=== PATIENT | female | born 1975 | race Caucasian/White ===

== ENCOUNTER → 2017-11-09 | Outpatient (CLI) | payer OTHER ==
[2017-11-09 13:05] LABS: BLOOD UREA NITROGEN 14 mg/dl (7-18); CALCIUM 8.8 mg/dl (8.5-10.1); CARBON DIOXIDE 26 mmol/L (21-32); CREATININE 0.89 mg/dl (0.60-1.20); GLUCOSE 101 mg/dl (70-99); SODIUM 139 mmol/L (136-145)
[2017-11-09 13:16] LABS: CHOLESTEROL 198 mg/dl (0-200); LDL CHOLESTEROL CALCULATED 140 mg/dl
== END | disposition home or self-care (01) ==
LOC: C.LABPVFM 09:22
PROVIDERS: ATTEND Nurse Practitioner Family
DX: F41.9 Anxiety disorder, unspecified (principal); I10 Essential (primary) hypertension

== ENCOUNTER → 2017-11-18 | Outpatient (CLI) | payer OTHER ==
--- NOTE | 2017-11-18 15:57 | DIAGNOSTIC IMAGING REPORT ---
ULTRASOUND ABDOMINAL WALL CLINICAL HISTORY: Abdominal wall bulge. FINDINGS: Real-time, grayscale, and color flow sonography of the abdominal wall is performed. There is diastases of the rectus abdominis musculature with approximately 7.5 cm separation on stress. There is associated protuberance of abdominal contents. A heterogeneous vascular mass lesion is identified in the right adnexa. This measures approximately 13 x 10 x 13 cm. IMPRESSION: 1. There is diastases of the rectus abdominis musculature with bulging/protuberance of abdominal contents with stress. 2. A 13 cm adnexal mass is incidentally noted, possibly related to the ovary. Neoplasm is the diagnosis of exclusion. Follow-up with a contrast-enhanced CT of the abdomen and pelvis is recommended for further assessment. Electronically signed by: Elder Lizarraga M.D. 11/18/2017 3:56 PM Dictated Date/Time: 11/18/2017 3:53 PM
== END | disposition home or self-care (01) ==
LOC: C.ULTR 15:25
PROVIDERS: ATTEND Nurse Practitioner Family
DX: R19.00 Intra-abdominal and pelvic swelling, mass and lump, unspecified site (principal)

== ENCOUNTER → 2017-11-24 | Outpatient (CLI) | payer OTHER ==
[~2017-11-24] MED LIST: OPTIRAY 320 IV PRN
--- NOTE | 2017-11-24 17:11 | DIAGNOSTIC IMAGING REPORT ---
CT OF THE ABDOMEN AND PELVIS WITH CONTRAST CLINICAL HISTORY: Adnexal mass. COMPARISON STUDY: Abdominal ultrasound November 18, 2017. TECHNIQUE: Following IV administration of 94 mL of Optiray-320, axial images of the abdomen and pelvis were obtained from the lung bases to the proximal femurs. Images were reviewed in the axial, sagittal, and coronal planes. IV contrast was administered without complication. A dose lowering technique was utilized adhering to the principles of ALARA. Oral contrast was administered. CT DOSE: 382.07 mGy.cm FINDINGS: Visualized portions of the lower lungs demonstrate multiple small noncalcified pulmonary nodules, the largest of which is a 5 mm left lower lobe nodule shown image 7 of 421. There is fatty infiltration of the liver. No hepatic lesions are present. The spleen, adrenal glands and pancreas are normal. Several bilateral renal calculi are noted, including a 7 mm right renal calculus. There is mild right collecting system dilatation. There are no ureteral calculi. The caliber of the right ureter is normal. There is no evidence for a bowel obstruction. The caliber and wall thickness of small and large bowel are normal. The appendix is normal. There is no ascites. No peritoneal implants are noted. There is a large heterogeneous enhancing right adnexal mass that measures 14.6 x 13.8 x 10.8 cm. This lesion contains several punctate calcifications. This corresponds to the lesion shown on prior ultrasound. The right ovary is visualized. This lesion is adjacent to or arising from the right ovary. The left ovary is unremarkable. There is no fat plane between this lesion and the uterus although this lesion displaces right arises from the uterus. There are no suspicious osseous lesions. No pneumatosis, free air or portal venous gas is present. IMPRESSION: 1. 14.6 x 13.8 x 10.8 cm heterogeneous enhancing right adnexal mass. Right ovary visualized with no fat plane between the adnexal mass and the right ovary. A right ovarian neoplasm is the diagnosis of exclusion and gynecologic consultation is recommended as the findings are suggestive of malignancy. A pedunculated fibroid/leiomyosarcoma could appear similar although is considered much less likely. 2. Multiple small pulmonary nodules within visualized portions of the lower lungs which are nonspecific but worrisome for metastatic disease. A follow-up chest CT is recommended. 3. Mild right collecting system dilatation of uncertain etiology. This may be related to mass effect upon the right ureter however the caliber of the right ureter is normal. 4. Bilateral nephrolithiasis. No ureteral calculi. 5. Fatty liver. Electronically signed by: Junior Grider M.D. 11/24/2017 5:10 PM Dictated Date/Time: 11/24/2017 4:46 PM
== END | disposition home or self-care (01) ==
LOC: C.CTS 15:43
PROVIDERS: ATTEND Nurse Practitioner Family
DX: N94.9 Unspecified condition associated with female genital organs and menstrual cycle (principal); R19.09 Other intra-abdominal and pelvic swelling, mass and lump; R91.8 Other nonspecific abnormal finding of lung field; N20.0 Calculus of kidney; K76.0 Fatty (change of) liver, not elsewhere classified

== ENCOUNTER → 2017-12-03 | Outpatient (CLI) | payer OTHER ==
--- NOTE | 2017-12-03 09:23 | DIAGNOSTIC IMAGING REPORT ---
CHEST 2 VIEWS ROUTINE HISTORY: Preop. COMPARISON: None. FINDINGS: The lungs are clear. Cardiac silhouette is normal in size. No pleural effusions. No pneumothorax. IMPRESSION: No acute process. Electronically signed by: Juan Hammer M.D. 12/03/2017 9:22 AM Dictated Date/Time: 12/03/2017 9:21 AM
[2017-12-03 09:35] LABS: HEMATOCRIT 42.9 % (37-47); HEMOGLOBIN 14.5 g/dL (12.0-16.0); MEAN CELL VOLUME 93.1 fL (80-100); MEAN CORPUSCULAR HEMOGLOBIN 31.5 pg (25-34); MEAN CORPUSCULAR HGB CONC 33.8 g/dl (32-36); MEAN PLATELET VOLUME 10.2 fL (7.4-10.4); PLATELET COUNT 276 K/uL (130-400); RED CELL DISTRIBUTION WIDTH CV 12.8 % (11.5-14.5); RED CELL DISTRIBUTION WIDTH SD 43.4 fL (36.4-46.3)
[2017-12-03 09:58] LABS: ALBUMIN 3.7 gm/dl (3.4-5.0); ALT/SGPT 83 U/L (12-78); AST/SGOT 34 U/L (15-37); BLOOD UREA NITROGEN 13 mg/dl (7-18); CALCIUM 8.9 mg/dl (8.5-10.1); CARBON DIOXIDE 27 mmol/L (21-32); CREATININE 0.88 mg/dl (0.60-1.20); GLUCOSE 97 mg/dl (70-99); POTASSIUM 4.3 mmol/L (3.5-5.1); SODIUM 139 mmol/L (136-145)
[2017-12-03 10:01] LABS: ALKALINE PHOSPHATASE 85 U/L (45-117)
== END | disposition home or self-care (01) ==
LOC: C.CPL 08:40
PROVIDERS: ATTEND Obstetrics & Gynecology Gynecologic Oncology
DX: Z01.818 Encounter for other preprocedural examination (principal); R19.00 Intra-abdominal and pelvic swelling, mass and lump, unspecified site

== ENCOUNTER → 2017-12-31 | Outpatient (CLI) | payer OTHER ==
--- NOTE | 2017-12-31 08:32 | DIAGNOSTIC IMAGING REPORT ---
CT (CHEST) THORAX WITH CT DOSE: 639.92 mGy.cm HISTORY: Mass ABD MALIGNANT NEOPLASM,LEIOMYOSARCOMA OF RETROPERI TECHNIQUE: Multiaxial CT images of the chest were performed following the intravenous administration of contrast. A dose lowering technique was utilized adhering to the principles of ALARA. COMPARISON: None. FINDINGS: Several bilateral parenchymal nodules are present. There is a 2.5 mm parenchymal nodule posterior right pulmonary apex image 60. There is a 3 mm nodule left upper lobe posteriorly transaxial image 86 a 2 mm nodule is noted image 1:15 anterior to the right major fissure. There is a 3 mm nodule medial aspect right lower lobe as well as medially anterior to the left major fissure image 134. There are several small 3 to 5 mm nodular densities involving the right as well as left lower lobe regions. There are 4 mm nodule peripheral aspect right lung image 177 the same imaging level demonstrating a 4 mm nodule medial aspect left lower lobe. Several additional basilar nodules are identified bilaterally but these do not exceed 3.5 mm. There is no significant hilar or mediastinal adenopathy. Axillary regions are unremarkable. IMPRESSION: 1. Several small 2 to 5 mm nodular densities throughout both hemithoraces. 2. Study is otherwise unremarkable. 3. No significant mediastinal or hilar adenopathy. 4. Mild fatty infiltration of liver. 5. Close monitoring is suggested to exclude the possibility of early metastatic change. The above report was generated using voice recognition software. It may contain grammatical, syntax or spelling errors. Electronically signed by: Oc Cheung M.D. 12/31/2017 8:30 AM Dictated Date/Time: 12/31/2017 8:24 AM
--- NOTE | 2017-12-31 08:35 | DIAGNOSTIC IMAGING REPORT ---
CT ABD/PELVIS IV AND ORAL CONT CLINICAL HISTORY: Retroperitoneal leiomyosarcoma. COMPARISON STUDY: 11/24/2017 TECHNIQUE: Following the IV administration of 93 mL of Optiray-320, CT scan of the abdomen and pelvis was performed from the lung bases to the proximal femurs. Images are reviewed in the axial, sagittal, and coronal planes. IV contrast was administered without complication. A dose lowering technique was utilized adhering to the principles of ALARA. CT DOSE: FINDINGS: Lower chest: There are multiple bilateral pulmonary nodules. These appear larger on the prior study indicative of progressive metastatic disease. Liver: There is hepatic steatosis. No focal hepatic masses are visualized. Gallbladder: Unremarkable. Spleen: Normal in size and attenuation. Pancreas: Unremarkable. Adrenal glands: Unremarkable. Kidneys: There is a 5 mm calculus within the right renal pelvis. There is mild fullness the right renal pelvis and there is mild proximal right ureteral thickening. No solid renal masses are visualized. Bowel: There are no transition zones indicate bowel obstruction. There is no acute diverticulitis. The appendix appears normal. There is minimal fluid surrounding the cecal tip. Peritoneum: There is trace fluid within the right paracolic gutter. There is no free intraperitoneal air. Vasculature: The abdominal aorta is normal in course and caliber. Adenopathy: There are minimally prominent inguinal lymph nodes. Pelvic sidewall lymph nodes are the upper limits of normal in size. Pelvic viscera: There is been interval resection of the large pelvic mass. There is a 4 cm pelvic fluid collection located anterior to the rectum and posterior to the bladder. This is likely postsurgical. It is not possible to determine whether this is infected. Skeletal structures: No destructive osseous lesions are seen. IMPRESSION: 1. Interval hysterectomy with resection of the large pelvic mass 2. 4 cm pelvic fluid collection, likely postsurgical. Likely diagnostic considerations include a resolving postsurgical hematoma versus a postsurgical abscess 3. Multiple bilateral pulmonary nodules which appears slightly larger than the prior study. Metastatic disease is suspected 4. Hepatic steatosis 5. 5 mm calculus within the right renal pelvis. Mild thickening of the proximal right ureter. Minimal fullness the right renal collecting system. This calculus may be intermittently obstructing. Electronically signed by: Dinesh Iyer M.D. 12/31/2017 8:34 AM Dictated Date/Time: 12/31/2017 8:23 AM
== END | disposition home or self-care (01) ==
LOC: C.CTS 07:12
PROVIDERS: ATTEND Obstetrics & Gynecology Gynecologic Oncology
DX: C76.2 Malignant neoplasm of abdomen (principal); C48.0 Malignant neoplasm of retroperitoneum; R91.8 Other nonspecific abnormal finding of lung field; K76.0 Fatty (change of) liver, not elsewhere classified; N20.0 Calculus of kidney

== ENCOUNTER → 2018-04-09 | Outpatient (CLI) | payer OTHER ==
[~2018-04-09] MED LIST changes: +LISI-729 PO; -OPTIRAY 320 IV PRN
[2018-04-09 16:14] LABS: HEMATOCRIT 42.2 % (37-47); HEMOGLOBIN 14.2 g/dL (12.0-16.0); MEAN CELL VOLUME 90.4 fL (80-100); MEAN CORPUSCULAR HEMOGLOBIN 30.4 pg (25-34); MEAN CORPUSCULAR HGB CONC 33.6 g/dl (32-36); MEAN PLATELET VOLUME 10.8 fL (7.4-10.4); PLATELET COUNT 181 K/uL (130-400); RED CELL DISTRIBUTION WIDTH CV 13.1 % (11.5-14.5); RED CELL DISTRIBUTION WIDTH SD 43.2 fL (36.4-46.3); WHITE BLOOD COUNT 14.06 K/uL (4.8-10.8)
[2018-04-09 16:38] LABS: ALBUMIN 3.7 gm/dl (3.4-5.0); ALKALINE PHOSPHATASE 123 U/L (45-117); ALT/SGPT 37 U/L (12-78); AST/SGOT 13 U/L (15-37); BASO % 0.2 %; BASO ABS # 0.03 K/uL (0-0.2); BLOOD UREA NITROGEN 18 mg/dl (7-18); CALCIUM 8.9 mg/dl (8.5-10.1); CARBON DIOXIDE 29 mmol/L (21-32); CREATININE 0.93 mg/dl (0.60-1.20); EOS % 1.1 %; EOS ABS # 0.16 K/uL (0-0.5); GLUCOSE 138 mg/dl (70-99); IG# 0.62 K/uL (0.00-0.02); LYMPH % 15.5 %; LYMPH ABS # 2.18 K/uL (1.2-3.4); MONO % 0.3 %; MONO ABS # 0.04 K/uL (0.11-0.59); NEUT % 78.5 %; NEUT ABS # 11.03 K/uL (1.4-6.5); POTASSIUM 3.7 mmol/L (3.5-5.1); SODIUM 137 mmol/L (136-145); TOTAL PROTEIN 7.7 gm/dl (6.4-8.2)
== END | disposition home or self-care (01) ==
LOC: C.LABSPEC 15:53
PROVIDERS: ATTEND Nurse Practitioner Family
DX: C48.0 Malignant neoplasm of retroperitoneum (principal)

== ENCOUNTER 2019-04-13 10:50 | Inpatient (IN) ==
[2019-04-13] MEDS ORDERED: ALBUT/IPRATROP 3MG/0.5MG NEB 3 ML VIAL INH STA (11:33)
--- NOTE | 2019-04-13 12:23 | XRay Report ---
XR chest 1V portable CLINICAL HISTORY: shortness of breath COMPARISON STUDY: 04/02/2018 FINDINGS: The cardiac and mediastinal contours remain stable. There are bilateral pleural effusions.[ There is been interval development of left lower lobe airspace opacities, pneumonia versus atelectasi s.. There is slight elevation of interstitium and mild fluid overload must be considered. There is a left-sided A-Port catheter. IMPRESSION: 1. Elevation of interstitium suggestive of mild fluid overload 2. Interval development of bilateral pleural effusions 3. Interval development of left lower lung zone airspace opacities, pneumonia versus atelectasis Electronically signed by: Dinesh Iyer M.D. 04/13/2019 12:22 PM
[2019-04-13 12:41] LABS: Basophils # (auto) 0.01 K/uL (0-0.2); Basophils % (auto) 0.2 %; Eosinophils # (auto) 0.03 K/uL (0-0.5); Eosinophils % (auto) 0.6 %; Hematocrit (blood only) 38.5 % (37-47); Hemoglobin 12.2 g/dL (12.0-16.0); Immature Granulocytes # (auto) 0.09 K/uL (0.00-0.02); Immature Granulocytes % (auto) 1.7 %; Lymphocytes # (auto) 1.22 K/uL (1.2-3.4); Lymphocytes % (auto) 22.9 %; Mean Corpuscular Hgb Conc 31.7 g/dL (32-36); Mean Corpuscular Volume 104.6 fL (80-100); Mean Platelet Volume 10.1 fL (7.4-10.4); Monocytes # (auto) 0.91 K/uL (0.11-0.59); Monocytes % (auto) 17.1 %; Neutrophils # (auto) 3.07 K/uL (1.4-6.5); Neutrophils % (auto) 57.5 %; Nucleated RBC # (auto) 0.03 K/uL (0-0); Nucleated RBC % (auto) 0.5 %; Platelet Count 187 K/uL (130-400); RDW Coefficient of Variation 20.5 % (11.5-14.5); RDW Standard Deviation 72.6 fL (36.4-46.3); Red Blood Count 3.68 M/uL (4.2-5.4); White Blood Count 5.33 K/uL (4.8-10.8)
--- NOTE | 2019-04-13 12:51 | Emergency Department Note ---
History of Present Illness General Chief complaint: Shortness of Breath/Dyspnea Stated complaint: SHORTNESS OF BREATH Time Seen by Provider: 04/13/19 12:09 History of Present Illness Maximum Pain Intensity: 8 This patient is a 44-year-old female that presents via private vehicle to the em ergency department complaining of increased dyspnea over the last 2 days. It is worse with lying flat and exertion. It is better with sitting up and rest. She denies any chest pain. No recent fever, cough or chills. The patient is currently undergoing chemotherapy for history of leiomyosarcoma. She reports having a mass in her abdomen. She reports that due to the chemotherapy, the patient has had issues with fluid retention. She is currently taking Lasix 80 mg daily. No recent changes in her dose. The patient also reports a history of pulmonary embolus approximately 2 months ago. She has been taking Xarelto since. No recent travel. Denies any leg pain. Home Medications Home Medications Medication Instructions Recorded Confirmed Type albuterol sulfate [Ventolin HFA] 0 puff INHALATION DIRECTED PRN 04/13/19 04/13/19 History furosemide 80 mg PO DAILY 04/13/19 04/13/19 History gabapentin 300 mg PO DAILY 04/13/19 04/13/19 History lisinopril 5 mg PO DAILY 04/13/19 04/13/19 History rivaroxaban [Xarelto] 20 mg PO DAILY 04/13/19 04/13/19 History Allergies Allergy/AdvReac Type Severity Reaction Status Date / Time No Known Allergies Allergy Unverified 04/13/19 12:43 Past Med/Surg History Medical History Elevated troponin (Acute) History of pulmonary embolism (Chronic) Leiomyosarcoma (Chronic) Acute CHF (congestive heart failure) (Acute) Leiomyosarcoma Social History Preferred Language: Korean Feels Safe at Home: Yes Smoking Status: Former smoker Review of Systems A total of 10 systems reviewed and were otherwise negative Physical Exam Vital Signs Vital Signs - 24 hr 04/13/19 11:01 04/13/19 12:28 04/13/19 13:00 Temperature 36.6 C Temperature Source Oral Sepsis Recent Fever Within 48 Hours No Sepsis New/Unexplained Change in Mental Status No Sepsis Action Taken by Nursing No Action Required Pulse Rate 128 H 113 H Pulse Rate [Apical] 111 H Pulse Rate from SpO2 Sensor 110 H Respiratory Rate 20 22 20 Respiratory Effort / Characteristics Non-Labored Spontaneous Blood Pressure 115/81 109/81 Blood Pressure [Left Arm] 105/84 Blood Pressure Mean 92 90 Blood Pressure Mean [Left Arm] 91 Blood Pressure Position Sitting Pulse Oximetry 97 97 94 Oxygen Delivery Method Room Air Room Air Room Air 04/13/19 15:25 04/13/19 15:50 04/13/19 16:13 Temperature Temperature Source Sepsis Recent Fever Within 48 Hours Sepsis New/Unexplained Change in Mental Status Sepsis Action Taken by Nursing Pulse Rate Pulse Rate [Apical] 111 H 116 H Pulse Rate from SpO2 Sensor Respiratory Rate 18 Respiratory Effort / Characteristics Blood Pressure Blood Pressure [Left Arm] 118/80 107/81 93/79 L Blood Pressure Mean Blood Pressure Mean [Left Arm] 92 89 83 Blood Pressure Position Pulse Oximetry 98 Oxygen Delivery Method Room Air 04/13/19 17:09 04/13/19 18:00 Temperature Temperature Source Sepsis Recent Fever Within 48 Hours Sepsis New/Unexplained Change in Mental Status Sepsis Action Taken by Nursing Pulse Rate Pulse Rate [Apical] 121 H 102 H Pulse Rate from SpO2 Sensor Respiratory Rate 18 18 Respiratory Effort / Characteristics Blood Pressure Blood Pressure [Left Arm] 90/73 L 95/68 L Blood Pressure Mean Blood Pressure Mean [Left Arm] 78 77 Blood Pressure Position Pulse Oximetry 95 95 Oxygen Delivery Method Room Air Constitutional WD/WN, vitals as above Eyes EOM intact bilaterally ENMT external ear and nose normal, oropharynx normal Neck trachea midline Respiratory Crackles noted particularly at the left base. No wheezing. Cardiovascular RRR, no murmur, no edema Gastrointestinal (Abdomen) normal bowel sounds, soft, nontender, no hepatosplenomegaly Musculoskeletal +1 pitting edema in the lower extremities bilaterally. No erythema or warmth appreciated. DP pulse +2 bilaterally. Skin no rashes, warm and dry Neurologic Alert and oriented x3. No focal motor deficits. Psychiatric Acting appropriately Course Patient was seen and examined Vital signs including blood pressure were reviewed medications list was verified with patient Labs were obtained, and a saline lock was established The patient was put on a monitor. An EKG was performed and reviewed. Imaging was performed and reviewed Upon reassessment, the patient was feeling about the same. We discussed her work-up. She voiced understanding. The patient was ordered Lasix 80 mg IV The case was discussed with my supervising physician who is in agreement with my plan I then spoke with the [facility] hospitalist group. They kindly agreed to admit the patient for further treatment. Consultations Consultation #1: Dr. Gaitan Administered Medications Ioversol (Optiray 320 125ml) 120 ml IV ONCE PRN PRN Reason: Interaction Checking Stop: 04/17/19 13:51 Last Admin: 04/13/19 13:52 Dose: 120 ml Documented by: [id number] Discontinued Medications Albuterol (Duoneb) 3 ml INH NOW STA Stop: 04/13/19 11:34 Last Admin: 04/13/19 11:57 Dose: Not Given Documented by: [id number] Furosemide (Lasix) Confirm Administered Dose 80 mg IV .STK-MED ONE Stop: 04/13/19 15:05 Last Admin: 04/13/19 15:06 Dose: 80 mg Documented by: [id number] Furosemide 80 mg/ Syringe 8 mls @ 4 mls/min IV ONE ONE Stop: 04/13/19 14:11 Last Admin: 04/13/19 15:06 Dose: Not Given Documented by: [id number] Medical Decision Making Medical Records Attestation: I reviewed the patient's medical records. Home Medications Current Medication List: was personally reviewed by me Laboratory Data Attestation: I reviewed the patient's lab results. Result diagrams: 04/13/19 12:19 04/13/19 12:19 Lab Results 04/13/19 04/13/19 04/13/19 Range/Units 12:19 12:19 12:19 WBC 5.33 (4.8-10.8) K/uL RBC 3.68 L (4.2-5.4) M/uL Hgb 12.2 (12.0-16.0) g/dL Hct 38.5 (37-47) % MCV 104.6 H (80-100) fL MCH 33.2 (25-34) pg MCHC 31.7 L (32-36) g/dL RDW Std Deviation 72.6 H (36.4-46.3) fL RDW Coeff of Jennifer 20.5 H (11.5-14.5) % Plt Count 187 (130-400) K/uL MPV 10.1 (7.4-10.4) fL Immature Gran % (Auto) 1.7 % Neut % (Auto) 57.5 % Lymph % (Auto) 22.9 % Woodward % (Auto) 17.1 % Eos % (Auto) 0.6 % Baso % (Auto) 0.2 % Immature Gran # (Auto) 0.09 H (0.00-0.02) K/uL Neut # (Auto) 3.07 (1.4-6.5) K/uL Lymph # (Auto) 1.22 (1.2-3.4) K/uL Woodward # (Auto) 0.91 H (0.11-0.59) K/uL Eos # (Auto) 0.03 (0-0.5) K/uL Baso # (Auto) 0.01 (0-0.2) K/uL Absolute Nucleated RBC 0.03 H (0-0) K/uL Nucleated RBC % (auto) 0.5 % Polychromasia 1+ Anisocytosis Present PT 11.9 (9.0-12.0) Seconds INR 1.2 H (0.9-1.1) APTT 27.4 (21.0-31.0) Seconds PTT Ratio 1.0 Sodium 141 (136-145) mmol/L Potassium 3.7 (3.5-5.1) mmol/L Chloride 107 (98-107) mmol/L Carbon Dioxide 25 (21-32) mmol/L Anion Gap 9.0 (3-11) BUN 12 (7-18) mg/dl Creatinine 0.70 (0.6-1.2) mg/dl Est Cr Clr Drug Dosing 93.8 ml/min Est GFR ( Amer) 121.3 Est GFR (Non-Af Amer) 104.6 BUN/Creatinine Ratio 16.5 (10-20) Glucose 92 (70-99) mg/dl Calcium 8.6 (8.5-10.1) mg/dl Total Bilirubin 0.5 (0.2-1) mg/dl AST 38 H (15-37) U/L ALT 39 (12-78) U/L Alkaline Phosphatase 103 (45-117) U/L Troponin I 0.381 H* (0-0.045) ng/ml Total Protein 7.1 (6.4-8.2) gm/dl Albumin 3.4 (3.4-5.0) gm/dl Globulin 3.7 (2.5-4.0) gm/dl Albumin/Globulin Ratio 0.9 (0.9-2) Imaging Data Attestation: I personally reviewed and interpreted this imaging study as follows: Radiologist's Impression: Chest x-ray IMPRESSION: 1. Elevation of interstitium suggestive of mild fluid overload 2. Interval development of bilateral pleural effusions 3. Interval development of left lower lung zone airspace opacities, pneumonia versus atelectasis Electronically signed by: Dinesh Iyer M.D. 04/13/2019 12:22 PM Dictated: 04/13/19 1220 Transcribed: 04/13/19 1220 CTA chest 1. No evidence for pulmonary emboli. 2. Congestive heart failure/pulmonary edema. 3. Interval development of bilateral pleural effusions considered large. 4. Moderate cardiomegaly with a trace amount of pericardial fluid. 5. Stable parenchymal nodularity compared to the prior study within visibility limitations ECG Data Attestation: I personally reviewed and interpreted this ECG as follows: Indication: SOB/dyspnea Rate (beats per minute): 110 Rhythm: sinus tachycardia Additional Comments: Q waves present in the septal leads. Unable to visualize old EKG. Slight ST depression noted in the lateral leads. Blood Pressure Blood Pressure Findings: Normal blood pressure MDM Narrative Differential diagnosis: CHF exacerbation, pulmonary embolus, anemia, acute myocardial infarction, cardiac arrhythmia, , pneumothorax, pneumonia, bronchitis, pericarditis, electrolyte imbalance, among others This patient is a 44-year-old female presents emergency department with shortness of breath. On exam, she had decreased breath sounds bilaterally. She was tachycardic. The patient was not hypoxic. She has a history of pulmonary embolus and leiomyosarcoma. Her work-up reveals an elevated troponin. Her EKG did not show any signs of ischemia or infarction. Chest x-ray was consistent with likely CHF. CT was performed to ensure that there were no further pulmonary emboli. This shows large pleural effusions. No emboli were noted. Given the fact that the patient is already taking 80 mg of Lasix daily, and has remained symptomatic, it was thought that hospitalist consultation was warranted. The patient is in agreement with this plan. She was treated with Lasix in the emergency department. Her vital signs remained stable. Impression & Plan Acute CHF (congestive heart failure) Discharge Plan Visit Data Chief Complaint: Shortness of Breath/Dyspnea Stated Complaint: SHORTNESS OF BREATH ED Provider: Varun Bautista ED Midlevel Provider: Mariann Brown Discharge Problem: Acute CHF (congestive heart failure) Patient Disposition: Admitted As Inpatient Condition: Fair Forms Stand Alone Forms: [facility] Prescriptions Prescriptions: No Action furosemide 80 mg tablet 80 mg PO DAILY RF: 0 gabapentin 300 mg capsule 300 mg PO DAILY RF: 0 lisinopril 5 mg tablet 5 mg PO DAILY RF: 0 albuterol sulfate [Ventolin HFA] 90 mcg/actuation HFA aerosol inhaler inhalation DIRECTED PRN (Reason: Unknown) RF: 0 Xarelto 20 mg tablet 20 mg PO DAILY RF: 0 Referrals Referrals: Ritika Ly CRNP [Primary Care Provider] -
[2019-04-13 12:53] LABS: INR 1.2 (0.9-1.1); Partial Thromboplastin Time 27.4 Seconds (21.0-31.0); Prothrombin Time 11.9 Seconds (9.0-12.0)
[2019-04-13 13:04] LABS: Anisocytosis Present; Polychromasia 1+
[2019-04-13 13:08] LABS: Albumin Level 3.4 gm/dl (3.4-5.0); BUN Creatinine Ratio 16.5 (10-20); Calcium 8.6 mg/dl (8.5-10.1); Creatinine Clr Calc Pharmacy 93.8 ml/min; Est GFR (African American) 121.3; Est GFR (Non-African American) 104.6; Potassium 3.7 mmol/L (3.5-5.1)
[2019-04-13 13:20] LABS: Albumin Globulin Ratio 0.9 (0.9-2); Bilirubin,Total 0.5 mg/dl (0.2-1); Globulin 3.7 gm/dl (2.5-4.0); Total Protein 7.1 gm/dl (6.4-8.2); Troponin I 0.381 ng/ml (0-0.045)
[2019-04-13] MEDS ORDERED: OPTIRAY 320 125ml IV PRN (13:52)
--- NOTE | 2019-04-13 14:05 | CT Scan Report ---
CT angio chest PE protocol CT DOSE: 267.63 mGy.cm HISTORY: Dyspnea SOB hx PE bumped trop TECHNIQUE: Multiaxial CT images of the chest were performed following the intravenous administration of contrast to evaluate the pulmonary arteries. Maximal intensity projection images were also obtaine d. A dose lowering technique was utilized adhering to the principles of ALARA. COMPARISON STUDY: 01/27/2019 FINDINGS: Interval development of significant bilateral pleural effusions. The heart is enlarged. Pul monary vasculature is prominent. Increased prominence of the interstitium consistent with interstitia l pulmonary edema. Parenchymal nodularity which can be compared to the prior study is stable. Central catheter remains i n superior vena cava. IMPRESSION: 1. No evidence for pulmonary emboli. 2. Congestive heart failure/pulmonary edema. 3. Interval development of bilateral pleural effusions considered large. 4. Moderate cardiomegaly with a trace amount of pericardial fluid. 5. Stable parenchymal nodularity compared to the prior study within visibility limitations The above report was generated using voice recognition software. It may contain grammatical, syntax or spelling errors. Electronically signed by: Oc Cheung M.D. 04/13/2019 2:04 PM
[2019-04-13] MEDS ORDERED: FUROSEMIDE 80 MG in SYRINGE 0 ML IV ONE (14:10)
[2019-04-13] MEDS ORDERED: FUROSEMIDE 40 MG/4 ML VIAL IV ONE (15:04)
--- NOTE | 2019-04-13 16:58 | History & Physical Report ---
Date of Service April 13, 2019 Assessment & Plan (1) Acute CHF (congestive heart failure): Possible myocardial toxicity from chemotherapeutic agents. Telemetry. IV Lasix. Monitor urine output. Repeat cardiac echo. Cardiology consultation Present on Admission?: Yes (2) Elevated troponin: Telemetry. Trend troponin levels. Cardiac echo. Cardiology consultation. Serial EKGs Present on Admission?: Yes (3) Leiomyosarcoma: Actively receiving chemotherapy at the [facility] Present on Admission?: Yes (4) History of pulmonary embolism: Continue Xarelto therapy Present on Admission?: Yes History of Present Illness Chief Complaint: Shortness of breath with exertion, orthopnea, abdominal bloating Primary Care Provider: BOYD Watkins 44-year-old female with no previous cardiac history. 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 She believes she is getting gemcitabine as 1 of her chemotherapeutic agents but is unsure of the other one. This is apparently a clinical trial. She has noticed a several days of abdominal bloating, shortness of breath, dyspnea on exertion, orthopnea. She denies chest discomfort or palpitations. She presents with signs and symptoms of congestive heart failure. She has large bilateral pleural effusions. Troponin is also elevated but no acute changes on EKG which reveals sinus tachycardia and low voltage with nonspecific ST segment changes. Troponin is 0.381. Cardiac echo done last fall reveals normal ejection fraction with mild LVH. She is being diuresed with IV Lasix. Cardiac echo will be repeated. Cardiology consultation requested. Serial troponins ordered. Oral potassium replacement to prevent hypokalemia. She is not hypoxic on room air. Creatinine 0.7. Allergies Allergy/AdvReac Type Severity Reaction Status Date / Time No Known Allergies Allergy Unverified 04/13/19 12:43 Home Medications Home Medications Medication Instructions Recorded Confirmed Type albuterol sulfate [Ventolin HFA] 0 puff INHALATION DIRECTED PRN 04/13/19 04/13/19 History furosemide 80 mg PO DAILY 04/13/19 04/13/19 History gabapentin 300 mg PO DAILY 04/13/19 04/13/19 History lisinopril 5 mg PO DAILY 04/13/19 04/13/19 History rivaroxaban [Xarelto] 20 mg PO DAILY 04/13/19 04/13/19 History Past Med/Surg History Medical History Elevated troponin (Acute) History of pulmonary embolism (Chronic) Leiomyosarcoma (Chronic) Acute CHF (congestive heart failure) (Acute) Leiomyosarcoma Social History Preferred Language: [place] Feels Safe at Home: Yes Smoking Status: Former smoker Review of Systems Review of Systems: Constitutional-no fever or chills ENT-no blurred vision, no double vision, no epistaxis, no sore throat Respiratory-no cough, no wheezing. Shortness of breath at rest and with exertion. Orthopnea Cardiac-no palpitations, no chest pain, no syncope GI-no nausea, vomiting, diarrhea, melena, hematochezia. Abdominal bloating noted -no urinary retention, no urinary incontinence, no dysuria, no hematuria Musculoskeletal-no joint pain, no muscle tenderness Skin-no bruising, no rashes, no pruritus Neuro-no isolated weakness, no paresthesia, no weakness Psych-no depression, no anxiety Physical Exam Physical Exam: General-alert and oriented x3, no fevers, no chills HEENT-head atraumatic and normocephalic, TMs intact bilaterally, pupils equal and reactive to light, extraocular muscles intact Neck-no lymphadenopathy or thyromegaly, trachea midline Chest-clear to auscultation percussion. No rales wheezing or rhonchi Cardiac-regular rate and rhythm, normal S1 and S2, no murmurs Abdomen-normal bowel sounds, nontender, no hepatosplenomegaly Extremities-no cyanosis, clubbing, or edema Neuro-cranial nerves II through XII intact, motor and sensory function within normal limits, strength symmetrical , no focal deficits Psych-normal affect, normal mood Results & Data Vital Signs (Past 12 Hours) Vital Signs Temp Pulse Pulse Resp BP BP Pulse Ox 04/13/19 16:13 93/79 L 04/13/19 15:50 116 H 107/81 04/13/19 15:25 111 H 18 118/80 98 04/13/19 13:00 113 H 20 109/81 94 04/13/19 12:28 111 H 22 105/84 97 04/13/19 11:01 36.6 C 128 H 20 115/81 97 Laboratory Results 04/13/19 12:19 04/13/19 12:19 PG Care Time/CCT Total # of Minutes Spent Total Time Spent with Patient: Total time spent is greater than 50% in coordination of care (as documented) at patient's floor/unit and/or counseling patient:
[2019-04-13] MEDS ORDERED: ACETAMINOPHEN 325 MG TAB PO PRN (19:14)
[2019-04-13] MEDS ORDERED: ONDANSETRON INJ 2 MG/ML 2 ML VIAL IV PRN (19:14)
[2019-04-13] MEDS ORDERED: ALUMINUM/MAGNESIUM SUSP 30 ML UDC PO PRN (19:14)
[2019-04-13] MEDS ORDERED: Nursing to Pharmacy Communication ONE (19:53)
[2019-04-13 20:08] LABS: T4 Free Thyroxine 1.38 ng/dl (0.8-1.6)
[2019-04-13] MEDS ORDERED: POTASSIUM CHLORIDE 20 MEQ TABCR PO SCH (21:00)
[2019-04-13] MEDS: GABAPENTIN 300 MG CAP PO SCH (21:18)
[2019-04-14] MEDS: FUROSEMIDE 80 MG in SYRINGE 0 ML IV SCH ×2 (04:25→16:56)
[2019-04-14 06:18] LABS: Basophils # (auto) 0.01 K/uL (0-0.2); Basophils % (auto) 0.2 %; Eosinophils # (auto) 0.04 K/uL (0-0.5); Eosinophils % (auto) 0.8 %; Hematocrit (blood only) 37.5 % (37-47); Hemoglobin 11.7 g/dL (12.0-16.0); Immature Granulocytes # (auto) 0.06 K/uL (0.00-0.02); Immature Granulocytes % (auto) 1.2 %; Lymphocytes # (auto) 1.62 K/uL (1.2-3.4); Lymphocytes % (auto) 32.8 %; Mean Corpuscular Hgb Conc 31.2 g/dL (32-36); Mean Platelet Volume 10.2 fL (7.4-10.4); Monocytes # (auto) 1.28 K/uL (0.11-0.59); Monocytes % (auto) 25.9 %; Neutrophils # (auto) 1.93 K/uL (1.4-6.5); Neutrophils % (auto) 39.1 %; Nucleated RBC # (auto) 0.04 K/uL (0-0); Nucleated RBC % (auto) 0.8 %; Platelet Count 207 K/uL (130-400); RDW Coefficient of Variation 20.9 % (11.5-14.5); RDW Standard Deviation 77.7 fL (36.4-46.3); Red Blood Count 3.57 M/uL (4.2-5.4); White Blood Count 4.94 K/uL (4.8-10.8)
[2019-04-14 06:56] LABS: BUN Creatinine Ratio 16.9 (10-20); Calcium 8.4 mg/dl (8.5-10.1); Creatinine Clr Calc Pharmacy 82.9 ml/min; Est GFR (African American) 106.4; Est GFR (Non-African American) 91.8; Potassium 3.5 mmol/L (3.5-5.1)
[2019-04-14 07:15] LABS: Anisocytosis Present; Macrocytosis Present
[2019-04-14] MEDS ORDERED: POTASSIUM CHLORIDE 20 MEQ TABCR PO STA (08:15)
--- NOTE | 2019-04-14 08:42 | XRay Report ---
XR chest 1V portable HISTORY: pleural effusions COMPARISON: Chest CTA 04/13/2019. FINDINGS: No pneumothorax. Small right and moderate left pleural effusions are not significantly de la torre ged. Bibasilar densities persist. The heart remains borderline enlarged. Left subclavian Port-A-Cath terminates at the SVC. Mild interstitial pulmonary edema has improved. IMPRESSION: 1. Interval improvement in the mild interstitial pulmonary edema. 2. Bilateral pleural effusions and bibasilar densities persist. Electronically signed by: Juan Hammer M.D. 04/14/2019 8:40 AM
[2019-04-14] MEDS ORDERED: GABAPENTIN 300 MG CAP PO SCH (09:00)
[2019-04-14] MEDS ORDERED: LISINOPRIL 5 MG TAB PO SCH (09:00)
--- NOTE | 2019-04-14 12:04 | Hospitalist Progress Note ---
Date of Service April 14, 2019 Assessment & Plan (1) Acute CHF (congestive heart failure): Acute systolic CHF Admitted with orthopnea, dyspnea on exertion, and lower extremity edema. Found to have bilateral large pleural effusions on chest imaging, along with elevated proBNP at 7500. Echocardiogram from 05/2018 was within normal limits. Echocardiogram now with mildly reduced EF at 45%, paradoxical septal wall motion, and small pericardial effusion Possible myocardial toxicity from chemotherapeutic agents, specifically her docetaxel Improving with diuresis-continue Lasix 80 mg IV every 12 for this evening and will hold off in the morning until after reassess her labs and volume status -Appreciate cardiology consultation-awaiting further recommendations -Strict I's and O's, daily weights (2) Pleural effusion: With large bilateral pleural effusions which are improved today with IV diuresis Discussed case with management manager who did not recommend thoracentesis as this time as she is responding to diuresis and is clinically improved -Could be malignant pleural effusion versus from CHF versus chemotherapy effect? -Continue to follow chest x-ray -Following I's and O's (3) Pericardial effusion: Small, noted on echocardiogram, no tamponade physiology, however is mildly hypotensive and tachycardic, with low voltage on ECG -Will need to be followed serially with echocardiogram -Continue diuresis Appreciate cardiology consultation (4) Leiomyosarcoma: Actively receiving chemotherapy at the [facility] with gemcitabine, docetaxel, and a trial drug called Vorinostat which is improving Diagnosed in spring 2017 with a football sized retroperitoneal mass that was surgically but incompletely resected. Had metastases to the lung and had thoracotomy with wedge biopsy proving this. Also with metastases to the left side of her abdomen. -With pleural effusions here as above likely related to CHF, however could be malignant effusion -Will reach out to her oncologist tomorrow at [facility]-Dr. Salas (5) Sinus tachycardia: As above, possibly secondary to pericardial and pleural effusions -Follow on telemetry -will likely need to add on [id number] to cardiology for management (6) History of pulmonary embolism: Found incidentally on surveillance CT scans of the chest, but she had no symptoms whatsoever approximately 12/2017 -Continue Xarelto therapy-was held initially today in case of need for thoracentesis, but was given later in the day (7) Elevated troponin: Mildly elevated and decreased after admission at 0.3/0 0.1/0.113 Likely secondary to CHF -Not likely to need ischemic evaluation (8) DVT prophylaxis: Xarelto Disposition-remain on telemetry Subjective Patient reports feeling much improved from previous. She can now lie flat without dyspnea. She is still getting tachycardic into the 120s with walking across the room, but no longer feels short of breath with exertion. She reports that the swelling in her legs is significantly down from yesterday. She reports she has been having swelling in her legs and arms approximately the last 2 to 3 months. She started on her current chemotherapy regimen in September of this year which includes gemcitabine, docetaxel, and a trial drug called vorinostat. She was due for her chemo earlier this week but it was withheld due to neutropenia. Her usual chemotherapy schedule is 2 weeks on and 2 weeks off. She was receiving IV Lasix once weekly for each of the 2 weeks that she went in for her IV chemotherapy and then was taking p.o. Lasix at home intermittently. She was feels like the IV Lasix works much better than the p.o. Lasix. She denies chest pain or pressure, denies lightheadedness. She did have mildly low blood pressures this morning but was asymptomatic with it. Denies pain except for some mild occasional left-sided abdominal pain which is where her current metastases are. She reports that her chemotherapy is helping and that her tumors have shrunk by 75%. I discussed the case with both cardiology and the management manager today. The management manager reviewed her case to see if she needed a thoracentesis and did not feel it was necessary at this time. Telemetry with normal sinus rhythm and sinus tachycardia with rates in the 100s to 130s. Review of Systems Review of Systems: All systems reviewed & are unremarkable except as noted in HPI & below Physical Exam Constitutional: WD/WN, vitals as above Eyes: PERRL, conjunctivae normal, anicteric sclerae ENMT: external ear and nose normal, oropharynx normal Neck: trachea midline, no thyromegaly Respiratory: normal respiratory effort and + dullness to percussion (From the bases to the mid lungs bilaterally); no labored breathing Auscultation: + diminished lung sounds (At the bases bilaterally); no crackles, no rhonchi and no wheezes Cardiovascular: Rate/Rhythm: regular rhythm and + tachycardic Heart Sounds: no murmur Extremities: no calf tenderness and no edema Gastrointestinal (Abdomen): normal bowel sounds, soft, nontender, no hepatosplenomegaly Musculoskeletal: Extremities: extremities normal to inspection; no cyanosis and no clubbing Skin: no rashes, warm and dry Neurologic: moves all extremities and awake; no focal motor deficits Psychiatric: A+Ox3, euthymic affect Results & Data Vital Signs (Past 12 Hours) Vital Signs Temp Pulse Resp BP BP Pulse Ox 04/14/19 10:39 37.0 C 113 H 18 105/58 L 94 04/14/19 07:06 36.5 C 115 H 15 87/72 L 91 04/14/19 03:19 36.4 C L 106 H 16 88/63 L 93 Laboratory Results 04/14/19 04/14/19 04/14/19 Range/Units 14:27 05:56 05:56 WBC (4.8-10.8) K/uL RBC (4.2-5.4) M/uL Hgb (12.0-16.0) g/dL Hct (37-47) % MCV (80-100) fL MCH (25-34) pg MCHC (32-36) g/dL RDW Std Deviation (36.4-46.3) fL RDW Coeff of Jennifer (11.5-14.5) % Plt Count (130-400) K/uL MPV (7.4-10.4) fL Immature Gran % (Auto) % Neut % (Auto) % Lymph % (Auto) % [place] % (Auto) % Eos % (Auto) % Baso % (Auto) % Immature Gran # (Auto) (0.00-0.02) K/uL Neut # (Auto) (1.4-6.5) K/uL Lymph # (Auto) (1.2-3.4) K/uL [place] # (Auto) (0.11-0.59) K/uL Eos # (Auto) (0-0.5) K/uL Baso # (Auto) (0-0.2) K/uL Absolute Nucleated RBC (0-0) K/uL Nucleated RBC % (auto) % Anisocytosis Macrocytosis Sodium 141 (136-145) mmol/L Potassium 3.5 (3.5-5.1) mmol/L Chloride 106 (98-107) mmol/L Carbon Dioxide 26 (21-32) mmol/L Anion Gap 9.0 (3-11) BUN 13 (7-18) mg/dl Creatinine 0.78 (0.6-1.2) mg/dl Est Cr Clr Drug Dosing 82.9 ml/min Est GFR ( Amer) 106.4 Est GFR (Non-Af Amer) 91.8 BUN/Creatinine Ratio 16.9 (10-20) Glucose 103 H (70-99) mg/dl Calcium 8.4 L (8.5-10.1) mg/dl Troponin I 0.069 H* 0.113 H* (0-0.045) ng/ml 04/14/19 04/13/19 Range/Units 05:56 22:05 WBC 4.94 (4.8-10.8) K/uL RBC 3.57 L (4.2-5.4) M/uL Hgb 11.7 L (12.0-16.0) g/dL Hct 37.5 (37-47) % MCV 105.0 H (80-100) fL MCH 32.8 (25-34) pg MCHC 31.2 L (32-36) g/dL RDW Std Deviation 77.7 H (36.4-46.3) fL RDW Coeff of Jennifer 20.9 H (11.5-14.5) % Plt Count 207 (130-400) K/uL MPV 10.2 (7.4-10.4) fL Immature Gran % (Auto) 1.2 % Neut % (Auto) 39.1 % Lymph % (Auto) 32.8 % [place] % (Auto) 25.9 % Eos % (Auto) 0.8 % Baso % (Auto) 0.2 % Immature Gran # (Auto) 0.06 H (0.00-0.02) K/uL Neut # (Auto) 1.93 (1.4-6.5) K/uL Lymph # (Auto) 1.62 (1.2-3.4) K/uL [place] # (Auto) 1.28 H (0.11-0.59) K/uL Eos # (Auto) 0.04 (0-0.5) K/uL Baso # (Auto) 0.01 (0-0.2) K/uL Absolute Nucleated RBC 0.04 H (0-0) K/uL Nucleated RBC % (auto) 0.8 % Anisocytosis Present Macrocytosis Present Sodium (136-145) mmol/L Potassium (3.5-5.1) mmol/L Chloride (98-107) mmol/L Carbon Dioxide (21-32) mmol/L Anion Gap (3-11) BUN (7-18) mg/dl Creatinine (0.6-1.2) mg/dl Est Cr Clr Drug Dosing ml/min Est GFR ( Amer) Est GFR (Non-Af Amer) BUN/Creatinine Ratio (10-20) Glucose (70-99) mg/dl Calcium (8.5-10.1) mg/dl Troponin I 0.168 H* (0-0.045) ng/ml Diagnostic Findings Chest x-ray image personally reviewed by me and agree with the following report: XR chest 1V portable HISTORY: pleural effusions COMPARISON: Chest CTA 04/13/2019. FINDINGS: No pneumothorax. Small right and moderate left pleural effusions are not significantly changed. Bibasilar densities persist. The heart remains borderline enlarged. Left subclavian Port-A-Cath terminates at the SVC. Mild interstitial pulmonary edema has improved. IMPRESSION: 1. Interval improvement in the mild interstitial pulmonary edema. 2. Bilateral pleural effusions and bibasilar densities persist. PG Care Time/CCT Total # of Minutes Spent Total Time Spent with Patient: Total time spent is greater than 50% in coordination of care (as documented) at patient's floor/unit and/or counseling patient:
[2019-04-14] MEDS: RIVAROXABAN 20 MG TAB PO SCH (12:49)
[2019-04-14] MEDS ORDERED: RIVAROXABAN 20 MG TAB PO STA (18:45)
[2019-04-14] MEDS: GABAPENTIN 300 MG CAP PO SCH (20:14)
[2019-04-15 05:30] LABS: Basophils # (auto) 0.01 K/uL (0-0.2); Basophils % (auto) 0.2 %; Eosinophils # (auto) 0.07 K/uL (0-0.5); Eosinophils % (auto) 1.3 %; Hematocrit (blood only) 34.9 % (37-47); Immature Granulocytes # (auto) 0.05 K/uL (0.00-0.02); Immature Granulocytes % (auto) 0.9 %; Lymphocytes # (auto) 1.55 K/uL (1.2-3.4); Lymphocytes % (auto) 29.4 %; Mean Corpuscular Hgb Conc 31.5 g/dL (32-36); Mean Corpuscular Volume 104.5 fL (80-100); Mean Platelet Volume 10.5 fL (7.4-10.4); Monocytes # (auto) 1.43 K/uL (0.11-0.59); Monocytes % (auto) 27.1 %; Neutrophils # (auto) 2.17 K/uL (1.4-6.5); Neutrophils % (auto) 41.1 %; Platelet Count 223 K/uL (130-400); RDW Coefficient of Variation 20.4 % (11.5-14.5); RDW Standard Deviation 76.7 fL (36.4-46.3); Red Blood Count 3.34 M/uL (4.2-5.4); White Blood Count 5.28 K/uL (4.8-10.8)
[2019-04-15 05:55] LABS: Anisocytosis Present; BUN Creatinine Ratio 19.8 (10-20); Calcium 8.1 mg/dl (8.5-10.1); Creatinine Clr Calc Pharmacy 87.5 ml/min; Est GFR (African American) 113.4; Est GFR (Non-African American) 97.8; Potassium 3.7 mmol/L (3.5-5.1); Tear Drop Cells 1+
[2019-04-15] MEDS: RIVAROXABAN 20 MG TAB PO SCH (08:22)
--- NOTE | 2019-04-15 10:02 | XRay Report ---
XR chest 2V routine CLINICAL HISTORY: Pleural effusion. Follow-up study. COMPARISON STUDY: 04/14/2019 FINDINGS: The cardiac and mediastinal contours remain stable. There is a left-sided A-Port catheter. There are persistent bilateral pleural effusions left greater than right. There are associated basila r airspace opacity statistically representing compressive atelectasis although an inflammatory proces s could appear similar. There is mild pulmonary vascular congestion.[ IMPRESSION: 1. Minimal residual pulmonary vascular congestion 2. Persistent bilateral pleural effusions left greater than right with associated basilar airspace op acities Electronically signed by: Dinesh Iyer M.D. 04/15/2019 10:01 AM
[2019-04-15] MEDS ORDERED: FUROSEMIDE 40 MG in SYRINGE 0 ML IV ONE (12:00)
--- NOTE | 2019-04-15 14:29 | Cardiology Consultation ---
Date of Consultation April 14, 2019 Assessment & Plan (1) Acute CHF (congestive heart failure): She presents with relatively acute congestive heart failure, is fluid overloaded and feels better with diuresis. There is no obvious cardiac cause for acute congestive heart failure, her pericardial effusion does not explain it, her left ventricular function is only slightly reduced and therefore this is most consistent with diastolic dysfunction. Agree with diuresis. (2) Pericardial effusion: She does have a small pericardial effusion, but it is not enough to cause tamponade and there is no evidence of right ventricular collapse. It may be rel ated to the pleural effusions and not a specific abnormality such as pericarditis. (3) Elevated troponin: Her troponin was elevated on admission and remains elevated but in a decreasing pattern. This is more consistent with demand ischemia than an acute ischemic event and I suspect she did not have a coronary event. I would continue to trend troponins. (4) Cardiomyopathy: Based on her echocardiogram and her presentation she does have a cardiomyopathy, I doubt it is ischemic. Her tachycardia is consistent, her low voltage which initially I thought might be due to a pericardial effusion (which she does not have a large enough 1 to cause a voltage drop) may also be due to myocardial injury on a diffuse basis. This is possibly chemotherapy related. We will need to treat her with heart failure medications if possible but her hypotension may interfere. History of Present Illness Reason for Consultation: CHF Attending Physician: Julianna Yee MD History of Present Illness This is a very pleasant 44-year-old woman who has a history of leiomyosarcoma for which she is receiving chemotherapy. She had a nearly normal echocardiogram in the fall 2017 (LVH), and now presents with symptoms of abdominal bloating, dyspnea on exertion and orthopnea as well as edema. Her electrocardiogram demonstrates low voltage and her troponin is mildly elevated. She has not been having chest discomfort. She did not notice symptoms prior to several days to perhaps a week before presentation. At the time of my evaluation she was feeling much better after initial diuresis. She had not been active so I could not assess dyspnea on exertion. She was having no chest discomfort. Allergies Allergy/AdvReac Type Severity Reaction Status Date / Time No Known Allergies Allergy Unverified 04/13/19 12:43 Home Medications Home Medications Medication Instructions Recorded Confirmed Type albuterol sulfate [Ventolin HFA] 0 puff INHALATION DIRECTED PRN 04/13/19 04/13/19 History furosemide 80 mg PO DAILY 04/13/19 04/13/19 History gabapentin 300 mg PO DAILY 04/13/19 04/13/19 History lisinopril 5 mg PO DAILY 04/13/19 04/13/19 History rivaroxaban [Xarelto] 20 mg PO DAILY 04/13/19 04/13/19 History Patient History Medical History Elevated troponin (Acute) History of pulmonary embolism (Chronic) Leiomyosarcoma (Chronic) Acute CHF (congestive heart failure) (Acute) Leiomyosarcoma Social History Preferred Language: Ukrainian Communication Ability: Effective Beliefs That Will Affect Care: None Current Living Situation: Spouse Other Information That Helps Us Care for You: No Feels Safe at Home: Yes Safety Concerns: Feels Safe At This Time Smoking Status: Former smoker Hx Alcohol Use: Yes Hx Substance Use: No Review of Systems Review of Systems: All systems reviewed & are unremarkable except as noted in HPI & below Physical Exam Physical Exam: Constitutional: Alert, cooperative and in no distress. HEENT: Unremarkable Neck: No jugular venous distention, carotid pulses are normal and equal bilaterally without bruits. Pulmonary: Crackles at bases bilaterally. Cardiac: Regular rhythm with no murmur, gallop or rub. Abdomen: Soft, nontender with normal bowel sounds. Extremities: No edema. Distal pulses intact. Neurologic: No focal findings. Gait is steady. Skin: No rash, ecchymoses or petechiae. Results & Data Vital Signs (Past 12 Hours) Vital Signs Temp Pulse Resp BP BP Pulse Ox 04/14/19 10:39 37.0 C 113 H 18 105/58 L 94 04/14/19 07:06 36.5 C 115 H 15 87/72 L 91 04/14/19 03:19 36.4 C L 106 H 16 88/63 L 93 Diagnostic Findings An electrocardiogram on arrival shows sinus tachycardia at 110 bpm, low voltage compared to prior electrocardiograms as recently as May 24, 2018. Minor nonspecific ST-T abnormalities are present. A subsequent electrocardiogram is unremarkable. Telemetry: Sinus tachycardia, no significant arrhythmia Her echocardiogram shows normal left ventricular size with some degree of left ventricular dysfunction, this appears to be global. She does have mild left ventricular hypertrophy and only a small pericardial effusion. Compared to May 2018 the left ventricular function reduction is new as is the effusion. No evidence of tamponade. PG Care Time/CCT Total # of Minutes Spent Total Time Spent with Patient: Total time spent is greater than 50% in coordination of care (as documented) at patient's floor/unit and/or counseling patient:
[2019-04-15] MEDS ORDERED: POTASSIUM CHLORIDE 20 MEQ TABCR PO STA (15:52)
--- NOTE | 2019-04-15 15:53 | Hospitalist Progress Note ---
Date of Service April 15, 2019 Assessment & Plan (1) Acute CHF (congestive heart failure): Acute systolic CHF-likely secondary to adverse effect of chemotherapy Discussed her case with cardiology and with her oncology team from [place] Admitted with orthopnea, dyspnea on exertion, and lower extremity edema. Found to have bilateral large pleural effusions on chest imaging, along with elevated proBNP at 7500. Echocardiogram from 05/2018 was within normal limits. Echocardiogram now with mildly reduced EF at 45%, left global hypokinesis, paradoxical septal wall motion, and small pericardial effusion The pericardial effusion is not showing tamponade physiology She is clinically improving with diuresis, however remains tachycardic and mildly hypotensive -Continue Lasix 40 mg IV every 12 and watch for hypotension as becomes dried out intravascularly -Appreciate cardiology consultation-plan to start low-dose [id number] will start carvedilol 3.125 mg p.o. twice daily -Strict I's and O's, daily weights, and add on fluid restriction of 1800 mL's per day -Change to low-sodium diet -Holding home lisinopril due to hypotension while trying to diuresis and not on beta-lorena (2) Pleural effusion: With large bilateral pleural effusions which are improved with IV diuresis Discussed case with marine electronics technician who did not recommend thoracentesis as this time as she is responding to diuresis and is clinically improved -Could be malignant pleural effusion versus from CHF versus chemotherapy effect? She does have pulmonary metastases, however her oncology team thinks that a malignant pleural effusion is very low likelihood given her excellent response so far to her chemotherapy -Continue to follow chest x-ray periodically -Following I's and O's, continue diuresis (3) Pericardial effusion: Small, noted on echocardiogram, no tamponade physiology, however is mildly hypotensive and tachycardic, with low voltage on ECG -Will need to be followed serially with limited echocardiogram- will discuss with cardiology on timing of this -Continue diuresis Appreciate cardiology consultation (4) Leiomyosarcoma: Actively receiving chemotherapy at the [facility] with gemcitabine, docetaxel, and a trial drug called Vorinistat (a histone deacetylase inhibitor) which is improving Diagnosed in spring 2017 with a football sized retroperitoneal mass that was surgically but incompletely resected. Had metastases to the lung and had thoracotomy with wedge biopsy proving this. Also with metastases to the left side of her abdomen. -With pleural effusions here as above likely related to CHF, however could be malignant effusion but low likelihood as above If need to contact her oncologist at [facility]-Dr. Salas-her cell phone number as [phone] -Plan to follow-up with oncology after discharge (5) Sinus tachycardia: As above, possibly secondary to pericardial and pleural effusions -Follow on telemetry -will add on beta-lorena today in the form of carvedilol 3.125 mg p.o. twice daily (6) History of pulmonary embolism: Found incidentally on surveillance CT scans of the chest, but she had no symptoms whatsoever approximately 12/2017 -Continue Xarelto therapy (7) Elevated troponin: Mildly elevated and decreased after admission at 0.3/0 0.1/0.113 Likely secondary to CHF -Not likely to need ischemic evaluation (8) DVT prophylaxis: Xarelto Disposition-remain on telemetry, continue diuresis, possibly discharged home in the next 1 to 2 days -Encouraged ambulation Subjective Feeling improved today, feels like she could try to walk a lap around the nurses station. Denies shortness of breath at rest. Denies chest pain or pressure, no headache, no abdominal pain or nausea. I discussed her case with her oncology PA from [facility] in [place]-they said that they are okay with conservative management of her pleural effusions but that if we happened to do a thoracentesis, they would appreciate getting a cytology, however they do have very low suspicion that she has malignant pleural effusions given that she has had a great response to chemotherapy so far. The patient is putting out a lot of urine, however she is also taking in a lot of fluid and reports she thought she was was to drink a lot because she is on the Lasix. Discussed placing her on a fluid restriction. I discussed the case with medical practice assistant as well. Telemetry with sinus tachycardia with rates 100s 110s. Review of Systems Review of Systems: All systems reviewed & are unremarkable except as noted in HPI & below Physical Exam Constitutional: WD/WN, vitals as above Eyes: + anicteric sclerae ENMT: external ear and nose normal, oropharynx normal Neck: trachea midline, no thyromegaly Respiratory: normal respiratory effort and + dullness to percussion (From the bases to the mid lungs bilaterally); no labored breathing Auscultation: + diminished lung sounds (At the bases bilaterally); no crackles, no rhonchi and no wheezes Cardiovascular: Rate/Rhythm: regular rhythm and + tachycardic Heart Sounds: no murmur Extremities: no calf tenderness and no edema Gastrointestinal (Abdomen): normal bowel sounds, soft, nontender, no hepatosplenomegaly Musculoskeletal: Extremities: extremities normal to inspection; no cyanosis and no clubbing Skin: no rashes, warm and dry Neurologic: moves all extremities and awake; no focal motor deficits Psychiatric: A+Ox3, euthymic affect Results & Data Vital Signs (Past 12 Hours) Vital Signs Temp Pulse Resp BP Pulse Ox 04/15/19 15:24 37.3 C 103 H 18 91/69 L 95 04/15/19 12:19 37.1 C 104 H 17 93/62 L 94 04/15/19 07:32 36.4 C L 107 H 17 115/74 93 Laboratory Results 04/15/19 04/15/19 Range/Units 05:13 05:13 WBC 5.28 (4.8-10.8) K/uL RBC 3.34 L (4.2-5.4) M/uL Hgb 11.0 L (12.0-16.0) g/dL Hct 34.9 L (37-47) % MCV 104.5 H (80-100) fL MCH 32.9 (25-34) pg MCHC 31.5 L (32-36) g/dL RDW Std Deviation 76.7 H (36.4-46.3) fL RDW Coeff of Jennifer 20.4 H (11.5-14.5) % Plt Count 223 (130-400) K/uL MPV 10.5 H (7.4-10.4) fL Immature Gran % (Auto) 0.9 % Neut % (Auto) 41.1 % Lymph % (Auto) 29.4 % [place] % (Auto) 27.1 % Eos % (Auto) 1.3 % Baso % (Auto) 0.2 % Immature Gran # (Auto) 0.05 H (0.00-0.02) K/uL Neut # (Auto) 2.17 (1.4-6.5) K/uL Lymph # (Auto) 1.55 (1.2-3.4) K/uL [place] # (Auto) 1.43 H (0.11-0.59) K/uL Eos # (Auto) 0.07 (0-0.5) K/uL Baso # (Auto) 0.01 (0-0.2) K/uL Anisocytosis Present Tear Drop Cells 1+ Sodium 138 (136-145) mmol/L Potassium 3.7 (3.5-5.1) mmol/L Chloride 104 (98-107) mmol/L Carbon Dioxide 27 (21-32) mmol/L Anion Gap 7.0 (3-11) BUN 15 (7-18) mg/dl Creatinine 0.74 (0.6-1.2) mg/dl Est Cr Clr Drug Dosing 87.5 ml/min Est GFR ( Amer) 113.4 Est GFR (Non-Af Amer) 97.8 BUN/Creatinine Ratio 19.8 (10-20) Glucose 100 H (70-99) mg/dl Calcium 8.1 L (8.5-10.1) mg/dl Diagnostic Findings Chest x-ray image personally reviewed by me and agree with the following report: XR chest 2V routine CLINICAL HISTORY: Pleural effusion. Follow-up study. COMPARISON STUDY: 04/14/2019 FINDINGS: The cardiac and mediastinal contours remain stable. There is a left- sided A-Port catheter. There are persistent bilateral pleural effusions left greater than right. There are associated basilar airspace opacity statistically representing compressive atelectasis although an inflammatory process could appear similar. There is mild pulmonary vascular congestion.[ IMPRESSION: 1. Minimal residual pulmonary vascular congestion 2. Persistent bilateral pleural effusions left greater than right with associated basilar airspace opacities PG Care Time/CCT Total # of Minutes Spent Total Time Spent with Patient: Total time spent is greater than 50% in coordination of care (as documented) at patient's floor/unit and/or counseling patient:
[2019-04-15] MEDS: FUROSEMIDE 40 MG in SYRINGE 0 ML IV SCH (21:29)
[2019-04-15] MEDS: GABAPENTIN 300 MG CAP PO SCH (21:29)
[2019-04-15] MEDS: CARVEDILOL 3.125 MG TAB PO SCH (21:55)
[2019-04-16] MEDS ORDERED: HEPARIN 100 UNIT/ML 5ML FLUSH FLUSH PRN (00:18)
[2019-04-16 05:41] LABS: Basophils # (auto) 0.01 K/uL (0-0.2); Basophils % (auto) 0.2 %; Eosinophils # (auto) 0.11 K/uL (0-0.5); Eosinophils % (auto) 1.9 %; Hematocrit (blood only) 35.9 % (37-47); Hemoglobin 11.2 g/dL (12.0-16.0); Immature Granulocytes # (auto) 0.03 K/uL (0.00-0.02); Immature Granulocytes % (auto) 0.5 %; Lymphocytes # (auto) 1.54 K/uL (1.2-3.4); Lymphocytes % (auto) 27.1 %; Mean Corpuscular Hgb Conc 31.2 g/dL (32-36); Mean Corpuscular Volume 104.7 fL (80-100); Mean Platelet Volume 10.1 fL (7.4-10.4); Monocytes # (auto) 1.43 K/uL (0.11-0.59); Monocytes % (auto) 25.2 %; Neutrophils # (auto) 2.56 K/uL (1.4-6.5); Neutrophils % (auto) 45.1 %; Platelet Count 267 K/uL (130-400); RDW Coefficient of Variation 20.1 % (11.5-14.5); RDW Standard Deviation 75.2 fL (36.4-46.3); Red Blood Count 3.43 M/uL (4.2-5.4); White Blood Count 5.68 K/uL (4.8-10.8)
[2019-04-16 06:07] LABS: Anisocytosis Present; Polychromasia 1+; Tear Drop Cells 1+
[2019-04-16 06:11] LABS: BUN Creatinine Ratio 21.2 (10-20); Calcium 8.3 mg/dl (8.5-10.1); Creatinine Clr Calc Pharmacy 80.3 ml/min; Est GFR (African American) 103.2; Potassium 3.6 mmol/L (3.5-5.1)
--- NOTE | 2019-04-16 06:59 | Cardiology Progress Note ---
Date of Service April 15, 2019 Assessment & Plan (1) Acute CHF (congestive heart failure): She presents with relatively acute congestive heart failure, was fluid overloaded and feels better with diuresis. There is no obvious cardiac cause for acute congestive heart failure, her pericardial effusion does not explain it, her left ventricular function is only slightly reduced and therefore this is most consistent with diastolic dysfunction and diastolic CHF. (2) Pericardial effusion: She does have a small pericardial effusion, but it is not enough to cause tamponade and there is no evidence of right ventricular collapse. It may be related to the pleural effusions and not a specific abnormality such as pericarditis. I will plan on repeating the echocardiogram as an outpatient in several weeks to make sure it has not enlarged, and hopefully has resolved. (3) Elevated troponin: Her troponin was elevated on admission and remained elevated but in a decreasing pattern. This is more consistent with demand ischemia than an acute ischemic event and I suspect she did not have a coronary event. I would not pursue an ischemic evaluation. (4) Cardiomyopathy: Based on her echocardiogram and her presentation she does have a cardiomyopathy, I doubt it is ischemic. Her tachycardia is consistent, her low voltage which initially I thought might be due to a pericardial effusion (which is not large enough to cause a voltage drop) may also be due to myocardial injury on a diffuse basis. This is possibly chemotherapy related. We will need to treat her with heart failure medications if possible but her hypotension may interfere. I would like to continue titrating her beta-lorena at least to get her resting heart rate below 100, this tachycardia could possibly contribute to her cardiomyopathy, but is likely a marker of a high catecholamine level. This may be difficult due to her low blood pressure and I agree with starting with a low dose and increasing it slowly. Subjective She continues to feel relatively well, she does not have any cardiovascular complaints and does not have palpitations or shortness of breath. Her edema has improved. She has been ambulatory in the room without difficulty. Physical Exam Physical Exam: Constitutional: Alert, cooperative and in no distress. Pulmonary: Clear to auscultation bilaterally. Cardiac: Regular rapid rhythm with no murmur, gallop or rub. Abdomen: Soft, nontender with normal bowel sounds. Extremities: No edema. Skin: No rash, ecchymoses or petechiae. Results & Data Vital Signs (Past 12 Hours) Vital Signs Temp Pulse Pulse Resp BP Pulse Ox 08/03/19 04:42 36.6 C 102 H 18 106/61 94 04/16/19 00:01 36.5 C 107 H 16 108/70 93 04/15/19 20:05 37.3 C 104 H 18 114/73 96 Diagnostic Findings Telemetry: Sinus tachycardia in the low 100s PG Care Time/CCT Total # of Minutes Spent Total Time Spent with Patient: Total time spent is greater than 50% in coordination of care (as documented) at patient's floor/unit and/or counseling patient:
[2019-04-16] MEDS ORDERED: POTASSIUM CHLORIDE 20 MEQ TABCR PO STA (07:31)
[2019-04-16] MEDS: FUROSEMIDE 40 MG in SYRINGE 0 ML IV SCH (07:47)
[2019-04-16] MEDS: CARVEDILOL 3.125 MG TAB PO SCH (09:19)
[2019-04-16] MEDS: RIVAROXABAN 20 MG TAB PO SCH (09:19)
--- NOTE | 2019-04-16 13:12 | Discharge Summary ---
Date of Service April 16, 2019 Admission HPI Per Admitting Provider 44-year-old female with no previous cardiac history. 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 She believes she is getting gemcitabine as 1 of her chemotherapeutic agents but is unsure of the other one. This is apparently a clinical trial. She has noticed a several days of abdominal bloating, shortness of breath, dyspnea on exertion, orthopnea. She denies chest discomfort or palpitations. She presents with signs and symptoms of congestive heart failure. She has large bilateral pleural effusions. Tropon in is also elevated but no acute changes on EKG which reveals sinus tachycardia and low voltage with nonspecific ST segment changes. Troponin is 0.381. Cardiac echo done last fall reveals normal ejection fraction with mild LVH. She is being diuresed with IV Lasix. Cardiac echo will be repeated. Cardiology consultation requested. Serial troponins ordered. Oral potassium replacement to prevent hypokalemia. She is not hypoxic on room air. Creatinine 0.7. Principal Diagnosis Acute diastolic CHF, Pleural effusions Discharge Exam Constitutional WD/WN, vitals as above Eyes PERRL, conjunctivae normal, anicteric sclerae + anicteric sclerae ENMT external ear and nose normal, oropharynx normal Neck trachea midline, no thyromegaly Respiratory normal respiratory effort; no labored breathing Auscultation: + diminished lung sounds (At the bases bilaterally, more air movement today); no crackles, no rhonchi and no wheezes Cardiovascular Rate/Rhythm: regular rhythm and + tachycardic (mild) Heart Sounds: no murmur Extremities: no calf tenderness and no edema Gastrointestinal (Abdomen) normal bowel sounds, soft, nontender, no hepatosplenomegaly Musculoskeletal Extremities: extremities normal to inspection; no cyanosis and no clubbing Skin no rashes, warm and dry Neurologic moves all extremities and awake; no focal motor deficits Psychiatric A+Ox3, euthymic affect Discharge Data Allergies Allergy/AdvReac Type Severity Reaction Status Date / Time No Known Allergies Allergy Unverified 04/13/19 12:43 Consultations 04/13/19 19:14 Consult Cardiology Routine 04/16/19 12:53 Consult [facility] banquet lead Routine Procedures Performed ECHO Ordered Studies 04/13/19 13:32 CT angio chest PE protocol Stat CXR x 2 Hospital Course (1) Acute CHF (congestive heart failure): Acute diastolic CHF-likely secondary to adverse effect of chemotherapy. Does have mildly reduced LVEF at 45-50%, but would NOT call this systolic CHF. Discussed her case with cardiology here and with her oncology team from [place] Admitted with orthopnea, dyspnea on exertion, and lower extremity edema. Found to have bilateral large pleural effusions on chest imaging, along with elevated proBNP at 7500. Echocardiogram from 05/2018 was within normal limits. Echocardiogram now with mildly reduced EF at 45-50%, left global hypokinesis, paradoxical septal wall motion, and small pericardial effusion The pericardial effusion is not showing tamponade physiology She is clinically much improved with diuresis; is ambulating the halls without dyspnea. On exam, effusions have decreased in size, no further LE edema. Not hypoxic. Less tachycardic and BPs are not as low despite adding on beta lorena, systolics remain around 100. -Advised to HOLD her home lisinopril upon discharge for now, may may restart later as an outpt with Cardiology if BPs can tolerate -Received IV Lasix and had good diuresis, lost several lbs and had net negative fluid balance -send home on lasix 40mg po bid -send out on KCl 20meq po once daily -Appreciate cardiology consultation-plan to start low-dose [id number] started Coreg but given low BPs, will switch to Toprol XL 12.5mg po QHS on dc and can titrate up as outpt -educated on daily weights, fluid restriction of 1800 mL's per day, and low- sodium diet -f/u with Cardiology as outpt and will need repeat ECHO in several weeks to reassess EF and pericardial effusion -check BMP in 3 days with results to Cardiology and PCP (2) Pleural effusion: With large bilateral pleural effusions which are improved with IV diuresis Discussed case with vp delivery who did not recommend thoracentesis as this time as she is responding to diuresis and is clinically improved -Could be malignant pleural effusion versus from CHF versus chemotherapy effect? She does have pulmonary metastases, however her oncology team thinks that a malignant pleural effusion is very low likelihood given her excellent response so far to her chemotherapy -Continue to follow chest x-ray- gave Rx for CXR in 1 week after discharge -continue diuresis as above (3) Pericardial effusion: Small, noted on echocardiogram, no tamponade physiology, however is mildly hypotensive and tachycardic, with low voltage on ECG--> but Cardiology does not think this is from the effusion -Will need to be followed with repeat echocardiogram in a few weeks as above -Continue diuresis Appreciate cardiology consultation (4) Leiomyosarcoma: Actively receiving chemotherapy at the [place] [facility] with gemcitabine, docetaxel, and a trial drug called Vorinistat (a histone deacetylase inhibitor) which is improving Diagnosed in spring 2017 with a football sized retroperitoneal mass that was surgically but incompletely resected. Had metastases to the lung and had thoracotomy with wedge biopsy proving this. Also with metastases to the left side of her abdomen. -With pleural effusions here as above likely related to CHF, however could be malignant effusion but low likelihood as above -no thoracentesis was performed as above If need to contact her oncologist at [facility]-Dr. Salas-her cell phone number as [phone] -Plan to follow-up with oncology after discharge (5) Sinus tachycardia: As above, possibly secondary to pericardial and pleural effusions, improving but persists in low 100s -added on beta-lorena (6) History of pulmonary embolism: Found incidentally on surveillance CT scans of the chest, but she had no symptoms whatsoever approximately 12/2017 -Continue Xarelto therapy indefinitely while with active malignancy (7) Elevated troponin: Mildly elevated and decreased after admission at 0.3/0 0.1/0.113 Likely secondary to CHF -does not need ischemic evaluation (8) DVT prophylaxis: Xarelto Disposition-stable for discharge to home Total Time Total Time Spent Total Time Spent (In Minutes): >30 min Total Time Includes: Examination of the Patient, Discharge Planning, Medication Reconciliation and Communication With Other Providers (Cardiology, Dr. Latif) Discharge Plan Discharge Items Patient Disposition: Home - Self-Care Reason For Visit: CHF,ELEVATED TROPONIN Discharge Diagnosis: Acute Congestive heart failure, pleural effusions Condition: Fair Discharge Goals: Diagnostic testing, Improve disease control, Learn about illness and Therapeutic intervention Activity: As commented below Lifting: Gradually increase as tolerated Bathing: No limitations Exercise/Sports: Gradually increase as tolerated Driving/Machine Use: No limitations Non-emergency contact: Primary Care Provider, [employer] and Oncologist Call non-emergency contact if: you have any medication questions, your symptoms worsen, you have a fever and your temperature is above 100.5 Follow-up/Referrals: Porfirio Ness MD [Physician] - ([facility] Nurse Navigator, should be contacting you with your hospital follow up appointment date/time with Cardiology. ) Ritika Ly CRNP [Primary Care Provider] - ([facility] Nurse Navigator, should be contacting you with your hospital follow up appointment date/time. ) Diet: Low Sodium (2gm) Fluids: 1800ml (7 cups) Other Ambulatory Orders: Basic Metabolic Panel (Routine) Timeframe: 3 Days Location: Determined by Patient Ordered By: Julianna Yee XR chest 2V (Routine) Timeframe: 1 Week Location: Determined by Patient Ordered By: Julianna Yee Addtl Provider Instructions: You were admitted with fluid around the lungs (pleural effusions) and inside the lungs (pulmonary edema) from congestive heart failure. It is likely caused by your chemotherapy. Please take lasix 40mg twice daily and follow instructions as below for CHF. You can continue your daily potassium pills as before at home. You were also started on Toprol XL 12.5mg once daily at bedtime. This will help with your congestive heart failure and slow down the rate of your heart so it can pump more effectively. Please follow up with the [employer]; this appointment will be scheduled for you. For now, please DO NOT take your lisinopril. The [employer] may restart it again in the future as this is also a good medication for your heart. If you feel faint or lightheaded, dizzy, have chest pain or worsening shortness of breath, please call the [facility] [facility]'s office. Please also follow up with your Oncologist-call their office on Thursday to schedule this. Call your Primary Care doctor if any of the following symptoms or problems start or get worse: * Shortness of breath or difficulty breathing * Wake up at night short of breath * Chest pain * Cough * Swelling of your hands, feet, or legs * More fatigued or tired with your normal activity * Palpitations - sudden fast heart beats WEIGHT * Weigh yourself every morning after using the bathroom. * Use the same scale. * Wear the same amount of clothing. * Write your weight down on a chart. * Call your Primary Care doctor if you gain more than 2-3 pounds in 1-2 days. MEDICATIONS * Use this discharge instruction sheet for medication instructions. * Take your medications at the time your doctor ordered. * Do not skip a dose of your medicines. * If you miss a dose of medicine, take it as soon as possible, but DO NOT DOUBLE A DOSE. * Read your medicine information when you get home. * Know all of the side effects of your medicine. If in doubt, ask your pharmacist * Call your Primary Care doctor's office if you have any side effects. * Be sure all of your doctors know what medicine and herbs you take (including cold, flu, and herbal medicine). Take the following with you to your follow-up doctor appointments: * Weight Chart * Medication List * List of questions Do not drink excessive alcohol, beer or wine. Prescriptions: New metoprolol succinate 25 mg Tablet Extended Release 24 Hr 12.5 mg PO HS Qty: 15 RF: 0 furosemide [Lasix] 40 mg tablet 40 mg PO BID Qty: 60 RF: 0 potassium chloride 20 mEq tablet extended release 20 meq PO DAILY Qty: 30 RF: 0 Continued gabapentin 300 mg capsule 300 mg PO DAILY RF: 0 albuterol sulfate [Ventolin HFA] 90 mcg/actuation HFA aerosol inhaler inhalation DIRECTED PRN (Reason: Unknown) RF: 0 Xarelto 20 mg tablet 20 mg PO DAILY RF: 0 Discontinued furosemide 80 mg tablet 80 mg PO DAILY RF: 0 lisinopril 5 mg tablet 5 mg PO DAILY RF: 0 Stand-Alone Forms: [facility] Discharge Orders: Discharge Order (Routine); Ordered 04/16/19 Ordered By: Julianna Yee Admission Data Admit Date/Time: 04/13/19 17:34 Attending Provider: Julianna Yee Admit Provider: Joey Gaitan Primary Care Provider: Ritika Ly Other Providers: Royer Dye ; Daniel Jama ; Hood Guerra ; Porfirio Ness ; Long Salazar Jr ; Cheo Greene ; Irais Diop ; Tiara Taylor ; Jamshid Chery ; Jamshid Milligan ; Rober Samson ; Joey Concepcion Jennifer M. ; Cesia Linda Service: Telemetry Other Pending Studies at Discharge: No
[2019-04-16] MEDS ORDERED: METOPROLOL SUCC 25MG EXT REL TAB PO SCH (21:00)
== END 2019-04-16 15:30 | disposition home or self-care (01) | DRG 292 ==
LOC: ED 10:50 → SUATTDRO 17:34 → 2E 17:34

== ENCOUNTER 2022-03-21 14:38 | Inpatient (IN) ==
[2022-03-21] MEDS ORDERED: SODIUM CHLORIDE 0.9% 1000ML 500 ML IV ONE (15:06)
--- NOTE | 2022-03-21 15:26 | Emergency Department Note ---
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 She last received chemotherapy 3 weeks ago. She is due for chemo in a few days. She had lab work drawn in preparation for the chemotherapy. Her potassium and hemoglobin were low, she was referred to the ED. The patient does have [address] She is scheduled for a second stent next week. There has been no cough or fever. No chest pain or shortness of breath. She has been drinking well. No vomiting. No difficulty with urination. The patient has received a blood transfusion in the past, last transfusion was about a year ago. REVIEW OF SYSTEMS: See HPI for pertinent positives and negatives. A total of ten systems were reviewed and were otherwise negative. PMHx/PSHx: See Below SOCIAL HISTORY: See Below. PHYSICAL EXAM: GENERAL: Patient is in no acute distress. HEENT: No acute trauma, normocephalic atraumatic, mucous membranes moist, no nasal congestion, no scleral icterus. NECK: No stridor, no adenopathy, no meningismus, trachea is midline. LUNGS: Clear to auscultation bilaterally, no wheeze, no rhonchi, breath sounds equal. HEART: 2/6 systolic murmur, regular rate and rhythm. ABDOMEN: Soft, distended and somewhat firm especially in the lower abdomen. No peritonitis. EXTREMITIES: No cyanosis or edema, full range of motion of all the joints without pain or difficulty, no signs for acute trauma. NEUROLOGIC: Oriented x 3, no acute motor or sensory deficits, no focal weakness. SKIN: No rash, no jaundice, no diaphoresis. DIFFERENTIAL DIAGNOSIS: Anemia, chemotherapy reaction, electrolyte imbalance, renal failure, dehydration, UTI, thrombocytopenia, hypokalemia, among others. EMERGENCY DEPARTMENT COURSE/PROCEDURES: ECG: Indication was hypokalemia. ECG shows a normal sinus rhythm with a rate of 86. There is no ST elevation, no PVCs. Some nonspecific ST change was seen. QTC was 519. Continuous Cardiac Monitoring: An order was placed for continuous cardiac monitoring. The monitor shows a rate of 91 with normal sinus rhythm. Critical Care Note: I have personally spent 43 minutes of critical care time in the direct management of this patient. This includes bedside care, interpretation of diagnostic studies, and testing, discussion with consultants, patient, and family members, and other required patient management activities. This 43 minutes is in excess of all separately billable procedures. MEDICAL DECISION MAKING: There is no leukocytosis. The patient is anemic with a hemoglobin of 6.7. There is a normal platelet count. INR is elevated at 1.2. Potassium was low at 2.4. Creatinine was elevated at 1.50. There were some liver enzyme elevations noted. COVID test returned negative. Chest x-ray shows some congestion to the lungs, no obvious focal infiltrate. No worrisome CHF. The patient presents with abnormal laboratory values as an outpatient. These abnormalities have been confirmed by our testing. The patient was given a 500 cc saline bolus. She was given oral and IV potassium. I did discuss a red blood cell transfusion with her, she did consent. She was ordered for 1 unit of packed red blood cells to be transfused while here in the ED. The consent for transfusion was signed. The patient has some acute kidney injury, she is a very low potassium, she is anemic. She is going to require a hospital stay to correct these abnormalities. I spoke with the patient and manager case management. The on-call hospitalist was consulted. Past Med/Surg History Medical History (Updated 03/21/22 @ 21:46 by Elder Desir MD) Acute CHF (congestive heart failure) Resolved History of pulmonary embolism Leiomyosarcoma Leiomyosarcoma Systolic CHF, chronic Surgical History History of X2 History of hysterectomy History of lung biopsy LEFT Family History Father Diabetes Hypertension Myocardial infarction Denies family history of Ovarian cancer Prostate cancer Breast cancer Colorectal cancer Social History Smoking Status: Former smoker Age Started Using Tobacco: 21; Age Quit Using Tobacco: 29; packs per day: 0.25; Years Smoked: 8; Cigarettes Per Day: 5; Number of Years Since Quit: 15; Second Hand Exposure: No; Do You Dip or Chew Tobacco: No; Tobacco Cessation Education Requested by Patient: No Hx Alcohol Use: Yes Alcohol type: wine Hx Substance Use: No Preferred Language: Ghanaian Communication Ability: Effective Surgical Scrub Tech Required: No Beliefs That Will Affect Care: None Current Living Situation: Family Other Information That Helps Us Care for You: No Feels Safe at Home: Yes Safety Concerns: Feels Safe At This Time Assistive Devices: None Allergies Allergies Allergy/AdvReac Type Severity Reaction Status Date / Time No Known Drug Allergies Allergy Unknown Verified 03/21/22 16:49 nickel AdvReac Mild REDNESS TO Verified 03/21/22 16:49 SKIN Home Meds Home Medications Medication Instructions Recorded Confirmed apixaban 5 mg tablet (Eliquis) 5 mg PO BID 03/21/22 03/21/22 empagliflozin 10 mg tablet 10 mg PO DAILY 03/21/22 03/21/22 (Jardiance) furosemide 40 mg tablet 40 mg PO DAILY 03/21/22 03/21/22 metoprolol succinate 50 mg 50 mg PO DAILY 03/21/22 03/21/22 tablet,extended release 24 hr ondansetron HCl 8 mg tablet 8 mg PO Q8 PRN 03/21/22 03/21/22 sacubitril 97 mg-valsartan 103 mg 1 tab PO BID 03/21/22 03/21/22 tablet (Entresto) spironolactone 25 mg tablet 25 mg PO DAILY 03/21/22 03/21/22 Results & Data (ED) Vital Signs Vital Signs - 24 hr 03/21/22 14:40 03/21/22 15:30 03/21/22 17:00 Temperature 36.7 C Temperature Source Temporal Artery Scan Temporal Artery Scan Pulse Rate 99 H Pulse Rate [Apical] 89 91 H Pulse Rhythm [Apical] Regular Regular Pulse Strength [Apical] Normal Normal Respiratory Rate 18 16 16 Respiratory Effort / Characteristics Non-Labored Non-Labored Non-Labored Respiratory Depth Normal Normal Normal Blood Pressure 111/67 Blood Pressure [Right Arm] 116/65 113/64 Blood Pressure Mean 81 Blood Pressure Mean [Right Arm] 82 80 Pulse Oximetry 98 99 99 Oxygen Delivery Method Room Air Room Air Room Air Sepsis Recent Fever Within 48 Hours No Sepsis New/Unexplained Change in Mental Status No Sepsis Action Taken by Nursing No Action Required Home Medications Current Medication List: was personally reviewed by me Laboratory Data Attestation: I reviewed the patient's lab results. Result diagrams: 03/21/22 15:27 03/21/22 15:27 Lab Results 03/21/22 03/21/22 03/21/22 Range/Units 15:27 15:27 15:27 WBC 9.96 (4.8-10.8) K/ul RBC 2.21 L (3.93-5.22) M/uL Hgb 6.7 L* (12.0-16.0) g/dl Hct 21.4 L (34.1-44.9) % MCV 96.8 (80.0-100.0) fL MCH 30.3 (25.0-34.0) pg MCHC 31.3 L (32.0-36.0) g/dL RDW Std Deviation 59.4 H (36.4-46.3) fL RDW Coeff of Jennifer 16.7 H (11.5-14.5) % Plt Count 371 (130-400) K/uL MPV 9.9 (9.4-12.3) fL Immature Gran % (Auto) 0.5 % Neut % (Auto) 81.5 % Lymph % (Auto) 10.9 % Rolette % (Auto) 6.5 % Eos % (Auto) 0.4 % Baso % (Auto) 0.2 % Reticulocyte % (Auto) 1.8 (0.5-2.0) % Neut # (Auto) 8.37 H (1.4-6.5) K/uL Lymph # (Auto) 1.12 L (1.2-3.4) K/uL Rolette # (Auto) 0.67 (0.24-0.82) K/uL Eos # (Auto) 0.04 (0-0.50) K/uL Baso # (Auto) 0.02 (0-0.2) K/uL Reticulocyte # 0.04 (0.02-0.10) 10^6/uL Immature Gran # (Auto) 0.05 H (0.00-0.02) K/uL PT 12.4 H (9.0-12.0) Seconds INR 1.2 H (0.9-1.1) APTT 33.0 H (21.0-31.0) Seconds PTT Ratio 1.2 Sodium (136-145) mmol/L Potassium (3.5-5.1) mmol/L Chloride (98-107) mmol/L Carbon Dioxide (21-32) mmol/L Anion Gap (3-11) BUN (6-23) mg/dl Creatinine (0.6-1.2) mg/dl Est Cr Clr Drug Dosing ml/min Est GFR ( Amer) ml/min Est GFR (Non-Af Amer) ml/min BUN/Creatinine Ratio (10-20) Glucose (70-99(Fasting)) mg/dl Calcium (8.5-10.1) mg/dl Magnesium (1.7-2.4) mg/dl Iron (35-150) mcg/dl TIBC (250-450) mcg/dl Unsaturated IBC (155-355) mcg/dl Transferrin % Sat (15-50) % Ferritin (8-388) ng/ml Total Bilirubin (0.2-1.0) mg/dl AST (13-39) U/L ALT (7-52) U/L Alkaline Phosphatase (34-104) U/L Total Protein (6.0-8.3) gm/dl Albumin (3.4-5.0) gm/dl Globulin (2.5-4.0) gm/dl Albumin/Globulin Ratio (0.9-2) Vitamin B12 (180-914) pg/ml Folate (>5.38) ng/ml Blood Type A Positive Blood Type Recheck Antibody Screen NEGATIVE Crossmatch See Detail 03/21/22 03/21/22 03/21/22 Range/Units 15:27 15:28 15:28 WBC (4.8-10.8) K/ul RBC (3.93-5.22) M/uL Hgb (12.0-16.0) g/dl Hct (34.1-44.9) % MCV (80.0-100.0) fL MCH (25.0-34.0) pg MCHC (32.0-36.0) g/dL RDW Std Deviation (36.4-46.3) fL RDW Coeff of Jennifer (11.5-14.5) % Plt Count (130-400) K/uL MPV (9.4-12.3) fL Immature Gran % (Auto) % Neut % (Auto) % Lymph % (Auto) % Rolette % (Auto) % Eos % (Auto) % Baso % (Auto) % Reticulocyte % (Auto) (0.5-2.0) % Neut # (Auto) (1.4-6.5) K/uL Lymph # (Auto) (1.2-3.4) K/uL Rolette # (Auto) (0.24-0.82) K/uL Eos # (Auto) (0-0.50) K/uL Baso # (Auto) (0-0.2) K/uL Reticulocyte # (0.02-0.10) 10^6/uL Immature Gran # (Auto) (0.00-0.02) K/uL PT (9.0-12.0) Seconds INR (0.9-1.1) APTT (21.0-31.0) Seconds PTT Ratio Sodium 140 (136-145) mmol/L Potassium 2.4 L* (3.5-5.1) mmol/L Chloride 96 L (98-107) mmol/L Carbon Dioxide 33 H (21-32) mmol/L Anion Gap 11 (3-11) BUN 22 (6-23) mg/dl Creatinine 1.50 H (0.6-1.2) mg/dl Est Cr Clr Drug Dosing 41.7 ml/min Est GFR ( Amer) 47.3 ml/min Est GFR (Non-Af Amer) 40.8 ml/min BUN/Creatinine Ratio 14.7 (10-20) Glucose 139 H (70-99(Fasting)) mg/dl Calcium 8.2 L (8.5-10.1) mg/dl Magnesium 1.9 (1.7-2.4) mg/dl Iron 22 L (35-150) mcg/dl TIBC 239 L (250-450) mcg/dl Unsaturated IBC 217 (155-355) mcg/dl Transferrin % Sat 9 L (15-50) % Ferritin 909.8 H (8-388) ng/ml Total Bilirubin 0.5 (0.2-1.0) mg/dl AST 44 H (13-39) U/L ALT 16 (7-52) U/L Alkaline Phosphatase 215 H (34-104) U/L Total Protein 6.8 (6.0-8.3) gm/dl Albumin 3.4 (3.4-5.0) gm/dl Globulin 3.4 (2.5-4.0) gm/dl Albumin/Globulin Ratio 1.0 (0.9-2) Vitamin B12 842 (180-914) pg/ml Folate 9.63 (>5.38) ng/ml Blood Type Blood Type Recheck Antibody Screen Crossmatch 03/21/22 Range/Units 16:04 WBC (4.8-10.8) K/ul RBC (3.93-5.22) M/uL Hgb (12.0-16.0) g/dl Hct (34.1-44.9) % MCV (80.0-100.0) fL MCH (25.0-34.0) pg MCHC (32.0-36.0) g/dL RDW Std Deviation (36.4-46.3) fL RDW Coeff of Jennifer (11.5-14.5) % Plt Count (130-400) K/uL MPV (9.4-12.3) fL Immature Gran % (Auto) % Neut % (Auto) % Lymph % (Auto) % Rolette % (Auto) % Eos % (Auto) % Baso % (Auto) % Reticulocyte % (Auto) (0.5-2.0) % Neut # (Auto) (1.4-6.5) K/uL Lymph # (Auto) (1.2-3.4) K/uL Rolette # (Auto) (0.24-0.82) K/uL Eos # (Auto) (0-0.50) K/uL Baso # (Auto) (0-0.2) K/uL Reticulocyte # (0.02-0.10) 10^6/uL Immature Gran # (Auto) (0.00-0.02) K/uL PT (9.0-12.0) Seconds INR (0.9-1.1) APTT (21.0-31.0) Seconds PTT Ratio Sodium (136-145) mmol/L Potassium (3.5-5.1) mmol/L Chloride (98-107) mmol/L Carbon Dioxide (21-32) mmol/L Anion Gap (3-11) BUN (6-23) mg/dl Creatinine (0.6-1.2) mg/dl Est Cr Clr Drug Dosing ml/min Est GFR ( Amer) ml/min Est GFR (Non-Af Amer) ml/min BUN/Creatinine Ratio (10-20) Glucose (70-99(Fasting)) mg/dl Calcium (8.5-10.1) mg/dl Magnesium (1.7-2.4) mg/dl Iron (35-150) mcg/dl TIBC (250-450) mcg/dl Unsaturated IBC (155-355) mcg/dl Transferrin % Sat (15-50) % Ferritin (8-388) ng/ml Total Bilirubin (0.2-1.0) mg/dl AST (13-39) U/L ALT (7-52) U/L Alkaline Phosphatase (34-104) U/L Total Protein (6.0-8.3) gm/dl Albumin (3.4-5.0) gm/dl Globulin (2.5-4.0) gm/dl Albumin/Globulin Ratio (0.9-2) Vitamin B12 (180-914) pg/ml Folate (>5.38) ng/ml Blood Type Blood Type Recheck A Positive Antibody Screen Crossmatch Administered Medications Acetaminophen (Acetaminophen 325 Mg Tab) 650 mg PO Q4H PRN PRN Reason: fever or pain Stop: 04/20/22 21:21 Last Admin: 03/21/22 21:34 Dose: 650 mg Documented by: [id number] Sacubitril/Valsartan (Valsartan/Sacubitril 103/97mg Tab) 1 tab PO BID SANDRA Stop: 04/20/22 20:59 Last Admin: 03/21/22 21:06 Dose: 1 tab Documented by: [id number] Discontinued Medications Sodium Chloride (Nss 1000ml) 500 mls @ 999 mls/hr IV .Q31M ONE Stop: 03/21/22 15:36 Last Infusion: 03/21/22 17:36 Dose: 0 mls/hr Documented by: [id number] Admin: 03/21/22 16:22 Dose: 999 mls/hr Documented by: [id number] Potassium Chloride (K Adán / Wtr) 10 meq in 100 mls @ 100 mls/hr IV ONE ONE; Protocol Stop: 03/21/22 17:17 Last Infusion: 03/21/22 17:36 Dose: 0 mls/hr Documented by: [id number] Admin: 03/21/22 16:25 Dose: 100 mls/hr Documented by: [id number] Potassium Chloride (Potassium Chloride Crtab 20 Meq Tabcr) 40 meq PO NOW STA Stop: 03/21/22 17:21 Last Admin: 03/21/22 18:59 Dose: 40 meq Documented by: [id number] Imaging Data Radiologist's Impression: Chest X-Ray 03/21/22 16:49 SINGLE VIEW CHEST CLINICAL HISTORY: Cough and dyspnea. FINDINGS: An AP, portable, upright chest radiograph is compared to chest x-ray and chest CT dated 05/15/2020. A left subclavian central venous infusion port is unchanged in position. The heart is mildly enlarged. There is pulmonary vascular congestion. There is evidence of diffuse pulmonary metastatic disease. No superimposed airspace consolidation is identified typical for. No large pleural effusion or pneumothorax is seen. The bony thorax is grossly intact. IMPRESSION: 1. Cardiomegaly with pulmonary vascular congestion. 2. There is evidence of diffuse/multifocal pulmonary metastatic disease. ACT 112: Negative or not required by law. Electronically signed by: Elder Lizarraga M.D. 03/21/2022 5:23 PM Discharge Plan Visit Data Chief Complaint: Abnormal Labs/Diagnostic Testing Stated Complaint: REF BY , ABNORMAL LABS ED Provider: Elder Desir Discharge Problem: Anemia, Hypokalemia, Leiomyosarcoma, EDDIE (acute kidney injury) Patient Disposition: Admitted As Inpatient Condition: Fair Discharge Instructions Interventions: ED Discharge Assessment Last Done: 03/21/22 19:30
[2022-03-21 15:40] LABS: Hematocrit (blood only) 21.4 % (34.1-44.9); Hemoglobin 6.7 g/dl (12.0-16.0); Mean Corpuscular Hemoglobin 30.3 pg (25.0-34.0); Mean Corpuscular Hgb Conc 31.3 g/dL (32.0-36.0); Mean Corpuscular Volume 96.8 fL (80.0-100.0); Mean Platelet Volume 9.9 fL (9.4-12.3); Platelet Count 371 K/uL (130-400); RDW Coefficient of Variation 16.7 % (11.5-14.5); RDW Standard Deviation 59.4 fL (36.4-46.3); Red Blood Count 2.21 M/uL (3.93-5.22); White Blood Count 9.96 K/ul (4.8-10.8)
[2022-03-21] MEDS ORDERED: SODIUM CHLORIDE 0.9% 250 ML IV PRN (15:41)
[2022-03-21 16:04] LABS: INR 1.2 (0.9-1.1); Partial Thromboplastin Ratio 1.2; Prothrombin Time 12.4 Seconds (9.0-12.0)
[2022-03-21 16:14] LABS: Albumin Level 3.4 gm/dl (3.4-5.0); BUN Creatinine Ratio 14.7 (10-20); Bilirubin,Total 0.5 mg/dl (0.2-1.0); Calcium 8.2 mg/dl (8.5-10.1); Creatinine Clr Calc Pharmacy 41.7 ml/min; Est GFR (African American) 47.3 ml/min; Est GFR (Non-African American) 40.8 ml/min; Globulin 3.4 gm/dl (2.5-4.0); Magnesium 1.9 mg/dl (1.7-2.4); Potassium 2.4 mmol/L (3.5-5.1); Total Protein 6.8 gm/dl (6.0-8.3)
[2022-03-21] MEDS ORDERED: POTASSIUM CHLORIDE / WTR 10 MEQ/100 ML PLCT IV ONE (16:18)
--- NOTE | 2022-03-21 16:26 | History & Physical Report ---
Date of Service March 21, 2022 Assessment & Plan (1) Anemia: Plan: - Hgb 6.7, MCV 96.8, MCHC 31.3. - Type and cross, consent for transfusion obtained. - 2 units PRBCs ordered for transfusion, 1 unit started in ED. - Check H&H after transfusion. - Iron studies to include B12 and folate, reticulocyte count, peripheral smear ordered prior to transfusion. - No obvious source of bleedingno hematuria, hematemesis, hematochezia, melena. Patient is on Eliquis indefinitely for previous PE. She recently had a CT of her abdomen and pelvis done 2 days ago in [place]. Will request imaging. (2) Hypokalemia: Plan: - 2.4. EKG ordered. - Received 10 mEq IV in ED, will also give an additional 40 mEq PO now. - Follow BMP for K repletion. (3) Cardiomyopathy: Plan: - Hold Lasix, spironolactone. Continue Entresto, Jardiance, metoprolol. (4) History of pulmonary embolism: Plan: - Several years ago, to remain on Eliquis indefinitely. - Hold Eliquis given acute anemia. (5) Leiomyosarcoma: Plan: - s/p HANH+BSO, undergoing chemotherapy. Treatment is primarily through [facility] in [place] but gets chemo q3 weeks in [place]. Plan: - Admit to PCU. - SCDs for VTE ppx. Chemoppx contraindicated. - Full Code. History of Present Illness Chief Complaint: anemia, hypokalemia on outpt labs Primary Care Provider: Nikki Hayden MD Yenny Garcia is a 47 y/o female with a past medical history of metastatic leiomyosarcoma currently undergoing chemotherapy, chemotherapy induced heart failure, and distant PE on Eliquis indefinitely who presents today for follow-up on abnormal labs. She had pre-chemo labs done today in anticipation of chemotherapy within the next few days, those labs revealed a hemoglobin of 6.9 and potassium 2.2. She has been feeling more fatigued over the last 2 weeks and generally weaker than usual, and has also had a dry cough since then with occasional phlegm production. She has baseline abdominal pain due to multiple tumors in her abdomen, it is no worse past few days. She denies fever/chills, chest pain, palpitations, shortness of breath, nausea, vomiting, diarrhea, constipation, melena, hematochezia, hematuria. In ED, she is hemodynamically stable, vital signs within normal limits. Labs here significant for hemoglobin 6.7, potassium 2.4, Cr 1.5 (baseline ~ 1 - 1.2), AST mildly elevated, as it has been in the past, alk phos at baseline. ED course: CBC and x1, KCl 10 mEq IV. Type and cross, const for transfusion acquired. Allergies Allergy/AdvReac Type Severity Reaction Status Date / Time No Known Drug Allergies Allergy Unknown Verified 03/21/22 16:49 nickel AdvReac Mild REDNESS TO Verified 03/21/22 16:49 SKIN Home Medications Medication Instructions Recorded Confirmed Type apixaban 5 mg tablet (Eliquis) 5 mg PO BID 03/21/22 03/21/22 History empagliflozin 10 mg tablet 10 mg PO DAILY 03/21/22 03/21/22 History (Jardiance) furosemide 40 mg tablet 40 mg PO DAILY 03/21/22 03/21/22 History metoprolol succinate 50 mg 50 mg PO DAILY 03/21/22 03/21/22 History tablet,extended release 24 hr ondansetron HCl 8 mg tablet 8 mg PO Q8 PRN 03/21/22 03/21/22 History sacubitril 97 mg-valsartan 103 mg 1 tab PO BID 03/21/22 03/21/22 History tablet (Entresto) spironolactone 25 mg tablet 25 mg PO DAILY 03/21/22 03/21/22 History Past Med/Surg History Medical History Acute CHF (congestive heart failure) Resolved History of pulmonary embolism Leiomyosarcoma Leiomyosarcoma Systolic CHF, chronic Surgical History History of X2 History of hysterectomy History of lung biopsy LEFT Family History Father Diabetes Hypertension Myocardial infarction Denies family history of Ovarian cancer Prostate cancer Breast cancer Colorectal cancer Social History Smoking Status: Former smoker Age Started Using Tobacco: 21; Age Quit Using Tobacco: 29; packs per day: 0.25; Years Smoked: 8; Cigarettes Per Day: 5; Number of Years Since Quit: 15; Second Hand Exposure: No; Do You Dip or Chew Tobacco: No; Tobacco Cessation Education Requested by Patient: No Hx Alcohol Use: Yes Alcohol type: wine Hx Substance Use: No Preferred Language: Colombian Communication Ability: Effective 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: No Beliefs That Will Affect Care: None Current Living Situation: Family Other Information That Helps Us Care for You: No Feels Safe at Home: Yes Safety Concerns: Feels Safe At This Time Assistive Devices: None Review of Systems Review of Systems: Constitutional: general fatigue, weakness x 2 weeks; No fever/chills, myalgias, anorexia, night sweats Eyes: No diplopia, no worsening or blurred vision ENT: normal hearing, no trouble swallowing Respiratory: dry cough with occasional sputum production x 2 weeks; no dyspnea at rest or on exertion Cardiovascular: No chest pain, tightness or palpitations Abdomen: No pain, nausea, vomiting, diarrhea or constipation : Denies dysuria, hematuria, increased urgency/frequency, urinary retention Musculoskeletal: No joint pain, calf pain, swelling Neurologic: No weakness, numbness/tingling, or balance problems Psychiatric: No anxiety or depression Skin: No rash or itch Physical Exam Physical Exam: General: awake, alert, no apparent distress Head: Normocephalic, atraumatic ENT: PERRL, EOMI, no pharyngeal exudate, mucous membranes moist Chest: Clear to auscultation, on room air, no adventitious breath sounds Cardiac: Regular rate and rhythm, no murmur, no JVD, normal peripheral pulses, good capillary refill Abdominal: NABS x 4 quadrants, soft, nontender to palpation, no rebound, guarding or tenderness Extremities: Normal inspection, no peripheral edema or erythema, calfs nontender to palpation Psych: Normal mood and affect Neuro: AAO x 3, strength intact bilaterally and rated 5/5, no motor deficits, speech is clear, no peripheral sensory deficits Skin: no rash or erythema Results & Data Results & Data ([facility]) Vital Signs (Past 12 Hours) Vital Signs Temp Pulse Pulse Resp BP BP Pulse Ox 03/21/22 15:30 89 16 116/65 99 03/21/22 14:40 36.7 C 99 H 18 111/67 98 Laboratory Results Abnormal lab results 03/21/22 03/21/22 03/21/22 Range/Units 15:27 15:27 15:27 RBC 2.21 L (3.93-5.22) M/uL Hgb 6.7 L* (12.0-16.0) g/dl Hct 21.4 L (34.1-44.9) % MCHC 31.3 L (32.0-36.0) g/dL RDW Std Deviation 59.4 H (36.4-46.3) fL RDW Coeff of Jennifer 16.7 H (11.5-14.5) % Neut # (Auto) 8.37 H (1.4-6.5) K/uL Lymph # (Auto) 1.12 L (1.2-3.4) K/uL Immature Gran # (Auto) 0.05 H (0.00-0.02) K/uL PT 12.4 H (9.0-12.0) Seconds INR 1.2 H (0.9-1.1) APTT 33.0 H (21.0-31.0) Seconds Potassium (3.5-5.1) mmol/L Chloride (98-107) mmol/L Carbon Dioxide (21-32) mmol/L Creatinine (0.6-1.2) mg/dl Glucose (70-99(Fasting)) mg/dl Calcium (8.5-10.1) mg/dl AST (13-39) U/L Alkaline Phosphatase (34-104) U/L Crossmatch See Detail 03/21/22 Range/Units 15:27 RBC (3.93-5.22) M/uL Hgb (12.0-16.0) g/dl Hct (34.1-44.9) % MCHC (32.0-36.0) g/dL RDW Std Deviation (36.4-46.3) fL RDW Coeff of Jennifer (11.5-14.5) % Neut # (Auto) (1.4-6.5) K/uL Lymph # (Auto) (1.2-3.4) K/uL Immature Gran # (Auto) (0.00-0.02) K/uL PT (9.0-12.0) Seconds INR (0.9-1.1) APTT (21.0-31.0) Seconds Potassium 2.4 L* (3.5-5.1) mmol/L Chloride 96 L (98-107) mmol/L Carbon Dioxide 33 H (21-32) mmol/L Creatinine 1.50 H (0.6-1.2) mg/dl Glucose 139 H (70-99(Fasting)) mg/dl Calcium 8.2 L (8.5-10.1) mg/dl AST 44 H (13-39) U/L Alkaline Phosphatase 215 H (34-104) U/L Crossmatch Diagnostic Findings Chest X-Ray 03/21/22 16:49 SINGLE VIEW CHEST CLINICAL HISTORY: Cough and dyspnea. FINDINGS: An AP, portable, upright chest radiograph is compared to chest x-ray and chest CT dated 05/15/2020. A left subclavian central venous infusion port is unchanged in position. The heart is mildly enlarged. There is pulmonary vascular congestion. There is evidence of diffuse pulmonary metastatic disease. No superimposed airspace consolidation is identified typical for. No large pleural effusion or pneumothorax is seen. The bony thorax is grossly intact. IMPRESSION: 1. Cardiomegaly with pulmonary vascular congestion. 2. There is evidence of diffuse/multifocal pulmonary metastatic disease. ACT 112: Negative or not required by law. Electronically signed by: Elder Lizarraga M.D. 03/21/2022 5:23 PM ECG Additional Comments: Normal sinus rhythm Prolonged QT Abnormal ECG When compared with ECG of 15-MAY-2020 09:07, Criteria for Septal infarct are no longer Present Nonspecific T wave abnormality no longer evident in Lateral leads. Code Status & VTE Plan Code Status Full Code. Supervising Physician Co-Signing Physician Notes I personally saw and examined the patient. I verified all argueta points and agree with Diana Lloyd PA-C with the following exceptions and/or additions: 47 year old with metastatic leiomyosarcomapresents with anemia and hypokalemia on outpatient labs. Increased fatigue. No melena or bright red blood in stool. No recent change to Lasix dosing. No N/V/D. O/E A&Ox3, HS, RRR, no murmurs, Chest CTAB, Mild generalized abdominal pain (she reports this is chronic with no acute change). A/P Anemia - no melena or bright red blood in stool. Maybe related to iron def. anemia with diet and poor bone marrow response due to chemotherapy although her other blood cell lines appear to be normal. Hypokalemia - replacement as above. Will check again at midnight. Suspect related to Lasix. Continue spironolactone and Entresto. No sign of heart failure on exam. PG Care Time/CCT Total # of Minutes Spent Total Time Spent with Patient: Total time spent is greater than 50% in coordination of care (as documented) at patient's floor/unit and/or counseling patient: Coding Level of Care Code 80814 Initial Inpt Care Lvl 3 Diagnoses Anemia D64.9 Hypokalemia E87.6 Cardiomyopathy I42.9 Cardiomyopathy type: unspecified History of pulmonary embolism Z86.711 Leiomyosarcoma C49.9 (1) Cardiomyopathy Cardiomyopathy type: unspecified Qualified Code(s): I42.9 - Cardiomyopathy, unspecified
[2022-03-21] MEDS ORDERED: POTASSIUM CHLORIDE CRTAB 20 MEQ TABCR PO STA (17:20)
--- NOTE | 2022-03-21 17:25 | XRay Report ---
SINGLE VIEW CHEST CLINICAL HISTORY: Cough and dyspnea. FINDINGS: An AP, portable, upright chest radiograph is compared to chest x-ray and chest CT dated 05/15. A left subclavian central venous infusion port is unchanged in position. The heart is mildly e nlarged. There is pulmonary vascular congestion. There is evidence of diffuse pulmonary metastatic di sease. No superimposed airspace consolidation is identified typical for. No large pleural effusion or pneumothorax is seen. The bony thorax is grossly intact. IMPRESSION: 1. Cardiomegaly with pulmonary vascular congestion. 2. There is evidence of diffuse/multifocal pulmonary metastatic disease. ACT 112: Negative or not required by law. Electronically signed by: Elder Lizarraga M.D. 03/21/2022 5:23 PM
[2022-03-21 17:27] LABS: Basophils # (auto) 0.02 K/uL (0-0.2); Basophils % (auto) 0.2 %; Eosinophils # (auto) 0.04 K/uL (0-0.50); Eosinophils % (auto) 0.4 %; Immature Granulocytes # (auto) 0.05 K/uL (0.00-0.02); Immature Granulocytes % (auto) 0.5 %; Lymphocytes # (auto) 1.12 K/uL (1.2-3.4); Lymphocytes % (auto) 10.9 %; Monocytes # (auto) 0.67 K/uL (0.24-0.82); Monocytes % (auto) 6.5 %; Neutrophils # (auto) 8.37 K/uL (1.4-6.5); Neutrophils % (auto) 81.5 %; Reticulocyte % 1.8 % (0.5-2.0); Reticulocytes # 0.04 10^6/uL (0.02-0.10)
[2022-03-21 18:12] LABS: Ferritin 909.8 ng/ml (8-388)
[2022-03-21 18:14] LABS: Folate (Folic Acid) 9.63 ng/ml (>5.38)
[2022-03-21] MEDS ORDERED: POLYETHYLENE (MIRALAX) 17 GM PACK PO PRN (19:47)
[2022-03-21] MEDS ORDERED: ONDANSETRON INJ 2 MG/ML 2 ML VIAL IV PRN (19:47)
[2022-03-21] MEDS: VALSARTAN/SACUBITRIL 103/97MG TAB PO SCH (21:06)
[2022-03-21] MEDS ORDERED: COUGH DROP (SUGAR FREE) LOZ 24 LOZ/1 BOX BUCCAL PRN (21:16)
[2022-03-21] MEDS: ACETAMINOPHEN 325 MG TAB PO PRN (21:34)
[2022-03-22 01:04] LABS: Hematocrit (blood only) 24.6 % (34.1-44.9); Hemoglobin 7.7 g/dl (12.0-16.0)
[2022-03-22 01:33] LABS: BUN Creatinine Ratio 16.2 (10-20); Calcium 8.1 mg/dl (8.5-10.1); Creatinine Clr Calc Pharmacy 46.4 ml/min; Est GFR (African American) 53.2 ml/min; Est GFR (Non-African American) 45.9 ml/min; Potassium 2.3 mmol/L (3.5-5.1)
--- NOTE | 2022-03-22 01:46 | Communication Note ---
Date of Service: March 22, 2022 Repeat labs at 12:24 AM reviewed. K essentially unchanged (increased from 2.2 to 2.3). H&H improved from 6.7/21.4 to 7.7/24.6. K-riders 60mEq IV ordered. Given pt presented with asymptomatic anemia, will transfuse 2nd unit of PRBC for goal Hgb > 8.
[2022-03-22] MEDS ORDERED: SODIUM CHLORIDE 0.9% 250 ML IV PRN (01:48)
[2022-03-22] MEDS: POTASSIUM CHLORIDE / WTR 10 MEQ/100 ML PLCT IV SCH ×6 (02:51→08:57)
[2022-03-22 06:21] LABS: Basophils # (auto) 0.03 K/uL (0-0.2); Basophils % (auto) 0.3 %; Eosinophils # (auto) 0.06 K/uL (0-0.50); Eosinophils % (auto) 0.7 %; Hematocrit (blood only) 27.5 % (34.1-44.9); Hemoglobin 8.7 g/dl (12.0-16.0); Immature Granulocytes # (auto) 0.04 K/uL (0.00-0.02); Immature Granulocytes % (auto) 0.4 %; Lymphocytes # (auto) 1.06 K/uL (1.2-3.4); Lymphocytes % (auto) 11.5 %; Mean Corpuscular Hgb Conc 31.6 g/dL (32.0-36.0); Mean Corpuscular Volume 94.8 fL (80.0-100.0); Mean Platelet Volume 9.9 fL (9.4-12.3); Monocytes # (auto) 0.71 K/uL (0.24-0.82); Monocytes % (auto) 7.7 %; Neutrophils # (auto) 7.29 K/uL (1.4-6.5); Neutrophils % (auto) 79.4 %; Platelet Count 347 K/uL (130-400); RDW Coefficient of Variation 16.5 % (11.5-14.5); RDW Standard Deviation 57.3 fL (36.4-46.3); White Blood Count 9.19 K/ul (4.8-10.8)
[2022-03-22 06:48] LABS: Albumin Level 3.3 gm/dl (3.4-5.0); BUN Creatinine Ratio 16.7 (10-20); Bilirubin,Total 1.1 mg/dl (0.2-1.0); Creatinine Clr Calc Pharmacy 47.8 ml/min; Est GFR (African American) 55.2 ml/min; Est GFR (Non-African American) 47.6 ml/min; Globulin 3.3 gm/dl (2.5-4.0); Magnesium 1.9 mg/dl (1.7-2.4); Potassium 2.7 mmol/L (3.5-5.1); Total Protein 6.6 gm/dl (6.0-8.3)
[2022-03-22 07:00] LABS: INR 1.1 (0.9-1.1); Prothrombin Time 11.8 Seconds (9.0-12.0)
[2022-03-22] MEDS ORDERED: POTASSIUM CHLORIDE CRTAB 20 MEQ TABCR PO STA ×2 (08:01→18:51)
[2022-03-22] MEDS ORDERED: MAGNESIUM SULFATE / D5W 1 GM/100 ML BAG IV ONE (08:06)
[2022-03-22] MEDS: ACETAMINOPHEN 325 MG TAB PO PRN ×2 (08:54→20:23)
[2022-03-22] MEDS: METOPROLOL SUCC 50MG EXT REL TAB PO SCH (08:56)
[2022-03-22] MEDS: SPIRONOLACTONE 25 MG TAB PO SCH (08:56)
[2022-03-22] MEDS: VALSARTAN/SACUBITRIL 103/97MG TAB PO SCH ×2 (09:02→20:26)
[2022-03-22] MEDS ORDERED: PANTOprazole 80 MG in DEXTROSE 5% 100 ML IV STA (10:39)
--- NOTE | 2022-03-22 12:20 | Electrocardiogram Report ---
Test Reason : Blood Pressure : / mmHG Vent. Rate : 086 BPM Atrial Rate : 086 BPM P-R Int : 146 ms QRS Dur : 106 ms QT Int : 434 ms P-R-T Axes : 042 009 039 degrees QTc Int : 519 ms Normal sinus rhythm Prolonged QT Nonspecific ST abnormality Abnormal ECG When compared with ECG of 15-MAY-2020 09:07, Nonspecific T wave abnormality no longer evident in Lateral leads Confirmed by Jovani Milligan ([id number]) on 03/22/2022 12:19:51 PM Referred By: REFERRED SELF Confirmed By:Antony Milligan
--- NOTE | 2022-03-22 13:47 | Gastrointestinal Consultation ---
Date of Consultation March 22, 2022 Assessment & Plan (1) Iron deficiency anemia: (2) Leiomyosarcoma: iron deficiency anemia causing symptomatic anemia in the setting of chemotherapy for leiomyosarcoma; suspect anemia is more related to her disease process and chemotherapy than actual gi blood loss recs: IV iron infusions now to replete iron stores trend H/H, transfuse prn supportive care diet as tolerated if hgb continues to decline may consider inpatient endoscopic workup, otherwise would defer to outpatient Thank you for allowing me to participate in the care of this patient History of Present Illness Attending Physician: Jc Husain MD History of Present Illness 47 yo female here with symptomatic anemia. 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 Found to be iron deficient on admission with hgb 6.9, received PRBC and now hgb is 8.7. Denies any significant hematochezia, hematemesis, never had issues with iron deficiency before. No prior colonoscopy. No family hx PUD or AVMs. CBC and CMP reviewed. she is significantly hypokalemic, receiving repletion. Allergies Allergy/AdvReac Type Severity Reaction Status Date / Time No Known Drug Allergies Allergy Unknown Verified 03/21/22 16:49 nickel AdvReac Mild REDNESS TO Verified 03/21/22 16:49 SKIN Home Medications Medication Instructions Recorded Confirmed Type apixaban 5 mg tablet (Eliquis) 5 mg PO BID 03/21/22 03/21/22 History empagliflozin 10 mg tablet 10 mg PO DAILY 03/21/22 03/21/22 History (Jardiance) furosemide 40 mg tablet 40 mg PO DAILY 03/21/22 03/21/22 History metoprolol succinate 50 mg 50 mg PO DAILY 03/21/22 03/21/22 History tablet,extended release 24 hr ondansetron HCl 8 mg tablet 8 mg PO Q8 PRN 03/21/22 03/21/22 History sacubitril 97 mg-valsartan 103 mg 1 tab PO BID 03/21/22 03/21/22 History tablet (Entresto) spironolactone 25 mg tablet 25 mg PO DAILY 03/21/22 03/21/22 History Patient History Medical History Acute CHF (congestive heart failure) Resolved History of pulmonary embolism Leiomyosarcoma Leiomyosarcoma Systolic CHF, chronic Surgical History History of X2 History of hysterectomy History of lung biopsy LEFT Family History Father Diabetes Hypertension Myocardial infarction Denies family history of Ovarian cancer Prostate cancer Breast cancer Colorectal cancer Social History Smoking Status: Former smoker Age Started Using Tobacco: 21; Age Quit Using Tobacco: 29; packs per day: 0.25; Years Smoked: 8; Cigarettes Per Day: 5; Number of Years Since Quit: 15; Second Hand Exposure: No; Do You Dip or Chew Tobacco: No; Tobacco Cessation Education Requested by Patient: No Hx Alcohol Use: Yes Alcohol type: wine Hx Substance Use: No Preferred Language: Mongolian Communication Ability: Effective Special Education Supervisor Required: No Beliefs That Will Affect Care: None Current Living Situation: Family Other Information That Helps Us Care for You: No Feels Safe at Home: Yes Safety Concerns: Feels Safe At This Time Assistive Devices: None Review of Systems Constitutional: no fever, no chills and no weight loss Eyes: as per Subjective / HPI Ear, Nose, Mouth, Throat: as per Subjective / HPI Respiratory: no dyspnea and no dyspnea on exertion Cardiovascular: no chest pain and no palpitations Gastrointestinal: as per Subjective / HPI Musculoskeletal: no joint pain and no swelling Integumentary: no rash and no lesions Neurologic: no numbness and no paresthesia Psychiatric: no depression and no anxiety Endocrine: no fatigue Hematologic / Lymphatic: no easy bleeding and no easy bruising Physical Exam Constitutional: WD/WN, vitals as above Eyes: EOM intact bilaterally Neck: normal visual inspection Respiratory: normal respiratory effort, lungs clear to auscultation Cardiovascular: RRR, no murmur, no edema Gastrointestinal (Abdomen): Inspection/Auscultation: abdomen normal to inspection; abdomen not distended Percussion/Palpation: abdomen soft; abdomen nontender and no hepatosplenomegaly Musculoskeletal: Extremities: no cyanosis Gait: normal gait Skin: no rashes, warm and dry Neurologic: moves all extremities Psychiatric: A+Ox3, euthymic affect Results & Data ([facility]) Vital Signs (Past 12 Hours) Vital Signs Temp Pulse Pulse Resp BP BP Pulse Ox 03/22/22 07:30 36.7 C 95 H 16 126/83 96 03/22/22 06:14 87 03/22/22 05:26 36.8 C 85 16 110/70 97 03/22/22 04:26 36.8 C 84 16 125/79 97 03/22/22 03:26 36.7 C 86 16 116/81 97 03/22/22 02:56 37.1 C 84 18 125/75 95 03/22/22 02:41 37 C 79 16 116/73 94 03/22/22 02:25 37 C 80 18 120/73 94 PG Care Time/CCT Total # of Minutes Spent Total Time Spent with Patient: Total time spent is greater than 50% in coordination of care (as documented) at patient's floor/unit and/or counseling patient: Coding Level of Care Code 49889 Inpt Consult Level 4 Diagnoses Iron deficiency anemia D50.9 Leiomyosarcoma C49.9
[2022-03-22 16:48] LABS: Hematocrit (blood only) 27.8 % (34.1-44.9); Hemoglobin 8.8 g/dl (12.0-16.0)
[2022-03-22 17:38] LABS: BUN Creatinine Ratio 15.8 (10-20); Calcium 8.2 mg/dl (8.5-10.1); Creatinine Clr Calc Pharmacy 45.4 ml/min; Est GFR (African American) 51.8 ml/min; Est GFR (Non-African American) 44.7 ml/min; Potassium 3.3 mmol/L (3.5-5.1)
[2022-03-22] MEDS: oxyCODONE HCL IR 5 MG TAB (IMMEDIATE RELEASE) PO PRN (18:30)
[2022-03-22] MEDS: BENZONATATE 100 MG CAPSULE PO PRN (19:42)
[2022-03-22] MEDS: PANTOprazole 40 MG in SYRINGE 0 ML IV SCH (20:26)
--- NOTE | 2022-03-22 22:30 | Hospitalist Progress Note ---
Date of Service March 22, 2022 Assessment & Plan (1) Anemia: Plan: - Hgb 6.7, MCV 96.8, MCHC 31.3. - Type and cross, consent for transfusion obtained. - s/p 2 units packed rbcs. Repeat Hgb 8.7. - repeat H&H this afternoon to make sure stable - given FOB +ve will consult GI, clear liquids tomorrow then NPO midnight on Thursday for possible EGD on Thursday. - repeat transferrin saturations in AM to see if she needs IV iron. (2) Hypokalemia: Plan: - 2.2 on outpatient labs (although was also 2.9 last month). Requiring significant KCl replacement. - Suspect due to Lasix use which she last took yesterday therefore expect this to significantly improve tomorrow. - K 2.7 this morning, addition KCl 40 meq PO given, repeat K 3.3 and additional KCl 40 meq given. - repeat level in AM (3) Cardiomyopathy: Plan: - Hold Lasix as no sign or symptoms of heart failure and she reports her cardiomyopathy has resvoled with discontinuation of chemo that caused it and taking Entresto. - Unclear if she still even requires Lasix chronically and likely can be safely discontinued on discharge as not needing diuretics despite blood transfusions Continue Entresto, Jardiance, metoprolol and spironolactone. (4) History of pulmonary embolism: Plan: - Several years ago, to remain on Eliquis indefinitely. - Hold Eliquis given acute anemia and FOB +ve (5) Leiomyosarcoma: Plan: - s/p HANH+BSO, undergoing chemotherapy. Treatment is primarily through [facility] in [place] but gets chemo q3 weeks in [place]. Plan: - Admit to PCU. - SCDs for VTE ppx. Chemoppx contraindicated. - Full Code. Admission and Anticipated Discharge Date Admission Date: March 21, 2022 Subjective Mildly improved fatigue with 2 units packed RBCs overnight. Ongoing chronic abdominal and back pain. No melena or bright red blood in stool. However, FOB +ve. No shortness of breath or chest pain. Review of Systems Review of Systems: All systems reviewed & are unremarkable except as noted in HPI & below Physical Exam Constitutional: WD/WN, vitals as above Eyes: + anicteric sclerae; normal pupil size Respiratory: normal respiratory effort, lungs clear to auscultation Cardiovascular: RRR, no murmur, no edema Gastrointestinal (Abdomen): Inspection/Auscultation: normal bowel sounds Percussion/Palpation: + abdomen tender (mild, diffuse) and abdomen soft; no guarding and abdomen not rigid Musculoskeletal: no cyanosis or clubbing, extremities motor strength 5/5 Skin: no rashes, warm and dry Neurologic: moves all extremities and awake; not confused Psychiatric: A+Ox3, euthymic affect Results & Data Results & Data ([facility]) Vital Signs (Past 12 Hours) Vital Signs Temp Pulse Pulse Resp BP Pulse Ox 03/22/22 20:08 38.3 C H 93 H 16 133/79 95 03/22/22 15:38 37.0 C 84 18 118/77 97 03/22/22 14:34 90 PG Care Time/CCT Total # of Minutes Spent Total Time Spent with Patient: Total time spent is greater than 50% in coordination of care (as documented) at patient's floor/unit and/or counseling patient: Coding Level of Care Code 02620 Subseq Hosp Care Lvl 3 Diagnoses Anemia D64.9 Hypokalemia E87.6 Cardiomyopathy I42.9 Cardiomyopathy type: unspecified History of pulmonary embolism Z86.711 Leiomyosarcoma C49.9 (1) Cardiomyopathy Cardiomyopathy type: unspecified Qualified Code(s): I42.9 - Cardiomyopathy, unspecified
[2022-03-23] MEDS: BENZONATATE 100 MG CAPSULE PO PRN (04:16)
[2022-03-23] MEDS: oxyCODONE HCL IR 5 MG TAB (IMMEDIATE RELEASE) PO PRN (06:24)
[2022-03-23 06:43] LABS: Basophils # (auto) 0.03 K/uL (0-0.2); Basophils % (auto) 0.4 %; Eosinophils # (auto) 0.09 K/uL (0-0.50); Eosinophils % (auto) 1.1 %; Hematocrit (blood only) 27.5 % (34.1-44.9); Hemoglobin 8.7 g/dl (12.0-16.0); Immature Granulocytes # (auto) 0.03 K/uL (0.00-0.02); Immature Granulocytes % (auto) 0.4 %; Lymphocytes # (auto) 0.75 K/uL (1.2-3.4); Lymphocytes % (auto) 9.2 %; Mean Corpuscular Hgb Conc 31.6 g/dL (32.0-36.0); Mean Corpuscular Volume 94.8 fL (80.0-100.0); Mean Platelet Volume 9.9 fL (9.4-12.3); Monocytes # (auto) 0.52 K/uL (0.24-0.82); Monocytes % (auto) 6.4 %; Neutrophils # (auto) 6.69 K/uL (1.4-6.5); Neutrophils % (auto) 82.5 %; Platelet Count 326 K/uL (130-400); RDW Standard Deviation 58.9 fL (36.4-46.3); White Blood Count 8.11 K/ul (4.8-10.8)
[2022-03-23 07:07] LABS: BUN Creatinine Ratio 17.2 (10-20); Calcium 8.4 mg/dl (8.5-10.1); Creatinine Clr Calc Pharmacy 49.7 ml/min; Est GFR (African American) 57.2 ml/min; Est GFR (Non-African American) 49.4 ml/min; Potassium 3.2 mmol/L (3.5-5.1)
[2022-03-23] MEDS: PANTOprazole 40 MG in SYRINGE 0 ML IV SCH (08:13)
[2022-03-23] MEDS: SPIRONOLACTONE 25 MG TAB PO SCH (08:13)
[2022-03-23] MEDS: VALSARTAN/SACUBITRIL 103/97MG TAB PO SCH (08:13)
[2022-03-23] MEDS: METOPROLOL SUCC 50MG EXT REL TAB PO SCH (08:13)
--- NOTE | 2022-03-23 13:42 | Discharge Summary ---
Date of Service March 23, 2022 Principal Diagnosis Hypokalemia, Anemia Discharge Exam The patient is awake, alert and oriented 3, well developed and well nourished, normocephalic and atraumatic, lying in bed and in no acute distress. HEENT--PERRL, EOMI, mucous membranes and oropharynx mildly dry Neck--supple. No JVD. No bruits. Thyroid normal, trachea midline, no adenopathy. Heart--normal S1 and S2. No murmurs, rubs or gallops. Lungs--clear bilaterally, no respiratory distress, no accessory muscle use. Abdomen--normal bowel sounds and soft. Mild epigastric and left sided abdominal pain Extremities--no cyanosis or clubbing. No edema. Dermatologic--normal skin turgor, normal color, no abnormal lymph nodes, no rash. Neurologic--cranial nerves II through XII grossly intact. Rheumatologic--normal range of motion. Psychiatric--normal affect. Discharge Data Allergies Allergy/AdvReac Type Severity Reaction Status Date / Time No Known Drug Allergies Allergy Unknown Verified 03/21/22 16:49 nickel AdvReac Mild REDNESS TO Verified 03/21/22 16:49 SKIN Consultations 03/21/22 16:21 ED Decision to Admit Stat 03/21/22 16:23 ED Decision to Admit Stat 03/22/22 10:22 Consult Gastroenterology Routine Hospital Course (1) Anemia: - Hgb 6.7, MCV 96.8, MCHC 31.3. - Type and cross, consent for transfusion obtained. - s/p 2 units packed rbcs. Repeat Hgb 8.7. - repeat H&H this afternoon to make sure stable - given FOB +ve GI consulted, but given stable Hb and no overt bleed, EGD deferred to outpatient (2) Hypokalemia: - Resolved (3) Cardiomyopathy: - Hold Lasix as no sign or symptoms of heart failure and she reports her cardiomyopathy has resvoled with discontinuation of chemo that caused it and taking Entresto. - Unclear if she still even requires Lasix chronically and likely can be safely discontinued on discharge as not needing diuretics despite blood transfusions Continue Entresto, Jardiance, metoprolol and spironolactone. (4) History of pulmonary embolism: - Several years ago, to remain on Eliquis indefinitely. - Hold Eliquis given acute anemia and FOB +ve (5) Leiomyosarcoma: - s/p HANH+BSO, undergoing chemotherapy. Treatment is primarily through [facility] in [place] but gets chemo q3 weeks in [place]. - Admit to PCU. - SCDs for VTE ppx. Chemoppx contraindicated. - Full Code. Total Time Total Time Spent Total Time Spent (In Minutes): 35 Discharge Plan Discharge Items Patient Disposition: Home - Self-Care Reason For Visit: NEW ANEMIA, HYPOKALEMIA Discharge Diagnosis: GI bleed Condition on Discharge: Fair Activity: Resume your previous activity Non-emergency contact: Primary Care Provider and Bridge Painter Call non-emergency contact if: you have any medication questions Follow-up/Referrals: Nikki Hayden MD [Primary Care Provider] - Diet: Regular Addtl Attending Provider Instructions: please make appointment to see your Bridge Painter in 1-2 weeks Pending Studies at Discharge: No Stand-Alone Forms: My redIT, Smoking Cessation Medications and DC Order Prescriptions: New pantoprazole 40 mg tablet,delayed release (DR/EC) 40 mg PO DAILY Qty: 30 RF: 0 Continued metoprolol succinate 50 mg tablet extended release 24 hr 50 mg PO DAILY RF: 0 ondansetron HCl 8 mg tablet 8 mg PO Q8 PRN (Reason: Nausea) RF: 0 Eliquis 5 mg tablet 5 mg PO BID RF: 0 Jardiance 10 mg tablet 10 mg PO DAILY RF: 0 Entresto 97-103 mg tablet 1 tab PO BID RF: 0 furosemide 40 mg tablet 40 mg PO DAILY RF: 0 spironolactone 25 mg tablet 25 mg PO DAILY RF: 0 Discharge Orders: Discharge Order (Routine); Ordered 03/23/22 Ordered By: Sandra Flood Admission Data Admit Date/Time: 03/21/22 17:17 Attending Provider: Sandra Flood Admit Provider: Jc Hsuain Primary Care Provider: Nikki Hayden Other Providers: Jc Husain ; Noe Broussard Other Interventions: Discharge Summary Assessment (RN) Last Done: 03/23/22 11:44 Coding Level of Care Code D/C DAY MANAGEMENT >30 MINS Diagnoses Anemia D64.9 Hypokalemia E87.6 Cardiomyopathy I42.9 Cardiomyopathy type: unspecified History of pulmonary embolism Z86.711 Leiomyosarcoma C49.9 Time Spent (min) 35
--- NOTE | 2022-03-26 13:28 | Coding Query ---
CODING QUERY To promote full compliance with coding requirements relating to patient care, provider participation is requested in all cases of orthodontist vice president uncertainty. Please assist us with the question(s) below: Coding Question(s): Pt with metastatic leiomyosarcoma admitted with anemia. Please document, if known or suspected, the etiology of the anemia. Thanks for your help! Petar Calero [facility] Physician's Response(s): Principal Diagnosis: "that condition established after study, to be chiefly responsible for occasioning the admission of the patient to the hospital for care." Co-Existing Principal Diagnosis: "when two or more diagnoses equally meet the criteria for principal diagnosis as determined by the circumstances of admission, diagnostic work up, and/or therapy provided, and the Alphabetic Index, Tabular List, or another coding guideline does not provide sequencing direction, any one of the diagnoses may be sequenced first." "When the physician has documented what appears to be a current diagnosis in the body of the record, but has not included the diagnosis in the final diagnostic statement, the physician should be asked whether the diagnosis should be added." (Source Coding Clinic 2 QTR90. p3-4) MARYANN
== END 2022-03-23 12:15 | disposition home or self-care (01) | DRG 812 ==
LOC: ED 14:38 → 2S 17:17 → SUATTDRO 17:17 → 2S 19:30

== ENCOUNTER 2022-06-12 14:39 | Inpatient (IN) ==
[2022-06-12 16:08] LABS: Hematocrit (blood only) 19.7 % (34.1-44.9); Hemoglobin 5.9 g/dl (12.0-16.0); Mean Corpuscular Hemoglobin 30.7 pg (25.0-34.0); Mean Corpuscular Hgb Conc 29.9 g/dL (32.0-36.0); Mean Corpuscular Volume 102.6 fL (80.0-100.0); Mean Platelet Volume 10.7 fL (9.4-12.3); Platelet Count 154 K/uL (130-400); RDW Standard Deviation 74.4 fL (36.4-46.3); Red Blood Count 1.92 M/uL (3.93-5.22); White Blood Count 7.75 K/ul (4.8-10.8)
--- NOTE | 2022-06-12 16:09 | XRay Report ---
XR chest 2V PA/lateral HISTORY: illness COMPARISON: Chest 05/07/2022. FINDINGS: No pneumothorax. The heart is normal in size. As a left subclavian Port-A-Cath which termin ates in the distal SVC. This remains unchanged. Bilateral pulmonary nodules are again noted consisten t with metastatic disease. There are trace bilateral pleural effusions. Patchy density within the bas e of the left lower lobe is noted. No evidence for pulmonary edema. IMPRESSION: 1. There is a new patchy left lower lobe airspace opacity. This could represent atelectasis or pneumo kiesha. 2. Trace bilateral pleural effusions. 3. Multifocal pulmonary metastatic disease again noted. ACT 112: Negative or not required by law. Electronically signed by: Juan Hammer M.D. 06/12/2022 4:07 PM
[2022-06-12 16:12] LABS: INR 1.2 (0.9-1.1); Partial Thromboplastin Ratio 0.8; Partial Thromboplastin Time 20.7 Seconds (21.0-31.0); Prothrombin Time 12.4 Seconds (9.0-12.0)
[2022-06-12 16:24] LABS: Albumin Globulin Ratio 0.7 (0.9-2); Albumin Level 2.5 gm/dl (3.4-5.0); BUN Creatinine Ratio 13.8 (10-20); Bilirubin,Total 0.4 mg/dl (0.2-1.0); Calcium 7.6 mg/dl (8.5-10.1); Creatinine Clr Calc Pharmacy 49.4 ml/min; Est GFR (African American) 56.2 ml/min; Est GFR (Non-African American) 48.5 ml/min; Globulin 3.7 gm/dl (2.5-4.0); Potassium 3.9 mmol/L (3.5-5.1); Total Protein 6.2 gm/dl (6.0-8.3)
[2022-06-12] MEDS ORDERED: SODIUM CHLORIDE 0.9% 250 ML IV PRN ×2 (16:24→20:06)
[2022-06-12 16:28] LABS: Anisocytosis Present; Basophils # (auto) 0.01 K/uL (0-0.2); Basophils % (auto) 0.1 %; Eosinophils # (auto) 0.05 K/uL (0-0.50); Eosinophils % (auto) 0.6 %; Immature Granulocytes # (auto) 0.03 K/uL (0.00-0.02); Immature Granulocytes % (auto) 0.4 %; Lymphocytes # (auto) 0.68 K/uL (1.2-3.4); Lymphocytes % (auto) 8.8 %; Monocytes # (auto) 0.52 K/uL (0.24-0.82); Monocytes % (auto) 6.7 %; Neutrophils # (auto) 6.46 K/uL (1.4-6.5); Neutrophils % (auto) 83.4 %; Polychromasia 1+; Tear Drop Cells 2+
--- NOTE | 2022-06-12 16:41 | Emergency Department Note ---
History of Present Illness General Chief Complaint: Abnormal Labs/Diagnostic Testing Stated Complaint: ABNORMAL LABS Time Seen by Provider: 06/12/22 16:09 History of Present Illness Provider Complaint: + abnormal lab Description of abnormal result: Low hemoglobin Context: + called for abnormal lab result Associated symptoms: no fever, no chills, no shortness of breath, no rash, no malaise, no nausea or no abdominal pain Home Medications Medication Instructions Recorded Confirmed Type empagliflozin 10 mg tablet 10 mg PO QAM 03/21/22 06/12/22 History (Jardiance) furosemide 40 mg tablet 40 mg PO QAM 03/21/22 06/12/22 History metoprolol succinate 50 mg 50 mg PO QAM 03/21/22 06/12/22 History tablet,extended release 24 hr ondansetron HCl 8 mg tablet 8 mg PO Q8 PRN Nausea 03/21/22 06/12/22 History spironolactone 25 mg tablet 25 mg PO QAM 03/21/22 06/12/22 History potassium chloride 20 mEq 20 meq PO BID 05/07/22 06/12/22 History tablet,extended release(part/cryst) magnesium 400 mg PO BID supplement 06/12/22 06/12/22 History olanzapine 2.5 mg tablet 2.5 mg PO 06/12/22 History oxycodone 20 mg tablet 20 mg PO Q4H pain 06/12/22 06/12/22 History oxycodone myristate 9 mg capsule 9 mg PO DAILY 06/12/22 06/12/22 History sprinkle extended release 12 hr(DON'T CRUSH) (Xtampza ER) prochlorperazine maleate 10 mg 10 mg PO PRN Nausea 06/12/22 History tablet Allergies Allergy/AdvReac Type Severity Reaction Status Date / Time No Known Drug Allergies Allergy Unknown Verified 05/07/22 11:03 nickel AdvReac Mild REDNESS TO Verified 05/07/22 11:03 SKIN Past Med/Surg History Medical History Acute CHF (congestive heart failure) Resolved History of pulmonary embolism Leiomyosarcoma Leiomyosarcoma Systolic CHF, chronic Surgical History History of X2 History of hysterectomy History of lung biopsy LEFT History of renal stent Family History Father Diabetes Hypertension Myocardial infarction Denies family history of Ovarian cancer Prostate cancer Breast cancer Colorectal cancer Social History Smoking Status: Never smoker Age Started Using Tobacco: 21; Age Quit Using Tobacco: 29; packs per day: 0.25; Years Smoked: 8; Cigarettes Per Day: 5; Number of Years Since Quit: 15; Second Hand Exposure: No; Hx Alcohol Use: Yes Alcohol type: wine Hx Substance Use: No Preferred Language: Hungarian Communication Ability: Effective Black Oxide Operator Required: No Beliefs That Will Affect Care: None Current Living Situation: Family Feels Safe at Home: Yes Assistive Devices: None Review of Systems A total of 10 systems reviewed and were otherwise negative Physical Exam Vital Signs: Vital Signs - 24 hr 06/12/22 14:53 06/12/22 17:24 06/12/22 16:39 Temperature 37.0 C 37.1 C Temperature Source Oral Oral Pulse Rate 121 H 110 H Pulse Rate [Left] 111 H Pulse Rhythm Regular Pulse Strength Normal Respiratory Rate 16 21 20 Respiratory Effort / Characteristics Non-Labored Sponta neous Non-Labored Respiratory Depth Normal Normal Respiratory Patter n Regular Blood Pressure 116/68 102/65 Blood Pressure [Le ft Arm] 102/65 Blood Pressure Tawanna n 84 77 Blood Pressure Tawanna n [Left Arm] 77 Blood Pressure Pos ition Sitting Sitting Pulse Oximetry 92 93 94 Oxygen Delivery Me thod Room Air Room Air Sepsis Recent Feve r Within 48 Hours No Sepsis New/Unexpla ined Change in Men maged Status No Sepsis Action Take n by Nursing No Action Required Physical Exam: Physical Exam GENERAL: She is oriented to person, place, and time. She appears well-developed and well-nourished. She does not appear distressed. HENT: Exam performed. -Head: Normocephalic and atraumatic. -Right Ear: External ear normal. No mastoid tenderness. -Left Ear: External ear normal. No mastoid tenderness. -Mouth/Throat: The oropharynx is clear and moist. No trismus in the jaw. No dental abscesses or uvula swelling. No oropharyngeal exudate or tonsillar abscesses. EYES: Conjunctivae and EOM are normal. Pupils are equal, round, and reactive to light. Right eye exhibits no discharge. Left eye exhibits no discharge. No scler al icterus. NECK: Normal range of motion. Neck supple. No JVD present. No spinous process tenderness present. No carotid bruit present. No rigidity. No tracheal deviation and normal range of motion present. No Brudzinski's sign and no Kernig's sign noted. CV: Tachycardic rate, regular rhythm, normal heart sounds and intact distal pulses. There is no peripheral edema. Palpable radial pulses bue. PULM/CHEST: Effort normal and breath sounds normal. No respiratory distress. No stridor. She has no wheezes. She has no rales. -Chest Wall: She exhibits no tenderness. ABD: The abdomen is soft. Bowel sounds are normal. She has no distension. No mass is present. There is no tenderness. There is no rebound, no guarding, no Ortiz's sign and no tenderness at McBurney's point. Rovsig negative RECTAL: Hemoccult negative. MUSC/SKEL: Normal range of motion. There is no peripheral edema, tenderness or deformity. LYMPH: No cervical adenopathy. NEURO: She is alert and oriented to person, place, and time. She has normal strength. No cranial nerve deficit or sensory deficit. Coordination and gait no rmal. GCS eye subscore is 4. GCS verbal subscore is 5. GCS motor subscore is 6. Cerebellar tests wnl. SKIN: Skin is warm and dry. She is not diaphoretic. PSYCH: She has a normal mood and affect. Behavior is normal. Judgment and thought content normal. Course Course 1609: The patient was evaluated in room B6. A complete history and physical exam was performed Cardiac monitoring: An order was placed for continuous cardiac monitoring. The monitor shows a rate of 110 with sinus rhythm EMR reviewed. Patient has a history of leiomyosarcoma. Patient was seen in the emergency department at this facility on May 07, 2022. At that time she presented for a GI bleed. Patient became hypotensive required multiple transf usions and was eventually life flighted to [place]. Discharge summary from [facility] is scanned into computer. When this is reviewed with state that the patient received multiple units of FFP as well as packed red blood cells. IR was consulted and there was no intervention per IR. The patient was taking off of Eliquis and discharged home. The patient confirms she is no longer on Eliquis and states she is no longer receiving chemotherapy as they are giving her a break before she starts a potent ial experimental drug trial. She states that her oncologist is Dr. Caitlin Ortega [phone] Patient was seen during a time of extreme volume and extreme acuity in the emergency department. Nursing triage protocols were initiated and labs were drawn by protocol in the triage area. Patient's hemoglobin is 5.9. Patient was placed in to get 2 units packed red blood cells. 1642: Spoke with Dr. Ortega [phone]. I explained to her the patient's presentation. She states that this time there is no need for transfer as patient not having any active bleeding. She does recommend obtaining a CT of the abdomen pelvis to make sure there is no bleeding into the tumors. She states if that is the case then to transfer to [facility], otherwise the patient can be admitted to this facility to be transfused and have posttransfusion hemoglobin checks. She states we can contact her on her cell phone if need be [phone]. 1742: Blood pressure stable. Blood transfusion begun in the emergency department. CT of the abdomen pelvis does show multifocal metastatic disease again. There is no intralesional hemorrhage and no active extravasation. There are multiple large masses and metastatic disease. There is also a deep vein thrombosis in the right common femoral vein. Given that there is no active hemorrhage we will follow Dr. Ortega's plan and plan on admitting the patient to the hospitalist team here. [facility] hospitalist Dr. Husain was notified of the patient. Administered Medications Discontinued Medications Ioversol (Ioversol 350 Mg 100ml Prefilled Syringe) 94 ml IV ONCE ONE Stop: 06/12/22 16:56 Last Admin: 06/12/22 16:55 Dose: 94 ml Documented By: CALVIN Medical Decision Making Laboratory Data Result diagrams: 06/12/22 15:09 06/12/22 15:09 Lab Results 06/12/22 06/12/22 06/12/22 Range/Units 15:09 15:09 15:09 WBC 7.75 (4.8-10.8) K/ul RBC 1.92 L (3.93-5.22) M/uL Hgb 5.9 L* (12.0-16.0) g/dl Hct 19.7 L* (34.1-44.9) % MCV 102.6 H (80.0-100.0) fL MCH 30.7 (25.0-34.0) pg MCHC 29.9 L (32.0-36.0) g/dL RDW Std Deviation 74.4 H (36.4-46.3) fL RDW Coeff of Jennifer 21.0 H (11.5-14.5) % Plt Count 154 (130-400) K/uL MPV 10.7 (9.4-12.3) fL Immature Gran % (Auto) 0.4 % Neut % (Auto) 83.4 % Lymph % (Auto) 8.8 % [place] % (Auto) 6.7 % Eos % (Auto) 0.6 % Baso % (Auto) 0.1 % Neut # (Auto) 6.46 (1.4-6.5) K/uL Lymph # (Auto) 0.68 L (1.2-3.4) K/uL [place] # (Auto) 0.52 (0.24-0.82) K/uL Eos # (Auto) 0.05 (0-0.50) K/uL Baso # (Auto) 0.01 (0-0.2) K/uL Immature Gran # (Auto) 0.03 H (0.00-0.02) K/uL Polychromasia 1+ Anisocytosis Present Tear Drop Cells 2+ PT 12.4 H (9.0-12.0) Seconds INR 1.2 H (0.9-1.1) APTT 20.7 L (21.0-31.0) Seconds PTT Ratio 0.8 Sodium (136-145) mmol/L Potassium (3.5-5.1) mmol/L Chloride (98-107) mmol/L Carbon Dioxide (21-32) mmol/L Anion Gap (3-11) BUN (6-23) mg/dl Creatinine (0.6-1.2) mg/dl Est Cr Clr Drug Dosing ml/min Est GFR ( Amer) ml/min Est GFR (Non-Af Amer) ml/min BUN/Creatinine Ratio (10-20) Glucose (70-99(Fasting)) mg/dl Calcium (8.5-10.1) mg/dl Total Bilirubin (0.2-1.0) mg/dl AST (13-39) U/L ALT (7-52) U/L Alkaline Phosphatase (34-104) U/L Total Protein (6.0-8.3) gm/dl Albumin (3.4-5.0) gm/dl Globulin (2.5-4.0) gm/dl Albumin/Globulin Ratio (0.9-2) SARS-CoV-2, RNA, NAAT (NEGATIVE) Blood Type A Positive Antibody Screen NEGATIVE Crossmatch See Detail 06/12/22 06/12/22 Range/Units 15:09 16:39 WBC (4.8-10.8) K/ul RBC (3.93-5.22) M/uL Hgb (12.0-16.0) g/dl Hct (34.1-44.9) % MCV (80.0-100.0) fL MCH (25.0-34.0) pg MCHC (32.0-36.0) g/dL RDW Std Deviation (36.4-46.3) fL RDW Coeff of Jennifer (11.5-14.5) % Plt Count (130-400) K/uL MPV (9.4-12.3) fL Immature Gran % (Auto) % Neut % (Auto) % Lymph % (Auto) % [place] % (Auto) % Eos % (Auto) % Baso % (Auto) % Neut # (Auto) (1.4-6.5) K/uL Lymph # (Auto) (1.2-3.4) K/uL [place] # (Auto) (0.24-0.82) K/uL Eos # (Auto) (0-0.50) K/uL Baso # (Auto) (0-0.2) K/uL Immature Gran # (Auto) (0.00-0.02) K/uL Polychromasia Anisocytosis Tear Drop Cells PT (9.0-12.0) Seconds INR (0.9-1.1) APTT (21.0-31.0) Seconds PTT Ratio Sodium 138 (136-145) mmol/L Potassium 3.9 (3.5-5.1) mmol/L Chloride 100 (98-107) mmol/L Carbon Dioxide 32 (21-32) mmol/L Anion Gap 6 (3-11) BUN 18 (6-23) mg/dl Creatinine 1.30 H (0.6-1.2) mg/dl Est Cr Clr Drug Dosing 49.4 ml/min Est GFR ( Amer) 56.2 ml/min Est GFR (Non-Af Amer) 48.5 ml/min BUN/Creatinine Ratio 13.8 (10-20) Glucose 105 H (70-99(Fasting)) mg/dl Calcium 7.6 L (8.5-10.1) mg/dl Total Bilirubin 0.4 (0.2-1.0) mg/dl AST 74 H (13-39) U/L ALT 7 (7-52) U/L Alkaline Phosphatase 108 H (34-104) U/L Total Protein 6.2 (6.0-8.3) gm/dl Albumin 2.5 L (3.4-5.0) gm/dl Globulin 3.7 (2.5-4.0) gm/dl Albumin/Globulin Ratio 0.7 L (0.9-2) SARS-CoV-2, RNA, NAAT NEGATIVE (NEGATIVE) Blood Type Antibody Screen Crossmatch Imaging Data Radiologist's Impression: Chest X-Ray 06/12/22 14:56 XR chest 2V PA/lateral HISTORY: illness COMPARISON: Chest 05/07/2022. FINDINGS: No pneumothorax. The heart is normal in size. As a left subclavian Port-A-Cath which terminates in the distal SVC. This remains unchanged. B ilateral pulmonary nodules are again noted consistent with metastatic disease. There are trace bilateral pleural effusions. Patchy density within the base of the left lower lobe is noted. No evidence for pulmonary edema. IMPRESSION: 1. There is a new patchy left lower lobe airspace opacity. This could represent atelectasis or pneumonia. 2. Trace bilateral pleural effusions. 3. Multifocal pulmonary metastatic disease again noted. ACT 112: Negative or not required by law. Electronically signed by: Juan Hammer M.D. 06/12/2022 4:07 PM Abdomen/Pelvis CT 06/12/22 16:42 CT SCAN OF THE ABDOMEN AND PELVIS WITH IV CONTRAST CLINICAL HISTORY: Leiomyosarcoma. COMPARISON STUDY: Abdominal CT dated 05/07/2022. TECHNIQUE: Following the IV administration of 94 cc of Optiray 350, CT scan of the abdomen and pelvis is performed from the lung bases to the proximal femora. Images are reviewed in the axial, sagittal, and coronal planes. IV contrast was administered without complication. A dose lowering technique was utilized adhering to the principles of ALARA. CT DOSE: 470.53 mGy.cm FINDINGS: Lung bases: The heart is normal in size and without pericardial effusion. Extensive pulmonary metastatic disease is again seen at the lung bases. Lesions measure up to 1.5 cm. This has not appreciably changed from 05/07/2022. Postsurgical change is noted at the left lung base. There are small pleural effusions with dependent atelectasis. Liver: The contrast-enhanced liver is mildly enlarged measuring 18.5 cm in length. The liver demonstrates diminished attenuation suggesting steatosis. There is no intrahepatic biliary ductal dilatation. The hepatic veins and portal veins are patent. Again seen is evidence of multifocal hepatic metastatic disease, with greater than 10 lesions identified. This appears modestly progressed as compared to 05/07/2022. The largest lesion in the right lobe on image #68 and measures up to 4 cm. Gallbladder: Unremarkable. Spleen: Normal in size and attenuation. Pancreas: Unremarkable. Adrenal glands: Unremarkable. Kidneys: There is asymmetric cortical atrophy of the right kidney as compared to the left. Bilateral ureteral stents are in place. There is moderate to severe bilateral hydronephrosis, right greater than left. There is slightly diminished enhancement of the right kidney as compared to the left. Abdominal vasculature: The abdominal aorta is normal in course and caliber. Noting mild atherosclerotic calcification. The right iliac artery is encased by a large mass lesion the pelvis but remains patent. 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 There is near-complete occlusion of the left iliac vein seen on axial image #228. Deep venous thrombosis is seen within the right common femoral vein on image #426. Bowel: The bowel loops are significantly displaced. No obstruction is seen. The large lesion in the pelvis significantly narrows the rectosigmoid. Invasion of b owel loops would be impossible to exclude. Findings in the the right lower quadrant suggests previous appendectomy. Peritoneum: A midline surgical scar is noted. No intraperitoneal free air is seen. Trace free fluid is seen in the pelvis. There is a large, heterogeneous, and centrally necrotic mass lesion filling the pelvis with significant localized mass effect. This measures approximately 22.5 x 15.5 x 18 cm in dimension and encases the right iliac vessels. There is significant mass effect on the adjacent bladder and the bowel loops. Additional large lesions are seen in the right midabdomen on image #215 measuring approximately 6 x 9.5 x 7 cm, in the left upper quadrant on image #114 measuring approximately 9.5 x 9 x 10.5 cm, and in the central abdomen on image #190 measuring approximately 9 x 10 x 11 cm. The left upper quadrant lesion causes significant mass effect on and may invade both the posterior stomach and pancreatic tail. Although several lesions are necrotic, no intralesional hemorrhage is identified. Lymphadenopathy: None. Pelvic viscera: The bladder is decompressed and contains the distal end of ureteral stents. This is not well evaluated. The uterus is surgically absent. The adnexa are not well-visualized. Skeletal structures: The skeletal structures are osteopenic. No lytic or blastic lesions are seen. Soft tissues: There is body wall edema. IMPRESSION: 1. Again seen is evidence of multifocal metastatic disease. This appear modestly progressed as compared 05/07/2022. 2. An approximately 22.5 cm mass lesion fills the pelvis and encases/displaces several structures as above, including the rectum and several bowel loops. Invasion of these structures is not excluded. 3. Additional large mass lesions are present in the mid to upper abdomen as detailed above. 4. Although many of the mesenteric lesions are centrally necrotic, no intrale sional hemorrhage is seen. No active extravasation is identified. 5. Hepatic metastatic disease has modestly progressed from previous. 6. Pulmonary metastatic disease has not appreciably changed. 7. Deep venous thrombosis is seen within the right common femoral vein. 8. There is no bowel obstruction. 9. There is moderate to severe bilateral hydronephrosis as above, right greater than left with ureteral stents in place. 10. The large pelvic mass encases the right iliac vessels. The right iliac vein is likely occluded. The left iliac vein is severely narrowed but likely remains patent. 11. Trace pleural effusions are new from previous. Body wall edema has increased. 12. Additional findings as detailed above. ACT 112: Negative or not required by law. Electronically signed by: Elder Lizarraga M.D. 06/12/2022 5:21 PM ECG Data Indication: other (anemia) Rate (beats per minute): 117 Rhythm: sinus tachycardia Findings: no ST depression, no ST elevation or no prolonged QT MDM Narrative 1609: The patient was evaluated in room B6. A complete history and physical exam was performed Cardiac monitoring: An order was placed for continuous cardiac monitoring. The monitor shows a rate of 110 with sinus rhythm EMR reviewed. Patient has a history of leiomyosarcoma. Patient was seen in the emergency department at this facility on May 07, 2022. At that time she presented for a GI bleed. Patient became hypotensive required multiple transfusions and was eventually life flighted to [place]. Discharge summary from [facility] is scanned into computer. When this is reviewed with state that the patient received multiple units of FFP as well as packed red blood cells. IR was consulted and there was no intervention per IR. The patient was taking off of Eliquis and discharged home. The patient confirms she is no longer on Eliquis and states she is no longer receiving chemotherapy as they are giving her a break before she starts a potential experimental drug trial. She states that her oncologist is Dr. Caitlin Ortega [phone] Patient was seen during a time of extreme volume and extreme acuity in the emergency department. Nursing triage protocols were initiated and labs were drawn by protocol in the triage area. Patient's hemoglobin is 5.9. Patient was placed in to get 2 units packed red blood cells. 1642: Spoke with Dr. Ortega [phone]. I explained to her the patient's presentation. She states that this time there is no need for transfer as patient not having any active bleeding. She does recommend obtaining a CT of the abdomen pelvis to make sure there is no bleeding into the tumors. She states if that is the case then to transfer to [facility], otherwise the patient can be admitted to this facility to be transfused and have posttransfusion hemoglobin checks. She states we can contact her on her cell phone if need be [phone]. 1742: Blood pressure stable. Blood transfusion begun in the emergency department. CT of the abdomen pelvis does show multifocal metastatic disease again. There is no intralesional hemorrhage and no active extravasation. There are multiple large masses and metastatic disease. There is also a deep vein thrombosis in the right common femoral vein. Given that there is no active hemorrhage we will follow Dr. Ortega's plan and plan on admitting the patient to the hospitalist team here. [facility] hospitalist Dr. Husain was notified of the patient. Impression & Plan Anemia, Leiomyosarcoma Critical Care Time Critical Care Time: Yes Total Critical Care Time: 48 I have personally spent greater than 48 minutes of critical care time in the direct management of this patient. This includes bedside care, interpretation of diagnostic studies, and testing, discussion with consultants, patient, and family members, and other required patient management activities. This 48 minutes is in excess of all separately billable procedures. Discharge Plan Visit Data Chief Complaint: Abnormal Labs/Diagnostic Testing Stated Complaint: ABNORMAL LABS ED Provider: Varun Bautista Discharge Problem: Anemia, Leiomyosarcoma Patient Disposition: Admitted As Inpatient Forms Stand Alone Forms: My [facility] Prescriptions Prescriptions: No Action metoprolol succinate 50 mg tablet extended release 24 hr 50 mg PO QAM ondansetron HCl 8 mg tablet 8 mg PO Q8 PRN (Reason: Nausea) Jardiance 10 mg tablet 10 mg PO QAM furosemide 40 mg tablet 40 mg PO QAM spironolactone 25 mg tablet 25 mg PO QAM potassium chloride 20 mEq tablet,ER particles/crystals 20 meq PO BID prochlorperazine maleate 10 mg tablet 10 mg PO PRN (Reason: Nausea) olanzapine 2.5 mg tablet 2.5 mg PO oxycodone 20 mg tablet 20 mg PO Q4H Xtampza ER 9 mg cap,sprinkl,ER12hr(DONT CRUSH) 9 mg PO DAILY magnesium 400 mg 400 mg PO BID Referrals Referrals: Nikki Hayden MD [Primary Care Provider] - : Anemia Qualifiers: Anemia type: unspecified type Qualified Code(s): D64.9 - Anemia, unspecified
[2022-06-12] MEDS ORDERED: SODIUM CHLORIDE 0.9% 1000ML 1,000 ML IV SCH (16:45)
[2022-06-12] MEDS ORDERED: IOVERSOL 350 MG 100mL Prefilled Syringe IV ONE (16:55)
--- NOTE | 2022-06-12 17:22 | CT Scan Report ---
CT SCAN OF THE ABDOMEN AND PELVIS WITH IV CONTRAST CLINICAL HISTORY: Leiomyosarcoma. COMPARISON STUDY: Abdominal CT dated 05/07/2022. TECHNIQUE: Following the IV administration of 94 cc of Optiray 350, CT scan of the abdomen and pelvi s is performed from the lung bases to the proximal femora. Images are reviewed in the axial, sagittal , and coronal planes. IV contrast was administered without complication. A dose lowering technique wa s utilized adhering to the principles of ALARA. CT DOSE: 470.53 mGy.cm FINDINGS: Lung bases: The heart is normal in size and without pericardial effusion. Extensive pulmonary metasta tic disease is again seen at the lung bases. Lesions measure up to 1.5 cm. This has not appreciably c hanged from 05/07/2022. Postsurgical change is noted at the left lung base. There are small pleural ef fusions with dependent atelectasis. Liver: The contrast-enhanced liver is mildly enlarged measuring 18.5 cm in length. The liver demonstr ates diminished attenuation suggesting steatosis. There is no intrahepatic biliary ductal dilatation. The hepatic veins and portal veins are patent. Again seen is evidence of multifocal hepatic metastat ic disease, with greater than 10 lesions identified. This appears modestly progressed as compared to 05/07/2022. The largest lesion in the right lobe on image #68 and measures up to 4 cm. Gallbladder: Unremarkable. Spleen: Normal in size and attenuation. Pancreas: Unremarkable. Adrenal glands: Unremarkable. Kidneys: There is asymmetric cortical atrophy of the right kidney as compared to the left. Bilateral ureteral stents are in place. There is moderate to severe bilateral hydronephrosis, right greater th an left. There is slightly diminished enhancement of the right kidney as compared to the left. Abdominal vasculature: The abdominal aorta is normal in course and caliber. Noting mild atherosclerot ic calcification. The right iliac artery is encased by a large mass lesion the pelvis but remains pat ent. 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 There is near-complete occlusion of the left iliac vein seen on axial image #228. Deep venous thrombosis is seen within the right common femoral v ein on image #426. Bowel: The bowel loops are significantly displaced. No obstruction is seen. The large lesion in the p arline significantly narrows the rectosigmoid. Invasion of bowel loops would be impossible to exclude. Findings in the the right lower quadrant suggests previous appendectomy. Peritoneum: A midline surgical scar is noted. No intraperitoneal free air is seen. Trace free fluid i s seen in the pelvis. There is a large, heterogeneous, and centrally necrotic mass lesion filling the pelvis with significant localized mass effect. This measures approximately 22.5 x 15.5 x 18 cm in di mension and encases the right iliac vessels. There is significant mass effect on the adjacent bladder and the bowel loops. Additional large lesions are seen in the right midabdomen on image #215 measuri ng approximately 6 x 9.5 x 7 cm, in the left upper quadrant on image #114 measuring approximately 9.5 x 9 x 10.5 cm, and in the central abdomen on image #190 measuring approximately 9 x 10 x 11 cm. The left upper quadrant lesion causes significant mass effect on and may invade both the posterior stomac h and pancreatic tail. Although several lesions are necrotic, no intralesional hemorrhage is identifi ed. Lymphadenopathy: None. Pelvic viscera: The bladder is decompressed and contains the distal end of ureteral stents. This is n ot well evaluated. The uterus is surgically absent. The adnexa are not well-visualized. Skeletal structures: The skeletal structures are osteopenic. No lytic or blastic lesions are seen. Soft tissues: There is body wall edema. IMPRESSION: 1. Again seen is evidence of multifocal metastatic disease. This appear modestly progressed as compar ed 05/07/2022. 2. An approximately 22.5 cm mass lesion fills the pelvis and encases/displaces several structures as above, including the rectum and several bowel loops. Invasion of these structures is not excluded. 3. Additional large mass lesions are present in the mid to upper abdomen as detailed above. 4. Although many of the mesenteric lesions are centrally necrotic, no intralesional hemorrhage is see n. No active extravasation is identified. 5. Hepatic metastatic disease has modestly progressed from previous. 6. Pulmonary metastatic disease has not appreciably changed. 7. Deep venous thrombosis is seen within the right common femoral vein. 8. There is no bowel obstruction. 9. There is moderate to severe bilateral hydronephrosis as above, right greater than left with ureter al stents in place. 10. The large pelvic mass encases the right iliac vessels. The right iliac vein is likely occluded. The left iliac vein is severely narrowed but likely remains patent. 11. Trace pleural effusions are new from previous. Body wall edema has increased. 12. Additional findings as detailed above. ACT 112: Negative or not required by law. Electronically signed by: Elder Liazrraga M.D. 06/12/2022 5:21 PM
--- NOTE | 2022-06-12 17:32 | History & Physical Report ---
Date of Service June 12, 2022 Assessment & Plan (1) Anemia: Plan: - Hgb has been monitored weekly following recent hospitalization for large rectal bleed. - Likely source is GI from known, advanced metastatic disease. Patient without any obvious bleeding per rectum or otherwise. Last chemo treatment 4 weeks ago. - Plan to transfuse 2-3 units overnight and recheck CBC in AM. - Patient was initially mildly tachycardic with RH 110, BP 100s/60s but not hypoxic. VS showing improvement after 1st unit of blood. - She does have chemo induced HF, need to watch for volume overload. (2) Abnormal abdominal CT scan: Plan: - Findings today do not reveal obvious source for blood loss and are largely the same from CT last month. (3) Leiomyosarcoma: Plan: - Advanced, with widely metastatic disease and large masses that invade organs and compress iliac veins; right iliac vein totally compressed, left iliac vein still patent but nearly totally occluded. Right iliac artery compressed but still patent. - Known extensive, occlusive RLE DVT. No anticoagulation due to GI bleed, not a candidate for IVC filter. - Supportive care for nausea at home: Zyprexa daily 1st line, Compro daily prn or 2nd line if still nauseous after Zyprexa. 3rd line IV Zofran for continued n/v. - Continue home oxycodone 20 mg PO q4h for mild/moderate pain. IV morphine for moderate/severe pain. (4) Cardiomyopathy: Plan: - Chemotherapy induced; appears euvolemic. - Watch volume status while blood is transfusing. - Holding Entresto and metoprolol given low BPs; can resume Lasix and spironolactone tomorrow AM. - May continue Jardiance. Plan - Admit to PCU. - No SCDs or chemoppx given known VTE. - Full Code. 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 States last night she was feeling fatigued and has continued abdominal and lower extremity pain due to edema after her last hospitalization, it has not noticed palpitations, shortness of breath, lightheadedness, dizziness, and she has not had any obvious bleeding per rectum or elsewhere. CT of her abdomen and pelvis was done today which shows progression of her metastatic disease. There is still a 22 cm mass that fills her pelvis and encases/displaces several structures including her rectum and several bowel loops, invasion of the structures is not excluded. There are additional large mass lesions in the mid to upper abdomen. Many mesenteric lesions are centrally necrotic however none are with evidence of intralesional hemorrhage. Extensive right common femoral vein DVT is still seen. There is no bowel obstruction. She does have unchanged moderate to severe bilateral hydronephrosis with ureteral stents in place. Patient was seen in our facility 1 month ago due to extensive, sudden onset rectal bleeding and was found of a hemoglobin of 5.[address] of her abdomen and pelvis that [id number] progression of her metastatic disease and invasion of her rectum and several bowel loops from her pelvic mass. Was transfused and provided IVF in order to stabilize her before being transferred to a tertiary care center ([facility]). She did receive approximately 7 units total between our facility and tertiary care center. CTA was unable to exactly pinpoint bleeding. GI, surgery, and IR consulted, but there was no need for acute intervention from their perspective at that time. Unfortunately, during her admission she was also found to have acute right leg occlusive DVT with no flow in right iliac, common femoral, greater saphenous, profunda, femoral, popliteal, and peroneal veins. She is not a candidate for an IVC filter due to vein compression from her intra-abdominal mass. She has a history of PEs, however given acute GI bleed, she will remain off Eliquis. She was stable for discharge home on 05/22 and has been feeling well since then other than chronic abdominal pain from her cancer. Upon presentation to our ED, she is tachycardic with a heart rate of 110, blood pressure 102/65, SpO2 > 92% on room air and afebrile. Labs significant for hemoglobin of 5.9, and acute drop from 1 week ago on 06/05 when hemoglobin was 7.0. PT and INR minimally elevated, no longer on anticoagulation. Calcium is low at 7.6, it is her baseline. No other electrolyte abnormalities and her renal function is at baseline. AST and alk phos mildly elevated, unchanged from previous labs. She is COVID-negative. Allergies Allergy/AdvReac Type Severity Reaction Status Date / Time No Known Drug Allergies Allergy Unknown Verified 05/07/22 11:03 nickel AdvReac Mild REDNESS TO Verified 05/07/22 11:03 SKIN Home Medications Medication Instructions Recorded Confirmed Type empagliflozin 10 mg tablet 10 mg PO QAM 03/21/22 06/12/22 History (Jardiance) furosemide 40 mg tablet 40 mg PO QAM 03/21/22 06/12/22 History metoprolol succinate 50 mg 50 mg PO QAM 03/21/22 06/12/22 History tablet,extended release 24 hr ondansetron HCl 8 mg tablet 8 mg PO Q8 PRN Nausea 03/21/22 06/12/22 History spironolactone 25 mg tablet 25 mg PO QAM 03/21/22 06/12/22 History potassium chloride 20 mEq 20 meq PO BID 05/07/22 06/12/22 History tablet,extended release(part/cryst) magnesium 400 mg PO BID supplement 06/12/22 06/12/22 History olanzapine 2.5 mg tablet 2.5 mg PO DAILY 06/12/22 06/12/22 History oxycodone 20 mg tablet 20 mg PO Q4H pain 06/12/22 06/12/22 History oxycodone myristate 9 mg capsule 9 mg PO DAILY 06/12/22 06/12/22 History sprinkle extended release 12 hr(DON'T CRUSH) (Xtampza ER) prochlorperazine maleate 10 mg 10 mg PO DAILY PRN Nausea 06/12/22 06/12/22 History tablet Past Med/Surg History Medical History Acute CHF (congestive heart failure) Resolved History of pulmonary embolism Leiomyosarcoma Leiomyosarcoma Systolic CHF, chronic Surgical History History of X2 History of hysterectomy History of lung biopsy LEFT History of renal stent Family History Father Diabetes Hypertension Myocardial infarction Denies family history of Ovarian cancer Prostate cancer Breast cancer Colorectal cancer Social History Smoking Status: Never smoker Age Started Using Tobacco: 21; Age Quit Using Tobacco: 29; packs per day: 0.25; Years Smoked: 8; Cigarettes Per Day: 5; Number of Years Since Quit: 15; Second Hand Exposure: No; Hx Alcohol Use: No Hx Substance Use: No Preferred Language: Palestinian Communication Ability: Effective Wardrobe Image Consultant Required: No Beliefs That Will Affect Care: None Current Living Situation: Spouse Feels Safe at Home: Yes Assistive Devices: None Review of Systems Review of Systems: Constitutional: fatiguse since last evening; No fever/chills, weakness, myalgias, anorexia, night sweats Eyes: No diplopia, no worsening or blurred vision ENT: normal hearing, no trouble swallowing Respiratory: No cough, sputum, dyspnea at rest or on exertion Cardiovascular: No chest pain, tightness or palpitations Abdomen: No change in chronic pain (cancer), some ongoing nausea; no vomiting, diarrhea or constipation, hematochezia or melena : Denies dysuria, hematuria, increased urgency/frequency, urinary retention Musculoskeletal: No joint pain, calf pain, swelling Neurologic: No weakness, numbness/tingling, or balance problems Psychiatric: No anxiety or depression Skin: No rash or itch Physical Exam Physical Exam: General: awake, alert, no apparent distress Head: Normocephalic, atraumatic ENT: PERRL, EOMI, no pharyngeal exudate, mucous membranes moist Chest: Clear to auscultation, on room air, no adventitious breath sounds Cardiac: Regular rate and rhythm, no murmur, no JVD, normal peripheral pulses, good capillary refill Abdominal: NABS x 4 quadrants, soft, nontender to palpation, no rebound, guarding or tenderness Extremities: Normal inspection, no peripheral edema or erythema, calfs nontender to palpation Psych: Normal mood and affect Neuro: AAO x 3, strength intact bilaterally and rated 5/5, no motor deficits, speech is clear, no peripheral sensory deficits Skin: no rash or erythema Results & Data Results & Data ([facility]) Vital Signs (Past 12 Hours) Vital Signs Temp Pulse Pulse Resp BP BP Pulse Ox 06/12/22 16:39 111 H 20 102/65 94 06/12/22 17:24 37.1 C 110 H 21 102/65 93 06/12/22 14:53 37.0 C 121 H 16 116/68 92 O2 Del Method 06/12/22 16:39 Room Air 06/12/22 17:24 06/12/22 14:53 Room Air Laboratory Results Abnormal lab results 06/12/22 06/12/22 06/12/22 Range/Units 15:09 15:09 15:09 RBC 1.92 L (3.93-5.22) M/uL Hgb 5.9 L* (12.0-16.0) g/dl Hct 19.7 L* (34.1-44.9) % MCV 102.6 H (80.0-100.0) fL MCHC 29.9 L (32.0-36.0) g/dL RDW Std Deviation 74.4 H (36.4-46.3) fL RDW Coeff of Jennifer 21.0 H (11.5-14.5) % Lymph # (Auto) 0.68 L (1.2-3.4) K/uL Immature Gran # (Auto) 0.03 H (0.00-0.02) K/uL PT 12.4 H (9.0-12.0) Seconds INR 1.2 H (0.9-1.1) APTT 20.7 L (21.0-31.0) Seconds Creatinine (0.6-1.2) mg/dl Glucose (70-99(Fasting)) mg/dl Calcium (8.5-10.1) mg/dl AST (13-39) U/L Alkaline Phosphatase (34-104) U/L Albumin (3.4-5.0) gm/dl Albumin/Globulin Ratio (0.9-2) Crossmatch See Detail 06/12/22 Range/Units 15:09 RBC (3.93-5.22) M/uL Hgb (12.0-16.0) g/dl Hct (34.1-44.9) % MCV (80.0-100.0) fL MCHC (32.0-36.0) g/dL RDW Std Deviation (36.4-46.3) fL RDW Coeff of Jennifer (11.5-14.5) % Lymph # (Auto) (1.2-3.4) K/uL Immature Gran # (Auto) (0.00-0.02) K/uL PT (9.0-12.0) Seconds INR (0.9-1.1) APTT (21.0-31.0) Seconds Creatinine 1.30 H (0.6-1.2) mg/dl Glucose 105 H (70-99(Fasting)) mg/dl Calcium 7.6 L (8.5-10.1) mg/dl AST 74 H (13-39) U/L Alkaline Phosphatase 108 H (34-104) U/L Albumin 2.5 L (3.4-5.0) gm/dl Albumin/Globulin Ratio 0.7 L (0.9-2) Crossmatch Diagnostic Findings Chest X-Ray 06/12/22 14:56 XR chest 2V PA/lateral HISTORY: illness COMPARISON: Chest 05/07/2022. FINDINGS: No pneumothorax. The heart is normal in size. As a left subclavian Port-A-Cath which terminates in the distal SVC. This remains unchanged. Bilateral pulmonary nodules are again noted consistent with metastatic disease. There are trace bilateral pleural effusions. Patchy density within the base of the left lower lobe is noted. No evidence for pulmonary edema. IMPRESSION: 1. There is a new patchy left lower lobe airspace opacity. This could represent atelectasis or pneumonia. 2. Trace bilateral pleural effusions. 3. Multifocal pulmonary metastatic disease again noted. ACT 112: Negative or not required by law. Electronically signed by: Juan Hammer M.D. 06/12/2022 4:07 PM Abdomen/Pelvis CT 06/12/22 16:42 CT SCAN OF THE ABDOMEN AND PELVIS WITH IV CONTRAST CLINICAL HISTORY: Leiomyosarcoma. COMPARISON STUDY: Abdominal CT dated 05/07/2022. TECHNIQUE: Following the IV administration of 94 cc of Optiray 350, CT scan of the abdomen and pelvis is performed from the lung bases to the proximal femora. Images are reviewed in the axial, sagittal, and coronal planes. IV contrast was administered without complication. A dose lowering technique was utilized adhering to the principles of ALARA. CT DOSE: 470.53 mGy.cm FINDINGS: Lung bases: The heart is normal in size and without pericardial effusion. Extensive pulmonary metastatic disease is again seen at the lung bases. Lesions measure up to 1.5 cm. This has not appreciably changed from 05/07/2022. Postsurgical change is noted at the left lung base. There are small pleural effusions with dependent atelectasis. Liver: The contrast-enhanced liver is mildly enlarged measuring 18.5 cm in length. The liver demonstrates diminished attenuation suggesting steatosis. There is no intrahepatic biliary ductal dilatation. The hepatic veins and portal veins are patent. Again seen is evidence of multifocal hepatic metastatic disease, with greater than 10 lesions identified. This appears modestly progressed as compared to 05/07/2022. The largest lesion in the right lobe on image #68 and measures up to 4 cm. Gallbladder: Unremarkable. Spleen: Normal in size and attenuation. Pancreas: Unremarkable. Adrenal glands: Unremarkable. Kidneys: There is asymmetric cortical atrophy of the right kidney as compared to the left. Bilateral ureteral stents are in place. There is moderate to severe bilateral hydronephrosis, right greater than left. There is slightly diminished enhancement of the right kidney as compared to the left. Abdominal vasculature: The abdominal aorta is normal in course and caliber. Noting mild atherosclerotic calcification. The right iliac artery is encased by a large mass lesion the pelvis but remains patent. 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 There is near-complete occlusion of the left iliac vein seen on axial image #228. Deep venous thrombosis is seen within the right common femoral vein on image #426. Bowel: The bowel loops are significantly displaced. No obstruction is seen. The large lesion in the pelvis significantly narrows the rectosigmoid. Invasion of bowel loops would be impossible to exclude. Findings in the the right lower quadrant suggests previous appendectomy. Peritoneum: A midline surgical scar is noted. No intraperitoneal free air is seen. Trace free fluid is seen in the pelvis. There is a large, heterogeneous, and centrally necrotic mass lesion filling the pelvis with significant localized mass effect. This measures approximately 22.5 x 15.5 x 18 cm in dimension and encases the right iliac vessels. There is significant mass effect on the adjacent bladder and the bowel loops. Additional large lesions are seen in the right midabdomen on image #215 measuring approximately 6 x 9.5 x 7 cm, in the left upper quadrant on image #114 measuring approximately 9.5 x 9 x 10.5 cm, and in the central abdomen on image #190 measuring approximately 9 x 10 x 11 cm. The left upper quadrant lesion causes significant mass effect on and may invade both the posterior stomach and pancreatic tail. Although several lesions are necrotic, no intralesional hemorrhage is identified. Lymphadenopathy: None. Pelvic viscera: The bladder is decompressed and contains the distal end of ureteral stents. This is not well evaluated. The uterus is surgically absent. The adnexa are not well-visualized. Skeletal structures: The skeletal structures are osteopenic. No lytic or blastic lesions are seen. Soft tissues: There is body wall edema. IMPRESSION: 1. Again seen is evidence of multifocal metastatic disease. This appear modestly progressed as compared 05/07/2022. 2. An approximately 22.5 cm mass lesion fills the pelvis and encases/displaces several structures as above, including the rectum and several bowel loops. Invasion of these structures is not excluded. 3. Additional large mass lesions are present in the mid to upper abdomen as detailed above. 4. Although many of the mesenteric lesions are centrally necrotic, no intralesional hemorrhage is seen. No active extravasation is identified. 5. Hepatic metastatic disease has modestly progressed from previous. 6. Pulmonary metastatic disease has not appreciably changed. 7. Deep venous thrombosis is seen within the right common femoral vein. 8. There is no bowel obstruction. 9. There is moderate to severe bilateral hydronephrosis as above, right greater than left with ureteral stents in place. 10. The large pelvic mass encases the right iliac vessels. The right iliac vein is likely occluded. The left iliac vein is severely narrowed but likely remains patent. 11. Trace pleural effusions are new from previous. Body wall edema has increased. 12. Additional findings as detailed above. ACT 112: Negative or not required by law. Electronically signed by: Elder Lizarraga M.D. 06/12/2022 5:21 PM ECG Additional Comments: Sinus tachycardia Low voltage QRS Cannot rule out Anterior infarct , age undetermined Abnormal ECG When compared with ECG of 07-MAY-2022 08:25, No significant change was found. Code Status & VTE Plan Code Status Full Code. Supervising Physician Co-Signing Physician Notes I personally saw and examined the patient. I verified all argueta points and agree with Diana Lloyd PA-C with the following exceptions and/or additions: 47 year old female admission for anemia. Known prior life threatening lower GI bleed due to metastatic leiomyosarcoma. O/E HS1+2, no murmurs, Chest CTAB, Abdo distended, chronic generalized tenderness A/P Anemia - Transfuse 2 units packed RBCs, Aim Hgb > 9. PG Care Time/CCT Total # of Minutes Spent Total Time Spent with Patient: Total time spent is greater than 50% in coordination of care (as documented) at patient's floor/unit and/or counseling patient: Coding Level of Care Code 88620 Initial Inpt Care Lvl 3 Diagnoses Anemia D64.9 Anemia type: unspecified type Abnormal abdominal CT scan R93.5 Leiomyosarcoma C49.9 Cardiomyopathy I42.9 Cardiomyopathy type: unspecified (1) Anemia Anemia type: unspecified type Qualified Code(s): D64.9 - Anemia, unspecified (2) Cardiomyopathy Cardiomyopathy type: unspecified Qualified Code(s): I42.9 - Cardiomyopathy, unspecified
[2022-06-12] MEDS ORDERED: POLYETHYLENE (MIRALAX) 17 GM PACK PO PRN (19:22)
[2022-06-12] MEDS ORDERED: ACETAMINOPHEN 325 MG TAB PO PRN (19:22)
[2022-06-12] MEDS ORDERED: PROCHLORPERAZINE MALEATE 10 MG TAB PO PRN (20:21)
[2022-06-12 20:23] LABS: Appearance Urine Turbid (Clear); Bacteria Urine Automated Negative (Negative); Bilirubin Urine Negative (Negative); Blood Urine 2+ (Negative); Color Urine Yellow; Epithelial Cell Urine Auto >30 /lpf (0-5); Glucose Urine UA 1+ (Negative); Ketones Urine Negative (Negative); Leukocyte Esterase Urine 3+ (Negative); Nitrite Urine Negative (Negative); Specific Gravity Urine 1.031 (1.000-1.030); Urobilinogen Urine Negative (Negative); WBC Urine Automated >30 /hpf (0-5)
[2022-06-12 20:25] LABS: Protein Urine 1+ (Negative)
[2022-06-12] MEDS ORDERED: MoRPHine SULFATE 4 MG/ML 1 ML CARP\\VIAL IV PRN (20:28)
[2022-06-12] MEDS ORDERED: MoRPHine SULFATE 2 MG/ML CARP IV PRN (20:28)
[2022-06-12 20:44] LABS: RBC Urine Automated 0-4 /hpf (0-4)
[2022-06-12] MEDS ORDERED: POTASSIUM CHLORIDE CRTAB 20 MEQ TABCR PO SCH (21:00)
[2022-06-12] MEDS ORDERED: VALSARTAN/SACUBITRIL 103/97MG TAB PO SCH (21:00)
[2022-06-12] MEDS: MAGNESIUM OXIDE 400 MG TAB PO SCH (21:17)
[2022-06-12] MEDS: POTASSIUM CHLORIDE 20 MEQ/15 ML UDC PO SCH (22:14)
[2022-06-12] MEDS: oxyCODONE HCL IR 5 MG TAB (IMMEDIATE RELEASE) PO PRN (23:28)
[2022-06-13] MEDS ORDERED: HEPARIN 100 UNIT/ML 5ML FLUSH FLUSH PRN (01:03)
--- NOTE | 2022-06-13 05:23 | Electrocardiogram Report ---
Test Reason : Blood Pressure : / mmHG Vent. Rate : 117 BPM Atrial Rate : 117 BPM P-R Int : 126 ms QRS Dur : 082 ms QT Int : 336 ms P-R-T Axes : 050 020 039 degrees QTc Int : 468 ms Sinus tachycardia Low voltage QRS Cannot rule out Anterior infarct , age undetermined Nonspecific T wave abnormality Abnormal ECG When compared with ECG of 07-MAY-2022 08:25, No significant change was found Confirmed by Cheo Greene ([id number]) on 06/13/2022 5:23:13 AM Referred By: Confirmed By:Cheo Greene
[2022-06-13 06:44] LABS: Hematocrit (blood only) 23.9 % (34.1-44.9); Hemoglobin 7.4 g/dl (12.0-16.0); Mean Corpuscular Volume 96.8 fL (80.0-100.0); Mean Platelet Volume 10.5 fL (9.4-12.3); Platelet Count 155 K/uL (130-400); RDW Coefficient of Variation 21.2 % (11.5-14.5); RDW Standard Deviation 69.7 fL (36.4-46.3); Red Blood Count 2.47 M/uL (3.93-5.22); White Blood Count 6.46 K/ul (4.8-10.8)
[2022-06-13 06:52] LABS: INR 1.1 (0.9-1.1); Partial Thromboplastin Time 27.8 Seconds (21.0-31.0)
[2022-06-13 07:14] LABS: Albumin Globulin Ratio 0.6 (0.9-2); Albumin Level 2.4 gm/dl (3.4-5.0); BUN Creatinine Ratio 14.3 (10-20); Bilirubin,Total 0.5 mg/dl (0.2-1.0); Calcium 7.7 mg/dl (8.5-10.1); Creatinine Clr Calc Pharmacy 53.8 ml/min; Est GFR (African American) 62.5 ml/min; Est GFR (Non-African American) 53.9 ml/min; Globulin 3.7 gm/dl (2.5-4.0); Potassium 4.2 mmol/L (3.5-5.1); Total Protein 6.1 gm/dl (6.0-8.3)
[2022-06-13 07:30] LABS: Anisocytosis Present; Basophils # (auto) 0.01 K/uL (0-0.2); Basophils % (auto) 0.2 %; Eosinophils # (auto) 0.05 K/uL (0-0.50); Eosinophils % (auto) 0.8 %; Immature Granulocytes # (auto) 0.04 K/uL (0.00-0.02); Immature Granulocytes % (auto) 0.6 %; Lymphocytes # (auto) 0.65 K/uL (1.2-3.4); Lymphocytes % (auto) 10.1 %; Monocytes # (auto) 0.46 K/uL (0.24-0.82); Monocytes % (auto) 7.1 %; Neutrophils # (auto) 5.25 K/uL (1.4-6.5); Neutrophils % (auto) 81.2 %; Polychromasia 1+; Tear Drop Cells 1+
--- NOTE | 2022-06-13 07:38 | Hospitalist Progress Note ---
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 Now being managed for acute anemia. Anemia -Hgb has been monitored weekly following recent hospitalization for large rectal bleed. -No identified source of bleeding. Likely source is GI from known, advanced metastatic disease. Patient without any obvious bleeding per rectum or otherwise. CT negative for clear source. Last chemo treatment 4 weeks ago. -Plan to transfuse 2-3 units overnight and recheck CBC in AM. -Patient was initially mildly tachycardic with RH 110, BP 100s/60s but not hypoxic. VS showing improvement after 1st unit of blood. -She does have chemo induced HF, need to watch for volume overload. -Hemoglobin7.4, up from 5.9 on admission. * Transfused third unit pRBC this morning. * AM CBC Leiomyosarcoma -Advanced, with widely metastatic disease and large masses that invade organs and compress iliac veins; right iliac vein totally compressed, left iliac vein still patent but nearly totally occluded. Right iliac artery compressed but still patent. -Known extensive, occlusive RLE DVT. No anticoagulation due to GI bleed, not a candidate for IVC filter. * Home antiemetic regimen: Zyprexa daily 1st line, Prochlorperazine 10 mg as needed second line. IV Zofran as needed third line. * Home oxycodone 20 mg PO q4h for mild/moderate pain * IV morphine for moderate/severe pain. Cardiomyopathy -Chemotherapy induced; appears euvolemic. -Watch volume status while blood is transfusing. -Holding Entresto and metoprolol given low BPs; can resume Lasix and spironolactone tomorrow AM. -May continue Jardiance. Right LE DVT -From last admission. Still visible on lower extremity Venous Doppler. -Holding off on anticoagulation at this time, given risk of bleeding. Code: Full code Dispo: PCU FEN/GI: Regular DVT Prophylaxis: None PT/OT: Consults: None Case management: (2) Leiomyosarcoma: (3) Cardiomyopathy: (4) Abnormal abdominal CT scan: Admission and Anticipated Discharge Date Admission Date: June 12, 2022 Supervising Physician Co-Signing Physician Notes I personally examined the patient and verified all argueta points of history and exam, discussed case, and agree with decision making with Dr Lawrence feeling ok. would like to follow up with [facility] but notes that as long as bleeding stable she feels OK w going home tomorrow and following up as outpt next week. interested in clinical trials. vitals noted nad heent nc at mmm breathig unlabored no accessory muscles good effort skin no rashes no pallor or icterus acute on chronic anemia - suspect multifocal slow ooze GI sites. Transfused 3 units. Hemodynamically improved. If hemoglobin stable, her plan is quite reasonable. If drops, then would transfer to [facility] directly. otherwise as above Subjective No acute events overnight. Patient is awake in bed this morning on arrival. She reports her usual abdominal pain that is now improved on her pain meds. Some nausea after breakfast for which she took Zofran. Also reports pressure in right lower extremity, without pain, unchanged from her baseline. Ambulating to and from the restroom without difficulty. She denies melena or otherwise abnormal stools. Review of Systems Review of Systems: All systems reviewed & are unremarkable except as noted in HPI & below Physical Exam Physical Exam: General: Well-appearing, alert, interactive, and in no acute distress. HEENT: Normocephalic, atraumatic. EOM intact. Good conjugate gaze. Nares patent. Moist mucosal membranes. Neck: Supple. No lymphadenopathy. Normal ROM. CV: Regular rate and rhythm. 2/6 diastolic murmur heard on auscultation. No gallops or rubs. Respiratory: Normal respiratory effort. Lungs clear to auscultation bilaterally. Faint bibasilar crackles, without rhonchi, or wheezes. Abdomen: Soft, nondistended abdomen. No bruits heard on auscultation. Mild generalized tenderness to moderate palpation without guarding or rebound. Some abdominal pitting edema. Extremities: Right leg visibly more swollen vs left. Some mild bruising at R LE at medial aspect of ankle. Bilateral 2+ pitting edema Neuro: Alert and oriented x3. Skin: Clean, dry, and intact. No rashes, bruises, or erythema. Results & Data Results & Data ([facility]) Vital Signs (Past 12 Hours) Vital Signs Temp Pulse Pulse Resp BP BP Pulse Ox 06/13/22 07:11 37.4 C 100 H 16 113/72 94 06/13/22 02:52 37 C 108 H 18 108/69 93 06/12/22 23:16 102 H 06/12/22 22:59 36.9 C 110 H 18 113/72 95 06/12/22 22:59 36.9 C 110 H 18 113/72 95 06/12/22 22:43 36.9 C 108 H 18 112/73 94 06/12/22 19:50 120 H 06/12/22 21:43 37.1 C 110 H 18 108/69 95 06/12/22 21:43 37.1 C 110 H 18 108/69 95 06/12/22 21:13 37.3 C 107 H 18 105/68 95 06/12/22 20:58 37.4 C 104 H 18 109/66 95 06/12/22 20:42 37.4 C 115 H 20 102/69 94 06/12/22 19:51 36.7 C 103 H 18 112/73 95 06/12/22 19:37 36.8 C 105 H 18 115/70 96 O2 Del Method 06/13/22 07:11 Room Air 06/13/22 02:52 Room Air 06/12/22 23:16 06/12/22 22:59 Room Air 06/12/22 22:59 06/12/22 22:43 06/12/22 19:50 06/12/22 21:43 06/12/22 21:43 06/12/22 21:13 06/12/22 20:58 06/12/22 20:42 06/12/22 19:51 06/12/22 19:37 Room Air Resident Activity Tracking Resident Involvement: Resident Care Provided Care Provided: Adult Hospital Medicine (1) Anemia Anemia type: unspecified type Qualified Code(s): D64.9 - Anemia, unspecified (2) Cardiomyopathy Cardiomyopathy type: unspecified Qualified Code(s): I42.9 - Cardiomyopathy, unspecified
[2022-06-13] MEDS: EMPAGLIFLOZIN 10 MG PO SCH (07:46)
[2022-06-13] MEDS: MAGNESIUM OXIDE 400 MG TAB PO SCH ×2 (07:47→20:49)
[2022-06-13] MEDS: POTASSIUM CHLORIDE 20 MEQ/15 ML UDC PO SCH ×2 (07:47→20:50)
[2022-06-13] MEDS: SPIRONOLACTONE 25 MG TAB PO SCH (07:48)
[2022-06-13] MEDS: FUROSEMIDE 40 MG TAB PO SCH (07:48)
[2022-06-13] MEDS: OLANZAPINE 2.5 MG TAB PO SCH (07:53)
[2022-06-13] MEDS: oxyCODONE HCL IR 5 MG TAB (IMMEDIATE RELEASE) PO PRN ×3 (08:02→20:49)
[2022-06-13] MEDS ORDERED: METOPROLOL SUCC 50MG EXT REL TAB PO SCH (09:00)
[2022-06-13] MEDS ORDERED: oxyCODONE HCL 10 MG TABCR (OxyCONTIN) PO SCH (09:00)
[2022-06-13] MEDS ORDERED: ALTEPLASE, RECOMBINANT 1 MG/ML 2ML VIAL INSTIL ONE (15:10)
[2022-06-13] MEDS: ONDANSETRON INJ 2 MG/ML 2 ML VIAL IV PRN (17:02)
--- NOTE | 2022-06-13 18:29 | Billing Data ---
Date of Service June 13, 2022 Coding Level of Care Code 18628 Subseq Hosp Care Lvl 3
[2022-06-14] MEDS: oxyCODONE HCL IR 5 MG TAB (IMMEDIATE RELEASE) PO PRN ×2 (02:55→07:57)
[2022-06-14 06:29] LABS: Basophils # (auto) 0.01 K/uL (0-0.2); Basophils % (auto) 0.1 %; Eosinophils # (auto) 0.08 K/uL (0-0.50); Eosinophils % (auto) 1.2 %; Hematocrit (blood only) 27.7 % (34.1-44.9); Hemoglobin 8.7 g/dl (12.0-16.0); Immature Granulocytes # (auto) 0.03 K/uL (0.00-0.02); Immature Granulocytes % (auto) 0.4 %; Lymphocytes # (auto) 0.77 K/uL (1.2-3.4); Lymphocytes % (auto) 11.3 %; Mean Corpuscular Hemoglobin 30.3 pg (25.0-34.0); Mean Corpuscular Hgb Conc 31.4 g/dL (32.0-36.0); Mean Corpuscular Volume 96.5 fL (80.0-100.0); Mean Platelet Volume 10.4 fL (9.4-12.3); Monocytes # (auto) 0.51 K/uL (0.24-0.82); Monocytes % (auto) 7.5 %; Neutrophils # (auto) 5.39 K/uL (1.4-6.5); Neutrophils % (auto) 79.5 %; Platelet Count 151 K/uL (130-400); RDW Coefficient of Variation 21.1 % (11.5-14.5); RDW Standard Deviation 68.6 fL (36.4-46.3); Red Blood Count 2.87 M/uL (3.93-5.22); White Blood Count 6.79 K/ul (4.8-10.8)
[2022-06-14 06:59] LABS: Anisocytosis Present; Polychromasia 1+
[2022-06-14 07:08] LABS: Albumin Globulin Ratio 0.6 (0.9-2); Albumin Level 2.4 gm/dl (3.4-5.0); BUN Creatinine Ratio 15.3 (10-20); Bilirubin,Total 0.5 mg/dl (0.2-1.0); Calcium 7.5 mg/dl (8.5-10.1); Creatinine Clr Calc Pharmacy 55.2 ml/min; Est GFR (African American) 63.2 ml/min; Est GFR (Non-African American) 54.5 ml/min; Globulin 3.7 gm/dl (2.5-4.0); Magnesium 1.8 mg/dl (1.7-2.4); Phosphorus 2.8 mg/dl (2.5-4.9); Potassium 4.3 mmol/L (3.5-5.1); Total Protein 6.1 gm/dl (6.0-8.3)
[2022-06-14] MEDS: EMPAGLIFLOZIN 10 MG PO SCH (07:44)
[2022-06-14] MEDS: POTASSIUM CHLORIDE 20 MEQ/15 ML UDC PO SCH (07:44)
[2022-06-14] MEDS: OLANZAPINE 2.5 MG TAB PO SCH (07:44)
[2022-06-14] MEDS: MAGNESIUM OXIDE 400 MG TAB PO SCH (07:44)
[2022-06-14] MEDS: SPIRONOLACTONE 25 MG TAB PO SCH (07:44)
[2022-06-14] MEDS: FUROSEMIDE 40 MG TAB PO SCH (07:44)
[2022-06-14] MEDS: ONDANSETRON INJ 2 MG/ML 2 ML VIAL IV PRN (11:53)
--- NOTE | 2022-06-14 12:46 | Discharge Summary ---
Date of Service June 14, 2022 Admission HPI Per Admitting Provider Yenny Garcia is a 47 y/o female with a PMH significant for metastatic retroperitoneal leiomyosarcoma s/p debulking surgery in 2019 and s/p radiation and multiple rounds of chemo, chemotherapy induced heart failure, previous PE and current extensive RLE DVT who presents today at referral of her PCP due to low hemoglobin on outpatient labs. States last night she was feeling fatigued and has continued abdominal and lower extremity pain due to edema after her last hospitalization, it has not noticed palpitations, shortness of breath, lightheadedness, dizziness, and she has not had any obvious bleeding per rectum or elsewhere. CT of her abdomen and pelvis was done today which shows progression of her metastatic disease. There is still a 22 cm mass that fills her pelvis and encases/displaces several structures including her rectum and several bowel loops, invasion of the structures is not excluded. There are additional large mass lesions in the mid to upper abdomen. Many mesenteric lesions are centrally necrotic however none are with evidence of intralesional hemorrhage. Extensive right common femoral vein DVT is still seen. There is no bowel obstruction. She does have unchanged moderate to severe bilateral hydronephrosis with ureteral stents in place. Patient was seen in our facility 1 month ago due to extensive, sudden onset rectal bleeding and was found of a hemoglobin of 5.[address] of her abdomen and pelvis that [id number] progression of her metastatic disease and invasion of her rectum and several bowel loops from her pelvic mass. Was transfused and provided IVF in order to stabilize her before being transferred to a tertiary care center ([facility]). She did receive approximately 7 units total between our facility and tertiary care center. CTA was unable to exactly pinpoint bleeding. GI, surgery, and IR consulted, but there was no need for acute intervention from their perspective at that time. Unfortunately, during her admission she was also found to have acute right leg occlusive DVT with no flow in right iliac, common femoral, greater saphenous, profunda, femoral, popliteal, and peroneal veins. She is not a candidate for an IVC filter due to vein compression from her intra-abdominal mass. She has a history of PEs, however given acute GI bleed, she will remain off Eliquis. She was stable for discharge home on 05/22 and has been feeling well since then other than chronic abdominal pain from her cancer. Upon presentation to our ED, she is tachycardic with a heart rate of 110, blood pressure 102/65, SpO2 > 92% on room air and afebrile. Labs significant for hemoglobin of 5.9, and acute drop from 1 week ago on 06/05 when hemoglobin was 7.0. PT and INR minimally elevated, no longer on anticoagulation. Calcium is low at 7.6, it is her baseline. No other electrolyte abnormalities and her renal function is at baseline. AST and alk phos mildly elevated, unchanged from previous labs. She is COVID-negative. Admission Exam Per Admitting Provider General: awake, alert, no apparent distress Head: Normocephalic, atraumatic ENT: PERRL, EOMI, no pharyngeal exudate, mucous membranes moist Chest: Clear to auscultation, on room air, no adventitious breath sounds Cardiac: Regular rate and rhythm, no murmur, no JVD, normal peripheral pulses, good capillary refill Abdominal: NABS x 4 quadrants, soft, nontender to palpation, no rebound, guarding or tenderness Extremities: Normal inspection, no peripheral edema or erythema, calfs nontender to palpation Psych: Normal mood and affect Neuro: AAO x 3, strength intact bilaterally and rated 5/5, no motor deficits, speech is clear, no peripheral sensory deficits Skin: no rash or erythema Principal Diagnosis Anemia Discharge Exam General: Well-appearing, alert, interactive, and in no acute distress. HEENT: Normocephalic, atraumatic. EOM intact. Good conjugate gaze. Nares patent. Moist mucosal membranes. Neck: Supple. No lymphadenopathy. Normal ROM. CV: Regular rate and rhythm. 2/6 diastolic murmur heard on auscultation.No gallops or rubs. Respiratory: Normal respiratory effort. Lungs clear to auscultation bilaterally. Faint bibasilar crackles, without rhonchi, or wheezes. Abdomen: Indurated, moderately distended abdomen. No bruits heard on auscul tation. Mild generalized tenderness to moderate palpation without guarding or rebound. Some abdominal pitting edema. Extremities: Right leg visibly more swollen vs left. Some mild bruising at R LE at medial aspect of ankle. Bilateral 2+ pitting edema Neuro: Alert and oriented x3. Skin: Clean, dry, and intact. No rashes, bruises, or erythema. 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 Now being managed for acute anemia. Anemia -Hgb has been monitored weekly following recent hospitalization for large rectal bleed. -No identified source of bleeding. Likely source is GI from known, advanced metastatic disease. Patient without any obvious bleeding per rectum or otherwise. CT negative for clear source. Last chemo treatment 4 weeks ago. -Plan to transfuse 2-3 units overnight and recheck CBC in AM. -Patient was initially mildly tachycardic with RH 110, BP 100s/60s but not hypoxic. Showed improvement after 1st unit of blood. -She does have chemo induced HF, need to watch for volume overload. -Hemoglobin7.4, up from 5.9 on admission. AM hemoglobin of 8.7. -Discharged home with order for CBC with differential x3 days. Leiomyosarcoma -Advanced, with widely metastatic disease and large masses that invade organs and compress iliac veins; right iliac vein totally compressed, left iliac vein still patent but nearly totally occluded. Right iliac artery compressed but still patent. -Known extensive, occlusive RLE DVT. No anticoagulation due to GI bleed, not a candidate for IVC filter. * Home antiemetic regimen: Zyprexa daily 1st line, Prochlorperazine 10 mg as needed second line. IV Zofran as needed third line. * Home oxycodone 20 mg PO q4h for mild/moderate pain * IV morphine for moderate/severe pain. Cardiomyopathy -Chemotherapy induced; appears euvolemic. -Watch volume status while blood is transfusing. -Holding Entresto and metoprolol given low BPs. Entresto held on discharge, given low BPs. Continued metoprolol, spironolactone. Right LE DVT -From last admission. Still visible on lower extremity Venous Doppler. -Holding off on anticoagulation at this time, given risk of bleeding. (2) Leiomyosarcoma: (3) Cardiomyopathy: (4) Abnormal abdominal CT scan: Total Time Total Time Spent Total Time Spent (In Minutes): <30 Discharge Plan Discharge Items Patient Disposition: Home - Self-Care Reason For Visit: ANEMIA Discharge Diagnosis: Anemia Activity: Per Instructions section Non-emergency contact: Primary Care Provider and Oncologist Call non-emergency contact if: your symptoms worsen, your pain is not controlled and your pain is worsening Follow-up/Referrals: Nikki Hayden MD [Primary Care Provider] - 06/27/22 11:30 am Diet: Regular Ambulatory Orders: Complete Blood Count with Diff (Timed) Timeframe: 3 Days Location: Determined by Patient Ordered By: Rose Arevalo Attending Provider Instructions: Dear Yenny, You came to the hospital at the recommendation of your primary care physician because of an acute drop in your hemoglobin, also known as anemia. Your evaluated here with lab work and imaging, and were found to have a hemoglobin level low enough to require urgent transfusion. You received 3 units of packed red blood cells and we monitored your hemoglobin to ensure that it did not continue to drop. Following the transfusion, you began to improve symptomatically. As of this morning, your hemoglobin level is also much imp roved, reflecting the transfusions you received. Therefore, we feel that you are ready to be discharged home safely. We made no changes to your medications. Continue to take your medications as previously instructed. If you have any questions or concerns regarding your medications, please reach out to your primary care physician, Dr. Hayden. In order to ensure that your hemoglobin level has truly stabilized, we are ordering a complete blood count, or CBC, which measures your hemoglobin, to be drawn in 3 days. The order paperwork will be included in your discharge documents. We strongly recommend that you get this blood work completed, as it will help ensure that you are not continuously bleeding. Once you are discharged, you should schedule an appointment with your primary care physician, Dr. Hayden, in the next 1 to 2 weeks. It is very important that you follow-up with them. You can contact her clinic by calling [phone]. You should also contact your oncologist at [facility], to let them know that you were recently in the hospital. Although you already have a scheduled appointment with them in the future, they will let you know if they want to see you sooner. After your discharge, if you have any of the following concerning or nonspecific symptoms, you should contact your PCP. * Progressively worsening fatigue, or shortness of breath with increased activity. * Worsening shortness of breath at rest. * Dizziness or lightheadedness. Loss of consciousness * Sudden left-sided chest pain that radiates to your arm, neck, jaw, shoulder, or back and worsens with activity. It has been our pleasure to take care of you here at [facility]. If you have any questions or concerns about your stay, you may contact us at [phone]. Pending Studies at Discharge: No Stand-Alone Forms: [facility], Smoking Cessation Medications and DC Order Prescriptions: Continued metoprolol succinate 50 mg tablet extended release 24 hr 50 mg PO QAM ondansetron HCl 8 mg tablet 8 mg PO Q8 PRN (Reason: Nausea) Jardiance 10 mg tablet 10 mg PO QAM furosemide 40 mg tablet 40 mg PO QAM spironolactone 25 mg tablet 25 mg PO QAM potassium chloride 20 mEq tablet,ER particles/crystals 20 meq PO BID prochlorperazine maleate 10 mg tablet 10 mg PO DAILY PRN (Reason: Nausea) olanzapine 2.5 mg tablet 2.5 mg PO DAILY oxycodone 20 mg tablet 20 mg PO Q4H Xtampza ER 9 mg cap,sprinkl,ER12hr(DONT CRUSH) 9 mg PO DAILY magnesium 400 mg 400 mg PO BID Discharge Orders: Discharge Order (Routine); Ordered 06/14/22 Ordered By: Rose Lawrence Admission Data Admit Date/Time: 06/12/22 17:46 Attending Provider: Trey Malin Admit Provider: Jc Husain Primary Care Provider: Nikki Hayden Other Providers: Jc Husain Other Interventions: Discharge Summary Assessment (RN) Last Done: 06/14/22 12:39 Supervising Physician Co-Signing Physician Notes I personally examined the patient and verified all argueta points of history and exam, discussed case, and agree with decision making with Dr Lawrence Feels good and would very much like to go home. Aware that bleeding is likely to be an ongoing issue. vitals noted nad heent nc at mmm breathig unlabored no accessory muscles good effort skin no rashes no pallor or icterus acute on chronic anemia - suspect multifocal slow ooze GI sites. Transfused 3 units. Hemodynamically improved. Hemoglobin now up to 8.7. Safe to go home per her desiresdiscussed candidly that I suspect the bleeding to be an ongoing issue, and that her next transfusion will be a when rather than and if. To that end she should have a CBC in 2 to 3 days, and then probably every 3 to 4 days at the most so as to catch her anemia before she has a crashand hopefully build to facilitate outpatient transfusions. Ongoing follow-up with [facility] she is aware that the diffusely metastatic cancer is the root cause of these problems, and therefore remedying it if possible would be the mainstay of management. At this point she still would prefer to proceed with aggressive treatment including clinical trials if she qualifies. otherwise as above Resident Activity Tracking Resident Involvement: Resident Care Provided Care Provided: Adult Hospital Medicine
--- NOTE | 2022-06-14 17:00 | Billing Data ---
Date of Service June 14, 2022 Coding Level of Care Code D/C DAY MANAGEMENT <30 MINS
== END 2022-06-14 13:18 | disposition home or self-care (01) | DRG 812 ==
LOC: ED 14:39 → SUATTDRO 17:46 → 2S 17:46
DX: Y92.009 Unspecified place in unspecified non-institutional (private) residence as the place of occurrence of the external cause; Z87.891 Personal history of nicotine dependence; Z92.3 Personal history of irradiation; T45.1X5A Adverse effect of antineoplastic and immunosuppressive drugs, initial encounter; N13.30 Unspecified hydronephrosis; C48.0 Malignant neoplasm of retroperitoneum; I50.22 Chronic systolic (congestive) heart failure; D64.89 Other specified anemias; I42.7 Cardiomyopathy due to drug and external agent; I82.411 Acute embolism and thrombosis of right femoral vein; Z86.711 Personal history of pulmonary embolism; C78.6 Secondary malignant neoplasm of retroperitoneum and peritoneum; Z83.3 Family history of diabetes mellitus

== ENCOUNTER 2022-06-25 14:56 | Inpatient (IN) ==
[2022-06-25] MEDS ORDERED: SODIUM CHLORIDE 0.9% 250 ML IV PRN (15:18)
--- NOTE | 2022-06-25 15:23 | Emergency Department Note ---
Impression & Plan Anemia, Weakness ED Provider Note NAME: KIKO IVEY AGE: 47 SEX: F : 1975 ARRIVES VIA: Walk-In INFORMANT: Patient, ED PROVIDER(S): Hood Grimes DO CHIEF COMPLAINT: Weakness HPI: The patient is a 47-year-old female who presented to the emergency department for an evaluation of generalized weakness. The patient states that she is been having generalized weakness and not feeling well. 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 Currently she is trying to develop a treatment plan with her oncologist. She had follow-up labs with her oncology group outside of the area and was found to have a very low hemoglobin. She was sent to the emergency department for further evaluation as well as possible blood transfusion. The patient denies having any black or bloody bowel moods. She has had no abdominal pain but does note significant abdominal distention. She has had no fevers. She denies having any cough. She states that she is been compliant with her outpatient medications. She states her symptoms worsen with any exertion. ROS: See above HPI for pertinent positives & negatives. A total of 10 systems reviewed and were otherwise negative. PAST MEDICAL HISTORY: See Below PAST SURGICAL HISTORY: See Below FAMILY HISTORY: See Below SOCIAL HISTORY: See Below HOME MEDICATIONS: See Below ALLERGIES: See Below VITALS: See Below PHYSICAL EXAMINATION: GENERAL: The patient is awake and alert. She is nonanxious appearing. EYES: The conjunctivae are clear. The pupils are round and reactive. EARS, NOSE, MOUTH AND THROAT: The nose is without any evidence of any deformity. NECK: The neck is nontender and supple. RESPIRATORY: Normal respiratory effort is noted there is no evidence of wheezing rhonchi or rales CARDIOVASCULAR: Tachycardic rate with regular rhythm was noted. There is no definite murmur. GASTROINTESTINAL: The abdomen was distended. There is no significant tenderness guarding or rigidity. Rectal exam revealed light brown stool which was heme- negative. MUSCULOSKELETAL/EXTREMITIES: There is no evidence of gross deformity full range of motion is noted in the hips and shoulders. SKIN: The skin is warm and dry. Pedal edema was noted bilaterally. NEUROLOGIC: Patient is awake alert and oriented x3 MEDICAL DECISION MAKING: The patient is a 47-year-old female who presented to the emergency department for an evaluation of anemia. The patient has a history of a leiomyoma in her upper abdomen. This causes her to have significant anemia but usually through GI bleeding. The patient was not found to have any signs of GI bleeding on my physical exam today. Blood transfusion was ordered. I did consent the patient for a blood transfusion. She has had multiple transfusions in the past for similar episodes. I discussed the patient's laboratory and radiographic studies with her. I also discussed this case with the on-call [facility]. They have agreed to evaluate the patient in the emergency department for further management and disposition. Triage Nursing notes reviewed. Prior medical records reviewed Vital Signs: reviewed and remarkable for tachycardia. Differential diagnosis: Infection, dehydration, metabolic abnormality, hypo/hyperglycemia, electrolyte disturbance, anemia, hypoxia, cardiac sources, intracerebral event, toxicologic, neurologic, as well as other pathologies. ER treatment provided: See below Diagnostics interpreted by me: ECG: EKG was obtained in the emergency department. My interpretation is sinus tachycardia 111 bpm. There is no ectopy. Low voltage was noted throughout. Nonspecific ST segment abnormalities as well as poor R wave progression were noted. This was compared to a tracing from June 12, 2022. No changes were noted. Cardiac Monitoring: An order was placed for continuous cardiac monitoring. The monitor shows a rate of 114 bpm with sinus tachycardia. Laboratory studies: As stated above and show below. Imaging studies: See below Consultation(s): I discussed this case with Dr. Esparza who is on-call for the [facility]ist group. ED COURSE: Procedures: none Critical Care: I have personally spent greater than 55 minutes of critical care time in the direct management of this patient. This includes bedside care, interpretation of diagnostic studies, and testing, discussion with consultants, patient, and family members, and other required patient management activities. This 55 minutes is in excess of all separately billable procedures. Past Med/Surg History Medical History (Updated 06/25/22 @ 22:18 by Hood Grimes DO) Chronic anemia H/O deep venous thrombosis extensive, RLE Hemorrhagic shock 2nd to rectal bleeding - required ICU stay [facility] 04/2022; location of bleeding never found; anticoagulation stopped at that time History of cardiomyopathy 2nd chemotherapy; prior EF <20%; now 50% (12/[address] [facility]) History of pulmonary embolism Leiomyosarcoma initial dx 2018; extensive metastatic disease Surgical History (Updated 06/25/22 @ 21:36 by Jc Bell) History of X2 History of hysterectomy HANH/BSO 11/[address] - [facility] [place] History of lung biopsy LEFT History of renal stent b/l ureteral stents Family History Father Diabetes Hypertension Myocardial infarction PAD (peripheral artery disease) Mother Cerebral aneurysm Denies family history of Ovarian cancer Prostate cancer Breast cancer Colorectal cancer Social History (Updated 06/25/22 @ 21:38 by Jc Bell) Smoking Status: Former smoker Age Started Using Tobacco: 21; Age Quit Using Tobacco: 29; packs per day: 0.25; Years Smoked: 8; Cigarettes Per Day: 5; Number of Years Since Quit: 15; Second Hand Exposure: No; Hx Alcohol Use: No Hx Substance Use: No Preferred Language: Montserratian Communication Ability: Effective 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 Beliefs That Will Affect Care: None marital status: Current Living Situation: Spouse current occupational status: previously employed current occupation: [employer] How many Children do You have: 2 Other Information That Helps Us Care for You: No Feels Safe at Home: Yes Safety Concerns: Feels Safe At This Time Assistive Devices: None Allergies Allergies Allergy/AdvReac Type Severity Reaction Status Date / Time nickel AdvReac Mild REDNESS TO Verified 06/25/22 16:46 SKIN Home Meds Home Medications Medication Instructions Recorded Confirmed empagliflozin 10 mg tablet 10 mg PO QAM 03/21/22 06/25/22 (Jardiance) furosemide 40 mg tablet 40 mg PO QAM 03/21/22 06/25/22 metoprolol succinate 50 mg 50 mg PO QAM 03/21/22 06/25/22 tablet,extended release 24 hr ondansetron HCl 8 mg tablet 8 mg PO Q8 PRN Nausea 03/21/22 06/25/22 spironolactone 25 mg tablet 25 mg PO QAM 03/21/22 06/25/22 potassium chloride 20 mEq 20 meq PO BID 05/07/22 06/25/22 tablet,extended release(part/cryst) olanzapine 2.5 mg tablet 2.5 mg PO DAILY 06/12/22 06/25/22 oxycodone 20 mg tablet 20 mg PO Q4H pain 06/12/22 06/25/22 prochlorperazine maleate 10 mg 10 mg PO DAILY PRN Nausea 06/12/22 06/25/22 tablet magnesium oxide 400 mg PO BID 06/25/22 06/25/22 morphine 60 mg tablet,extended 60 mg PO Q12H PRN Pain 06/25/22 06/25/22 release Results & Data (ED) Vital Signs Vital Signs - 24 hr 06/25/22 14:58 06/25/22 15:20 06/25/22 15:19 Temperature 36.9 C Temperature Source Temporal Artery Scan Pulse Rate 125 H Pulse Rate [Apical] 109 H Respiratory Rate 16 20 Respiratory Effort / Characteristics Non-Labored Non-Labored Spontaneous Respiratory Depth Normal Normal Respiratory Pattern Regular Blood Pressure 125/71 Blood Pressure [Right Arm] 121/84 Blood Pressure Mean 89 Blood Pressure Mean [Right Arm] 96 Blood Pressure Position [Right Arm] Sitting Pulse Oximetry 100 95 93 Oxygen Delivery Method Room Air Room Air Room Air Oxygen Flow Rate Sepsis Recent Fever Within 48 Hours No Sepsis New/Unexplained Change in Mental Status No Sepsis Action Taken by Nursing No Action Required 06/25/22 16:28 06/25/22 16:29 Temperature Temperature Source Pulse Rate Pulse Rate [Apical] Respiratory Rate Respiratory Effort / Characteristics Respiratory Depth Respiratory Pattern Blood Pressure Blood Pressure [Right Arm] Blood Pressure Mean Blood Pressure Mean [Right Arm] Blood Pressure Position [Right Arm] Pulse Oximetry 85 L 99 Oxygen Delivery Method Room Air Nasal Cannula Oxygen Flow Rate 2 Sepsis Recent Fever Within 48 Hours Sepsis New/Unexplained Change in Mental Status Sepsis Action Taken by [facility] Medications Current Medication List: was personally reviewed by me Laboratory Data Attestation: I reviewed the patient's lab results. Result diagrams: 06/26/22 05:47 06/26/22 05:47 Lab Results 06/25/22 06/25/22 06/25/22 Range/Units 15:42 15:42 15:42 WBC 10.11 (4.8-10.8) K/ul RBC 2.06 L (3.93-5.22) M/uL Hgb 6.1 L* (12.0-16.0) g/dl Hct 20.8 L* (34.1-44.9) % MCV 101.0 H (80.0-100.0) fL MCH 29.6 (25.0-34.0) pg MCHC 29.3 L (32.0-36.0) g/dL RDW Std Deviation 70.6 H (36.4-46.3) fL RDW Coeff of Jennifer 19.4 H (11.5-14.5) % Plt Count 245 (130-400) K/uL MPV 10.3 (9.4-12.3) fL Immature Gran % (Auto) 0.7 % Neut % (Auto) 84.1 % Lymph % (Auto) 7.1 % King % (Auto) 7.7 % Eos % (Auto) 0.3 % Baso % (Auto) 0.1 % Reticulocyte % (Auto) (0.5-2.0) % Neut # (Auto) 8.50 H (1.4-6.5) K/uL Lymph # (Auto) 0.72 L (1.2-3.4) K/uL King # (Auto) 0.78 (0.24-0.82) K/uL Eos # (Auto) 0.03 (0-0.50) K/uL Baso # (Auto) 0.01 (0-0.2) K/uL Reticulocyte # (0.02-0.10) 10^6/uL Immature Gran # (Auto) 0.07 H (0.00-0.02) K/uL Polychromasia 1+ Tear Drop Cells 1+ Acanthocytes (Spur) 2+ PT 11.6 (9.0-12.0) Seconds INR 1.1 (0.9-1.1) APTT 28.5 (21.0-31.0) Seconds PTT Ratio 1.0 Sodium 140 (136-145) mmol/L Potassium 4.3 (3.5-5.1) mmol/L Chloride 103 (98-107) mmol/L Carbon Dioxide 31 (21-32) mmol/L Anion Gap 6 (3-11) BUN 25 H (6-23) mg/dl Creatinine 1.45 H (0.6-1.2) mg/dl Est Cr Clr Drug Dosing 43.4 ml/min Est GFR ( Amer) 49.2 ml/min Est GFR (Non-Af Amer) 42.5 ml/min BUN/Creatinine Ratio 17.2 (10-20) Glucose 109 H (70-99(Fasting)) mg/dl Calcium 7.8 L (8.5-10.1) mg/dl Magnesium 2.1 (1.7-2.4) mg/dl Iron (35-150) mcg/dl TIBC (250-450) mcg/dl Unsaturated IBC (155-355) mcg/dl Transferrin % Sat (15-50) % Ferritin (8-388) ng/ml Total Bilirubin 0.5 (0.2-1.0) mg/dl AST 59 H (13-39) U/L ALT 8 (7-52) U/L Alkaline Phosphatase 95 (34-104) U/L Troponin I High Sens 12.4 (0-14) pg/ml Total Protein 6.2 (6.0-8.3) gm/dl Albumin 2.5 L (3.4-5.0) gm/dl Globulin 3.7 (2.5-4.0) gm/dl Albumin/Globulin Ratio 0.7 L (0.9-2) Folate (>5.38) ng/ml TSH (0.300-4.500) uIu/ml Free T4 (0.61-1.60) ng/dl SARS-CoV-2, RNA, NAAT (NEGATIVE) Blood Type Antibody Screen Crossmatch 06/25/22 06/25/22 06/25/22 Range/Units 15:42 15:42 15:42 WBC (4.8-10.8) K/ul RBC (3.93-5.22) M/uL Hgb (12.0-16.0) g/dl Hct (34.1-44.9) % MCV (80.0-100.0) fL MCH (25.0-34.0) pg MCHC (32.0-36.0) g/dL RDW Std Deviation (36.4-46.3) fL RDW Coeff of Jennifer (11.5-14.5) % Plt Count (130-400) K/uL MPV (9.4-12.3) fL Immature Gran % (Auto) % Neut % (Auto) % Lymph % (Auto) % King % (Auto) % Eos % (Auto) % Baso % (Auto) % Reticulocyte % (Auto) (0.5-2.0) % Neut # (Auto) (1.4-6.5) K/uL Lymph # (Auto) (1.2-3.4) K/uL King # (Auto) (0.24-0.82) K/uL Eos # (Auto) (0-0.50) K/uL Baso # (Auto) (0-0.2) K/uL Reticulocyte # (0.02-0.10) 10^6/uL Immature Gran # (Auto) (0.00-0.02) K/uL Polychromasia Tear Drop Cells Acanthocytes (Spur) PT (9.0-12.0) Seconds INR (0.9-1.1) APTT (21.0-31.0) Seconds PTT Ratio Sodium (136-145) mmol/L Potassium (3.5-5.1) mmol/L Chloride (98-107) mmol/L Carbon Dioxide (21-32) mmol/L Anion Gap (3-11) BUN (6-23) mg/dl Creatinine (0.6-1.2) mg/dl Est Cr Clr Drug Dosing ml/min Est GFR ( Amer) ml/min Est GFR (Non-Af Amer) ml/min BUN/Creatinine Ratio (10-20) Glucose (70-99(Fasting)) mg/dl Calcium (8.5-10.1) mg/dl Magnesium (1.7-2.4) mg/dl Iron 16 L (35-150) mcg/dl TIBC 158 L (250-450) mcg/dl Unsaturated IBC 142 L (155-355) mcg/dl Transferrin % Sat 10 L (15-50) % Ferritin 648.8 H (8-388) ng/ml Total Bilirubin (0.2-1.0) mg/dl AST (13-39) U/L ALT (7-52) U/L Alkaline Phosphatase (34-104) U/L Troponin I High Sens (0-14) pg/ml Total Protein (6.0-8.3) gm/dl Albumin (3.4-5.0) gm/dl Globulin (2.5-4.0) gm/dl Albumin/Globulin Ratio (0.9-2) Folate (>5.38) ng/ml TSH 36.011 H (0.300-4.500) uIu/ml Free T4 0.33 L (0.61-1.60) ng/dl SARS-CoV-2, RNA, NAAT NEGATIVE (NEGATIVE) Blood Type Antibody Screen Crossmatch 06/25/22 06/25/22 06/25/22 Range/Units 15:42 15:42 15:44 WBC (4.8-10.8) K/ul RBC (3.93-5.22) M/uL Hgb (12.0-16.0) g/dl Hct (34.1-44.9) % MCV (80.0-100.0) fL MCH (25.0-34.0) pg MCHC (32.0-36.0) g/dL RDW Std Deviation (36.4-46.3) fL RDW Coeff of Jennifer (11.5-14.5) % Plt Count (130-400) K/uL MPV (9.4-12.3) fL Immature Gran % (Auto) % Neut % (Auto) % Lymph % (Auto) % King % (Auto) % Eos % (Auto) % Baso % (Auto) % Reticulocyte % (Auto) 3.9 H (0.5-2.0) % Neut # (Auto) (1.4-6.5) K/uL Lymph # (Auto) (1.2-3.4) K/uL King # (Auto) (0.24-0.82) K/uL Eos # (Auto) (0-0.50) K/uL Baso # (Auto) (0-0.2) K/uL Reticulocyte # 0.08 (0.02-0.10) 10^6/uL Immature Gran # (Auto) (0.00-0.02) K/uL Polychromasia Tear Drop Cells Acanthocytes (Spur) PT (9.0-12.0) Seconds INR (0.9-1.1) APTT (21.0-31.0) Seconds PTT Ratio Sodium (136-145) mmol/L Potassium (3.5-5.1) mmol/L Chloride (98-107) mmol/L Carbon Dioxide (21-32) mmol/L Anion Gap (3-11) BUN (6-23) mg/dl Creatinine (0.6-1.2) mg/dl Est Cr Clr Drug Dosing ml/min Est GFR ( Amer) ml/min Est GFR (Non-Af Amer) ml/min BUN/Creatinine Ratio (10-20) Glucose (70-99(Fasting)) mg/dl Calcium (8.5-10.1) mg/dl Magnesium (1.7-2.4) mg/dl Iron (35-150) mcg/dl TIBC (250-450) mcg/dl Unsaturated IBC (155-355) mcg/dl Transferrin % Sat (15-50) % Ferritin (8-388) ng/ml Total Bilirubin (0.2-1.0) mg/dl AST (13-39) U/L ALT (7-52) U/L Alkaline Phosphatase (34-104) U/L Troponin I High Sens (0-14) pg/ml Total Protein (6.0-8.3) gm/dl Albumin (3.4-5.0) gm/dl Globulin (2.5-4.0) gm/dl Albumin/Globulin Ratio (0.9-2) Folate 5.40 (>5.38) ng/ml TSH (0.300-4.500) uIu/ml Free T4 (0.61-1.60) ng/dl SARS-CoV-2, RNA, NAAT (NEGATIVE) Blood Type A Positive Antibody Screen NEGATIVE Crossmatch See Detail Administered Medications Levothyroxine Sodium (Levothyroxine Sodium 50 Mcg Tablet) 50 mcg PO DAILYBB SANDRA Stop: 07/25/22 20:07 Last Admin: 06/26/22 06:47 Dose: 50 mcg Documented By: Admin: 06/25/22 23:38 Dose: 50 mcg Documented By: YURY Magnesium Oxide (Magnesium Oxide 400 Mg Tab) 400 mg PO BID SANDRA Stop: 07/25/22 20:59 Last Admin: 06/25/22 22:52 Dose: 400 mg Documented By: EEYary Morphine Sulfate (Morphine Sulfate Cr 60 Mg Tabcr) 60 mg PO BID SANDRA Stop: 07/09/22 20:59 Last Admin: 06/25/22 22:50 Dose: 60 mg Documented By: EEYary Potassium Chloride (Potassium Chloride Pwd 20 Meq Pack) 20 meq PO BID SANDRA Stop: 07/25/22 20:59 Last Admin: 06/26/22 00:30 Dose: 20 meq Documented By: EEYary Discontinued Medications Furosemide (Furosemide Inj 20 Mg/2 Ml Vial) 20 mg IV ONE ONE Stop: 06/25/22 20:09 Last Admin: 06/25/22 21:39 Dose: 20 mg Documented By: YURY Heparin Sodium (Beef Lung) (Heparin 10 Unit/Ml 5 Ml Flush) Confirm Administered Dose 5 ml FLUSH .STK-MED ONE Stop: 06/25/22 15:20 Last Admin: 06/25/22 15:52 Dose: Not Given Documented By: SABIHA Folic Acid 1 mg/ Syringe 10 mls @ 5 mls/min IV NOW STA Stop: 06/25/22 21:15 Last Admin: 06/26/22 01:54 Dose: 5 mls/min Documented By: YURY Imaging Data Radiologist's Impression: Chest X-Ray 06/25/22 15:19 XR chest 1V portable CLINICAL HISTORY: weakness TECHNIQUE: Single frontal radiograph of the chest was obtained. Comparison: Comparison is made to chest radiograph 06/12/[address] abdomen pel vis 06/12/2022 FINDINGS: Left portacatheter is seen. The cardiomediastinal silhouette is normal. Numerous nodular densities are seen within the lungs, similar to prior exam. Postsurgical changes noted in the left lower lung. No evidence of pleural effusion or pneumothorax. IMPRESSION: No acute abnormalities. Innumerable pulmonary nodules are seen similar in appearance to prior exam. ACT 112: Negative or not required by law. Electronically signed by: Jose Monterroso M.D. 06/25/2022 3:43 PM Discharge Plan Visit Data Chief Complaint: Illness Stated Complaint: HEMO LEVEL DOWN ED Provider: Hood Grimes Discharge Problem: Anemia, Weakness Patient Disposition: Admitted As Inpatient Discharge Instructions Interventions: ED Discharge Assessment Last Done: 06/25/22 19:33 : Anemia Qualifiers: Anemia type: unspecified type Qualified Code(s): D64.9 - Anemia, unspecified
--- NOTE | 2022-06-25 15:44 | XRay Report ---
XR chest 1V portable CLINICAL HISTORY: weakness TECHNIQUE: Single frontal radiograph of the chest was obtained. Comparison: Comparison is made to chest radiograph 06/12/[address] abdomen pelvis 06/12/2022 FINDINGS: Left portacatheter is seen. The cardiomediastinal silhouette is normal. Numerous nodular densities ar e seen within the lungs, similar to prior exam. Postsurgical changes noted in the left lower lung. No evidence of pleural effusion or pneumothorax. IMPRESSION: No acute abnormalities. Innumerable pulmonary nodules are seen similar in appearance to prior exam. ACT 112: Negative or not required by law. Electronically signed by: Jose Monterroso M.D. 06/25/2022 3:43 PM
[2022-06-25 16:03] LABS: Hematocrit (blood only) 20.8 % (34.1-44.9); Hemoglobin 6.1 g/dl (12.0-16.0); Mean Corpuscular Hemoglobin 29.6 pg (25.0-34.0); Mean Corpuscular Hgb Conc 29.3 g/dL (32.0-36.0); Mean Platelet Volume 10.3 fL (9.4-12.3); Platelet Count 245 K/uL (130-400); RDW Coefficient of Variation 19.4 % (11.5-14.5); RDW Standard Deviation 70.6 fL (36.4-46.3); Red Blood Count 2.06 M/uL (3.93-5.22); White Blood Count 10.11 K/ul (4.8-10.8)
[2022-06-25 16:11] LABS: INR 1.1 (0.9-1.1); Partial Thromboplastin Time 28.5 Seconds (21.0-31.0); Prothrombin Time 11.6 Seconds (9.0-12.0)
[2022-06-25 16:21] LABS: Albumin Globulin Ratio 0.7 (0.9-2); Albumin Level 2.5 gm/dl (3.4-5.0); BUN Creatinine Ratio 17.2 (10-20); Bilirubin,Total 0.5 mg/dl (0.2-1.0); Calcium 7.8 mg/dl (8.5-10.1); Creatinine Clr Calc Pharmacy 43.4 ml/min; Est GFR (African American) 49.2 ml/min; Est GFR (Non-African American) 42.5 ml/min; Globulin 3.7 gm/dl (2.5-4.0); Magnesium 2.1 mg/dl (1.7-2.4); Potassium 4.3 mmol/L (3.5-5.1); Total Protein 6.2 gm/dl (6.0-8.3)
[2022-06-25 16:25] LABS: Troponin I High Sensitivity 12.4 pg/ml (0-14)
[2022-06-25 16:27] LABS: Acanthocytes 2+; Basophils # (auto) 0.01 K/uL (0-0.2); Basophils % (auto) 0.1 %; Eosinophils # (auto) 0.03 K/uL (0-0.50); Eosinophils % (auto) 0.3 %; Immature Granulocytes # (auto) 0.07 K/uL (0.00-0.02); Immature Granulocytes % (auto) 0.7 %; Lymphocytes # (auto) 0.72 K/uL (1.2-3.4); Lymphocytes % (auto) 7.1 %; Monocytes # (auto) 0.78 K/uL (0.24-0.82); Monocytes % (auto) 7.7 %; Neutrophils % (auto) 84.1 %; Polychromasia 1+; Tear Drop Cells 1+
--- NOTE | 2022-06-25 16:33 | Electrocardiogram Report ---
Test Reason : Blood Pressure : / mmHG Vent. Rate : 111 BPM Atrial Rate : 111 BPM P-R Int : 116 ms QRS Dur : 084 ms QT Int : 354 ms P-R-T Axes : 028 009 028 degrees QTc Int : 481 ms Sinus tachycardia Low voltage QRS Borderline ECG When compared with ECG of 12-JUN-2022 15:04, No significant change was found Confirmed by Hood Guerra ([id number]) on 06/25/2022 4:33:14 PM Referred By: REFERRED SELF Confirmed By:Hood Guerra
[2022-06-25 16:40] LABS: Thyroid Stimulating Hormone 36.011 uIu/ml (0.300-4.500)
[2022-06-25 17:13] LABS: T4 Free Thyroxine 0.33 ng/dl (0.61-1.60)
[2022-06-25 17:51] LABS: Reticulocyte % 3.9 % (0.5-2.0); Reticulocytes # 0.08 10^6/uL (0.02-0.10)
--- NOTE | 2022-06-25 17:57 | Hospitalist Progress Note ---
Date of Service June 25, 2022 Results & Data Results & Data ([facility]) Vital Signs (Past 12 Hours) Vital Signs Temp Pulse Pulse Resp BP BP Pulse Ox 06/25/22 17:00 114 H 18 108/75 99 06/25/22 17:45 37.2 C 113 H 18 116/81 99 06/25/22 17:40 37.2 C 105 H 14 108/75 99 06/25/22 17:35 37.2 C 108 H 16 110/71 99 06/25/22 17:29 37.2 C 111 H 16 119/75 99 06/25/22 16:29 99 06/25/22 16:28 85 L 06/25/22 15:19 109 H 20 121/84 93 06/25/22 15:20 95 06/25/22 14:58 36.9 C 125 H 16 125/71 100 O2 Del Method O2 Flow Rate 06/25/22 17:00 Nasal Cannula 2 06/25/22 17:45 2 06/25/22 17:40 2 06/25/22 17:35 2 06/25/22 17:29 2 06/25/22 16:29 Nasal Cannula 2 06/25/22 16:28 Room Air 06/25/22 15:19 Room Air 06/25/22 15:20 Room Air 06/25/22 14:58 Room Air Laboratory Results Laboratory Results - last 24 hr 06/25/22 06/25/22 06/25/22 15:42 15:42 15:42 WBC 10.11 RBC 2.06 L Hgb 6.1 L* Hct 20.8 L* MCV 101.0 H MCH 29.6 MCHC 29.3 L RDW Std Deviation 70.6 H RDW Coeff of Jennifer 19.4 H Plt Count 245 MPV 10.3 Immature Gran % (Auto) 0.7 Neut % (Auto) 84.1 Lymph % (Auto) 7.1 Sibley % (Auto) 7.7 Eos % (Auto) 0.3 Baso % (Auto) 0.1 Reticulocyte % (Auto) Neut # (Auto) 8.50 H Lymph # (Auto) 0.72 L [place]y # (Auto) 0.78 Eos # (Auto) 0.03 Baso # (Auto) 0.01 Reticulocyte # Immature Gran # (Auto) 0.07 H Polychromasia 1+ Tear Drop Cells 1+ Acanthocytes (Spur) 2+ PT 11.6 INR 1.1 APTT 28.5 PTT Ratio 1.0 Sodium 140 Potassium 4.3 Chloride 103 Carbon Dioxide 31 Anion Gap 6 BUN 25 H Creatinine 1.45 H Est Cr Clr Drug Dosing 43.4 Est GFR ( Amer) 49.2 Est GFR (Non-Af Amer) 42.5 BUN/Creatinine Ratio 17.2 Glucose 109 H Calcium 7.8 L Magnesium 2.1 Total Bilirubin 0.5 AST 59 H ALT 8 Alkaline Phosphatase 95 Troponin I High Sens 12.4 Total Protein 6.2 Albumin 2.5 L Globulin 3.7 Albumin/Globulin Ratio 0.7 L TSH Free T4 SARS-CoV-2, RNA, NAAT Blood Type Antibody Screen Crossmatch 06/25/22 06/25/22 06/25/22 15:42 15:42 15:42 WBC RBC Hgb Hct MCV MCH MCHC RDW Std Deviation RDW Coeff of Jennifer Plt Count MPV Immature Gran % (Auto) Neut % (Auto) Lymph % (Auto) Sibley % (Auto) Eos % (Auto) Baso % (Auto) Reticulocyte % (Auto) 3.9 H Neut # (Auto) Lymph # (Auto) [place]y # (Auto) Eos # (Auto) Baso # (Auto) Reticulocyte # 0.08 Immature Gran # (Auto) Polychromasia Tear Drop Cells Acanthocytes (Spur) PT INR APTT PTT Ratio Sodium Potassium Chloride Carbon Dioxide Anion Gap BUN Creatinine Est Cr Clr Drug Dosing Est GFR ( Amer) Est GFR (Non-Af Amer) BUN/Creatinine Ratio Glucose Calcium Magnesium Total Bilirubin AST ALT Alkaline Phosphatase Troponin I High Sens Total Protein Albumin Globulin Albumin/Globulin Ratio TSH 36.011 H Free T4 0.33 L SARS-CoV-2, RNA, NAAT NEGATIVE Blood Type Antibody Screen Crossmatch 06/25/22 15:44 WBC RBC Hgb Hct MCV MCH MCHC RDW Std Deviation RDW Coeff of Jennifer Plt Count MPV Immature Gran % (Auto) Neut % (Auto) Lymph % (Auto) Sibley % (Auto) Eos % (Auto) Baso % (Auto) Reticulocyte % (Auto) Neut # (Auto) Lymph # (Auto) [place]y # (Auto) Eos # (Auto) Baso # (Auto) Reticulocyte # Immature Gran # (Auto) Polychromasia Tear Drop Cells Acanthocytes (Spur) PT INR APTT PTT Ratio Sodium Potassium Chloride Carbon Dioxide Anion Gap BUN Creatinine Est Cr Clr Drug Dosing Est GFR ( Amer) Est GFR (Non-Af Amer) BUN/Creatinine Ratio Glucose Calcium Magnesium Total Bilirubin AST ALT Alkaline Phosphatase Troponin I High Sens Total Protein Albumin Globulin Albumin/Globulin Ratio TSH Free T4 SARS-CoV-2, RNA, NAAT Blood Type A Positive Antibody Screen NEGATIVE Crossmatch See Detail PG Care Time/CCT Total # of Minutes Spent Total Time Spent with Patient: Total time spent is greater than 50% in coordination of care (as documented) at patient's floor/unit and/or counseling patient: Coding
[2022-06-25 18:58] LABS: Ferritin 648.8 ng/ml (8-388)
[2022-06-25 19:19] LABS: Appearance Urine Cloudy (Clear); Bacteria Urine Automated Negative (Negative); Bilirubin Urine Negative (Negative); Blood Urine 1+ (Negative); Cast Urine Automated 0 /lpf (0-5); Color Urine Yellow; Glucose Urine UA Negative (Negative); Ketones Urine Negative (Negative); Leukocyte Esterase Urine 3+ (Negative); Nitrite Urine Negative (Negative); Protein Urine Trace (Negative); RBC Urine Automated 0-4 /hpf (0-4); Specific Gravity Urine 1.009 (1.000-1.030); Urobilinogen Urine Negative (Negative); WBC Urine Automated >30 /hpf (0-5)
--- NOTE | 2022-06-25 19:53 | History & Physical Report ---
Date of Service June 25, 2022 Assessment & Plan (1) Symptomatic anemia: Plan: Tx 2 units PRBCs. Hb this am was 6.9; tonight 6.1. Baseline hemoglobin about 8-9. Recheck CBC following PRBCs. Check fecal occult blood. Fortunately she has not seen any overt signs of GI bleeding (no melena, no BRBPR). With her severe GI bleeding in April 2022 she had overt hematochezia. Check folate level. Defer on B12 level - B12 was very normal earlier this summer. Recheck Fe studies. Decompensated hypothyroidism can cause macrocytic anemia; begin replacement. (2) Acute on chronic anemia: Plan: Acute drop - need to r/o occult GI bleeding. Chronic - likely anemia of chronic disease; r/o nutritional deficiencies. r/o hemolysis - check retic acount. T bili is normal arguing against hemolysis, however. Tx 2 units PRBCs. See #1 for additional details. (3) Hypothyroidism: Plan: TSH markedly elevated, FT4 very low - c/w primary hypothyroidism. This can contribute to macrocytic anemia. She certainly deserves replacement. Start synthroid 50mcg daily. Will need repeat TSH in 6 weeks. 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 VERY LARGE pelvic mass seen on prior imaging consistent with her physical exam findings. Is now off chemotherapy and there is discussion about entering a clinical trial in the future. (5) H/O deep venous thrombosis: Plan: KNOWN RLE DVTs - extensive. Anticoagulation stopped April 2022 when she had profound acute blood loss anemia from GI bleeding. Attempts at IVC filter placement were unsuccessful then as well. Anticoagulation NOT resumed since the summer as risks of anticoagulation felt to be > benefits. (6) History of cardiomyopathy: Plan: Chemo-induced with prior EF 20% based on records. Echo 12/2020 based on records with EF ~50%. No signs of decompensated CHF today. However, will give lasix IV in between units 1 and 2 of blood. May need additional lasix tomorrow. (7) DVT prophylaxis: Plan: chemical means contraindicated due to prior, massive GI bleed leading to shock. would not pursue SCDs given the extensive DVTs of the RLE. (8) Chronic pain syndrome: Plan: Followed by palliative care medicine at [facility]. Recently placed on extended release morphine 60mg BID for chronic abd pain from her cancer. Also is on oxycodone 20mg prn. PDMP confirms the above regimen. Start bowel regimen - miralax + senna. (9) Tachycardia: Plan: Chronic, dating back to 2019. Severe anemia, chronic PEs, pain, etc all likely contributing to this. Can't rule out pericardial effusion given her low voltage on EKG; consider echo. If one is present likely to be malignant in nature. Place on telemetry. K/Mag wnl today. History of Present Illness Chief Complaint: anemia - acute/chronic Primary Care Provider: Nikki Hayden MD 47yo female with known widely metastatic retroperitoneal leiomyosarcoma initially dx 11/2017 @ [facility] in [place], followed by Dr Caitlin Salas at [facility] [place]; h/o tumor debulking at [facility] [place] in 2018; h/o extensive RLE DVT with inability to anticoagulate due to severe GI bleeding in late April 2022 (hospitalized [facility] 05/07 to 05/22); prior h/o PE; b/l ureteral stents; and chronic anemia who presents with fatigue, mild dyspnea on exertion, and worsening anemia. Patient states that she is no longer receiving IV or PO chemotherapy for her advanced cancer. There has been discussion about her entering a clinical trial in [place]. However, she has been told that her hemoglobin needs to be at least 9 or above to enter the trial. Thus, she has been getting weekly CBC to monitor her counts. In fact she was hospitalized here about 2 weeks ago for symptomatic anemia. Today she had her usual weekly blood work and was called that her hemoglobin was <7. She was told to report to the ER at [facility]. During my admission assessment she was receiving her first unit of PRBCs. She denies any rectal bleeding, melena, excessive bruising around her abdomen or back, worsening abdominal bloating, epistaxis, or hematuria. Again her main symptoms from the anemia are fatigue & dyspnea on exertion. Finally, the patient reports she follows with palliative care at [facility] in [place]. She was recently placed on extended release morphine twice daily and this has helped her chronic abdominal pain. She denies any significant pain this evening in any location. Allergies Allergy/AdvReac Type Severity Reaction Status Date / Time nickel AdvReac Mild REDNESS TO Verified 10/12/22 16:46 SKIN Home Medications Medication Instructions Recorded Confirmed Type empagliflozin 10 mg tablet 10 mg PO QAM 03/21/22 06/25/22 History (Jardiance) furosemide 40 mg tablet 40 mg PO QAM 03/21/22 06/25/22 History metoprolol succinate 50 mg 50 mg PO QAM 03/21/22 06/25/22 History tablet,extended release 24 hr ondansetron HCl 8 mg tablet 8 mg PO Q8 PRN Nausea 03/21/22 06/25/22 History spironolactone 25 mg tablet 25 mg PO QAM 03/21/22 06/25/22 History potassium chloride 20 mEq 20 meq PO BID 05/07/22 06/25/22 History tablet,extended release(part/cryst) olanzapine 2.5 mg tablet 2.5 mg PO DAILY 06/12/22 06/25/22 History oxycodone 20 mg tablet 20 mg PO Q4H pain 06/12/22 06/25/22 History prochlorperazine maleate 10 mg 10 mg PO DAILY PRN Nausea 06/12/22 06/25/22 History tablet magnesium oxide 400 mg PO BID 06/25/22 06/25/22 History morphine 60 mg tablet,extended 60 mg PO Q12H PRN Pain 06/25/22 06/25/22 History release Past Med/Surg History Medical History (Updated 06/25/22 @ 22:00 by Jc Bell) Chronic anemia H/O deep venous thrombosis extensive, RLE Hemorrhagic shock 2nd to rectal bleeding - required ICU stay [facility] 04/2022; location of bleeding never found; anticoagulation stopped at that time History of cardiomyopathy 2nd chemotherapy; prior EF <20%; now 50% (12/2020 @ [facility]) History of pulmonary embolism Leiomyosarcoma initial dx 2017; extensive metastatic disease Surgical History (Updated 06/25/22 @ 21:36 by Jc Bell) History of X2 History of hysterectomy HANH/BSO 11/2017 - [facility] [place] History of lung biopsy LEFT History of renal stent b/l ureteral stents Family History Father Diabetes Hypertension Myocardial infarction PAD (peripheral artery disease) Mother Cerebral aneurysm Denies family history of Ovarian cancer Prostate cancer Breast cancer Colorectal cancer Social History (Updated 06/25/22 @ 21:38 by Jc Bell) Smoking Status: Former smoker Age Started Using Tobacco: 21; Age Quit Using Tobacco: 29; packs per day: 0.25; Years Smoked: 8; Cigarettes Per Day: 5; Number of Years Since Quit: 15; Second Hand Exposure: No; Hx Alcohol Use: No Hx Substance Use: No Preferred Language: Kazakh Communication Ability: Effective 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 Beliefs That Will Affect Care: None marital status: Current Living Situation: Spouse current occupational status: previously employed current occupation: [employer] How many Children do You have: 2 Feels Safe at Home: Yes Assistive Devices: None Review of Systems Review of Systems: gen - no fevers, no chills, appetite fair; +fatigue eyes - no visual changes HENT - no runny nose, sore throat or congestion; no dysphagia CV - no chest pain pulm - mild dyspnea on exertion; no cough GI - abdominal bloating and pain; no vomiting; no nausea; no diarrhea; no laith anthony; no BRBPR - no urinary issues or dysuria musculo - no back pain neuro - no headache endo - no diabetes skin - no rash psych - denies depression Physical Exam Physical Exam: gen - comfortable appearing, NAD, pleasant eyes - PERRL HENT - MMM, no lesions, no thrush neck - no JVD; no thyroid nodules lymph - multiple cervical lymph nodes b/l heart - tachy, s1 s2, 1/6 FIDELINA LSB lungs - mild rales R base, CTA b/l otherwise abd - SEVERE distension/firm to palpation (extensive mass over entire abdomen and extending to b/l flanks), nontender, BS+ musculo - flank mass present L>R; right leg is 2-3x's larger than left leg due to known extensive DVTs skin - pallor; no rash chest - port L upper chest clean extremities - edema present b/l, RLE>LLE; pulses 2+ b/l psych - a/o x 3 Results & Data Results & Data ([facility]) Vital Signs (Past 12 Hours) Vital Signs Temp Pulse Pulse Resp BP BP Pulse Ox 06/25/22 19:30 36.9 C 102 H 20 124/21 L 99 06/25/22 18:44 97 06/25/22 18:30 37 C 104 H 18 101/63 99 06/25/22 18:00 37.1 C 114 H 20 111/74 98 06/25/22 17:00 114 H 18 108/75 99 06/25/22 17:45 37.2 C 113 H 18 116/81 99 06/25/22 17:40 37.2 C 105 H 14 108/75 99 06/25/22 17:35 37.2 C 108 H 16 110/71 99 06/25/22 17:29 37.2 C 111 H 16 119/75 99 06/25/22 16:29 99 06/25/22 16:28 85 L 06/25/22 15:19 109 H 20 121/84 93 06/25/22 15:20 95 06/25/22 14:58 36.9 C 125 H 16 125/71 100 O2 Del Method O2 Flow Rate 06/25/22 19:30 2 06/25/22 18:44 Room Air 06/25/22 18:30 0 06/25/22 18:00 2 06/25/22 17:00 Nasal Cannula 2 06/25/22 17:45 2 06/25/22 17:40 2 06/25/22 17:35 2 06/25/22 17:29 2 06/25/22 16:29 Nasal Cannula 2 06/25/22 16:28 Room Air 06/25/22 15:19 Room Air 06/25/22 15:20 Room Air 06/25/22 14:58 Room Air Laboratory Results Laboratory Results - last 24 hr 06/25/22 06/25/22 06/25/22 15:42 15:42 15:42 WBC 10.11 RBC 2.06 L Hgb 6.1 L* Hct 20.8 L* MCV 101.0 H MCH 29.6 MCHC 29.3 L RDW Std Deviation 70.6 H RDW Coeff of Jennifer 19.4 H Plt Count 245 MPV 10.3 Immature Gran % (Auto) 0.7 Neut % (Auto) 84.1 Lymph % (Auto) 7.1 [place] % (Auto) 7.7 Eos % (Auto) 0.3 Baso % (Auto) 0.1 Reticulocyte % (Auto) Neut # (Auto) 8.50 H Lymph # (Auto) 0.72 L [place] # (Auto) 0.78 Eos # (Auto) 0.03 Baso # (Auto) 0.01 Reticulocyte # Immature Gran # (Auto) 0.07 H Polychromasia 1+ Tear Drop Cells 1+ Acanthocytes (Spur) 2+ PT 11.6 INR 1.1 APTT 28.5 PTT Ratio 1.0 Sodium 140 Potassium 4.3 Chloride 103 Carbon Dioxide 31 Anion Gap 6 BUN 25 H Creatinine 1.45 H Est Cr Clr Drug Dosing 43.4 Est GFR ( Amer) 49.2 Est GFR (Non-Af Amer) 42.5 BUN/Creatinine Ratio 17.2 Glucose 109 H Calcium 7.8 L Magnesium 2.1 Iron TIBC Unsaturated IBC Transferrin % Sat Ferritin Total Bilirubin 0.5 AST 59 H ALT 8 Alkaline Phosphatase 95 Troponin I High Sens 12.4 Total Protein 6.2 Albumin 2.5 L Globulin 3.7 Albumin/Globulin Ratio 0.7 L Folate TSH Free T4 Urine Color Urine Appearance Urine pH Ur Specific [place] Urine Protein Urine Glucose (UA) Urine Ketones Urine Blood Urine Nitrite Urine Bilirubin Urine Urobilinogen Ur Leukocyte Esterase Urine WBC (Auto) Urine RBC (Auto) U Hyaline Cast (Auto) U Epithel Cells (Auto) Urine Bacteria (Auto) Urine Yeast SARS-CoV-2, RNA, NAAT Blood Type Antibody Screen Crossmatch 06/25/22 06/25/22 06/25/22 15:42 15:42 15:42 WBC RBC Hgb Hct MCV MCH MCHC RDW Std Deviation RDW Coeff of Jennifer Plt Count MPV Immature Gran % (Auto) Neut % (Auto) Lymph % (Auto) [place] % (Auto) Eos % (Auto) Baso % (Auto) Reticulocyte % (Auto) Neut # (Auto) Lymph # (Auto) [place] # (Auto) Eos # (Auto) Baso # (Auto) Reticulocyte # Immature Gran # (Auto) Polychromasia Tear Drop Cells Acanthocytes (Spur) PT INR APTT PTT Ratio Sodium Potassium Chloride Carbon Dioxide Anion Gap BUN Creatinine Est Cr Clr Drug Dosing Est GFR ( Amer) Est GFR (Non-Af Amer) BUN/Creatinine Ratio Glucose Calcium Magnesium Iron 16 L TIBC 158 L Unsaturated IBC 142 L Transferrin % Sat 10 L Ferritin 648.8 H Total Bilirubin AST ALT Alkaline Phosphatase Troponin I High Sens Total Protein Albumin Globulin Albumin/Globulin Ratio Folate TSH 36.011 H Free T4 0.33 L Urine Color Urine Appearance Urine pH Ur Specific [place] Urine Protein Urine Glucose (UA) Urine Ketones Urine Blood Urine Nitrite Urine Bilirubin Urine Urobilinogen Ur Leukocyte Esterase Urine WBC (Auto) Urine RBC (Auto) U Hyaline Cast (Auto) U Epithel Cells (Auto) Urine Bacteria (Auto) Urine Yeast SARS-CoV-2, RNA, NAAT NEGATIVE Blood Type Antibody Screen Crossmatch 06/25/22 06/25/22 06/25/22 15:42 15:42 15:44 WBC RBC Hgb Hct MCV MCH MCHC RDW Std Deviation RDW Coeff of Jennifer Plt Count MPV Immature Gran % (Auto) Neut % (Auto) Lymph % (Auto) [place] % (Auto) Eos % (Auto) Baso % (Auto) Reticulocyte % (Auto) 3.9 H Neut # (Auto) Lymph # (Auto) [place] # (Auto) Eos # (Auto) Baso # (Auto) Reticulocyte # 0.08 Immature Gran # (Auto) Polychromasia Tear Drop Cells Acanthocytes (Spur) PT INR APTT PTT Ratio Sodium Potassium Chloride Carbon Dioxide Anion Gap BUN Creatinine Est Cr Clr Drug Dosing Est GFR ( Amer) Est GFR (Non-Af Amer) BUN/Creatinine Ratio Glucose Calcium Magnesium Iron TIBC Unsaturated IBC Transferrin % Sat Ferritin Total Bilirubin AST ALT Alkaline Phosphatase Troponin I High Sens Total Protein Albumin Globulin Albumin/Globulin Ratio Folate 5.40 TSH Free T4 Urine Color Urine Appearance Urine pH Ur Specific [place] Urine Protein Urine Glucose (UA) Urine Ketones Urine Blood Urine Nitrite Urine Bilirubin Urine Urobilinogen Ur Leukocyte Esterase Urine WBC (Auto) Urine RBC (Auto) U Hyaline Cast (Auto) U Epithel Cells (Auto) Urine Bacteria (Auto) Urine Yeast SARS-CoV-2, RNA, NAAT Blood Type A Positive Antibody Screen NEGATIVE Crossmatch See Detail 06/25/22 18:53 WBC RBC Hgb Hct MCV MCH MCHC RDW Std Deviation RDW Coeff of Jennifer Plt Count MPV Immature Gran % (Auto) Neut % (Auto) Lymph % (Auto) [place] % (Auto) Eos % (Auto) Baso % (Auto) Reticulocyte % (Auto) Neut # (Auto) Lymph # (Auto) [place] # (Auto) Eos # (Auto) Baso # (Auto) Reticulocyte # Immature Gran # (Auto) Polychromasia Tear Drop Cells Acanthocytes (Spur) PT INR APTT PTT Ratio Sodium Potassium Chloride Carbon Dioxide Anion Gap BUN Creatinine Est Cr Clr Drug Dosing Est GFR ( Amer) Est GFR (Non-Af Amer) BUN/Creatinine Ratio Glucose Calcium Magnesium Iron TIBC Unsaturated IBC Transferrin % Sat Ferritin Total Bilirubin AST ALT Alkaline Phosphatase Troponin I High Sens Total Protein Albumin Globulin Albumin/Globulin Ratio Folate TSH Free T4 Urine Color Yellow Urine Appearance Cloudy A Urine pH 7.0 Ur Specific [place] 1.009 Urine Protein Trace H Urine Glucose (UA) Negative Urine Ketones Negative Urine Blood 1+ H Urine Nitrite Negative Urine Bilirubin Negative Urine Urobilinogen Negative Ur Leukocyte Esterase 3+ H Urine WBC (Auto) >30 H Urine RBC (Auto) 0-4 U Hyaline Cast (Auto) 0 U Epithel Cells (Auto) 10-20 H Urine Bacteria (Auto) Negative Urine Yeast Not Reportable SARS-CoV-2, RNA, NAAT Blood Type Antibody Screen Crossmatch Diagnostic Findings Chest X-Ray 06/25/22 15:19 XR chest 1V portable CLINICAL HISTORY: weakness TECHNIQUE: Single frontal radiograph of the chest was obtained. Comparison: Comparison is made to chest radiograph 06/12/[address] abdomen pelvis 06/12/2022 FINDINGS: Left portacatheter is seen. The cardiomediastinal silhouette is normal. Numerous nodular densities are seen within the lungs, similar to prior exam. Postsurgical changes noted in the left lower lung. No evidence of pleural effusion or pneumothorax. IMPRESSION: No acute abnormalities. Innumerable pulmonary nodules are seen similar in ap pearance to prior exam. ACT 112: Negative or not required by law. Electronically signed by: Jose Monterroso M.D. 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
[2022-06-25] MEDS ORDERED: ONDANSETRON INJ 2 MG/ML 2 ML VIAL IV PRN (20:08)
[2022-06-25] MEDS ORDERED: oxyCODONE HCL IR 5 MG TAB (IMMEDIATE RELEASE) PO SCH (20:08)
[2022-06-25] MEDS ORDERED: FUROSEMIDE INJ 20 MG/2 ML VIAL IV ONE (20:08)
[2022-06-25] MEDS ORDERED: POTASSIUM CHLORIDE CRTAB 20 MEQ TABCR PO SCH (21:00)
[2022-06-25] MEDS ORDERED: FOLIC ACID 1 MG in SYRINGE 9.8 ML IV STA (21:14)
[2022-06-25] MEDS: MoRPHine SULFATE CR 60 MG TABCR PO SCH (22:50)
[2022-06-25] MEDS: MAGNESIUM OXIDE 400 MG TAB PO SCH (22:52)
[2022-06-25] MEDS ORDERED: oxyCODONE HCL IR 5 MG TAB (IMMEDIATE RELEASE) PO PRN (23:38)
[2022-06-25] MEDS: LEVOTHYROXINE SODIUM 50 MCG TABLET PO SCH (23:38)
[2022-06-26] MEDS ORDERED: HEPARIN 100 UNIT/ML 5ML FLUSH FLUSH PRN (00:05)
[2022-06-26] MEDS: POTASSIUM CHLORIDE PWD 20 MEQ PACK PO SCH ×2 (00:30→11:09)
[2022-06-26 06:10] LABS: Hematocrit (blood only) 25.9 % (34.1-44.9); Hemoglobin 8.1 g/dl (12.0-16.0); Mean Corpuscular Hemoglobin 29.6 pg (25.0-34.0); Mean Corpuscular Hgb Conc 31.3 g/dL (32.0-36.0); Mean Corpuscular Volume 94.5 fL (80.0-100.0); Mean Platelet Volume 9.8 fL (9.4-12.3); Platelet Count 241 K/uL (130-400); RDW Standard Deviation 68.8 fL (36.4-46.3); Red Blood Count 2.74 M/uL (3.93-5.22); White Blood Count 9.14 K/ul (4.8-10.8)
[2022-06-26 06:24] LABS: BUN Creatinine Ratio 19.6 (10-20); Calcium 7.9 mg/dl (8.5-10.1); Creatinine Clr Calc Pharmacy 44.1 ml/min; Est GFR (African American) 50.1 ml/min; Est GFR (Non-African American) 43.2 ml/min; Potassium 4.4 mmol/L (3.5-5.1)
[2022-06-26] MEDS: LEVOTHYROXINE SODIUM 50 MCG TABLET PO SCH (06:47)
[2022-06-26] MEDS ORDERED: IRON SUCROSE 300 MG in SODIUM CHLORIDE 0.9% 250 ML IV SCH (08:00)
[2022-06-26] MEDS ORDERED: OLANZAPINE 2.5 MG TAB PO SCH (09:00)
[2022-06-26] MEDS ORDERED: FUROSEMIDE 40 MG TAB PO SCH (09:00)
[2022-06-26] MEDS ORDERED: METOPROLOL SUCC 50MG EXT REL TAB PO SCH (09:00)
[2022-06-26] MEDS ORDERED: SPIRONOLACTONE 25 MG TAB PO SCH (09:00)
[2022-06-26] MEDS ORDERED: FOLIC ACID 1 MG in SYRINGE 9.8 ML IV SCH (09:00)
[2022-06-26] MEDS ORDERED: POLYETHYLENE (MIRALAX) 17 GM PACK PO SCH (09:00)
[2022-06-26] MEDS ORDERED: SENNA 8.6 MG TAB PO SCH (09:00)
[2022-06-26] MEDS: MAGNESIUM OXIDE 400 MG TAB PO SCH (11:08)
[2022-06-26] MEDS: MoRPHine SULFATE CR 60 MG TABCR PO SCH (11:13)
[2022-06-26 12:25] LABS: Hematocrit (blood only) 25.7 % (34.1-44.9)
--- NOTE | 2022-06-26 17:16 | Discharge Summary ---
Date of Service date of admission - June 25, 2022 date of discharge - June 26, 2022 Admission HPI Per Admitting Provider 47yo female with known widely metastatic retroperitoneal leiomyosarcoma initially dx 11/2017 @ [facility] in [place], followed by Dr Caitlin Salas at [facility]; h/o tumor debulking at [facility] in 2019; h/o extensive RLE DVT with inability to anticoagulate due to severe GI bleeding in late April 2022 (hospitalized [facility] 05/07 to 05/22); prior h/o PE; b/l ureteral stents; and chronic anemia who presents with fatigue, mild dyspnea on exertion, and worsening anemia. Patient states that she is no longer receiving IV or PO chemotherapy for her advanced cancer. There has been discussion about her entering a clinical trial in [place]. However, she has been told that her hemoglobin needs to be at least 9 or above to enter the trial. Thus, she has been getting weekly CBC to monitor her counts. In fact she was hospitalized here about 2 weeks ago for symptomatic anemia. Today she had her usual weekly blood work and was called that her hemoglobin was <7. She was told to report to the ER at [facility]. During my admission assessment she was receiving her first unit of PRBCs. She denies any rectal bleeding, melena, excessive bruising around her abdomen or back, worsening abdominal bloating, epistaxis, or hematuria. Again her main symptoms from the anemia are fatigue & dyspnea on exertion. Finally, the patient reports she follows with palliative care at [facility] in [place]. She was recently placed on extended release morphine twice daily and this has helped her chronic abdominal pain. She denies any significant pain this evening in any location. Principal Diagnosis 1. symptomatic anemia 2. folate deficiency 3. stage 4 leiomyosarcoma 4. hypothyroidism Discharge Exam gen - comfortable appearing, NAD, pleasant HENT - MMM, no lesions, no thrush neck - no JVD heart - tachy, s1 s2, 1/6 FIDELINA LSB lungs - mild rales R base, CTA b/l otherwise abd - SEVERE distension/firm to palpation (extensive mass over entire abdomen and extending to b/l flanks), nontender, BS+ musculo - flank mass present L>R; right leg is 2-3x's larger than left leg due to known extensive DVTs extremities - edema present b/l, RLE>LLE; pulses 2+ b/l Discharge Data Allergies Allergy/AdvReac Type Severity Reaction Status Date / Time nickel AdvReac Mild REDNESS TO Verified 07/02/22 13:18 SKIN Procedures Performed 2-step ambulatory oxygen test - no need for home O2 2 units PRBCs IV venofer x 1 infusion Ordered Studies Echocardiogram - * EF 50-55% * grade 2 diastolic dysfunction * no pericardial effusion Hospital Course (1) Symptomatic anemia: Hemoglobin on AM of admission was 6.9 (checked as outpatient) falling to 6.1 by time of ER arrival. Baseline hemoglobin is about 8-9. She received 2 units of PRBCs without incident. Discharge hemoglobin was 8. Fortunately she has not seen any overt signs of GI bleeding (no melena, no BRBPR). With her severe GI bleeding in April 2022 she had overt hematochezia. Folate level was borderline low and thus folic acid 1mg daily x 30 days advised. Defer on B12 level - B12 was very normal earlier this summer. Transferrin saturation was only 10% and thus 1 single dose of IV venofer was given while here. Decompensated hypothyroidism can also cause macrocytic anemia; begin replacement with synthroid. She has scheduled blood work as an outpatient within a few short days of discharge to ensure stability. This is a standing order from her oncologist in [place]. (2) Acute on chronic anemia: Acute drop - no over GI bleeding was seen. Chronic - likely anemia of chronic disease along with nutritional deficiencies; even decompensated hypothyroidism can contribute. No signs of hemolysis. Tx 2 units PRBCs while here. See #1 for additional details. (3) Hypothyroidism: TSH markedly elevated, FT4 very low - c/w primary hypothyroidism. This can contribute to macrocytic anemia. She certainly deserves replacement. Started synthroid 50mcg daily. Will need repeat TSH in 6 weeks. (4) Metastatic leiomyosarcoma to intra-abdominal site: stage 4 leiomyosarcoma with innumerable mets to the lungs, liver, etc. VERY LARGE pelvic mass seen on prior imaging consistent with her physical exam findings. Is now off chemotherapy and there is discussion about entering a clinical trial in the future. (5) H/O deep venous thrombosis: KNOWN RLE DVTs - extensive. Anticoagulation stopped April 2022 when she had profound acute blood loss anemia from GI bleeding. Attempts at IVC filter placement were unsuccessful then as well. Anticoagulation NOT resumed since the summer as risks of anticoagulation felt to be > benefits. (6) History of cardiomyopathy: Chemo-induced with prior EF 20% based on records. Echo 12/2020 based on records with EF ~50%. No signs of decompensated CHF during this stay. Repeat echo here showed EF 50-55%. (7) Chronic pain syndrome: Followed by palliative care medicine at [facility]. Recently placed on extended release morphine 60mg BID for chronic abd pain from her cancer. Also is on oxycodone 20mg prn. PDMP confirms the above regimen. Started bowel regimen - miralax + senna. (8) Tachycardia: Chronic, dating back to 2019. Severe anemia, chronic PEs, pain, etc all likely contributing to this. No evidence of cardiomyopathy or pericardial effusion causing sinus tachycardia. K/Mag wnl on day of discharge. (9) Iron deficiency: as above (10) Folate deficiency: as above Total Time Total Time Spent Total Time Spent (In Minutes): 35 Discharge Plan Discharge Items Patient Disposition: Home - Self-Care Reason For Visit: Worsening anemia Discharge Diagnosis: 1. acute on chronic anemia - 2 units of blood given, 1 iron infusion given 2. folate deficiency 3. iron deficiency 4. hypothyroidism Discharge hemoglobin level = 8 Activity: Resume your previous activity Activity Comment: as tolerated Non-emergency contact: Primary Care Provider and Oncologist Call non-emergency contact if: you have any medication questions, your symptoms worsen and you have a fever Follow-up/Referrals: Nikki Hayden MD [Primary Care Provider] - 07/02/22 1:00 pm (GRAY5-7 days JULY 02 @ 1PM) Caitlin Salas MD [Outside Practitioners] - (please follow-up with Dr Salas as scheduled ) Diet: Regular Addtl Attending Provider Instructions: Mrs Garcia, You were hospitalized for acute on chronic anemia. Your hemoglobin was about 6 at time of arrival. You received 2 units of blood. We checked your iron levels and folate level. Your iron levels suggest an element of iron deficiency. You did receive 1 iron infusion on day of discharge. Your folate level was borderline low as well. Low iron and low folate can cause anemia. Your discharge hemoglobin was 8. Finally, we found that you have hypothyroidism (see handout). This is when your thyroid gland is UNDERactive - it is not producing enough thyroid hormone. Underactive thyroid can lead to anemia, fatigue, constipation, mental fogginess, and a host of other symptoms. We have started you on synthroid (levothyroxine) 50mcg once daily. You will need your thyroid level (TSH level) rechecked in about 6 weeks[address] Please speak to Dr Hayden about receiving additional IV iron infusions in the future. Finally, we performed a walking oxygen test and this showed that you do not need oxygen for your home. Follow-up - see separate section Return to [facility] if - * you have fevers over 100 degrees * you have severe dizziness, lightheadedness, or feel like you could pass out * you see bright red blood in your stool * you see tarry, dark or black stool * you have worsening abdominal pains * any other concerns It was our pleasure to care for you! Dr Bell Pending Studies at Discharge: No Stand-Alone Forms: My [facility], Smoking Cessation Medications and DC Order Prescriptions: New levothyroxine [Synthroid] 50 mcg Tablet 50 mcg PO DAILYBB Qty: 30 5RF pantoprazole [Protonix] 40 mg tablet,delayed release (DR/EC) 40 mg PO QAM Qty: 30 11RF Continued metoprolol succinate 50 mg tablet extended release 24 hr 50 mg PO QAM ondansetron HCl 8 mg tablet 8 mg PO Q8 PRN (Reason: Nausea) Jardiance 10 mg tablet 10 mg PO QAM furosemide 40 mg tablet 40 mg PO QAM spironolactone 25 mg tablet 25 mg PO QAM magnesium oxide 400 mg magnesium Tablet 400 mg PO BID potassium chloride 20 mEq tablet,ER particles/crystals 20 meq PO BID Rx Instructions: please give liquid prochlorperazine maleate 10 mg tablet 10 mg PO DAILY PRN (Reason: Nausea) oxycodone 20 mg tablet 20 mg PO Q4H MDD 120 MG/24 HOURS PRN (Reason: Pain) Changed morphine 60 mg tablet extended release 60 mg PO Q12H MDD 120 MG/24 HOURS Qty: 1 0RF No Action ferrous sulfate 325 mg (65 mg iron) tablet 325 mg PO BID Qty: 60 4RF folic acid 1 mg tablet 1,000 mcg PO QAM cyanocobalamin (vitamin B-12) 1,000 mcg capsule 1,000 mcg PO DAILY Qty: 30 0RF Discharge Orders: Discharge Order (Routine); Ordered 06/26/22 Ordered By: Jc Hutton/Other Patient Handouts: ED Anemia, Iron-Deficiency (Adult), ED Hypothyroidism Admission Data Admit Date/Time: 06/25/22 16:59 Attending Provider: Jc Bell Admit Provider: Jc Bell Primary Care Provider: Nikki Hayden Other Providers: Jc Bell Other Interventions: Discharge Summary Assessment (RN) Last Done: 06/26/22 18:33 Coding Level of Care Code D/C DAY MANAGEMENT >30 MINS Diagnoses Symptomatic anemia D64.9 Acute on chronic anemia D64.9 Hypothyroidism E03.9 Metastatic leiomyosarcoma to intra-abdominal site C79.89 H/O deep venous thrombosis Z86.718 History of cardiomyopathy Z86.79 Chronic pain syndrome G89.4 Tachycardia R00.0 Iron deficiency E61.1 Folate deficiency E53.8
--- NOTE | 2022-06-26 18:34 | XCELERA ---
[id number]
== END 2022-06-26 19:32 | disposition home or self-care (01) | DRG 644 ==
LOC: ED 14:56 → 4W 19:33

== ENCOUNTER 2022-07-02 15:32 | Inpatient (IN) ==
--- NOTE | 2022-07-02 15:43 | ED Triage Note ---
Date of Service July 02, 2022 History of Present Illness This patient was briefly evaluated while in triage. An abbreviated physical exam was performed. This patient is a 47-year-old Female that presents to the ED today for evaluation of low hemoglobin. She notes recent labs that were abnormal. She notes pain between abdomen and ankles. Pain is 8/10. HGB today was 7.1. Physical Exam GENERAL: 47 year old female. In no acute distress. SKIN: No lesions or rashes. HEART: Regular rate and rhythm. LUNGS: Clear to auscultation. ABDOMEN: Bowel sounds normoactive. No guarding or rigidity. NEURO: Alert and oriented. No deficits. MUSCULOSKELETAL: No deformities to inspection of the extremities. PSYCH: Patient is pleasant and answers all questions appropriately. Initial orders for labs and / or imaging were placed and patient was placed in the waiting area until a bed is available. Please see further documentation for the full ED course.
[2022-07-02 17:23] LABS: INR 1.1 (0.9-1.1); Partial Thromboplastin Time 27.1 Seconds (21.0-31.0); Prothrombin Time 11.4 Seconds (9.0-12.0)
[2022-07-02 17:31] LABS: Albumin Globulin Ratio 0.8 (0.9-2); Albumin Level 2.7 gm/dl (3.4-5.0); BUN Creatinine Ratio 19.4 (10-20); Bilirubin,Total 0.5 mg/dl (0.2-1.0); Calcium 7.8 mg/dl (8.5-10.1); Creatinine Clr Calc Pharmacy 43.4 ml/min; Est GFR (African American) 49.6 ml/min; Est GFR (Non-African American) 42.8 ml/min; Globulin 3.6 gm/dl (2.5-4.0); Potassium 4.3 mmol/L (3.5-5.1); Total Protein 6.3 gm/dl (6.0-8.3)
[2022-07-02 17:33] LABS: Hematocrit (blood only) 22.1 % (34.1-44.9); Hemoglobin 6.8 g/dl (12.0-16.0); Mean Corpuscular Hemoglobin 30.4 pg (25.0-34.0); Mean Corpuscular Hgb Conc 30.8 g/dL (32.0-36.0); Mean Corpuscular Volume 98.7 fL (80.0-100.0); Mean Platelet Volume 10.2 fL (9.4-12.3); Platelet Count 256 K/uL (130-400); RDW Coefficient of Variation 19.2 % (11.5-14.5); RDW Standard Deviation 67.4 fL (36.4-46.3); Red Blood Count 2.24 M/uL (3.93-5.22); White Blood Count 10.42 K/ul (4.8-10.8)
[2022-07-02 17:35] LABS: Troponin I High Sensitivity 8.6 pg/ml (0-14)
[2022-07-02 17:38] LABS: Basophils # (auto) 0.04 K/uL (0-0.2); Basophils % (auto) 0.4 %; Eosinophils # (auto) 0.03 K/uL (0-0.50); Eosinophils % (auto) 0.3 %; Immature Granulocytes # (auto) 0.05 K/uL (0.00-0.02); Immature Granulocytes % (auto) 0.5 %; Lymphocytes # (auto) 0.51 K/uL (1.2-3.4); Lymphocytes % (auto) 4.9 %; Monocytes # (auto) 0.58 K/uL (0.24-0.82); Monocytes % (auto) 5.6 %; Neutrophils # (auto) 9.21 K/uL (1.4-6.5); Neutrophils % (auto) 88.3 %; Polychromasia 1+; Tear Drop Cells 1+
[2022-07-02] MEDS ORDERED: SODIUM CHLORIDE 0.9% 250 ML IV PRN (17:58)
--- NOTE | 2022-07-02 18:01 | Emergency Department Note ---
Impression & Plan Anemia, Leiomyosarcoma ED Provider Note NAME: KIKO IVEY AGE: 47 SEX: F : 1975 ARRIVES VIA: Walk-In INFORMANT: Patient, ED PROVIDER(S): Hood Grimes DO CHIEF COMPLAINT: Weakness HPI: The patient is a 47-year-old female who has a history of metastatic leiomyosarcoma which is metastatic intra-abdominal. She has a history of chronic anemia. She started having weakness but she states she does not feel as bad as she has in the past. She had outpatient laboratory studies done by her primary oncology group. She was sent to the emergency department for further evaluation because of weakness and anemia. The patient denies having any black or bloody bowels. She denies having any fevers. She is had no recent trauma. Patient denies having any lower extremity swelling greater than usual. ROS: See above HPI for pertinent positives & negatives. A total of 10 systems reviewed and were otherwise negative. PAST MEDICAL HISTORY: See Below PAST SURGICAL HISTORY: See Below FAMILY HISTORY: See Below SOCIAL HISTORY: See Below HOME MEDICATIONS: See Below ALLERGIES: See Below VITALS: See Below PHYSICAL EXAMINATION: GENERAL: Patient is awake alert in no acute distress patient is resting c omfortably and showing no signs of anxiety EYES: The conjunctivae are clear. The pupils are round and reactive. EARS, NOSE, MOUTH AND THROAT: The nose is without any evidence of any deformity. NECK: The neck is nontender and supple. RESPIRATORY: Normal respiratory effort is noted there is no evidence of wheezing rhonchi or rales CARDIOVASCULAR: Regular rate and rhythm noted there no murmurs rubs or gallops normal S1 normal S2. GASTROINTESTINAL: The abdomen was distended. There is no specific tenderness guarding or rigidity. MUSCULOSKELETAL/EXTREMITIES: There is no evidence of gross deformity full range of motion is noted in the hips and shoulders. SKIN: The skin is warm and dry. Pedal edema was noted bilaterally. Venous stasis changes were appreciated. NEUROLOGIC: Patient is awake alert and oriented x3. MEDICAL DECISION MAKING: Patient is a 47-year-old female who presented to the emergency department for an evaluation of anemia. The patient's been having some weakness but she has been feeling well comparatively speaking to her previous episodes of anemia. She did have some outpatient laboratory studies which revealed signs of anemia. The patient has had similar episodes in the past. Blood transfusion was ordered by myself. I did consent the patient for blood. I discussed her condition with the on-call [facility] hospitalist. They have agreed to evaluate the patient in the emergency department for further management and disposition. The patient was also treated with pain medication given her underlying cancer history. Triage Nursing notes reviewed. Prior medical records reviewed Vital Signs: reviewed and remarkable for no significant abnormalities Differential diagnosis: Infection, dehydration, metabolic abnormality, hypo/hyperglycemia, electrolyte disturbance, anemia, hypoxia, cardiac sources, intracerebral event, toxicologic, neurologic, as well as other pathologies. ER treatment provided: See below Diagnostics interpreted by me: ECG: EKG was obtained in the emergency department. My interpretation is normal sinus rhythm at 93 bpm. There is no ectopy. There is no acute ST segment abnormalities noted. This was compared to a tracing from June 25, 2022. No changes were noted. Cardiac Monitoring: An order was placed for continuous cardiac monitoring. The monitor shows a rate of 98 bpm with sinus rhythm. Laboratory studies: As stated above and show below. Imaging studies: See below Consultation(s): I discussed this case with Dr. Husain [facility] COURSE: Procedures: none Critical Care: I have personally spent greater than 35 minutes of critical care time in the direct management of this patient. This includes bedside care, interpretation of diagnostic studies, and testing, discussion with consultants, patient, and family members, and other required patient management activities. This 35 minutes is in excess of all separately billable procedures. Past Med/Surg History Medical History Chronic anemia H/O deep venous thrombosis extensive, RLE Hemorrhagic shock 2nd to rectal bleeding - required ICU stay [facility] 04/2022; location of bleeding never found; anticoagulation stopped at that time History of cardiomyopathy 2nd chemotherapy; prior EF <20%; now 50% (12/2020 @ [facility]) History of pulmonary embolism Leiomyosarcoma initial dx 2017; extensive metastatic disease Surgical History History of X2 History of hysterectomy HANH/BSO 11/2017 - [facility] [place] History of lung biopsy LEFT History of renal stent b/l ureteral stents Family History Father Diabetes Hypertension Myocardial infarction PAD (peripheral artery disease) Mother Cerebral aneurysm Denies family history of Ovarian cancer Prostate cancer Breast cancer Colorectal cancer Social History Smoking Status: Never smoker Age Started Using Tobacco: 21; Age Quit Using Tobacco: 29; packs per day: 0.25; Years Smoked: 8; Cigarettes Per Day: 5; Number of Years Since Quit: 15; Second Hand Exposure: No; Hx Alcohol Use: No Hx Substance Use: No Preferred Language: Romansh Communication Ability: Effective Rail Equipment Operator Required: No Beliefs That Will Affect Care: None marital status: Current Living Situation: Spouse current occupational status: previously employed current occupation: [employer] How many Children do You have: 2 Other Information That Helps Us Care for You: No Feels Safe at Home: Yes Safety Concerns: Feels Safe At This Time Assistive Devices: None Allergies Allergies Allergy/AdvReac Type Severity Reaction Status Date / Time nickel AdvReac Mild REDNESS TO Verified 07/02/22 13:18 SKIN Home Meds Home Medications Medication Instructions Recorded Confirmed empagliflozin 10 mg tablet 10 mg PO QAM 03/21/22 07/02/22 (Jardiance) furosemide 40 mg tablet 40 mg PO QAM 03/21/22 07/02/22 metoprolol succinate 50 mg 50 mg PO QAM 03/21/22 07/02/22 tablet,extended release 24 hr ondansetron HCl 8 mg tablet 8 mg PO Q8 PRN Nausea 03/21/22 07/02/22 spironolactone 25 mg tablet 25 mg PO QAM 03/21/22 07/02/22 potassium chloride 20 mEq 20 meq PO BID 05/07/22 07/02/22 tablet,extended release(part/cryst) oxycodone 20 mg tablet 20 mg PO Q4H PRN Pain 06/12/22 07/02/22 prochlorperazine maleate 10 mg 10 mg PO DAILY PRN Nausea 06/12/22 07/02/22 tablet magnesium oxide 400 mg PO BID 06/25/22 07/02/22 folic acid 1 mg tablet 1,000 mcg PO QAM 07/02/22 07/02/22 Previous Rx's Medication Instructions Recorded levothyroxine 50 mcg tablet 50 mcg PO DAILYBB #30 tabs 06/26/22 (Synthroid) morphine 60 mg tablet,extended 60 mg PO Q12H #1 tab 06/26/22 release pantoprazole 40 mg tablet,delayed 40 mg PO QAM #30 tabs 06/26/22 release (Protonix) ferrous sulfate 325 mg (65 mg 325 mg PO BID #60 tabs 07/02/22 iron) tablet Results & Data (ED) Vital Signs Vital Signs - 24 hr 07/02/22 15:41 Temperature 36.7 C Temperature Source Temporal Artery Scan Pulse Rate 100 H Respiratory Rate 18 Blood Pressure 108/71 Blood Pressure Mean 83 Pulse Oximetry 100 Oxygen Delivery Method Room Air Sepsis Recent Fever Within 48 Hours No Sepsis New/Unexplained Change in Mental Status No Sepsis Action Taken by Nursing No Action Required Home Medications Current Medication List: was personally reviewed by me Laboratory Data Attestation: I reviewed the patient's lab results. Result diagrams: 07/03/22 05:56 07/03/22 05:56 Lab Results 07/02/22 07/02/22 07/02/22 Range/Units 16:50 16:50 16:50 WBC 10.42 (4.8-10.8) K/ul RBC 2.24 L (3.93-5.22) M/uL Hgb 6.8 L* (12.0-16.0) g/dl Hct 22.1 L (34.1-44.9) % MCV 98.7 (80.0-100.0) fL MCH 30.4 (25.0-34.0) pg MCHC 30.8 L (32.0-36.0) g/dL RDW Std Deviation 67.4 H (36.4-46.3) fL RDW Coeff of Jennifer 19.2 H (11.5-14.5) % Plt Count 256 (130-400) K/uL MPV 10.2 (9.4-12.3) fL Immature Gran % (Auto) 0.5 % Neut % (Auto) 88.3 % Lymph % (Auto) 4.9 % Barron % (Auto) 5.6 % Eos % (Auto) 0.3 % Baso % (Auto) 0.4 % Neut # (Auto) 9.21 H (1.4-6.5) K/uL Lymph # (Auto) 0.51 L (1.2-3.4) K/uL Barron # (Auto) 0.58 (0.24-0.82) K/uL Eos # (Auto) 0.03 (0-0.50) K/uL Baso # (Auto) 0.04 (0-0.2) K/uL Immature Gran # (Auto) 0.05 H (0.00-0.02) K/uL Polychromasia 1+ Tear Drop Cells 1+ PT 11.4 (9.0-12.0) Seconds INR 1.1 (0.9-1.1) APTT 27.1 (21.0-31.0) Seconds PTT Ratio 1.0 Sodium (136-145) mmol/L Potassium (3.5-5.1) mmol/L Chloride (98-107) mmol/L Carbon Dioxide (21-32) mmol/L Anion Gap (3-11) BUN (6-23) mg/dl Creatinine (0.6-1.2) mg/dl Est Cr Clr Drug Dosing ml/min Est GFR ( Amer) ml/min Est GFR (Non-Af Amer) ml/min BUN/Creatinine Ratio (10-20) Glucose (70-99(Fasting)) mg/dl Calcium (8.5-10.1) mg/dl Total Bilirubin (0.2-1.0) mg/dl AST (13-39) U/L ALT (7-52) U/L Alkaline Phosphatase (34-104) U/L Troponin I High Sens (0-14) pg/ml Total Protein (6.0-8.3) gm/dl Albumin (3.4-5.0) gm/dl Globulin (2.5-4.0) gm/dl Albumin/Globulin Ratio (0.9-2) Blood Type A Positive Antibody Screen NEGATIVE Crossmatch See Detail 07/02/22 Range/Units 16:50 WBC (4.8-10.8) K/ul RBC (3.93-5.22) M/uL Hgb (12.0-16.0) g/dl Hct (34.1-44.9) % MCV (80.0-100.0) fL MCH (25.0-34.0) pg MCHC (32.0-36.0) g/dL RDW Std Deviation (36.4-46.3) fL RDW Coeff of Jennifer (11.5-14.5) % Plt Count (130-400) K/uL MPV (9.4-12.3) fL Immature Gran % (Auto) % Neut % (Auto) % Lymph % (Auto) % Barron % (Auto) % Eos % (Auto) % Baso % (Auto) % Neut # (Auto) (1.4-6.5) K/uL Lymph # (Auto) (1.2-3.4) K/uL Barron # (Auto) (0.24-0.82) K/uL Eos # (Auto) (0-0.50) K/uL Baso # (Auto) (0-0.2) K/uL Immature Gran # (Auto) (0.00-0.02) K/uL Polychromasia Tear Drop Cells PT (9.0-12.0) Seconds INR (0.9-1.1) APTT (21.0-31.0) Seconds PTT Ratio Sodium 135 L (136-145) mmol/L Potassium 4.3 (3.5-5.1) mmol/L Chloride 99 (98-107) mmol/L Carbon Dioxide 30 (21-32) mmol/L Anion Gap 6 (3-11) BUN 28 H (6-23) mg/dl Creatinine 1.44 H (0.6-1.2) mg/dl Est Cr Clr Drug Dosing 43.4 ml/min Est GFR ( Amer) 49.6 ml/min Est GFR (Non-Af Amer) 42.8 ml/min BUN/Creatinine Ratio 19.4 (10-20) Glucose 107 H (70-99(Fasting)) mg/dl Calcium 7.8 L (8.5-10.1) mg/dl Total Bilirubin 0.5 (0.2-1.0) mg/dl AST 64 H (13-39) U/L ALT 8 (7-52) U/L Alkaline Phosphatase 92 (34-104) U/L Troponin I High Sens 8.6 (0-14) pg/ml Total Protein 6.3 (6.0-8.3) gm/dl Albumin 2.7 L (3.4-5.0) gm/dl Globulin 3.6 (2.5-4.0) gm/dl Albumin/Globulin Ratio 0.8 L (0.9-2) Blood Type Antibody Screen Crossmatch Administered Medications Levothyroxine Sodium (Levothyroxine Sodium 50 Mcg Tablet) 50 mcg PO DAILYBB SANDRA Stop: 08/02/22 06:29 Last Admin: 07/03/22 05:06 Dose: 50 mcg Documented By: LATANYA Morphine Sulfate (Morphine Sulfate Cr 60 Mg Tabcr) 60 mg PO BID SANDRA Stop: 07/16/22 22:44 Last Admin: 07/02/22 23:49 Dose: 60 mg Documented By: LATANYA Oxycodone HCl (Oxycodone Hcl Ir 5 Mg Tab (Immediate Release)) 20 mg PO Q4H PRN PRN Reason: Pain Stop: 07/16/22 22:30 Last Admin: 07/03/22 05:06 Dose: 20 mg Documented By: LATANYA Discontinued Medications Hydromorphone HCl (Hydromorphone Inj 1 Mg/Ml Syringe) 1 mg IV Q30M PRN PRN Reason: Pain Stop: 07/16/22 18:17 Last Admin: 07/02/22 18:32 Dose: 1 mg Documented By: MAHNAZ Ondansetron HCl (Ondansetron Inj 2 Mg/Ml 2 Ml Vial) 4 mg IV NOW STA Stop: 07/02/22 18:19 Last Admin: 07/02/22 18:32 Dose: 4 mg Documented By: MAHNAZ Discharge Plan Visit Data Chief Complaint: Abnormal Labs/Diagnostic Testing Stated Complaint: BLOOD WORK DONE ED Provider: Hood Grimes Discharge Problem: Anemia, Leiomyosarcoma Patient Disposition: Admitted As Inpatient Discharge Instructions Interventions: ED Discharge Assessment Last Done: 07/02/22 22:17 : Anemia Qualifiers: Anemia type: unspecified type Qualified Code(s): D64.9 - Anemia, unspecified
[2022-07-02] MEDS ORDERED: ONDANSETRON INJ 2 MG/ML 2 ML VIAL IV STA (18:18)
[2022-07-02] MEDS ORDERED: HYDROmorphone INJ 1 MG/ML SYRINGE IV PRN (18:18)
--- NOTE | 2022-07-02 18:20 | History & Physical Report ---
Date of Service July 02, 2022 Assessment & Plan (1) Iron deficiency anemia: Plan: Symptomatic acute on chronic anemia. Suspected from GI bleed given recent hematochezia and suspected invasion of her tumor into bowel. Transfuse Hgb < 9 given transfusion dependancy. 2 units packed RBCs ordered from ER. Will repeat Hgb following this. Will consult hematology who can hopefully co-ordinate local care here and perhaps avoid repeated readmissions for blood transfusions. Continue pantoprazole 40mg PO daily (2) Hypertension: Plan: Continue her usual home medications with furosemide 40mg PO daily and metoprolol succinate 50mg PO daily (3) Leiomyosarcoma: Plan: Noted widely metastatic cancer Continue her usual pain regimen with morphine 60mg PO BID and oxycodone 20mg PO q4h PRN (4) Hypothyroidism: Plan: TSH 36, free T4 0.33 [06/25/22] Continue newly started levothyroxine 50mcg PO daily (5) H/O deep venous thrombosis: Plan: Known DVT however Eliquis would be likely to kill her faster than no treatment Failed IVC placement Plan VTE Prophylaxis - contraindicated due to blood transfusion dependant anemia and life threatening hematochezia Diet - regular Disposition - admit to PCU Admission and Anticipated Discharge Date Admission Date: July 02, 2022 History of Present Illness Chief Complaint: Symptomatic anemia Primary Care Provider: Nikki Hayden MD Yenny Garcia is a 47 year old female with widely metastatic retroperitoneal leiomyosarcoma who presents to the ER due to low hemoglobin on her routine ou tpatient labs. She has a significant history of life threatening hematochezia in April 2022 requiring massive blood transfusion protocol and life flight to [place]. She was on Eliquis at that time for DVT which has been discontinued indefinitely despite large DVT and inability to place IVC. She has had routine lab work since that time with recurrent iron deficiency anemia requiring multiple blood transfusions. 3 units were given during her May admission and 2 units given during her more recent June admission. She reports feeling fatigued and some shortness of breath on exertion similar to her last admission. No chest pain. Abdominal pain at baseline and no worse than usual. No melena, bright red blood in stool, hematemesis, hematuria noticed by patient. Patient states that she is no longer receiving IV or PO chemotherapy for her advanced cancer. There has been discussion about her entering a clinical trial in [place]. However, she has been told that her hemoglobin ne eds to be at least 9 or above to enter the trial. She is having weekly checks of her hemoglobin and today outpatient check hemoglobin was 7.1 therefore she was sent to the ER for blood transfusions. In the ER hemoglobin 6.8. Patient consented for blood and 2 units packed red blood cells ordered. She was referred to medicine for admission and ongoing management. Allergies Allergy/AdvReac Type Severity Reaction Status Date / Time nickel AdvReac Mild REDNESS TO Verified 07/02/22 13:18 SKIN Home Medications Medication Instructions Recorded Confirmed Type empagliflozin 10 mg tablet 10 mg PO QAM 03/21/22 07/02/22 History (Jardiance) furosemide 40 mg tablet 40 mg PO QAM 03/21/22 07/02/22 History metoprolol succinate 50 mg 50 mg PO QAM 03/21/22 07/02/22 History tablet,extended release 24 hr ondansetron HCl 8 mg tablet 8 mg PO Q8 PRN Nausea 03/21/22 07/02/22 History spironolactone 25 mg tablet 25 mg PO QAM 03/21/22 07/02/22 History potassium chloride 20 mEq 20 meq PO BID 05/07/22 07/02/22 History tablet,extended release(part/cryst) oxycodone 20 mg tablet 20 mg PO Q4H PRN Pain 06/12/22 07/02/22 History prochlorperazine maleate 10 mg 10 mg PO DAILY PRN Nausea 06/12/22 07/02/22 History tablet magnesium oxide 400 mg PO BID 06/25/22 07/02/22 History levothyroxine 50 mcg tablet 50 mcg PO DAILYBB #30 tabs 06/26/22 07/02/22 Rx (Synthroid) morphine 60 mg tablet,extended 60 mg PO Q12H #1 tab 06/26/22 07/02/22 Rx release pantoprazole 40 mg tablet,delayed 40 mg PO QAM #30 tabs 06/26/22 07/02/22 Rx release (Protonix) ferrous sulfate 325 mg (65 mg 325 mg PO BID #60 tabs 07/02/22 07/02/22 Rx iron) tablet folic acid 1 mg tablet 1,000 mcg PO QAM 07/02/22 07/02/22 History Past Med/Surg History Medical History Chronic anemia H/O deep venous thrombosis extensive, RLE Hemorrhagic shock 2nd to rectal bleeding - required ICU stay [facility] 04/2022; location of bleeding never found; anticoagulation stopped at that time History of cardiomyopathy 2nd chemotherapy; prior EF <20%; now 50% (12/[address] [facility]) History of pulmonary embolism Leiomyosarcoma initial dx 2018; extensive metastatic disease Surgical History History of X2 History of hysterectomy HANH/BSO 11/2017 - [facility] [place] History of lung biopsy LEFT History of renal stent b/l ureteral stents Family History Father Diabetes Hypertension Myocardial infarction PAD (peripheral artery disease) Mother Cerebral aneurysm Denies family history of Ovarian cancer Prostate cancer Breast cancer Colorectal cancer Social History Smoking Status: Never smoker Age Started Using Tobacco: 21; Age Quit Using Tobacco: 29; packs per day: 0.25; Years Smoked: 8; Cigarettes Per Day: 5; Number of Years Since Quit: 15; Second Hand Exposure: No; Hx Alcohol Use: No Hx Substance Use: No Preferred Language: Kuwaiti Communication Ability: Effective Preschool Education Director Required: No Beliefs That Will Affect Care: None marital status: Current Living Situation: Spouse current occupational status: previously employed current occupation: [employer] How many Children do You have: 2 Other Information That Helps Us Care for You: No Feels Safe at Home: Yes Safety Concerns: Feels Safe At This Time Assistive Devices: None Review of Systems Review of Systems: All systems reviewed & are unremarkable except as noted in HPI & below Physical Exam Constitutional: WD/WN, vitals as above Eyes: + anicteric sclerae; normal pupil size ENMT: external ear and nose normal, oropharynx normal Respiratory: normal respiratory effort, lungs clear to auscultation Cardiovascular: Rate/Rhythm: regular rate and regular rhythm Heart Sounds: + murmur (Systolic) Extremities: normal capillary refill, + calf tenderness (b/l) and + pedal edema (2+ pitting and tight to b/l LE to abdomen) Gastrointestinal (Abdomen): Inspection/Auscultation: + abdomen distended and normal bowel sounds; + abdomen abnormal to inspection Percussion/Palpation: + abdomen tender (generalized, no worse than baseline); no guarding, abdomen not rigid and + abdomen not soft (firm) Skin: no rashes, warm and dry Neurologic: moves all extremities and awake; not confused Psychiatric: A+Ox3, euthymic affect Results & Data Results & Data ([facility]) Vital Signs (Past 12 Hours) Vital Signs Temp Pulse Resp BP Pulse Ox O2 Del Method 07/02/22 15:41 36.7 C 100 H 18 108/71 100 Room Air Laboratory Results Abnormal lab results 07/02/22 07/02/22 07/02/22 Range/Units 16:50 16:50 16:50 RBC 2.24 L (3.93-5.22) M/uL Hgb 6.8 L* (12.0-16.0) g/dl Hct 22.1 L (34.1-44.9) % MCHC 30.8 L (32.0-36.0) g/dL RDW Std Deviation 67.4 H (36.4-46.3) fL RDW Coeff of Jennifer 19.2 H (11.5-14.5) % Neut # (Auto) 9.21 H (1.4-6.5) K/uL Lymph # (Auto) 0.51 L (1.2-3.4) K/uL Immature Gran # (Auto) 0.05 H (0.00-0.02) K/uL Sodium 135 L (136-145) mmol/L BUN 28 H (6-23) mg/dl Creatinine 1.44 H (0.6-1.2) mg/dl Glucose 107 H (70-99(Fasting)) mg/dl Calcium 7.8 L (8.5-10.1) mg/dl AST 64 H (13-39) U/L Albumin 2.7 L (3.4-5.0) gm/dl Albumin/Globulin Ratio 0.8 L (0.9-2) Crossmatch See Detail Medications Administered ER Medications Given: Dilaudid 1mg IV Ondansetron 4mg IV ECG Indication: SOB/dyspnea Rate (beats per minute): 93 Rhythm: normal sinus Findings: + other (QTc 499 ms); no acute ischemic change Comparison ECG Date: from (June 25, 2022) Change: no significant change Code Status & VTE Plan Code Status Full as discussed with the patient - this is consistent with her prior wishes VTE Prophylaxis Plan VTE Prophylaxis will be ordered: No PG Care Time/CCT Total # of Minutes Spent Total Time Spent with Patient: Total time spent is greater than 50% in coordination of care (as documented) at patient's floor/unit and/or counseling patient: Coding Level of Care Code 11757 Initial Inpt Care Lvl 2 Diagnoses Iron deficiency anemia D50.9 Hypertension I10 Leiomyosarcoma C49.9 Hypothyroidism E03.9 H/O deep venous thrombosis Z86.718
[2022-07-02] MEDS ORDERED: ACETAMINOPHEN 325 MG TAB PO PRN (22:31)
[2022-07-02] MEDS ORDERED: oxyCODONE HCL IR 5 MG TAB (IMMEDIATE RELEASE) PO PRN (22:31)
[2022-07-02] MEDS ORDERED: PROCHLORPERAZINE MALEATE 10 MG TAB PO PRN (22:31)
[2022-07-02] MEDS ORDERED: POTASSIUM CHLORIDE CRTAB 20 MEQ TABCR PO SCH (22:45)
[2022-07-02] MEDS ORDERED: ONDANSETRON 4 MG OD TAB PO PRN (22:45)
[2022-07-02] MEDS: MoRPHine SULFATE CR 60 MG TABCR PO SCH (23:49)
[2022-07-03] MEDS ORDERED: LEVOTHYROXINE SODIUM 50 MCG TABLET PO SCH (06:30)
[2022-07-03 07:21] LABS: Hematocrit (blood only) 28.3 % (34.1-44.9); Hemoglobin 9.1 g/dl (12.0-16.0); Mean Corpuscular Hemoglobin 30.2 pg (25.0-34.0); Mean Corpuscular Hgb Conc 32.2 g/dL (32.0-36.0); Mean Platelet Volume 10.4 fL (9.4-12.3); Platelet Count 255 K/uL (130-400); RDW Coefficient of Variation 19.8 % (11.5-14.5); RDW Standard Deviation 65.1 fL (36.4-46.3); Red Blood Count 3.01 M/uL (3.93-5.22); White Blood Count 9.48 K/ul (4.8-10.8)
[2022-07-03] MEDS ORDERED: IRON SUCROSE 400 MG in SODIUM CHLORIDE 0.9% 250 ML IV ONE (07:53)
[2022-07-03 07:56] LABS: BUN Creatinine Ratio 19.3 (10-20); Calcium 7.8 mg/dl (8.5-10.1); Creatinine Clr Calc Pharmacy 44.1 ml/min; Est GFR (African American) 51.4 ml/min; Est GFR (Non-African American) 44.3 ml/min
--- NOTE | 2022-07-03 08:24 | Oncology Consultation ---
Date of Consultation July 03, 2022 History of Present Illness Attending Physician: Joey Gaitan MD Allergies Allergy/AdvReac Type Severity Reaction Status Date / Time nickel AdvReac Mild REDNESS TO Verified 07/02/22 13:18 SKIN Home Medications Medication Instructions Recorded Confirmed Type empagliflozin 10 mg tablet 10 mg PO QAM 03/21/22 07/02/22 History (Jardiance) furosemide 40 mg tablet 40 mg PO QAM 03/21/22 07/02/22 History metoprolol succinate 50 mg 50 mg PO QAM 03/21/22 07/02/22 History tablet,extended release 24 hr ondansetron HCl 8 mg tablet 8 mg PO Q8 PRN Nausea 03/21/22 07/02/22 History spironolactone 25 mg tablet 25 mg PO QAM 03/21/22 07/02/22 History potassium chloride 20 mEq 20 meq PO BID 05/07/22 07/02/22 History tablet,extended release(part/cryst) oxycodone 20 mg tablet 20 mg PO Q4H PRN Pain 06/12/22 07/02/22 History prochlorperazine maleate 10 mg 10 mg PO DAILY PRN Nausea 06/12/22 07/02/22 History tablet magnesium oxide 400 mg PO BID 06/25/22 07/02/22 History levothyroxine 50 mcg tablet 50 mcg PO DAILYBB #30 tabs 06/26/22 07/02/22 Rx (Synthroid) morphine 60 mg tablet,extended 60 mg PO Q12H #1 tab 06/26/22 07/02/22 Rx release pantoprazole 40 mg tablet,delayed 40 mg PO QAM #30 tabs 06/26/22 07/02/22 Rx release (Protonix) ferrous sulfate 325 mg (65 mg 325 mg PO BID #60 tabs 07/02/22 07/02/22 Rx iron) tablet folic acid 1 mg tablet 1,000 mcg PO QAM 07/02/22 07/02/22 History Patient History Medical History Chronic anemia H/O deep venous thrombosis extensive, RLE Hemorrhagic shock 2nd to rectal bleeding - required ICU stay [facility] 04/2022; location of bleeding never found; anticoagulation stopped at that time History of cardiomyopathy 2nd chemotherapy; prior EF <20%; now 50% (12/2020 @ [facility]) History of pulmonary embolism Leiomyosarcoma initial dx 2018; extensive metastatic disease Surgical History History of X2 History of hysterectomy HANH/BSO 11/2017 - [facility] [place] History of lung biopsy LEFT History of renal stent b/l ureteral stents Family History Father Diabetes Hypertension Myocardial infarction PAD (peripheral artery disease) Mother Cerebral aneurysm Denies family history of Ovarian cancer Prostate cancer Breast cancer Colorectal cancer Social History Smoking Status: Never smoker Age Started Using Tobacco: 21; Age Quit Using Tobacco: 29; packs per day: 0.25; Years Smoked: 8; Cigarettes Per Day: 5; Number of Years Since Quit: 15; Second Hand Exposure: No; Hx Alcohol Use: No Hx Substance Use: No Preferred Language: Tristanian Communication Ability: Effective Epic Ambulatory Analyst Required: No Beliefs That Will Affect Care: None marital status: Current Living Situation: Spouse current occupational status: previously employed 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) Vital Signs (Past 12 Hours) Vital Signs Temp Pulse Pulse Pulse Resp BP BP 07/03/22 06:58 37.0 C 94 H 18 109/72 07/03/22 02:53 37.4 C 95 H 18 100/65 07/02/22 23:53 37.0 C 98 H 19 105/69 07/02/22 23:23 37.1 C 99 H 18 118/71 07/02/22 23:08 36.8 C 99 H 18 101/84 07/02/22 23:07 36.8 C 100 H 18 101/84 07/03/22 00:43 37.1 C 91 H 19 103/65 07/02/22 22:49 36.7 C 102 H 19 102/89 07/02/22 22:38 07/02/22 22:38 37.4 C 102 H 20 111/70 07/02/22 22:17 07/02/22 21:45 37.5 C 98 H 18 105/63 07/02/22 21:15 36.6 C 96 H 18 107/66 07/02/22 20:45 36.6 C 96 H 14 107/66 07/02/22 20:45 37.2 C 96 H 16 103/64 07/02/22 20:45 37.3 C 99 H 18 103/71 Pulse Ox O2 Del Method 07/03/22 06:58 96 Room Air 07/03/22 02:53 95 Room Air 07/02/22 23:53 97 07/02/22 23:23 96 07/02/22 23:08 99 07/02/22 23:07 99 07/03/22 00:43 97 07/02/22 22:49 99 07/02/22 22:38 Room Air 07/02/22 22:38 96 Room Air 07/02/22 22:17 Room Air 07/02/22 21:45 96 07/02/22 21:15 96 07/02/22 20:45 96 07/02/22 20:45 96 07/02/22 20:45 97
[2022-07-03] MEDS ORDERED: EMPAGLIFLOZIN 10 MG TAB PO SCH (09:00)
[2022-07-03] MEDS ORDERED: FERROUS SULFATE 325 MG TAB PO SCH (09:00)
[2022-07-03] MEDS ORDERED: METOPROLOL SUCC 50MG EXT REL TAB PO SCH (09:00)
[2022-07-03] MEDS ORDERED: FUROSEMIDE 40 MG TAB PO SCH (09:00)
[2022-07-03] MEDS ORDERED: FOLIC ACID 1 MG TAB PO SCH (09:00)
[2022-07-03] MEDS ORDERED: SPIRONOLACTONE 25 MG TAB PO SCH (09:00)
[2022-07-03] MEDS ORDERED: MAGNESIUM OXIDE 400 MG TAB PO SCH (09:00)
[2022-07-03] MEDS ORDERED: PANTOprazole 40 MG TAB PO SCH (09:00)
[2022-07-03] MEDS ORDERED: POTASSIUM CHLORIDE 20 MEQ/15 ML UDC PO SCH (09:00)
[2022-07-03] MEDS: MoRPHine SULFATE CR 60 MG TABCR PO SCH (09:07)
--- NOTE | 2022-07-03 09:27 | Electrocardiogram Report ---
Test Reason : Blood Pressure : / mmHG Vent. Rate : 093 BPM Atrial Rate : 093 BPM P-R Int : 116 ms QRS Dur : 090 ms QT Int : 402 ms P-R-T Axes : 045 007 028 degrees QTc Int : 499 ms Normal sinus rhythm Prolonged QT Abnormal ECG When compared with ECG of 25-JUN-2022 15:49, No significant change was found Confirmed by Daniel Jama ([id number]) on 07/03/2022 9:27:37 AM Referred By: REFERRED SELF Confirmed By:Daniel Jama
[2022-07-03] MEDS ORDERED: CYANOCOBALAMIN 1000 MCG/ML VIAL IM SCH (10:45)
--- NOTE | 2022-07-03 13:10 | Discharge Summary ---
Date of Service July 03, 2022 Admission HPI Per Admitting Provider Yenny Garcia is a 47 year old female with widely metastatic retroperitoneal leiomyosarcoma who presents to the ER due to low hemoglobin on her routine outpatient labs. She has a significant history of life threatening hematochezia in April 2022 requiring massive blood transfusion protocol and life flight to [place]. She was on Eliquis at that time for DVT which has been discontinued indefinitely despite large DVT and inability to place IVC. She has had routine lab work since that time with recurrent iron deficiency anemia requiring multiple blood transfusions. 3 units were given during her May admission and 2 units given during her more recent June admission. She reports feeling fatigued and some shortness of breath on exertion similar to her last admission. No chest pain. Abdominal pain at baseline and no worse than usual. No melena, bright red blood in stool, hematemesis, hematuria noticed by patient. Patient states that she is no longer receiving IV or PO chemotherapy for her advanced cancer. There has been discussion about her entering a clinical trial in [place]. However, she has been told that her hemoglobin needs to be at least 9 or above to enter the trial. She is having weekly checks of her hemoglobin and today outpatient check hemoglobin was 7.1 therefore she was sent to the ER for blood transfusions. In the ER hemoglobin 6.8. Patient consented for blood and 2 units packed red blood cells ordered. She was referred to medicine for admission and ongoing management. Principal Diagnosis Acute on chronic iron deficiency anemia, vitamin B12 deficiency Discharge Exam General-alert and oriented x3, no fevers, no chills HEENT-head atraumatic and normocephalic, pupils equal and reactive to light, extraocular muscles intact Neck-no lymphadenopathy or thyromegaly, trachea midline Chest-clear to auscultation percussion. No rales wheezing or rhonchi Cardiac-regular rate and rhythm, normal S1 and S2, no murmurs Abdomen-normal bowel sounds, nontender, no hepatosplenomegaly Extremities-no cyanosis, clubbing, or edema Neuro-cranial nerves II through XII intact, motor and sensory function within normal limits, strength symmetrical , no focal deficits Psych-normal affect, normal mood Discharge Data Allergies Allergy/AdvReac Type Severity Reaction Status Date / Time nickel AdvReac Mild REDNESS TO Verified 07/02/22 13:18 SKIN Consultations 07/02/22 18:12 ED Decision to Admit Stat Hospital Course (1) Iron deficiency anemia: She received 2 units of packed red blood cells and hemoglobin is now 9.1. She is also receiving parenteral iron replacement. She should have periodic CBC and arrangements for outpatient transfusion as necessary (2) Hypertension: Controlled with her usual home medications with furosemide 40mg PO daily and metoprolol succinate 50mg PO daily (3) Leiomyosarcoma: Noted widely metastatic cancer Continue her usual pain regimen with morphine 60mg PO BID and oxycodone 20mg PO q4h PRN (4) Hypothyroidism: TSH 36, free T4 0.33 [06/25/22] Continue newly started levothyroxine 50mcg PO daily (5) H/O deep venous thrombosis: Known DVT however she is not a candidate for systemic anticoagulation therapy . Failed IVC placement (6) Vitamin B 12 deficiency: Vitamin B12 replacement therapy Plan VTE Prophylaxis - contraindicated due to blood transfusion dependant anemia and life threatening hematochezia Diet - regular Disposition -discharge to home today, July 03. Total Time Total Time Spent Total Time Spent (In Minutes): 35 minutes Discharge Plan Discharge Items Patient Disposition: Home - Self-Care Reason For Visit: SYMPTOMATIC Discharge Diagnosis: Acute on chronic iron deficiency anemia which is symptomatic, vitamin B-12 deficiency Activity: Resume your previous activity Non-emergency contact: Primary Care Provider Call non-emergency contact if: you have any medication questions Follow-up/Referrals: Nikki Hayden MD [Primary Care Provider] - 07/10/22 11:30 am (f/u appointment with Dr. Hayden) Diet: Regular Addtl Attending Provider Instructions: Periodic blood counts should be ordered by your primary care provider and outpatient transfusions arranged as necessary. Vitamin B12 deficiency has been diagnosed and you should be taking a vitamin B12 supplement daily Pending Studies at Discharge: No Stand-Alone Forms: My [employer], Smoking Cessation Medications and DC Order Prescriptions: New cyanocobalamin (vitamin B-12) 1,000 mcg capsule 1,000 mcg PO DAILY Qty: 30 0RF Continued ferrous sulfate 325 mg (65 mg iron) tablet 325 mg PO BID Qty: 60 4RF metoprolol succinate 50 mg tablet extended release 24 hr 50 mg PO QAM ondansetron HCl 8 mg tablet 8 mg PO Q8 PRN (Reason: Nausea) Jardiance 10 mg tablet 10 mg PO QAM furosemide 40 mg tablet 40 mg PO QAM spironolactone 25 mg tablet 25 mg PO QAM magnesium oxide 400 mg magnesium Tablet 400 mg PO BID levothyroxine [Synthroid] 50 mcg Tablet 50 mcg PO DAILYBB Qty: 30 5RF pantoprazole [Protonix] 40 mg tablet,delayed release (DR/EC) 40 mg PO QAM Qty: 30 11RF morphine 60 mg tablet extended release 60 mg PO Q12H MDD 120 MG/24 HOURS Qty: 1 0RF potassium chloride 20 mEq tablet,ER particles/crystals 20 meq PO BID Rx Instructions: please give liquid prochlorperazine maleate 10 mg tablet 10 mg PO DAILY PRN (Reason: Nausea) oxycodone 20 mg tablet 20 mg PO Q4H MDD 120 MG/24 HOURS PRN (Reason: Pain) folic acid 1 mg tablet 1,000 mcg PO QAM Discharge Orders: Discharge Order (Routine); Ordered 07/03/22 Ordered By: Joey Gaitan Admission Data Admit Date/Time: 07/02/22 18:13 Attending Provider: Joey Gaitan Admit Provider: Jc Husain Primary Care Provider: Nikki Hayden Other Providers: Jc Husain Coding Level of Care Code D/C DAY MANAGEMENT >30 MINS Diagnoses Iron deficiency anemia D50.9 Hypertension I10 Leiomyosarcoma C49.9 Hypothyroidism E03.9 H/O deep venous thrombosis Z86.718 Vitamin B 12 deficiency E53.8
== END 2022-07-03 14:44 | disposition home or self-care (01) | DRG 812 ==
LOC: ED 15:32 → 4W 18:13 → SUATTDRO 18:13 → 4W 22:17

== ENCOUNTER 2022-07-16 14:10 | Inpatient (IN) ==
[2022-07-16] MEDS ORDERED: SODIUM CHLORIDE 0.9% 250 ML IV PRN (14:57)
--- NOTE | 2022-07-16 15:30 | Emergency Department Note ---
Impression & Plan Anemia, Leiomyosarcoma ED Provider Note NAME: KIKO IVEY AGE: 47 SEX: F : 1975 ARRIVES VIA: Walk-In INFORMANT: Patient, ED PROVIDER(S): Aj Maravilla MD Chief Complaint: Outpatient referral, low hemoglobin HPI: Patient presents to the emergency department today due to concern for anemia. The patient does have a known history of leiomyosarcoma and was told that her blood work showed that her hemoglobin was low. The patient has had prior issues with leiomyosarcoma but after there was an issue with it bleeding as well as intestinal problems the patient has had no obvious cause for the patient's bleeding. Patient does not currently take any blood thinning medications. Patient denies any dark tarry stools or bright red blood per rectum. The patient states that any symptoms she has are chronic and unchanged. The patient does not complain of any change in shortness of breath or abdominal discomfort. The patient does have a known abdominal mass. Patient does follow with local physician for PCP and follows with oncology locally when she is admitted but also at [facility]. She denies any feelings of weakness fatigue or dizziness. ROS: See HPI for pertinent positives and negatives. A total of 10 systems were reviewed and otherwise negative. Past medical history: See below Surgical history: See below Social history: See below Physical Exam: GENERAL: NAD, wearing a mask, non-toxic. EYE EXAM: Normal conjunctiva. PERRL, no anisocoria and EOM's grossly intact w/o pain. NECK: Supple, no nuchal rigidity, no adenopathy, non-tender. No signs of meningismus. FROM of the neck with good chin to chest and neck extension. No stridor. LUNGS: Clear to auscultation. Normal chest wall mechanics. HEART: NSRTachycardic and rate, no MRG. ABDOMEN: Abdomen soft, abdominal fullness noted but without peritonitis. BACK: No CVA TTP. SKIN: No rashes and no bruising. UPPER EXTREMITIES: Upper extremities are grossly normal. LOWER EXTREMITIES: Grossly normal, no edema. NEURO EXAM: A&O x3, cranial nerves II-XII grossly intact, normal speech, moves all 4 extremities. Differential diagnoses: Infection, dehydration, metabolic abnormality, hypo/hyperglycemia, electrolyte disturbance, anemia, hypoxia, cardiac sources, intracerebral event, toxicologic, neurologic, as well as other pathologies. Course: Patient was seen and evaluated the bedside. Full history physical exam was performed. Imaging Studies: See Below Cardiac monitoring: An order was placed for continuous cardiac monitoring. The monitor shows a rate of 102 with tachycardic and regular rhythm. MDM: I did review the patient's blood work from prior to arrival which showed that the patient did have anemia noted with a hemoglobin of 6.1 and a normal white count. The patient's platelet counts was normal. The patient had normal kidney function. COVID swab was obtained. This was negative. Patient did present due to concern for anemia. The patient was consented and ordered blood products. I did speak with the on-call hospitalist Dr. Husain and the patient was admitted to the medicine service. Critical Care: I have personally spent 75 minutes of critical care time in direct management of this patient. This includes bedside care, interpretation of diagnostic studies, and testing, discussion with consultants, patient, and family members, and other require inpatient management activities. This 75 minutes is in excess of all separately billable procedures. Past Med/Surg History Medical History Chronic anemia H/O deep venous thrombosis extensive, RLE Hemorrhagic shock 2nd to rectal bleeding - required ICU stay [facility] 04/2022; location of bleeding never found; anticoagulation stopped at that time History of cardiomyopathy 2nd chemotherapy; prior EF <20%; now 50% (12/2020 @ [facility]) History of pulmonary embolism Hypertension Hypothyroidism Iron deficiency anemia Leiomyosarcoma initial dx 2018; extensive metastatic disease Leiomyosarcoma Surgical History History of X2 History of hysterectomy HANH/BSO 11/2017 - [facility] [place] History of lung biopsy LEFT History of renal stent b/l ureteral stents Family History Father Diabetes Hypertension Myocardial infarction PAD (peripheral artery disease) Mother Cerebral aneurysm Denies family history of Ovarian cancer Prostate cancer Breast cancer Colorectal cancer Social History Smoking Status: Former smoker Age Started Using Tobacco: 21; Age Quit Using Tobacco: 29; packs per day: 0.25; Cigarettes Per Day: 5; Second Hand Exposure: No; Hx Alcohol Use: No Hx Substance Use: No Preferred Language: Pashto Communication Ability: Effective Airways Operations Specialist Required: No Beliefs That Will Affect Care: None marital status: Current Living Situation: Spouse current occupational status: previously employed current occupation: [employer] business How many Children do You have: 2 Feels Safe at Home: Yes Assistive Devices: None Allergies Allergies Allergy/AdvReac Type Severity Reaction Status Date / Time nickel AdvReac Mild REDNESS TO Verified 07/16/22 16:00 SKIN Home Meds Home Medications Medication Instructions Recorded Confirmed empagliflozin 10 mg tablet 10 mg PO QAM 03/21/22 07/16/22 (Jardiance) furosemide 40 mg tablet 40 mg PO QAM 03/21/22 07/16/22 metoprolol succinate 50 mg 50 mg PO QAM 03/21/22 07/16/22 tablet,extended release 24 hr ondansetron HCl 8 mg tablet 8 mg PO Q8 PRN Nausea 03/21/22 07/16/22 spironolactone 25 mg tablet 25 mg PO QAM 03/21/22 07/16/22 potassium chloride 20 mEq 20 meq PO BID 05/07/22 07/16/22 tablet,extended release(part/cryst) oxycodone 20 mg tablet 20 mg PO Q4H PRN Pain 06/12/22 07/16/22 prochlorperazine maleate 10 mg 10 mg PO DAILY PRN Nausea 06/12/22 07/16/22 tablet magnesium oxide 400 mg PO BID 06/25/22 07/16/22 folic acid 1 mg tablet 1 mg PO QAM 07/02/22 07/16/22 Previous Rx's Medication Instructions Recorded levothyroxine 50 mcg tablet 50 mcg PO DAILYBB #30 tabs 06/26/22 (Synthroid) morphine 60 mg tablet,extended 60 mg PO Q12H #1 tab 06/26/22 release pantoprazole 40 mg tablet,delayed 40 mg PO QAM #30 tabs 06/26/22 release (Protonix) ferrous sulfate 325 mg (65 mg 325 mg PO BID #60 tabs 07/02/22 iron) tablet cyanocobalamin (vitamin B-12) 1,000 mcg PO DAILY #30 caps 07/03/22 1,000 mcg capsule Results & Data (ED) Vital Signs Vital Signs - 24 hr 07/16/22 14:27 Temperature 36.4 C L Temperature Source Temporal Artery Scan Pulse Rate 100 H Respiratory Rate 18 Respiratory Effort / Characteristics Non-Labored Respiratory Depth Normal Respiratory Pattern Regular Blood Pressure 114/72 Blood Pressure Mean 86 Blood Pressure Position Sitting Pulse Oximetry 98 Oxygen Delivery Method Room Air Sepsis Recent Fever Within 48 Hours No Sepsis New/Unexplained Change in Mental Status No Sepsis Action Taken by Nursing No Action Required Home Medications Current Medication List: was personally reviewed by me Laboratory Data Attestation: I reviewed the patient's lab results. Result diagrams: 07/18/22 06:18 07/17/22 05:38 Lab Results 07/16/22 07/16/22 Range/Units 15:13 15:19 SARS-CoV-2, RNA, NAAT NEGATIVE (NEGATIVE) Blood Type A Positive Antibody Screen NEGATIVE Crossmatch See Detail Administered Medications Discontinued Medications Cyanocobalamin (Cyanocobalamin (B-12) 500 Mcg Tablet) 1,000 mcg PO DAILY SANDRA Stop: 08/16/22 08:59 Last Admin: 07/18/22 09:17 Dose: 1,000 mcg Documented By: Admin: 07/17/22 08:19 Dose: 1,000 mcg Documented By: CORBIN Ferrous Sulfate (Ferrous Sulfate 325 Mg Tab) 325 mg PO BID SANDRA Stop: 08/15/22 21:29 Last Admin: 07/18/22 09:16 Dose: 325 mg Documented By: Admin: 07/17/22 21:24 Dose: 325 mg Documented By: Admin: 07/17/22 08:19 Dose: 325 mg Documented By: Admin: 07/16/22 21:43 Dose: 325 mg Documented By: NESSA Folic Acid (Folic Acid 1 Mg Tab) 1 mg PO QAM SANDRA Stop: 08/16/22 08:59 Last Admin: 07/18/22 09:16 Dose: 1 mg Documented By: Admin: 07/17/22 08:19 Dose: 1 mg Documented By: CORBIN Furosemide (Furosemide 40 Mg Tab) 40 mg PO QAM SANDRA Stop: 08/16/22 08:59 Last Admin: 07/18/22 09:16 Dose: 40 mg Documented By: Admin: 07/17/22 08:19 Dose: 40 mg Documented By: CORBIN Levothyroxine Sodium (Levothyroxine Sodium 50 Mcg Tablet) 50 mcg PO DAILYBB SANDRA Stop: 08/16/22 06:29 Last Admin: 07/18/22 05:29 Dose: 50 mcg Documented By: Admin: 07/17/22 06:19 Dose: 50 mcg Documented By: NESSA Magnesium Oxide (Magnesium Oxide 400 Mg Tab) 400 mg PO BID SANDRA Stop: 08/15/22 21:29 Last Admin: 07/18/22 09:17 Dose: 400 mg Documented By: Admin: 07/17/22 21:24 Dose: 400 mg Documented By: Admin: 07/17/22 08:19 Dose: 400 mg Documented By: Admin: 07/16/22 21:43 Dose: 400 mg Documented By: NESSA Metoprolol Succinate (Metoprolol Succ 50mg Ext Rel Tab) 50 mg PO QAM SANDRA Stop: 08/16/22 08:59 Last Admin: 07/18/22 09:17 Dose: 50 mg Documented By: Admin: 07/17/22 08:19 Dose: 50 mg Documented By: CORBIN Miscellaneous (Order Awaiting Action) 1 each N/A QS [facility] Stop: 08/16/22 00:00 Last Admin: 07/18/22 11:44 Dose: Not Given Documented By: Admin: 07/17/22 22:39 Dose: Not Given Documented By: Admin: 07/17/22 12:07 Dose: Not Given Documented By: Admin: 07/17/22 07:23 Dose: Not Given Documented By: Admin: 07/17/22 00:06 Dose: Not Given Documented By: NESSA Morphine Sulfate (Morphine Sulfate Cr 60 Mg Tabcr) 60 mg PO Q12 [facility] Stop: 07/30/22 21:29 Last Admin: 07/18/22 09:19 Dose: 60 mg Documented By: Admin: 07/17/22 21:24 Dose: 60 mg Documented By: Admin: 07/17/22 08:19 Dose: 60 mg Documented By: Admin: 07/16/22 21:42 Dose: 60 mg Documented By: NESSA Ondansetron HCl (Ondansetron 8mg Od Tab) 8 mg PO Q8 PRN PRN Reason: Nausea Stop: 08/15/22 21:13 Last Admin: 07/18/22 07:52 Dose: 8 mg Documented By: Admin: 07/17/22 22:38 Dose: 8 mg Documented By: ESTEPHANIA Oxycodone HCl (Oxycodone Hcl Ir 5 Mg Tab (Immediate Release)) 20 mg PO Q4H PRN PRN Reason: Pain Stop: 07/30/22 20:46 Last Admin: 07/18/22 02:07 Dose: 20 mg Documented By: Admin: 07/17/22 06:21 Dose: 20 mg Documented By: Admin: 07/17/22 02:25 Dose: 20 mg Documented By: NESSA Pantoprazole Sodium (Pantoprazole 40 Mg Tab) 40 mg PO QAM SANDRA Stop: 08/16/22 08:59 Last Admin: 07/18/22 09:16 Dose: 40 mg Documented By: Admin: 07/17/22 08:19 Dose: 40 mg Documented By: CORBIN Potassium Chloride (Potassium Chloride Crtab 20 Meq Tabcr) 20 meq PO BID SANDRA Stop: 08/15/22 21:29 Last Admin: 07/16/22 21:49 Dose: Not Given Documented By: NESSA Potassium Chloride (Potassium Chloride Pwd 20 Meq Pack) 20 meq PO BID SANDRA Stop: 08/15/22 21:59 Last Admin: 07/18/22 09:17 Dose: 20 meq Documented By: Admin: 07/17/22 21:24 Dose: 20 meq Documented By: Admin: 07/17/22 08:19 Dose: 20 meq Documented By: Admin: 07/16/22 22:07 Dose: 20 meq Documented By: NESSA Spironolactone (Spironolactone 25 Mg Tab) 25 mg PO QAM [facility] Stop: 08/16/22 08:59 Last Admin: 07/18/22 09:16 Dose: 25 mg Documented By: Admin: 07/17/22 08:19 Dose: 25 mg Documented By: CORBIN Discharge Plan Visit Data Chief Complaint: Illness Stated Complaint: HEMOGLOBIN IS DOWN TO 6.1 ED Provider: Aj Maravilla Discharge Problem: Anemia, Leiomyosarcoma Patient Disposition: Admitted As Inpatient Discharge Instructions Interventions: ED Discharge Assessment Last Done: 07/16/22 19:55
--- NOTE | 2022-07-16 19:21 | History & Physical Report ---
Date of Service July 16, 2022 Assessment & Plan (1) Acute on chronic anemia: Plan: Symptomatic acute on chronic anemia. Suspected from GI bleed given recent hematochezia and suspected invasion of her tumor into bowel. Transfuse Hgb < 9 given transfusion dependancy. 2 units packed RBCs ordered from ER. Will repeat Hgb following this. Will consult nurse navigator who can hopefully co-ordinate local care here and perhaps avoid repeated readmissions for blood transfusions. Continue pantoprazole 40mg PO daily (2) Hypertension: Plan: Continue metoprolol succinate 50 mg p.o. every morning and furosemide 40 mg p.o. 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 Continue on vitamin B-12 IM injections. Plan VTE prophylaxis - SCDs contraindicated, anticoagulation contraindicated Diet - regular Disposition- admit to PCU Code - full History of Present Illness Chief Complaint: Fatigue, anemia. Primary Care Provider: Nikki Hayden MD Yenny Garcia is a 47 year old female with widely metastatic retroperitoneal leiomyosarcoma who presents to the ER due to low hemoglobin on her routine outpatient labs. She has a significant history of life threatening hematochezia in April 2022 requiring massive blood transfusion protocol and life flight to [place]. She was on Eliquis at that time for DVT which has been discontinued indefinitely despite large DVT and inability to place IVC. She has had routine lab work since that time with recurrent iron deficiency anemia requiring multiple blood transfusions. 3 units were given during her May admission, 2 units given early June and another 2 units in mid June. She reports feeling fatigued and some shortness of breath on exertion similar to her last admission. No chest pain. Abdominal pain at baseline and no worse than usual. No melena, bright red blood in stool, hematemesis, hematuria noticed by patient. Hemoglobin 6.1. In the ER hemoglobin 6.1. Patient consented for blood and 2 units packed red blood cells ordered. She was referred to medicine for admission and ongoing management. Allergies Allergy/AdvReac Type Severity Reaction Status Date / Time nickel AdvReac Mild REDNESS TO Verified 07/16/22 16:00 SKIN Home Medications Medication Instructions Recorded Confirmed Type empagliflozin 10 mg tablet 10 mg PO QAM 03/21/22 07/16/22 History (Jardiance) furosemide 40 mg tablet 40 mg PO QAM 03/21/22 07/16/22 History metoprolol succinate 50 mg 50 mg PO QAM 03/21/22 07/16/22 History tablet,extended release 24 hr ondansetron HCl 8 mg tablet 8 mg PO Q8 PRN Nausea 03/21/22 07/16/22 History spironolactone 25 mg tablet 25 mg PO QAM 03/21/22 07/16/22 History potassium chloride 20 mEq 20 meq PO BID 05/07/22 07/16/22 History tablet,extended release(part/cryst) oxycodone 20 mg tablet 20 mg PO Q4H PRN Pain 06/12/22 07/16/22 History prochlorperazine maleate 10 mg 10 mg PO DAILY PRN Nausea 06/12/22 07/16/22 Histo ry tablet magnesium oxide 400 mg PO BID 06/25/22 07/16/22 History levothyroxine 50 mcg tablet 50 mcg PO DAILYBB #30 tabs 06/26/22 07/16/22 Rx (Synthroid) morphine 60 mg tablet,extended 60 mg PO Q12H #1 tab 06/26/22 07/16/22 Rx release pantoprazole 40 mg tablet,delayed 40 mg PO QAM #30 tabs 06/26/22 07/16/22 Rx release (Protonix) ferrous sulfate 325 mg (65 mg 325 mg PO BID #60 tabs 07/02/22 07/16/22 Rx iron) tablet folic acid 1 mg tablet 1 mg PO QAM 07/02/22 07/16/22 History cyanocobalamin (vitamin B-12) 1,000 mcg PO DAILY #30 caps 07/03/22 07/16/22 Rx 1,000 mcg capsule Past Med/Surg History Medical History (Updated 07/16/22 @ 19:16 by Jc Husain MD) Chronic anemia H/O deep venous thrombosis extensive, RLE Hemorrhagic shock 2nd to rectal bleeding - required ICU stay [facility] [place] 04/2022; location of bleeding never found; anticoagulation stopped at that time History of cardiomyopathy 2nd chemotherapy; prior EF <20%; now 50% (12/2020 @ [facility]) History of pulmonary embolism Hypertension Hypothyroidism Iron deficiency anemia Leiomyosarcoma initial dx 2018; extensive metastatic disease Leiomyosarcoma Surgical History History of X2 History of hysterectomy HANH/BSO 11/2017 - [facility] [place] History of lung biopsy LEFT History of renal stent b/l ureteral stents Family History Father Diabetes Hypertension Myocardial infarction PAD (peripheral artery disease) Mother Cerebral aneurysm Denies family history of Ovarian cancer Prostate cancer Breast cancer Colorectal cancer Social History Smoking Status: Former smoker Age Started Using Tobacco: 21; Age Quit Using Tobacco: 29; packs per day: 0.25; Years Smoked: 8; Cigarettes Per Day: 5; Number of Years Since Quit: 15; Second Hand Exposure: No; Do You Dip or Chew Tobacco: No; Tobacco Cessation Education Requested by Patient: No Hx Alcohol Use: No Hx Substance Use: No Preferred Language: Lithuanian Communication Ability: Effective Twister In Required: No Beliefs That Will Affect Care: None marital status: Current Living Situation: Spouse current occupational status: previously employed 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 How many Children do You have: 2 Other Information That Helps Us Care for You: No Feels Safe at Home: Yes Safety Concerns: Feels Safe At This Time Assistive Devices: None Review of Systems Review of Systems: All systems reviewed & are unremarkable except as noted in HPI & below Physical Exam Constitutional: WD/WN, vitals as above ENMT: external ear and nose normal, oropharynx normal Neck: trachea midline, no thyromegaly Respiratory: normal respiratory effort, lungs clear to auscultation Cardiovascular: RRR, no murmur, no edema Gastrointestinal (Abdomen): Inspection/Auscultation: + abdomen distended Percussion/Palpation: + abdomen tender (Generalized) and abdomen soft Skin: no rashes, warm and dry Neurologic: moves all extremities and awake; not confused Psychiatric: A+Ox3, euthymic affect Results & Data Results & Data ([facility]) Vital Signs (Past 12 Hours) Vital Signs Temp Pulse Pulse Resp BP BP Pulse Ox 07/16/22 18:47 37.2 C 98 H 17 103/70 97 07/16/22 17:47 37.2 C 93 H 17 100/63 97 07/16/22 17:17 37.3 C 93 H 18 107/66 97 07/16/22 17:02 37.3 C 98 H 17 101/60 98 07/16/22 16:35 37.2 C 95 H 16 102/61 98 07/16/22 15:39 99 H 18 101/62 97 07/16/22 14:27 36.4 C L 100 H 18 114/72 98 O2 Del Method 07/16/22 18:47 07/16/22 17:47 07/16/22 17:17 07/16/22 17:02 07/16/22 16:35 07/16/22 15:39 Room Air 07/16/22 14:27 Room Air Laboratory Results Abnormal lab results 07/16/22 Range/Units 15:19 Crossmatch See Detail Diagnostic Findings XR chest 1V portable CLINICAL HISTORY: weakness TECHNIQUE: Single frontal radiograph of the chest was obtained. Comparison: Comparison is made to chest radiograph 06/12/[address] abdomen pelvis 06/12/2022 FINDINGS: Left portacatheter is seen. The cardiomediastinal silhouette is normal. Numerous nodular densities are seen within the lungs, similar to prior exam. Postsurgical changes noted in the left lower lung. No evidence of pleural effusion or pneumothorax. IMPRESSION: No acute abnormalities. Innumerable pulmonary nodules are seen similar in appearance to prior exam. 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
[2022-07-16] MEDS ORDERED: PROCHLORPERAZINE MALEATE 10 MG TAB PO PRN (20:47)
[2022-07-16] MEDS ORDERED: POTASSIUM CHLORIDE CRTAB 20 MEQ TABCR PO SCH (21:30)
[2022-07-16] MEDS: MoRPHine SULFATE CR 60 MG TABCR PO SCH (21:42)
[2022-07-16] MEDS: MAGNESIUM OXIDE 400 MG TAB PO SCH (21:43)
[2022-07-16] MEDS: FERROUS SULFATE 325 MG TAB PO SCH (21:43)
[2022-07-16] MEDS: POTASSIUM CHLORIDE PWD 20 MEQ PACK PO SCH (22:07)
[2022-07-17] MEDS: oxyCODONE HCL IR 5 MG TAB (IMMEDIATE RELEASE) PO PRN ×2 (02:25→06:21)
[2022-07-17 06:17] LABS: Calcium 7.9 mg/dl (8.5-10.1); Est GFR (African American) 61.3 ml/min; Est GFR (Non-African American) 52.9 ml/min; Potassium 4.2 mmol/L (3.5-5.1)
[2022-07-17] MEDS: LEVOTHYROXINE SODIUM 50 MCG TABLET PO SCH (06:19)
[2022-07-17 06:26] LABS: Hematocrit (blood only) 22.9 % (34.1-44.9); Hemoglobin 7.2 g/dl (12.0-16.0); Mean Corpuscular Hemoglobin 30.1 pg (25.0-34.0); Mean Corpuscular Hgb Conc 31.4 g/dL (32.0-36.0); Mean Corpuscular Volume 95.8 fL (80.0-100.0); Platelet Count 179 K/uL (130-400); Red Blood Count 2.39 M/uL (3.93-5.22); White Blood Count 7.36 K/ul (4.8-10.8)
[2022-07-17 06:41] LABS: Anisocytosis Present; Basophils # (auto) 0.02 K/uL (0-0.2); Basophils % (auto) 0.3 %; Eosinophils # (auto) 0.06 K/uL (0-0.50); Eosinophils % (auto) 0.8 %; Immature Granulocytes # (auto) 0.04 K/uL (0.00-0.02); Immature Granulocytes % (auto) 0.5 %; Lymphocytes # (auto) 0.63 K/uL (1.2-3.4); Lymphocytes % (auto) 8.6 %; Monocytes # (auto) 0.51 K/uL (0.24-0.82); Monocytes % (auto) 6.9 %; Neutrophils % (auto) 82.9 %
[2022-07-17] MEDS: FOLIC ACID 1 MG TAB PO SCH (08:19)
[2022-07-17] MEDS: CYANOCOBALAMIN (B-12) 500 MCG TABLET PO SCH (08:19)
[2022-07-17] MEDS: MAGNESIUM OXIDE 400 MG TAB PO SCH ×2 (08:19→21:24)
[2022-07-17] MEDS: MoRPHine SULFATE CR 60 MG TABCR PO SCH ×2 (08:19→21:24)
[2022-07-17] MEDS: FERROUS SULFATE 325 MG TAB PO SCH ×2 (08:19→21:24)
[2022-07-17] MEDS: METOPROLOL SUCC 50MG EXT REL TAB PO SCH (08:19)
[2022-07-17] MEDS: PANTOprazole 40 MG TAB PO SCH (08:19)
[2022-07-17] MEDS: POTASSIUM CHLORIDE PWD 20 MEQ PACK PO SCH ×2 (08:19→21:24)
[2022-07-17] MEDS: FUROSEMIDE 40 MG TAB PO SCH (08:19)
[2022-07-17] MEDS: SPIRONOLACTONE 25 MG TAB PO SCH (08:19)
[2022-07-17] MEDS ORDERED: SODIUM CHLORIDE 0.9% 250 ML IV PRN (10:37)
--- NOTE | 2022-07-17 12:40 | Hospitalist Progress Note ---
Date of Service July 17, 2022 Assessment & Plan (1) Acute on chronic anemia: Plan: Symptomatic acute on chronic anemia. could be from her leimyosarcoma She denied any blood in stool Hb 7.2 post 2 unitis of blood, will transfuse 1 more unit Patient says she is willing to participate in a clinical trial, but thety will accept her only if her Hb is 9 and above Will consult nurse navigator who can hopefully co-ordinate local care here and perhaps avoid repeated readmissions for blood transfusions. Continue pantoprazole 40mg PO daily (2) Hypertension: Plan: Continue metoprolol succinate 50 mg p.o. every morning and furosemide 40 mg p.o. 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 Continue on vitamin B-12 IM injections. Plan VTE prophylaxis - SCDs contraindicated, anticoagulation contraindicated Diet - regular Disposition- admit to PCU Code - full Admission and Anticipated Discharge Date Admission Date: hopefully d/c in the next 24 hrs July 16, 2022 Subjective patient seen and examined, feels better after transfusion Review of Systems Review of Systems: All systems reviewed are negative, apart from the ones contained in the history. Physical Exam Physical Exam: The patient is awake, alert and oriented 3, well developed and well nourished, normocephalic and atraumatic, lying in bed and in no acute distress. HEENT--PERRL, EOMI, mucous membranes and oropharynx mildly dry Neck--supple. No JVD. No bruits. Thyroid normal, trachea midline, no adenopathy. Heart--normal S1 and S2. No murmurs, rubs or gallops. Lungs--clear bilaterally, no respiratory distress, no accessory muscle use. Abdomen--distended Extremities--no cyanosis or clubbing. No edema. Dermatologic--normal skin turgor, normal color, no abnormal lymph nodes, no rash. Neurologic--cranial nerves II through XII grossly intact. Rheumatologic--normal range of motion. Psychiatric--normal affect. Results & Data Results & Data ([facility]) Vital Signs (Past 12 Hours) Vital Signs Temp Pulse Pulse Resp BP BP BP 07/17/22 12:02 99.3 F 98 H 109/75 07/17/22 10:36 07/17/22 10:29 99.1 F 98 H 18 108/72 07/17/22 07:40 99.7 F H 106 H 18 106/70 07/17/22 02:28 98.2 F 97 H 18 103/62 Pulse Ox O2 Del Method 07/17/22 12:02 96 07/17/22 10:36 Room Air 07/17/22 10:29 96 Room Air 07/17/22 07:40 97 Room Air 07/17/22 02:28 96 Room Air PG Care Time/CCT Total # of Minutes Spent Total Time Spent with Patient: Total time spent is greater than 50% in coordination of care (as documented) at patient's floor/unit and/or counseling patient: Coding Level of Care Code 70539 Subseq Hosp Care Lvl 2 Diagnoses Acute on chronic anemia D64.9 Hypertension I10 History of pulmonary embolism Z86.711 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
[2022-07-17] MEDS: ONDANSETRON 8MG OD TAB PO PRN (22:38)
[2022-07-18] MEDS: oxyCODONE HCL IR 5 MG TAB (IMMEDIATE RELEASE) PO PRN (02:07)
[2022-07-18] MEDS: LEVOTHYROXINE SODIUM 50 MCG TABLET PO SCH (05:29)
[2022-07-18 07:20] LABS: Hematocrit (blood only) 29.2 % (34.1-44.9); Mean Corpuscular Hemoglobin 29.5 pg (25.0-34.0); Mean Corpuscular Hgb Conc 30.8 g/dL (32.0-36.0); Mean Corpuscular Volume 95.7 fL (80.0-100.0); Platelet Count 186 K/uL (130-400); RDW Coefficient of Variation 19.7 % (11.5-14.5); Red Blood Count 3.05 M/uL (3.93-5.22); White Blood Count 8.22 K/ul (4.8-10.8)
[2022-07-18] MEDS: ONDANSETRON 8MG OD TAB PO PRN (07:52)
[2022-07-18] MEDS: FERROUS SULFATE 325 MG TAB PO SCH (09:16)
[2022-07-18] MEDS: PANTOprazole 40 MG TAB PO SCH (09:16)
[2022-07-18] MEDS: SPIRONOLACTONE 25 MG TAB PO SCH (09:16)
[2022-07-18] MEDS: FUROSEMIDE 40 MG TAB PO SCH (09:16)
[2022-07-18] MEDS: FOLIC ACID 1 MG TAB PO SCH (09:16)
[2022-07-18] MEDS: POTASSIUM CHLORIDE PWD 20 MEQ PACK PO SCH (09:17)
[2022-07-18] MEDS: METOPROLOL SUCC 50MG EXT REL TAB PO SCH (09:17)
[2022-07-18] MEDS: CYANOCOBALAMIN (B-12) 500 MCG TABLET PO SCH (09:17)
[2022-07-18] MEDS: MAGNESIUM OXIDE 400 MG TAB PO SCH (09:17)
[2022-07-18] MEDS: MoRPHine SULFATE CR 60 MG TABCR PO SCH (09:19)
--- NOTE | 2022-07-18 10:52 | Discharge Summary ---
Date of Service July 18, 2022 Admission HPI Per Admitting Provider Yenny Garcia is a 47 year old female with widely metastatic retroperitoneal leiomyosarcoma who presents to the ER due to low hemoglobin on her routine outpatient labs. She has a significant history of life threatening hematochezia in April 2022 requiring massive blood transfusion protocol and life flight to [facility]. She was on Eliquis at that time for DVT which has been discontinued indefinitely despite large DVT and inability to place IVC. She has had routine lab work since that time with recurrent iron deficiency anemia requiring multiple blood transfusions. 3 units were given during her May admission, 2 units given early June and another 2 units in mid June. She reports feeling fatigued and some shortness of breath on exertion similar to her last admission. No chest pain. Abdominal pain at baseline and no worse than usual. No melena, bright red blood in stool, hematemesis, hematuria noticed by patient. Hemoglobin 6.1. In the ER hemoglobin 6.1. Patient consented for blood and 2 units packed red blood cells ordered. She was referred to medicine for admission and ongoing management. Principal Diagnosis blood loss anemia Discharge Exam The patient is awake, alert and oriented 3, well developed and well nourished, normocephalic and atraumatic, lying in bed and in no acute distress. HEENT--PERRL, EOMI, mucous membranes and oropharynx mildly dry Neck--supple. No JVD. No bruits. Thyroid normal, trachea midline, no adenopathy. Heart--normal S1 and S2. No murmurs, rubs or gallops. Lungs--clear bilaterally, no respiratory distress, no accessory muscle use. Abdomen--distended Extremities--no cyanosis or clubbing. No edema. Dermatologic--normal skin turgor, normal color, no abnormal lymph nodes, no rash. Neurologic--cranial nerves II through XII grossly intact. Rheumatologic--normal range of motion. Psychiatric--normal affect. Discharge Data Allergies Allergy/AdvReac Type Severity Reaction Status Date / Time nickel AdvReac Mild REDNESS TO Verified 07/16/22 16:00 SKIN Consultations 07/16/22 15:29 ED Decision to Admit Stat Hospital Course (1) Acute on chronic anemia: Symptomatic acute on chronic anemia. could be from her leimyosarcoma She denied any blood in stool Hb 9 post 3 units of blood in total Patient says she is willing to participate in a clinical trial, but thety will accept her only if her Hb is 9 and above Will consult nurse navigator who can hopefully co-ordinate local care here and perhaps avoid repeated readmissions for blood transfusions. Continue pantoprazole 40mg PO daily (2) Hypertension: Continue metoprolol succinate 50 mg p.o. every morning and furosemide 40 mg p.o. every morning (3) History of pulmonary embolism: Known DVT however Eliquis would be likely to kill her faster than no treatment Failed IVC placement (4) Metastatic leiomyosarcoma to intra-abdominal site: Noted widely metastatic cancer Continue her usual pain regimen with morphine 60mg PO BID and oxycodone 20mg PO q4h PRN Patient says she is willing to participate in a clinical trial, but they will accept her only if her Hb is 9 and above (5) Hypothyroidism: TSH 36, free T4 0.33 [06/25/22] Continue newly started levothyroxine 50mcg PO daily (6) Vitamin B 12 deficiency: B12 levels 169 pg/mL in July 11. Continue on vitamin B-12 IM injections. Plan d/c home Total Time Total Time Spent Total Time Spent (In Minutes): 35 Discharge Plan Discharge Items Patient Disposition: Home - Self-Care Reason For Visit: ACUTE BLOOD LOSS ANEMIA Discharge Diagnosis: blood loss anemia Activity: Resume your previous activity Non-emergency contact: Primary Care Provider and Oncologist Call non-emergency contact if: you have any medication questions Follow-up/Referrals: Alda Cervantes CRNP [Nurse Practitioner] - 07/22/22 10:30 am Diet: Regular Addtl Attending Provider Instructions: please make appointment to follow up with your Oncologist Pending Studies at Discharge: No Stand-Alone Forms: My [employer], Smoking Cessation Medications and DC Order Prescriptions: Continued ferrous sulfate 325 mg (65 mg iron) tablet 325 mg PO BID Qty: 60 4RF Rx Instructions: PER PT "ONLY TAKING ONCE A DAY". metoprolol succinate 50 mg tablet extended release 24 hr 50 mg PO QAM ondansetron HCl 8 mg tablet 8 mg PO Q8 PRN (Reason: Nausea) Jardiance 10 mg tablet 10 mg PO QAM furosemide 40 mg tablet 40 mg PO QAM spironolactone 25 mg tablet 25 mg PO QAM magnesium oxide 400 mg magnesium Tablet 400 mg PO BID levothyroxine [Synthroid] 50 mcg Tablet 50 mcg PO DAILYBB Qty: 30 5RF pantoprazole [Protonix] 40 mg tablet,delayed release (DR/EC) 40 mg PO QAM Qty: 30 11RF morphine 60 mg tablet extended release 60 mg PO Q12H MDD 120 MG/24 HOURS Qty: 1 0RF potassium chloride 20 mEq tablet,ER particles/crystals 20 meq PO BID Rx Instructions: please give liquid prochlorperazine maleate 10 mg tablet 10 mg PO DAILY PRN (Reason: Nausea) oxycodone 20 mg tablet 20 mg PO Q4H MDD 120 MG/24 HOURS PRN (Reason: Pain) folic acid 1 mg tablet 1 mg PO QAM cyanocobalamin (vitamin B-12) 1,000 mcg capsule 1,000 mcg PO DAILY Qty: 30 0RF Discharge Orders: Discharge Order (Routine); Ordered 07/18/22 Ordered By: Sandra Flood Admission Data Admit Date/Time: 07/16/22 19:08 Attending Provider: Sandra Flood Admit Provider: Jc Husain Primary Care Provider: Nikki Hayden Other Providers: Jc Husain Other Interventions: Discharge Summary Assessment (RN) Last Done: 07/18/22 10:24 Coding Level of Care Code D/C DAY MANAGEMENT >30 MINS Diagnoses Acute on chronic anemia D64.9 Hypertension I10 History of pulmonary embolism Z86.711 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
== END 2022-07-18 11:45 | disposition home or self-care (01) | DRG 844 ==
LOC: ED 14:10 → 2E 19:08 → SUATTDRO 19:08 → 2E 19:55

== ENCOUNTER 2022-09-09 09:04 | Inpatient (IN) ==
--- NOTE | 2022-09-09 09:48 | XRay Report ---
XR chest 2V PA/lateral CLINICAL HISTORY: Shortness of breath. Leiomyosarcoma. COMPARISON STUDY: Chest radiograph July 24, 2022. Chest CT May 15, 2020. FINDINGS: Left subclavian artery fusiform remains in place. Small bilateral pleural effusions have de veloped since prior exam. Cardiomediastinal silhouette is stable. Innumerable pulmonary metastases ar e again noted. 1.4 cm left upper lobe lesion has mild increased in size. There is pulmonary vascular congestion. IMPRESSION: 1. Pulmonary vascular congestion with small bilateral pleural effusions. 2. Redemonstration of pulmonary metastases. ACT 112: Negative or not required by law. Electronically signed by: Junior Grider M.D. 09/09/2022 9:47 AM
[2022-09-09 10:19] LABS: Basophils # (auto) 0.03 K/uL (0-0.2); Basophils % (auto) 0.3 %; Eosinophils # (auto) 0.03 K/uL (0-0.50); Eosinophils % (auto) 0.3 %; Hematocrit (blood only) 26.1 % (34.1-44.9); Hemoglobin 7.6 g/dl (12.0-16.0); Immature Granulocytes # (auto) 0.04 K/uL (0.00-0.02); Immature Granulocytes % (auto) 0.4 %; Lymphocytes # (auto) 0.59 K/uL (1.2-3.4); Mean Corpuscular Hemoglobin 29.9 pg (25.0-34.0); Mean Corpuscular Hgb Conc 29.1 g/dL (32.0-36.0); Mean Corpuscular Volume 102.8 fL (80.0-100.0); Mean Platelet Volume 10.1 fL (9.4-12.3); Monocytes # (auto) 0.46 K/uL (0.24-0.82); Monocytes % (auto) 4.7 %; Neutrophils # (auto) 8.65 K/uL (1.4-6.5); Neutrophils % (auto) 88.3 %; Platelet Count 105 K/uL (130-400); RDW Coefficient of Variation 17.9 % (11.5-14.5); RDW Standard Deviation 67.7 fL (36.4-46.3); Red Blood Count 2.54 M/uL (3.93-5.22)
[2022-09-09 10:32] LABS: INR 1.2 (0.9-1.1); Partial Thromboplastin Ratio 1.3; Partial Thromboplastin Time 36.9 Seconds (21.0-31.0); Prothrombin Time 12.4 Seconds (9.0-12.0)
[2022-09-09 10:40] LABS: Anisocytosis Present; Polychromasia 1+; Tear Drop Cells 1+; Toxic Vacuolation 1+
[2022-09-09 10:44] LABS: Troponin I High Sensitivity 5.3 pg/ml (0-14)
[2022-09-09 10:59] LABS: Alanine Aminotransferase 8 U/L (7-52); Albumin Globulin Ratio 0.7 (0.9-2); Albumin Level 2.2 gm/dl (3.4-5.0); Alkaline Phosphatase 214 U/L (34-104); Anion Gap 5 (3-11); Aspartate Aminotransferase 75 U/L (13-39); BUN Creatinine Ratio 21.3 (10-20); Bilirubin,Total 0.4 mg/dl (0.2-1.0); Blood Urea Nitrogen 32 mg/dl (6-23); Calcium 7.5 mg/dl (8.5-10.1); Carbon Dioxide 30 mmol/L (21-32); Chloride 105 mmol/L (98-107); Est GFR (African American) 47.3 ml/min; Est GFR (Non-African American) 40.8 ml/min; Globulin 3.3 gm/dl (2.5-4.0); Glucose 104 mg/dl (70-99(Fasting)); Magnesium 1.8 mg/dl (1.7-2.4); Potassium 3.8 mmol/L (3.5-5.1); Sodium 140 mmol/L (136-145); Total Protein 5.5 gm/dl (6.0-8.3)
[2022-09-09] MEDS ORDERED: SODIUM CHLORIDE 0.9% 250 ML IV PRN ×2 (13:16→20:32)
[2022-09-09] MEDS ORDERED: FUROSEMIDE 40 MG/4 ML VIAL IV ONE (13:16)
[2022-09-09] MEDS ORDERED: HYDROmorphone INJ 1 MG/ML SYRINGE IV STA (13:16)
--- NOTE | 2022-09-09 13:32 | Emergency Department Note ---
Impression & Plan Fluid overload, Anemia, Total body pain, Cancer related pain ED Provider Note Name: KIKO IVEY Age: 47 Sex: F Arrives Via: Walk-In Informant: Patient ED Provider: Arian Evans MD Chief Complaint: Weakness Impression: As per impressions above Medical Decision Making: Pleasant 47-year-old female with a history of leiomyosarcoma who is off chemotherapy/radiation due to persistent issues with anemia. Patient with worsening fluid overload and anemic issues the last 2 weeks. She is unable to even ambulate without severe shortness of breath. On examination she is significantly fluid overloaded with pitting edema all the way up to her lower chest from her feet. Chest x-ray has bilateral effusions as well as congestive failure. She was given 40 mg IV Lasix on initial evaluation understanding that her blood pressure is a bit on the low side. She was also given some IV Dilaudid for pain control as she is very uncomfortable. Her hemoglobin is 7.5 and given her significant weakness I think transfusion is indicated. A 1 unit PRBC was ordered. Given the severity of her fluid overload I do feel that hospitalization is indicated at this point. Patient was seen in the ER during a time of severe voiding issues in the ER and that she was initially evaluated in the clinical pathways waiting room before being brought back to room B2. Patient was very understanding of all of this. Prior Medical Record and Triage/Nursing Notes reviewed by Me Additional history obtained from chart Differentials:Infection, dehydration, metabolic abnormality, hypo/hyperglycemia, electrolyte disturbance, anemia, hypoxia, cardiac sources, intracerebral event, toxicologic, neurologic, as well as other pathologies. Vital Signs: reviewed and remarkable for no significant abnormalities Interventions: lasix 40mg iv, 1 Unit PRBC, 1 mg IV Dilaudid Labs:Reviewed and remarkable for anemia Imaging:Congestive heart failure with bilateral pleural effusion on chest x-ray as per my interpretation. Consults:Dr Meredith HUSTON Hospitalist Service Plan: Disposition:Hospitalization. Condition: Fair History of Present Illness:47-year-old female arrives for evaluation of shortness of breath. Patient with known leiomyosarcoma and progressively wo rsening anemia requiring recurrent blood transfusions. She arrives for evaluation of worsening shortness of breath over the last 2 weeks though significantly worse last few days. She notes she is unable to catch her breath. She notes swelling of her arms, legs, back, abdomen and developing into her chest. She feels like she cannot take a deep breath. That exertion makes her severely short of breath. Any laying flat makes her short of breath. Only sitting up and resting makes her feel better. No new medications. She takes a daily Lasix. No she is also somewhat thirsty on top of this. Denies any falls, trauma, injury. She has no chest pain, fevers, chills, nausea, vomiting, urinary/bowel symptoms, rashes or other concerning signs or symptoms. She denies any recent bleeding or bruising. She has a history of GI bleed but states that no black or bloody stools recently. No blood thinner use. Last transfusion was about 2 weeks ago. Last hospitalization was 2 months ago. Blanka ent states she has never had swelling to this degree previously. She is following with [facility] and trying to get into a clinical trial but notes that her hemoglobin has not stayed above 9 which is required for the trial. She has not had any recent chemotherapy or radiation. ROS: See above HPI for pertinent positives & negatives. A total of 10 systems reviewed and were otherwise negative. Past Medical History:See Below Past Surgical History:See Below Family History:See Below Social History:See Below Home Medications:See Below Allergies:Nickel Vitals:Blood Pressure: 97/62, Pulse 89, RR 20, T 37C, O2 98% on RA Physical Exam: GENERAL: Patient is unwell appearing and in mild distress. EYES: No scleral icterus, unremarkable pupils. ENT: Mucous membranes moist, no nasal congestion. NECK: No masses appreciated, nomeningismus, trachea is midline. RESPIRATORY: Dyspneic and mildly tachypneic with diffuse coarse lung sounds CARDIOVASCULAR: Regular rate and rhythm.No murmurs, rubs, gallops appreciated. GASTROINTESTINAL: Abdomen soft, non-tender, no peritonitis.Bowel sounds positive.No masses appreciated. Edema of abdomen all the way up to lower chest. BACK: No midline tenderness, no CVA tenderness. Pitting edema of the back EXTREMITIES: Normal motion all extremities, no cyanosis. Significant edema arms and legs 4+ pitting. NEUROLOGIC: Alert and oriented, no acute motor or sensory deficits, no focal weakness, cranial nerves grossly intact. SKIN: No rash, no jaundice, no diaphoresis. PSYCH: Appropriate GCS: 15 ED Course: Times/Reassessments: Patient's pain much improved with IV pain medications. Her blood pressure stays stable with IV Lasix. Critical Care: I have personally spent 35 minutes of critical care time in the direct management of this patient. Acute anemia with fluid overload requiring transfusion. This was a life/limb threatening event. This 35 minutes is in excess of all separately billable procedures. Arian Evans MD Past Med/Surg History Medical History Chronic anemia H/O deep venous thrombosis extensive, RLE Hemorrhagic shock 2nd to rectal bleeding - required ICU stay [facility] 04/2022; location of bleeding never found; anticoagulation stopped at that time History of cardiomyopathy 2nd chemotherapy; prior EF <20%; now 50% (12/2020 @ [facility]) History of pulmonary embolism Hypertension Hypothyroidism Iron deficiency anemia Leiomyosarcoma initial dx 2017; extensive metastatic disease Leiomyosarcoma Surgical History History of X2 History of hysterectomy HANH/BSO 11/2017 - [facility] [place] History of lung biopsy LEFT History of renal stent b/l ureteral stents Family History Father Diabetes Hypertension Myocardial infarction PAD (peripheral artery disease) Mother Cerebral aneurysm Denies family history of Ovarian cancer Prostate cancer Breast cancer Colorectal cancer Social History Smoking Status: Former smoker Age Started Using Tobacco: 21; Age Quit Using Tobacco: 29; packs per day: 0.25; Cigarettes Per Day: 5; Second Hand Exposure: No; Hx Alcohol Use: No Hx Substance Use: No Preferred Language: Filipino Communication Ability: Effective Loader Technician Required: No Beliefs That Will Affect Care: None marital status: Current Living Situation: Spouse current occupational status: previously employed 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 How many Children do You have: 2 Feels Safe at Home: Yes Assistive Devices: None Allergies Allergies Allergy/AdvReac Type Severity Reaction Status Date / Time nickel AdvReac Mild REDNESS TO Verified 08/20/22 11:34 SKIN Home Meds Home Medications Medication Instructions Recorded Confirmed empagliflozin 10 mg tablet 10 mg PO QAM 03/21/22 08/20/22 (Jardiance) furosemide 40 mg tablet 40 mg PO QAM 03/21/22 08/20/22 metoprolol succinate 50 mg 50 mg PO QAM 03/21/22 08/20/22 tablet,extended release 24 hr ondansetron HCl 8 mg tablet 8 mg PO Q8 PRN Nausea 03/21/22 08/20/22 spironolactone 25 mg tablet 25 mg PO QAM 03/21/22 08/20/22 potassium chloride 20 mEq 20 meq PO BID 05/07/22 08/20/22 tablet,extended release(part/cryst) oxycodone 20 mg tablet 20 mg PO Q4H PRN Pain 06/12/22 08/20/22 prochlorperazine maleate 10 mg 10 mg PO DAILY PRN Nausea 06/12/22 08/20/22 tablet magnesium oxide 400 mg PO BID 06/25/22 08/20/22 folic acid 1 mg tablet 1 mg PO QAM 07/02/22 08/20/22 Previous Rx's Medication Instructions Recorded levothyroxine 50 mcg tablet 50 mcg PO DAILYBB #30 tabs 06/26/22 (Synthroid) morphine 60 mg tablet,extended 60 mg PO Q12H #1 tab 06/26/22 release pantoprazole 40 mg tablet,delayed 40 mg PO QAM #30 tabs 06/26/22 release (Protonix) ferrous sulfate 325 mg (65 mg 325 mg PO BID #60 tabs 07/02/22 iron) tablet cyanocobalamin (vitamin B-12) 1,000 mcg PO DAILY #30 caps 07/03/22 1,000 mcg capsule Results & Data (ED) Vital Signs Vital Signs - 24 hr 09/09/22 09:15 09/09/22 13:40 09/09/22 13:41 Temperature 37 C Temperature Source Temporal Artery Scan Pulse Rate 89 85 Pulse Rate from SpO2 Sensor Respiratory Rate 20 18 Respiratory Effort / Characteristics Non-Labored Spontaneous Respiratory Depth Normal Respiratory Pattern Regular Blood Pressure 97/62 L 100/65 Blood Pressure Mean 73 76 Pulse Oximetry 98 96 Oxygen Delivery Method Room Air Sepsis Recent Fever Within 48 Hours No Sepsis New/Unexplained Change in Mental Status No Sepsis Action Taken by Nursing No Action Required 09/09/22 13:41 Temperature Temperature Source Pulse Rate 89 Pulse Rate from SpO2 Sensor 90 Respiratory Rate Respiratory Effort / Characteristics Respiratory Depth Respiratory Pattern Blood Pressure Blood Pressure Mean Pulse Oximetry 97 Oxygen Delivery Method Sepsis Recent Fever Within 48 Hours Sepsis New/Unexplained Change in Mental Status Sepsis Action Taken by Nursing Laboratory Data Result diagrams: 09/09/22 10:13 09/09/22 10:13 Lab Results 09/09/22 09/09/22 09/09/22 Range/Units 10:13 10:13 10:13 WBC 9.80 (4.8-10.8) K/ul RBC 2.54 L (3.93-5.22) M/uL Hgb 7.6 L (12.0-16.0) g/dl Hct 26.1 L (34.1-44.9) % MCV 102.8 H (80.0-100.0) fL MCH 29.9 (25.0-34.0) pg MCHC 29.1 L (32.0-36.0) g/dL RDW Std Deviation 67.7 H (36.4-46.3) fL RDW Coeff of Jennifer 17.9 H (11.5-14.5) % Plt Count 105 L (130-400) K/uL MPV 10.1 (9.4-12.3) fL Immature Gran % (Auto) 0.4 % Neut % (Auto) 88.3 % Lymph % (Auto) 6.0 % [place] % (Auto) 4.7 % Eos % (Auto) 0.3 % Baso % (Auto) 0.3 % Neut # (Auto) 8.65 H (1.4-6.5) K/uL Lymph # (Auto) 0.59 L (1.2-3.4) K/uL [place] # (Auto) 0.46 (0.24-0.82) K/uL Eos # (Auto) 0.03 (0-0.50) K/uL Baso # (Auto) 0.03 (0-0.2) K/uL Immature Gran # (Auto) 0.04 H (0.00-0.02) K/uL Toxic Vacuolation 1+ Polychromasia 1+ Anisocytosis Present Tear Drop Cells 1+ PT 12.4 H (9.0-12.0) Seconds INR 1.2 H (0.9-1.1) APTT 36.9 H (21.0-31.0) Seconds PTT Ratio 1.3 Sodium 140 (136-145) mmol/L Potassium 3.8 (3.5-5.1) mmol/L Chloride 105 (98-107) mmol/L Carbon Dioxide 30 (21-32) mmol/L Anion Gap 5 (3-11) BUN 32 H (6-23) mg/dl Creatinine 1.50 H (0.6-1.2) mg/dl Est Cr Clr Drug Dosing Not Reportable Est GFR ( Amer) 47.3 ml/min Est GFR (Non-Af Amer) 40.8 ml/min BUN/Creatinine Ratio 21.3 H (10-20) Glucose 104 H (70-99(Fasting)) mg/dl Calcium 7.5 L (8.5-10.1) mg/dl Phosphorus (2.5-4.9) mg/dl Magnesium 1.8 (1.7-2.4) mg/dl Total Bilirubin 0.4 (0.2-1.0) mg/dl AST 75 H (13-39) U/L ALT 8 (7-52) U/L Alkaline Phosphatase 214 H (34-104) U/L Troponin I High Sens 5.3 (0-14) pg/ml Total Protein 5.5 L (6.0-8.3) gm/dl Albumin 2.2 L (3.4-5.0) gm/dl Globulin 3.3 (2.5-4.0) gm/dl Albumin/Globulin Ratio 0.7 L (0.9-2) SARS-CoV-2, RNA, NAAT (NEGATIVE) Crossmatch 09/09/22 09/09/22 09/09/22 Range/Units 10:13 13:39 14:02 WBC (4.8-10.8) K/ul RBC (3.93-5.22) M/uL Hgb (12.0-16.0) g/dl Hct (34.1-44.9) % MCV (80.0-100.0) fL MCH (25.0-34.0) pg MCHC (32.0-36.0) g/dL RDW Std Deviation (36.4-46.3) fL RDW Coeff of Jennifer (11.5-14.5) % Plt Count (130-400) K/uL MPV (9.4-12.3) fL Immature Gran % (Auto) % Neut % (Auto) % Lymph % (Auto) % [place] % (Auto) % Eos % (Auto) % Baso % (Auto) % Neut # (Auto) (1.4-6.5) K/uL Lymph # (Auto) (1.2-3.4) K/uL [place] # (Auto) (0.24-0.82) K/uL Eos # (Auto) (0-0.50) K/uL Baso # (Auto) (0-0.2) K/uL Immature Gran # (Auto) (0.00-0.02) K/uL Toxic Vacuolation Polychromasia Anisocytosis Tear Drop Cells PT (9.0-12.0) Seconds INR (0.9-1.1) APTT (21.0-31.0) Seconds PTT Ratio Sodium (136-145) mmol/L Potassium (3.5-5.1) mmol/L Chloride (98-107) mmol/L Carbon Dioxide (21-32) mmol/L Anion Gap (3-11) BUN (6-23) mg/dl Creatinine (0.6-1.2) mg/dl Est Cr Clr Drug Dosing Est GFR ( Amer) ml/min Est GFR (Non-Af Amer) ml/min BUN/Creatinine Ratio (10-20) Glucose (70-99(Fasting)) mg/dl Calcium (8.5-10.1) mg/dl Phosphorus 3.0 (2.5-4.9) mg/dl Magnesium (1.7-2.4) mg/dl Total Bilirubin (0.2-1.0) mg/dl AST (13-39) U/L ALT (7-52) U/L Alkaline Phosphatase (34-104) U/L Troponin I High Sens (0-14) pg/ml Total Protein (6.0-8.3) gm/dl Albumin (3.4-5.0) gm/dl Globulin (2.5-4.0) gm/dl Albumin/Globulin Ratio (0.9-2) SARS-CoV-2, RNA, NAAT NEGATIVE (NEGATIVE) Crossmatch See Detail Administered Medications Discontinued Medications Furosemide (Furosemide 40 Mg/4 Ml Vial) 40 mg IV ONE ONE Stop: 09/09/22 13:17 Last Admin: 09/09/22 13:41 Dose: 40 mg Documented By: HS Hydromorphone HCl (Hydromorphone Inj 1 Mg/Ml Syringe) 1 mg IV NOW STA Stop: 09/09/22 13:17 Last Admin: 09/09/22 13:41 Dose: 1 mg Documented By: HS Imaging Data Radiologist's Impression: Chest X-Ray 09/09/22 09:17 XR chest 2V PA/lateral CLINICAL HISTORY: Shortness of breath. Leiomyosarcoma. COMPARISON STUDY: Chest radiograph July 24, 2022. Chest CT May 15, 2020. FINDINGS: Left subclavian artery fusiform remains in place. Small bilateral pleural effusions have developed since prior exam. Cardiomediastinal silhouette is stable. Innumerable pulmonary metastases are again noted. 1.4 cm left upper lobe lesion has mild increased in size. There is pulmonary vascular congestion. IMPRESSION: 1. Pulmonary vascular congestion with small bilateral pleural effusions. 2. Redemonstration of pulmonary metastases. ACT 112: Negative or not required by law. Electronically signed by: Junior Grider M.D. 09/09/2022 9:47 AM Discharge Plan Visit Data Chief Complaint: Shortness of Breath/Dyspnea Stated Complaint: SOB, FATIGUE ED Provider: Arian Evans Discharge Problem: Fluid overload, Anemia, Total body pain, Cancer related pain Forms Stand Alone Forms: My [facility]im[facility] Prescriptions Prescriptions: No Action ferrous sulfate 325 mg (65 mg iron) tablet 325 mg PO BID Qty: 60 4RF Rx Instructions: PER PT "ONLY TAKING ONCE A DAY". metoprolol succinate 50 mg tablet extended release 24 hr 50 mg PO QAM ondansetron HCl 8 mg tablet 8 mg PO Q8 PRN (Reason: Nausea) Jardiance 10 mg tablet 10 mg PO QAM furosemide 40 mg tablet 40 mg PO QAM spironolactone 25 mg tablet 25 mg PO QAM magnesium oxide 400 mg magnesium Tablet 400 mg PO BID levothyroxine [Synthroid] 50 mcg Tablet 50 mcg PO DAILYBB Qty: 30 5RF pantoprazole [Protonix] 40 mg tablet,delayed release (DR/EC) 40 mg PO QAM Qty: 30 11RF morphine 60 mg tablet extended release 60 mg PO Q12H MDD 120 MG/24 HOURS Qty: 1 0RF potassium chloride 20 mEq tablet,ER particles/crystals 20 meq PO BID Rx Instructions: please give liquid prochlorperazine maleate 10 mg tablet 10 mg PO DAILY PRN (Reason: Nausea) oxycodone 20 mg tablet 20 mg PO Q4H MDD 120 MG/24 HOURS PRN (Reason: Pain) folic acid 1 mg tablet 1 mg PO QAM cyanocobalamin (vitamin B-12) 1,000 mcg capsule 1,000 mcg PO DAILY Qty: 30 0RF Referrals Referrals: Nikki Hayden MD [Primary Care Provider] - : Fluid overload Qualifiers: Hypervolemia type: other Qualified Code(s): E87.79 - Other fluid overload Anemia Qualifiers: Anemia type: other cause Other causes of anemia: other cause, not classified Qualified Code(s): D64.89 - Other specified anemias
--- NOTE | 2022-09-09 14:44 | History & Physical Report ---
Date of Service September 09, 2022 Assessment & Plan (1) Anemia: Plan: -Admit to the PCU -The patient is currently afebrile, hemodynamically stable, and stable on RA -Patient with known metastatic Leiomyosarcoma not currently receiving chemotherapy or radiation due to severe anemia, patient has required multiple transfusions in the past -Will receive 1 unit PRBC's for symptomatic anemia ordered by the ED, already was given 40 mg IV lasix -Will monitor her volume and respiratory status closely after the transfusion for volume overload, likely will require further IV diuresis -No signs of active bleeding at this time, will monitor AM CBC -Continue to monitor on tele and pulse oximetry (2) Leiomyosarcoma: Plan: -Patient with known metastatic disease, concern she could have mets pushing on major blood vessels causing her anasarca -After discussions the patient chose to obtain CT's of the chest/abdomen/pelvis with IV contrast for further evaluation -Will follow-up with results (3) Fluid overload: Plan: -At this time this likely multifactorial including hypoalbuminemia, anasarca from her known cancer, possible mass effect, and hx of heart failure -Patient had a recent TTE in june of this year, will hold off on repeat for now -FU with CT results, may need a paracentesis for likely significant ascites on exam -S/P 40 mg IV lasix in the ED, will hold off on additional for now until we see how her kidney respond to the IV contrast -Monitor daily weights and intake/output (4) Hypertension: Plan: -Hemodynamically stable but currently with low-normal BP at 100/65 -Will continue metoprolol and spironolactone for now but will need to monitor hemodynamics closely moving forward (5) Hypothyroidism: Plan: -Continue levothyroxine (6) History of cardiomyopathy: Plan: -Had a TTE in june of this year, will hold off on repeat for now -Continue spironolactone and likely will continue IV lasix while admitted (7) Hx of deep venous thrombosis: Plan: -Patient was previously diagnosed with lare right LE DVT's when she was transf erred to [place] with her large GI bleed -Was not a candidate for IVC filter due to being too high risk. Can't be on anticoagulation with her anemia and recent history of life-threatening bleeding -RLE with erythema and tenderness on exam, will obtain BL LE venous Doppler for further assessment -Patient knows she is very high risk for acute decompensation if she still has large DVT's at this time Plan The patient was discussed with Dr. Harper at the time of the admission History of Present Illness Chief Complaint: SOB Primary Care Provider: Nikki Hayden MD Yenny Garcia is a 47 year old female with widely metastatic retroperitoneal leiomyosarcoma (Follows with [facility] Oncology) who presents to the ER due to low hemoglobin on her routine outpatient labs. She has a significant history of life threatening hematochezia in April 2022 requiring massive blood transfusion protocol and life flight to [place]. She was on Eliquis at that time for DVT which has been discontinued indefinitely despite large DVT and inability to place IVC, HFpEF (LVEF of 50-55%, mild left atrial dilation, mild mitral regurgitation as of 06/26/22),hypothyroidism, HTN, and B12 deficiency who presented to the [facility] ED on 09/09/22 with complaints of significant edema and SOB. Per chart review, the patient has required frequent ED visits and hospital admissions over the past year from severe anemia due to chemotherapy treatment. She is currently not receiving chemo or radiation at this time due to her anemia and weakness. In the ED today the patient was found to be afebrile, hemodynamically stable, and stable on RA. Labs were remarkable for a Hgb of 7.6, stable WBC at 9.8, platelets of 105, absolute neutrophil count of 8.65, INR of 1.2, cr of 1.5 (baseline appears to be between 1.4-1.5), corrected calcium of 8.9 otherwise stable electrolytes, AST of 75, alk phos of 214, and covid negative. Chest xray today was read as "1. Pulmonary vascular congestion with small bilateral pleural effusions. 2. Redemonstration of pulmonary metastases.". Due to the patient being severely symptomatic we were asked to admit the patient. Prio to admission the patient was consented for blood, 1 unit PRBCs was ordered bu the ED. She was also given 40 mg IV lasix and 1 mg IV Dilaudid. At the time of the exam the patient was sitting comfortably in bed in no acute distress. She states that she has been gaining significant weight from her swelling and has been much more SOB lying flat and with exertion. She denies recent fevers, chills, chest pain, cough. She has noted some nausea but no recent vomiting, she does note significant swelling in her abdomen. She denies recent dysuria, hematuria, rectal bleeding, and trauma. I explained to her that we are concerned she may have metastases pushing on major blood vessels that could be contributing to her swelling. I explained that she is currently at her baseline renal function and ideally we would get CT's of the chest/abdomen/pelvis with IV contrast in order to further evaluate he condition. I explained that the CT contrast can be associated with renal failure, we also discussed the importance of figuring out the exact cause of her swelling. She ac knowledged the risks and benefits of obtaining the CT's with contrast and chose to obtain them with contrast. I spoke with her regarding her current condition, continued clinical decline, and plans/goals for the future. She explained that she is to have another tele visit with her Oncologist in [place] in the near future to discuss the potential of starting a clinical trial. Unfortunately she has not been a candidate due to her anemia and Hgb less than 9.0. At this time the patient wants to wait to discuss possible palliative care/hospice until she has that meeting with her Oncologist. I confirmed with her that she is very high risk for acute decompensation due to her previous DVT's and inability to have an IVC filter placed. She expressed understanding that she could have a PE which co uld lead to is severe enough. We discussed code status, at this time she wishes to be a Full Code. Her would make decisions for her if she could not make them herself. Please refer to Dr. Harper's attestation for any changes to the treatment plan Allergies Allergy/AdvReac Type Severity Reaction Status Date / Time nickel AdvReac Mild REDNESS TO Verified 08/20/22 11:34 SKIN Home Medications Medication Instructions Recorded Confirmed Type empagliflozin 10 mg tablet 10 mg PO QAM 03/21/22 09/09/22 History (Jardiance) furosemide 40 mg tablet 40 mg PO QAM 03/21/22 09/09/22 History metoprolol succinate 50 mg 50 mg PO QAM 03/21/22 09/09/22 History tablet,extended release 24 hr ondansetron HCl 8 mg tablet 8 mg PO Q8 PRN Nausea 03/21/22 09/09/22 History spironolactone 25 mg tablet 25 mg PO QAM 03/21/22 09/09/22 History potassium chloride 20 mEq 20 meq PO BID 05/07/22 09/09/22 History tablet,extended release(part/cryst) oxycodone 20 mg tablet 20 mg PO Q4H PRN Pain 06/12/22 09/09/22 History prochlorperazine maleate 10 mg 10 mg PO DAILY PRN Nausea 06/12/22 09/09/22 History tablet magnesium oxide 400 mg PO BID 06/25/22 09/09/22 History levothyroxine 50 mcg tablet 50 mcg PO DAILYBB #30 tabs 06/26/22 09/09/22 Rx (Synthroid) morphine 60 mg tablet,extended 60 mg PO Q12H #1 tab 06/26/22 09/09/22 Rx release pantoprazole 40 mg tablet,delayed 40 mg PO QAM #30 tabs 06/26/22 09/09/22 Rx release (Protonix) ferrous sulfate 325 mg (65 mg 325 mg PO BID #60 tabs 07/02/22 09/09/22 Rx iron) tablet folic acid 1 mg tablet 1 mg PO QAM 07/02/22 09/09/22 History cyanocobalamin (vitamin B-12) 1,000 mcg PO DAILY #30 caps 07/03/22 09/09/22 Rx 1,000 mcg capsule Past Med/Surg History Medical History Chronic anemia H/O deep venous thrombosis extensive, RLE Hemorrhagic shock 2nd to rectal bleeding - required ICU stay [facility] 04/2022; location of bleeding never found; anticoagulation stopped at that time History of cardiomyopathy 2nd chemotherapy; prior EF <20%; now 50% (12/2020 @ [facility]) History of pulmonary embolism Hypertension Hypothyroidism Iron deficiency anemia Leiomyosarcoma initial dx 2017; extensive metastatic disease Leiomyosarcoma Surgical History History of X2 History of hysterectomy HANH/BSO 11/2017 - [facility] [place] History of lung biopsy LEFT History of renal stent b/l ureteral stents Family History Father Diabetes Hypertension Myocardial infarction PAD (peripheral artery disease) Mother Cerebral aneurysm Denies family history of Ovarian cancer Prostate cancer Breast cancer Colorectal cancer Social History Smoking Status: Former smoker Age Started Using Tobacco: 21; Age Quit Using Tobacco: 29; packs per day: 0.25; Cigarettes Per Day: 5; Second Hand Exposure: No; Hx Alcohol Use: No Hx Substance Use: No Preferred Language: Maltese Communication Ability: Effective Project Scientist Required: No Beliefs That Will Affect Care: None marital status: Current Living Situation: Spouse current occupational status: previously employed current occupation: [employer]. How many Children do You have: 2 Feels Safe at Home: Yes Assistive Devices: None Review of Systems Review of Systems: Denies current fever, chills, headache, changes in vision, hearing, taste, and smell, chest pain, abdominal pain, vomiting, diarrhea, hematemesis, melena, dysuria, hematuria, and recent falls. All systems have been reviewed and are otherwise negative. Physical Exam Physical Exam: Physical Exam: General: In no acute distress, stated age, chachetic, chronically ill- appearing HEENT: Normocephalic, atraumatic, no scleral icterus, pupils around round, symmetrical, and reactive to light, moist mucus membranes, trachea midline, no thyromegaly Chest/Pulm: Patient with mediport located in the left upper chest is without signs of infection, No respiratory distress, symmetrical chest expansion, decreased breath sounds in the BL lower lung pimentel, expiratory wheezing noted in all other lung pimentel. Cardiac: RRR, systolic murmur noted Abdomen: Significant ascites without bruising, hypoactive bowel sounds, firm, non-tender to palpation throughout Musculoskeletal: Symmetrical and without signs of acute trauma, upper and lower extremities with full ROM, no atrophy, spasticity, or flaccidity Extremities: Radial, dorsalis pedis, and posterior tibial pulses are intact and symmetrical, +3 pitting edema noted in the BL LE's, RLE with significant erythema compared to the left, she was previously diagnosed with DVT's in the RLE Skin: Warm, dry, no rashes , lesions, or scars noted Neuro: Alert and oriented to person, place, month, year, and president, no fo [place] defects, CN II-XII tested and intact, finger to nose test negative, no tremors noted Psych: No acute distress, calm and cooperative during the exam Results & Data Results & Data ([facility]) Vital Signs (Past 12 Hours) Vital Signs Temp Pulse Resp BP Pulse Ox O2 Del Method 09/09/22 13:41 89 97 09/09/22 13:41 18 100/65 96 09/09/22 13:40 85 09/09/22 09:15 37 C 89 20 97/62 L 98 Room Air Laboratory Results Abnormal lab results 09/09/22 09/09/22 09/09/22 Range/Units 10:13 10:13 10:13 RBC 2.54 L (3.93-5.22) M/uL Hgb 7.6 L (12.0-16.0) g/dl Hct 26.1 L (34.1-44.9) % MCV 102.8 H (80.0-100.0) fL MCHC 29.1 L (32.0-36.0) g/dL RDW Std Deviation 67.7 H (36.4-46.3) fL RDW Coeff of Jennifer 17.9 H (11.5-14.5) % Plt Count 105 L (130-400) K/uL Neut # (Auto) 8.65 H (1.4-6.5) K/uL Lymph # (Auto) 0.59 L (1.2-3.4) K/uL Immature Gran # (Auto) 0.04 H (0.00-0.02) K/uL PT 12.4 H (9.0-12.0) Seconds INR 1.2 H (0.9-1.1) APTT 36.9 H (21.0-31.0) Seconds BUN 32 H (6-23) mg/dl Creatinine 1.50 H (0.6-1.2) mg/dl BUN/Creatinine Ratio 21.3 H (10-20) Glucose 104 H (70-99(Fasting)) mg/dl Calcium 7.5 L (8.5-10.1) mg/dl AST 75 H (13-39) U/L Alkaline Phosphatase 214 H (34-104) U/L Total Protein 5.5 L (6.0-8.3) gm/dl Albumin 2.2 L (3.4-5.0) gm/dl Albumin/Globulin Ratio 0.7 L (0.9-2) Crossmatch 09/09/22 Range/Units 14:02 RBC (3.93-5.22) M/uL Hgb (12.0-16.0) g/dl Hct (34.1-44.9) % MCV (80.0-100.0) fL MCHC (32.0-36.0) g/dL RDW Std Deviation (36.4-46.3) fL RDW Coeff of Jennifer (11.5-14.5) % Plt Count (130-400) K/uL Neut # (Auto) (1.4-6.5) K/uL Lymph # (Auto) (1.2-3.4) K/uL Immature Gran # (Auto) (0.00-0.02) K/uL PT (9.0-12.0) Seconds INR (0.9-1.1) APTT (21.0-31.0) Seconds BUN (6-23) mg/dl Creatinine (0.6-1.2) mg/dl BUN/Creatinine Ratio (10-20) Glucose (70-99(Fasting)) mg/dl Calcium (8.5-10.1) mg/dl AST (13-39) U/L Alkaline Phosphatase (34-104) U/L Total Protein (6.0-8.3) gm/dl Albumin (3.4-5.0) gm/dl Albumin/Globulin Ratio (0.9-2) Crossmatch See Detail Diagnostic Findings Chest X-Ray 09/09/22 09:17 XR chest 2V PA/lateral CLINICAL HISTORY: Shortness of breath. Leiomyosarcoma. COMPARISON STUDY: Chest radiograph July 24, 2022. Chest CT May 15, 2020. FINDINGS: Left subclavian artery fusiform remains in place. Small bilateral pleural effusions have developed since prior exam. Cardiomediastinal silhouette is stable. Innumerable pulmonary metastases are again noted. 1.4 cm left upper lobe lesion has mild increased in size. There is pulmonary vascular congestion. IMPRESSION: 1. Pulmonary vascular congestion with small bilateral pleural effusions. 2. Redemonstration of pulmonary metastases. ACT 112: Negative or not required by law. Electronically signed by: Junior Grider M.D. 09/09/2022 9:47 AM ECG Additional Comments: Normal sinus rhythm Low voltage QRS Cannot rule out Anterior infarct , age undetermined Abnormal ECG When compared with ECG of 02-JUL-2022 16:45, Minimal criteria for Anterior infarct are now Present Nonspecific T wave abnormality now evident in Lateral leads QT has shortened Supervising Physician Co-Signing Physician Notes Patient seen and examined, chart reviewed, case discussed with Ten Metz PA-C and I agree with the assessment and plan as above except as otherwise noted Labs and images reviewed Patient presents with worsening shortness of breath for several weeks and acutely worsened the last 2 to 3 days. Breathing is progressed to where she cannot get a deep breath, and persistently short of breath. Worsened with exertion, no chest pain. Is worsened with laying flat/has orthopnea. Chest pressure/chest pain. History of GI bleed limiting blood thinners, was diagnosed with DVT, had been on DVT but had severe GI bleeding and requiring massive transfusion in the past and failed IVC placement.Per pt increased fluid, swelling, weight gain, swelling in legs/abd in last few weeks and much worse last few days. Swelling and pitting of the skin has spread up to her chest and even her sternum, belly is fairly tight and pits easily to the touch. Has had thorocentesis, no hx of paracentesis. At bedside she has diffuse anasarca, subcu edema with distended abdomen, which is nontender. Heart rate is regular. Blood pressure is borderline normallow on assessment. Mediport left upper chest.She was seen in [facility] for IVC placement, at that time was recommended to to proceed and was recommended to NOT place an IVC filter and NOT be placed on anticoagulation. [facility] records requested for review. Hgb is persistently <9 despite multiple transfusions. Pt deferred palliative discussions, wishes to be full code at this time. Acute on chronic anemia: Persistent, patient with decreased oncotic pressure and chronic anemia with symptomatic fatigue. Transfusion pending from ER, agree with Lasix to lower risk of overload. Follow carefully given history of CHF. Anasarca: History of CHF with EF 50-55%,? Impact of bulky tumor/compression. CT of the abdomen is pending. Continue diuresis as noted. Continue spironolactone. Leiomyosarcoma: Patient with history of revision and widely metastatic progressive leiomyosarcoma. Was hoping to into a clinical trial but has not qualified for this due to persistent anemia less than 9. Overall poor prognosis, patient is aware of this but does not wish to consider any palliative discussions and goals are to get well enough to be included in the trial. Patient has not had abdominal paracentesis before, has required thoracentesis. CT pending as noted. Agree with management of chronic issues as above PG Care Time/CCT Total # of Minutes Spent Total Time Spent with Patient: Total time spent is greater than 50% in coordination of care (as documented) at patient's floor/unit and/or counseling patient: Coding [place] [address] Initial Inpt Care Lvl 3 Patient Type Established Medical Decision Making High Complexity Diagnoses Anemia D64.9 Anemia type: unspecified type Leiomyosarcoma C49.9 Fluid overload E87.79 Hypervolemia type: other Hypertension I10 Hypothyroidism E03.9 History of cardiomyopathy Z86.79 Hx of deep venous thrombosis Z86.718 (1) Anemia Anemia type: unspecified type Qualified Code(s): D64.9 - Anemia, unspecified (2) Fluid overload Hypervolemia type: other Qualified Code(s): E87.79 - Other fluid overload
[2022-09-09] MEDS ORDERED: HYDROmorphone INJ 1 MG/ML SYRINGE IV PRN (14:56)
[2022-09-09] MEDS ORDERED: OPTIRAY 320 500ml IV ONE (16:38)
[2022-09-09] MEDS ORDERED: oxyCODONE HCL IR 5 MG TAB (IMMEDIATE RELEASE) PO PRN (17:09)
--- NOTE | 2022-09-09 17:10 | Electrocardiogram Report ---
Test Reason : Blood Pressure : / mmHG Vent. Rate : 088 BPM Atrial Rate : 088 BPM P-R Int : 124 ms QRS Dur : 090 ms QT Int : 372 ms P-R-T Axes : 047 000 012 degrees QTc Int : 450 ms Normal sinus rhythm Low voltage QRS Cannot rule out Anterior infarct , age undetermined Abnormal ECG When compared with ECG of 02-JUL-2022 16:45, Minimal criteria for Anterior infarct are now Present Nonspecific T wave abnormality now evident in Lateral leads QT has shortened Confirmed by Jovani Milligan ([id number]) on 09/09/2022 5:09:58 PM Referred By: Confirmed By:Antony Milligan
--- NOTE | 2022-09-09 17:19 | CT Scan Report ---
CT ANGIOGRAM OF THE CHEST, ABDOMEN, AND PELVIS CLINICAL HISTORY: Leiomyosarcoma. COMPARISON STUDY: Chest CT dated 05/15/2020. Abdominal CT dated 06/12/2022. TECHNIQUE: Following the IV administration of 115 cc of Optiray 320, CT angiogram of the chest, abdom en, and pelvis was performed from the thoracic inlet to the proximal femora. Images are reviewed in t he axial, sagittal, and coronal planes. 3-D MIPS images are created and assessed. IV contrast was adm inistered without complication. A dose lowering technique was utilized adhering to the principles of ALARA. CT DOSE: 570.04 mGy.cm FINDINGS: CHEST: Thyroid: Imaged portions of the thyroid gland are normal in size and attenuation. Thoracic aorta: The thoracic aorta is normal in course and caliber. The aortic arch demonstrates bovi ne variant anatomy. No aneurysm or dissection is seen. The arch vessels are widely patent. Pulmonary vasculature: The pulmonary trunk is normal in caliber. There are no filling defects identif ied in the main, lobar, or segmental pulmonary vessels to indicate pulmonary embolus. Heart: A left subclavian central venous infusion port is in place. The heart is normal in size and wi thout pericardial effusion. Lungs and pleural spaces: There are small to moderate pleural effusions with dependent atelectasis. P ostoperative change is seen at the left lung base. There is evidence of extensive/diffuse multifocal pulmonary metastatic disease. This has progressed as compared to 05/15/2020 examination. Lower lobe les ions have progressed as compared to the 06/12/[address] A account executive sales representative lesion in the right middle lobe on image #151 measures 2.1 cm (measured 1.5 cm on 06/12/2022). A left apical lesion on pearl ge #65 measures 1.5 cm. Mediastinum: There is no mediastinal lymphadenopathy. Jazzy: Clear. Axillae: There is no axillary lymphadenopathy. Bony thorax: No destructive bony lesions are identified. Soft tissues: There is body wall edema. ABDOMEN AND PELVIS: Liver: The contrast-enhanced liver is enlarged, measuring 22 cm in length. The liver demonstrates dim inished attenuation suggesting steatosis. There is no intrahepatic biliary ductal dilatation. The elda n portal veins appear patent. Again seen is evidence of multifocal hepatic metastatic disease, with g reater than 10 lesions identified. This has significantly progressed in both size and number of lesio ns as compared to 06/12/2022. The largest lesion in the right lobe on image #78 and measures up to 7 c m (previously measured 4 cm) Gallbladder: Unremarkable. Spleen: Normal in size and attenuation noting heterogeneous arterial phase enhancement. Pancreas: Grossly unremarkable and distorted by numerous mass lesions. Adrenal glands: Unremarkable. Kidneys: There is asymmetric cortical atrophy of the right kidney as compared to the left. Bilateral ureteral stents are in place. There is moderate to severe right and mild left hydronephrosis. There is slightly diminished enhancement of the right kidney as compared to the left. Abdominal aorta and iliac arteries: The abdominal aorta is normal in course and caliber. No dissectio n is seen. There is moderate atherosclerotic plaque noted in the iliac arteries. The common iliac art eries and external iliac arteries are widely patent bilaterally, as are the bilateral common femoral and proximal superficial femoral arteries. The left internal iliac artery is widely patent. The right internal iliac artery is occluded. The iliac veins cannot be evaluated due to arterial phase of enha ncement. Major branches of the abdominal aorta: The celiac trunk, superior mesenteric, and inferior mesenteric arteries are widely patent. An accessory left hepatic artery arises from the left gastric artery. Si ngle bilateral renal arteries are widely patent. Bowel: The bowel loops are significantly displaced. No obstruction is seen. A large lesion in the pel vis significantly narrows the rectosigmoid. Invasion of bowel loops would be impossible to exclude. F indings in the the right lower quadrant suggests previous appendectomy. Peritoneum: A midline surgical scar is noted. No intraperitoneal free air is seen. There is a small v olume of abdominopelvic ascites. There is a large, heterogeneous, and centrally necrotic mass lesion filling the pelvis with significant localized mass effect. This measures approximately 22 x 14 x 17.5 cm in dimension and encases the right iliac vessels as well as both ureters. There is significant ma ss effect on the adjacent bladder and the bowel loops. Additional large abdominal lesions of increase d in size from previous. A lesion in the right midabdomen on image #248 measures approximately 10.7 x 6.5 cm (previously measured 9.5 x 7 cm), in the left upper quadrant on image #150 measuring approxim ately 14 x 12 cm (previously measuring 10.5 x 9 cm), and in the central abdomen on image #227 measuri ng approximately 14 x 12 cm (previously measuring approximately 11 x 10 cm). The left upper quadrant lesion causes significant mass effect on the posterior stomach and pancreatic tail. The majority lesi ons show heterogeneous enhancement and necrosis. Hypervascular foci seen within the largest necrotic lesion in the pelvis on images #292, #324, #358, and #389 indeterminant. Tiny foci of active extravas ation are not excluded. Lymphadenopathy: None. Pelvic viscera: The bladder is decompressed and contains the distal end of ureteral stents. This is n ot well evaluated. The uterus is surgically absent. The adnexa are not well-visualized. Skeletal structures: The skeletal structures are osteopenic. No lytic or blastic lesions are seen. Soft tissues: There is anasarca of the body wall. IMPRESSION: 1. Unremarkable CT angiogram of the thoracic aorta. 2. There is no evidence of pulmonary embolus in the main, lobar, or segmental pulmonary arteries. 3. Again seen is evidence of multifocal metastatic disease. This has progressed as compared to 022. 4. Small to moderate pleural effusions, a small volume of abdominopelvic ascites, and anasarca indica te fluid overload. 5. An approximately 22 cm necrotic mass lesion fills the pelvis and encases/displaces several structu res as above, including the rectum and several bowel loops. Invasion of these structures is not exclu ded. Tiny foci of active extravasation within this lesion are not excluded. 6. Additional large mass lesions within the abdomen and pelvis have increased in size from previous. 7. Hepatomegaly with progressive hepatic metastatic disease. 8. Unremarkable CT angiogram of the abdominal aorta and its major branches. 9. Occluded right internal iliac artery. 10. The iliac arteries are otherwise patent bilaterally. 11. There is no bowel obstruction. 12. There is moderate to severe right and mild left hydronephrosis with ureteral stents in place. 13. Additional findings as detailed above. ACT 112: Negative or not required by law. Electronically signed by: Elder Lizarraga M.D. 09/09/2022 5:17 PM
[2022-09-09] MEDS ORDERED: FOLIC ACID 1 MG TAB PO STA (17:23)
[2022-09-09] MEDS ORDERED: CYANOCOBALAMIN (B-12) 500 MCG TABLET PO STA (17:25)
--- NOTE | 2022-09-09 18:48 | Ultrasound Report ---
US venous doppler LE BI CLINICAL HISTORY: Hx of DVT's, off anticoagulation, leg swelling TECHNIQUE: Bilateral lower extremity real-time compression venous ultrasound with Color Doppler imagi ng. Utilizing real-time ultrasonic imaging multiple real time high-resolution ultrasonic images with compression and noncompression maneuvers of the deep venous system in addition to color doppler imagi ng were performed from the common femoral vein through the proximal calf veins. COMPARISON: Comparison is made to bilateral lower extremity venous Doppler ultrasound 11/22/2018 FINDINGS/IMPRESSION: There is a chronic appearing nonocclusive thrombus in the right common femoral vein, popliteal vein, and great saphenous vein. The left great saphenous vein is equivocal and may be noncompressible due t o extensive edema. A small amount of linear chronic thrombus is suggested. ACT 112: Negative or not required by law. Electronically signed by: Jose Monterroso M.D. 09/09/2022 6:47 PM
[2022-09-09] MEDS: MoRPHine SULFATE CR 15 MG TABCR PO SCH (21:31)
[2022-09-09] MEDS: MAGNESIUM OXIDE 400 MG TAB PO SCH (21:32)
[2022-09-09] MEDS: POTASSIUM CHLORIDE CRTAB 20 MEQ TABCR PO SCH (21:32)
[2022-09-10] MEDS ORDERED: POTASSIUM CHLORIDE CRTAB 20 MEQ TABCR PO STA (00:02)
[2022-09-10] MEDS ORDERED: FUROSEMIDE 40 MG/4 ML VIAL IV ONE (00:02)
[2022-09-10] MEDS ORDERED: POTASSIUM CHLORIDE 20 MEQ/15 ML UDC PO STA (00:31)
[2022-09-10] MEDS: HYDROmorphone INJ 1 MG/ML SYRINGE IV PRN ×3 (02:53→19:36)
[2022-09-10] MEDS ORDERED: LEVOTHYROXINE SODIUM 50 MCG TABLET PO SCH (06:30)
--- NOTE | 2022-09-10 07:50 | Oncology Consultation ---
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 Salas of sarcoma oncology. Patient has been off treatment for more than 3 months due to anemia which has limited her participation in clinical trial at [facility]. She presented with worsening anasarca, shortness of breath and fatigue. Imaging studies continue to show significant progression in disease. She also has chronic lower extremity DVT for which she cannot receive anticoagulation due to history of massive bleeding in the past. Her anasarca is most likely due to hypoalbuminemia from liver metastasis/malnutrition as well as likely lymphatic obstruction from large abdominal masses. Unfortunately based on disease burden, current performance status and lack of treatment options her prognosis appears very poor. I explained to patient that I would recommend she consider evaluation by palliative care to discuss symptom management as well as overall goals of care and consideration of supportive care/hospice. She stated that she understands that her prognosis is overall poor but would like some time to think about whether she would want palliative care involved in her care at this time. In the meantime, would recommend rechecking anemia labs including iron studies to rule out elemental causes of anemia. Thank you for this consult. Oncology will see patient as needed during h ospitalization. Please feel free to call if you have any further questions History of Present Illness Attending Physician: Kenia Franco MD History of Present Illness 47-year-old female with metastatic retroperitoneal leiomyosarcoma initially diagnosed in November, after she underwent exploratory laparotomy with HANH/BSO and resection of retroperitoneal mass on 12/10/2017 with pathology revealing high-grade leiomyosarcoma. Shortly after this, she was found to have lung lesions which were biopsied in February, which confirmed metastatic disease. She was subsequently started on treatment with doxorubicin/olaratumab locally at [facility] under the care of Dr. Cloud. After 2 cycles of treatment, showed noted to have disease progression for which she was evaluated by Dr. Caitlin Salas of sarcoma oncology at [facility] after which patient was placed on cl inical trial. She has since been followed by Dr. Salas. She also has a history of extensive RLE DVT with inability to anticoagulate due to severe GI bleeding in late April 2022 (hospitalized [facility] 05/07 to 05/22/2022); prior h/o PE; b/l ureteral stents; and chronic anemia She indicates that she has been off treatment for more than 3 months as the only clinical trial she is currently eligible for requires hemoglobin to be maintained above 9. She presented to the ER [facility] Yesterday with complaints of generalized weakness, anasarca, abdominal distention and shortness of breath . Hemoglobin on admission was noted to be 7.5 for which she was transfused with [address] abdomen and pelvis revealed progression of multifocal metastatic disease with approximately 22 cm necrotic mass lesion filling the pelvis and encasing/displacing several structures including rectum and several bowel loops, additional large mass lesions within the abdomen and pelvis, hepatomegaly with progressive hepatic metastatic disease, occluded right internal iliac artery, small to moderate pleural effusions with small volume of abdominal pelvic ascites. Lower extremity ultrasound revealed chronic appearing nonocclusive thrombus in the right common femoral vein, popliteal vein and great saphenous vein Allergies Allergy/AdvReac Type Severity Reaction Status Date / Time nickel AdvReac Mild REDNESS TO Verified 08/20/22 11:34 SKIN Home Medications Medication Instructions Recorded Confirmed Type empagliflozin 10 mg tablet 10 mg PO QAM 03/21/22 09/09/22 History (Jardiance) furosemide 40 mg tablet 40 mg PO QAM 03/21/22 09/09/22 History metoprolol succinate 50 mg 50 mg PO QAM 03/21/22 09/09/22 History tablet,extended release 24 hr ondansetron HCl 8 mg tablet 8 mg PO Q8 PRN Nausea 03/21/22 09/09/22 History spironolactone 25 mg tablet 25 mg PO QAM 03/21/22 09/09/22 History potassium chloride 20 mEq 20 meq PO BID 05/07/22 09/09/22 History tablet,extended release(part/cryst) oxycodone 20 mg tablet 20 mg PO Q4H PRN Pain 06/12/22 09/09/22 History prochlorperazine maleate 10 mg 10 mg PO DAILY PRN Nausea 06/12/22 09/09/22 History tablet magnesium oxide 400 mg PO BID 06/25/22 09/09/22 History levothyroxine 50 mcg tablet 50 mcg PO DAILYBB #30 tabs 06/26/22 09/09/22 Rx (Synthroid) morphine 60 mg tablet,extended 60 mg PO Q12H #1 tab 06/26/22 09/09/22 Rx release pantoprazole 40 mg tablet,delayed 40 mg PO QAM #30 tabs 06/26/22 09/09/22 Rx release (Protonix) ferrous sulfate 325 mg (65 mg 325 mg PO BID #60 tabs 07/02/22 09/09/22 Rx iron) tablet folic acid 1 mg tablet 1 mg PO QAM 07/02/22 09/09/22 History cyanocobalamin (vitamin B-12) 1,000 mcg PO DAILY #30 caps 07/03/22 09/09/22 Rx 1,000 mcg capsule Patient History Medical History Chronic anemia H/O deep venous thrombosis extensive, RLE Hemorrhagic shock 2nd to rectal bleeding - required ICU stay [facility] 04/2022; location of bleeding never found; anticoagulation stopped at that time History of cardiomyopathy 2nd chemotherapy; prior EF <20%; now 50% (12/2020 @ [facility]) History of pulmonary embolism Hypertension Hypothyroidism Iron deficiency anemia Leiomyosarcoma initial dx 2017; extensive metastatic disease Leiomyosarcoma Surgical History History of X2 History of hysterectomy HANH/BSO 11/2017 - [facility] [place] History of lung biopsy LEFT History of renal stent b/l ureteral stents Family History Father Diabetes Hypertension Myocardial infarction PAD (peripheral artery disease) Mother Cerebral aneurysm Denies family history of Ovarian cancer Prostate cancer Breast cancer Colorectal cancer Social History Smoking Status: Former smoker Age Started Using Tobacco: 21; Age Quit Using Tobacco: 29; packs per day: 0.25; Cigarettes Per Day: 5; Second Hand Exposure: No; Do You Dip or Chew Tobacco: No; Tobacco Cessation Education Requested by Patient: No Hx Alcohol Use: No Hx Substance Use: Yes Last Used Substance: Days (ago) Substance Use Type O ther:: pt has a medical THC care for pain Preferred Language: Hong Konger Communication Ability: Effective Customer Support Representative Required: No Beliefs That Will Affect Care: None marital status: Current Living Situation: Spouse current occupational status: previously employed current occupation: [employer] How many Children do You have: 2 Other Information That Helps Us Care for You: No Feels Safe at Home: Yes Safety Concerns: Feels Safe At This Time Assistive Devices: None Review of Systems Review of Systems: All systems reviewed & are unremarkable except as noted in HPI & below Physical Exam Physical Exam: Chronically ill looking lady in no obvious distress Constitutional: + edematous ENMT: external ear and nose normal, oropharynx normal Respiratory: normal respiratory effort, lungs clear to auscultation Cardiovascular: RRR, no murmur, no edema Gastrointestinal (Abdomen): Very distended abdomen. Unable to appreciate hepatosplenomegaly due to abdominal distention Musculoskeletal: Bilateral upper and lower extremity swelling. Upper extremity swelling worse on the right Results & Data ([facility]) Vital Signs (Past 12 Hours) Vital Signs Temp Pulse Pulse Resp BP BP Pulse Ox 09/10/22 07:32 99 H 09/10/22 03:47 37.1 C 99 H 18 98/62 L 93 09/09/22 20:00 09/10/22 00:00 91 H 09/09/22 19:50 90 09/10/22 00:21 36.9 C 96 H 18 104/66 93 09/09/22 23:38 37.0 C 106 H 18 111/72 95 09/09/22 22:38 37 C 94 H 18 92/59 L 95 09/09/22 21:38 36.8 C 95 H 18 94/62 L 96 09/09/22 21:08 36.5 C 96 H 18 95/64 L 98 09/09/22 20:15 37.2 C 91 H 16 94/63 L 100 09/09/22 20:53 36.4 C L 92 H 18 99/68 L 98 09/09/22 20:36 36.5 C 89 18 104/69 100 O2 Del Method 09/10/22 07:32 09/10/22 03:47 Room Air 09/09/22 20:00 Room Air 09/10/22 00:00 09/09/22 19:50 09/10/22 00:21 09/09/22 23:38 09/09/22 22:38 09/09/22 21:38 09/09/22 21:08 09/09/22 20:15 Room Air 09/09/22 20:53 09/09/22 20:36 Diagnostic Findings As noted in HPI (1) Anemia Anemia type: other cause Other causes of anemia: other cause, not classified Qualified Code(s): D64.89 - Other specified anemias
[2022-09-10 08:16] LABS: Hematocrit (blood only) 27.6 % (34.1-44.9); Hemoglobin 8.5 g/dl (12.0-16.0); Mean Corpuscular Hemoglobin 30.5 pg (25.0-34.0); Mean Corpuscular Hgb Conc 30.8 g/dL (32.0-36.0); Mean Corpuscular Volume 98.9 fL (80.0-100.0); Mean Platelet Volume 10.3 fL (9.4-12.3); Platelet Count 103 K/uL (130-400); RDW Coefficient of Variation 18.8 % (11.5-14.5); RDW Standard Deviation 67.7 fL (36.4-46.3); Red Blood Count 2.79 M/uL (3.93-5.22); White Blood Count 8.89 K/ul (4.8-10.8)
[2022-09-10 08:25] LABS: INR 1.3 (0.9-1.1); Prothrombin Time 13.3 Seconds (9.0-12.0)
--- NOTE | 2022-09-10 08:29 | Hospitalist Progress Note ---
Date of Service September 10, 2022 Assessment & Plan (1) Anemia: Plan: Presented with worsening shortness of breath and whole body edema/anasarca Patient with known metastatic Leiomyosarcoma not currently receiving chemotherapy or radiation due to severe anemia, patient has required multiple transfusions in the past and reported getting labs done on Thursday outpatient and arrangement for PRBC transfusions for Wednesdays but that her symptoms progressed prompting coming to ER rather than wait for outpatient transfusion Hgb 7.6 on admit Has been given 40mg IV lasix x 2, s/p 1u PRBC w/ hgb 8.5 on repeat Given 20mg IV this morning for her usual 20mg PO home dose, continues on spironolactone Discussed with heme/onc and would NOT given further transfusion at this time Imaging with worsening tumors to pelvis, likely compressing on vasculature causing worsening body edema. CTA Chest/A/P : NO PE, does note multifocal metastatic disease. This has progressed as compared to 06/12/2022., small-moderate pleural effusions, small volume of abdominopelvic ascites, anasarca indicate fluid overload. An approximately 22 cm necrotic mass lesion fills the pelvis and encases/displaces several structures as above, including the rectum and several bowel loops. Invasion of these structures is not excluded. Tiny foci of active extravasation within this lesion are not excluded. Additional large mass lesions within the abdomen and pelvis have increased in size from previous. Hepatomegaly with progressive hepatic metastatic disease. Occluded right internal iliac artery. There is moderate to severe right and mild left hydronephrosis with ureteral stents in place. Venous Doppler LE : There is a chronic appearing nonocclusive thrombus in the right common femoral vein, popliteal vein, and great saphenous vein. The left great saphenous vein is equivocal and may be noncompressible due to extensive edema. A small amount of linear chronic thrombus is suggested. Heme/onc consulted -- no further transfusion. Has reached out to primary oncologist, Dr Salas has strongly encouraged palliaitve/hospice given unlikely to be candidate for trial outpatient as she was hoping if she got her Hgb >9 Also, TSH checked during inpatient admit in June w/ continued anemia -- ELEVATED >30 and started on Synthroid. Repeat added to AM labs given no repeat -- 14.845 --> will increase Synthroid to 75mcg daily -- new rx at d/c 96% on RA, reports feeling better. Still w/ SOB w/ ambulation. Consider 2step prior to dc Also will await to hear back from heme/onc, hopefully patient will be agreeable, but has young children at home. May be very difficult. (2) Leiomyosarcoma: Plan: s/p tumor debulking with Dr Lou in 2019 and multiple rounds of chemo (w/ Dr Salas and Dr Mckeon), most recently on Trabectedin. Had been hospitalized for hypotension/hgb5 c/w hypovolemic shock. Was given Kcentra/2u PRBC, rebled and another 2u PRBC and TXA and 2u FFP. Then tx to [facility] for further management, given 3 more units and cryo. Eliquis discontinued, not candidate for IVF filter given unable to place due to vein compression likely related to intra-abdominal mass Patient with known metastatic disease, concern she could have mets pushing on major blood vessels causing her anasarca -- likely based on imaging/enlarged tumor to pelvis Oncology on consult as above ?palliate consultation if patient becomes agreeable. She may want to hear back from her primary provider, who Dr Benitez contacted today. Will await response to see if even candidate for trial or if push for palliative is more reasonable (3) Fluid overload: Plan: Multifactorial including hypoalbuminemia, anasarca from her known cancer, poss ible mass effect, and hx of heart failure Recent PIEDAD w/ normal LV systolic function, does have murmur on exam, but doubt benefit for repeat given just done in June, EF 50-55%, no wma Discussed possible paracentesis w/ heme/onc, minimal ascites on exam would doubt much help. Could consider thoracensis if developed worsening respiratory symptoms Given 40mg IV lasix x 2 on admit, additional 20mg IV this morning and will resume usual diuretic regimen for tomrorow (4) Hypertension: Plan: Stable BP 110/72 Continues metoprolol, spironolactone Given dose IV lasix for this morning as above, Lasix PO to resume in AM No lightheadedness/dizziness reported (5) Hypothyroidism: Plan: Continue levothyroxine 50mcg daily Of note, TSH was 36 in June, placed on synthroid 50mcg daily -- she reports has been taking this correctly, never had any repeat TFT. Added to AM labs --> TSH 14.8, ?reactive from Ca. Ft4 wnl at 0.64, however LOW normal Discussed w/ heme/onc and given has been on this >6 weeks, will increase for AM (6) History of cardiomyopathy: Plan: Had a TTE in june of this year, will hold off on repeat for now -Continue spironolactone Lasix IV on admit x 2, additional 20mg IV x 1 this morning with plans to resume PO tomorrow (7) Hx of deep venous thrombosis: Plan: -Patient was previously diagnosed with lare right LE DVT's when she was transferred to [place] with her large GI bleed -Was not a candidate for IVC filter due to being too high risk. Can't be on anticoagulation with her anemia and recent history of life-threatening bleeding -RLE with erythema and tenderness on exam, will obtain BL LE venous Doppler for further assessment -- chronic appearing LE edema likely compression from pelvic tumors as above -Patient knows she is very high risk for acute decompensation if she still has large DVT's at this time Checking US UE for prognostic data/UE edema, would be unable to be placed on anticoagulation Plan continued inpatient stay Admission and Anticipated Discharge Date Admission Date: September 09, 2022 Supervising Physician Co-Signing Physician Notes I did not personally examine or interview the patient. I did review LISETTE Hernandez's assessment and plan and agree with the following exceptions: none. Patient to meet with palliative care 09/11/22 Hunter luz this morning, has not yet been seen by heme/onc discussed hgb to 8.5 today, she has been attempting to keep closer to 9 to be considered for clinical trial w/ oncology in follow up w/ teleheatlh, date unknown. Has not had chemo in several months had been getting labs every Thursday, and coordination for blood transfusions on Wednesdays but felt too poorly and required to come to hospital for transfusion. denies any active bleeding did have increased LE edema, has significant abdominal distention. Has not moved her bowels in about 3-4 days, typically every other day and had senna increased. Tightness to abdomen but no specific pain, no fever/warmth. Never had paracentesis but states she has had thoracentesis in the past. Discussed small additional dose IV lasix for today/monitoring repeat labs. Consideration for para but would need to convene w/ heme/onc, given increased risk for infection if none presently. Of note, her TSH was elevated to 30s most recent admission and placed on Synthroid, which she does endorse taking in the morning on an empty stomach, but states she has not had any repeat levels checked for these/adjustments. Given reports fatigue/constipation/dry hair/etc, she may need further adjustment. She has been on daily PO B12 supplementation as well, no IM replacement. Also on PO iron supplementation. Will repeat TSH/B12 levels, adjustment/IM replacement inpatient if needed. Review of Systems Review of Systems: All systems reviewed & are unremarkable except as noted in HPI & below Physical Exam Physical Exam: General: chronically ill appearing female sitting up in bed, cachectic, appears older than stated age, NAD HEENT: head normocephalic, atraumatic, mmm, trachea midline Chest: mediport L chest, no signs of infection Resp: diminished in the bases, end expiratory wheezing, no crackles, on room air CV: regular rate, rhythm, +systolic murmur, ?S3, 1+ pitting edema b/l LE, RLE >LLE, calf nontender GI: +distension, +hypoactive BS, firm, not overly tender to palpation but reporting feeling tight, no bruising : no arriaga MSK/Neuro: moves all extremities, no focal deficit/slurred speech Psych: AOx3, pleasant and cooperative Results & Data Results & Data ([facility]) Vital Signs (Past 12 Hours) Vital Signs Temp Pulse Pulse Resp BP BP Pulse Ox 09/10/22 08:11 100 H 20 99/65 L 96 09/10/22 07:32 99 H 09/10/22 03:47 37.1 C 99 H 18 98/62 L 93 09/10/22 00:00 91 H 09/10/22 00:21 36.9 C 96 H 18 104/66 93 09/09/22 23:38 37.0 C 106 H 18 111/72 95 09/09/22 22:38 37 C 94 H 18 92/59 L 95 09/09/22 21:38 36.8 C 95 H 18 94/62 L 96 09/09/22 21:08 36.5 C 96 H 18 95/64 L 98 09/09/22 20:53 36.4 C L 92 H 18 99/68 L 98 09/09/22 20:36 36.5 C 89 18 104/69 100 O2 Del Method 09/10/22 08:11 Room Air 09/10/22 07:32 09/10/22 03:47 Room Air 09/10/22 00:00 09/10/22 00:21 09/09/22 23:38 09/09/22 22:38 09/09/22 21:38 09/09/22 21:08 09/09/22 20:53 09/09/22 20:36 Laboratory Results 09/10/22 09/10/22 09/10/22 Range/Units 08:00 08:00 08:00 WBC 8.89 (4.8-10.8) K/ul RBC 2.79 L (3.93-5.22) M/uL Hgb 8.5 L (12.0-16.0) g/dl Hct 27.6 L (34.1-44.9) % MCV 98.9 (80.0-100.0) fL MCH 30.5 (25.0-34.0) pg MCHC 30.8 L (32.0-36.0) g/dL RDW Std Deviation 67.7 H (36.4-46.3) fL RDW Coeff of Jennifer 18.8 H (11.5-14.5) % Plt Count 103 L (130-400) K/uL MPV 10.3 (9.4-12.3) fL PT 13.3 H (9.0-12.0) Seconds INR 1.3 H (0.9-1.1) Sodium 140 (136-145) mmol/L Potassium 4.3 (3.5-5.1) mmol/L Chloride 105 (98-107) mmol/L Carbon Dioxide 30 (21-32) mmol/L Anion Gap 5 (3-11) BUN 31 H (6-23) mg/dl Creatinine 1.68 H (0.6-1.2) mg/dl Est Cr Clr Drug Dosing 33.9 ml/min Est GFR ( Amer) 41.2 ml/min Est GFR (Non-Af Amer) 35.6 ml/min BUN/Creatinine Ratio 18.5 (10-20) Glucose 104 H (70-99(Fasting)) mg/dl Calcium 7.3 L (8.5-10.1) mg/dl Phosphorus (2.5-4.9) mg/dl Magnesium 1.8 (1.7-2.4) mg/dl Total Bilirubin 0.7 (0.2-1.0) mg/dl AST 85 H (13-39) U/L ALT 8 (7-52) U/L Alkaline Phosphatase 232 H (34-104) U/L Total Protein 5.7 L (6.0-8.3) gm/dl Albumin 2.2 L (3.4-5.0) gm/dl Globulin 3.5 (2.5-4.0) gm/dl Albumin/Globulin Ratio 0.6 L (0.9-2) SARS-CoV-2, RNA, NAAT (NEGATIVE) Blood Type Antibody Screen Crossmatch 09/09/22 09/09/22 09/09/22 Range/Units 14:02 13:39 10:13 WBC (4.8-10.8) K/ul RBC (3.93-5.22) M/uL Hgb (12.0-16.0) g/dl Hct (34.1-44.9) % MCV (80.0-100.0) fL MCH (25.0-34.0) pg MCHC (32.0-36.0) g/dL RDW Std Deviation (36.4-46.3) fL RDW Coeff of Jennifer (11.5-14.5) % Plt Count (130-400) K/uL MPV (9.4-12.3) fL PT (9.0-12.0) Seconds INR (0.9-1.1) Sodium (136-145) mmol/L Potassium (3.5-5.1) mmol/L Chloride (98-107) mmol/L Carbon Dioxide (21-32) mmol/L Anion Gap (3-11) BUN (6-23) mg/dl Creatinine (0.6-1.2) mg/dl Est Cr Clr Drug Dosing ml/min Est GFR ( Amer) ml/min Est GFR (Non-Af Amer) ml/min BUN/Creatinine Ratio (10-20) Glucose (70-99(Fasting)) mg/dl Calcium (8.5-10.1) mg/dl Phosphorus 3.0 (2.5-4.9) mg/dl Magnesium (1.7-2.4) mg/dl Total Bilirubin (0.2-1.0) mg/dl AST (13-39) U/L ALT (7-52) U/L Alkaline Phosphatase (34-104) U/L Total Protein (6.0-8.3) gm/dl Albumin (3.4-5.0) gm/dl Globulin (2.5-4.0) gm/dl Albumin/Globulin Ratio (0.9-2) SARS-CoV-2, RNA, NAAT NEGATIVE (NEGATIVE) Blood Type A Positive Antibody Screen NEGATIVE Crossmatch See Detail Diagnostic Findings Chest X-Ray 09/09/22 09:17 XR chest 2V PA/lateral CLINICAL HISTORY: Shortness of breath. Leiomyosarcoma. COMPARISON STUDY: Chest radiograph July 24, 2022. Chest CT May 15, 2020. FINDINGS: Left subclavian artery fusiform remains in place. Small bilateral pleural effusions have developed since prior exam. Cardiomediastinal silhouette is stable. Innumerable pulmonary metastases are again noted. 1.4 cm left upper lobe lesion has mild increased in size. There is pulmonary vascular congestion. IMPRESSION: 1. Pulmonary vascular congestion with small bilateral pleural effusions. 2. Redemonstration of pulmonary metastases. ACT 112: Negative or not required by law. Electronically signed by: Junior Grider M.D. 09/09/2022 9:47 AM Abdomen/Pelvis CTA 09/09/22 15:09 CT ANGIOGRAM OF THE CHEST, ABDOMEN, AND PELVIS CLINICAL HISTORY: Leiomyosarcoma. COMPARISON STUDY: Chest CT dated 05/15/2020. Abdominal CT dated 06/12/2022. TECHNIQUE: Following the IV administration of 115 cc of Optiray 320, CT angiogram of the chest, abdomen, and pelvis was performed from the thoracic inlet to the proximal femora. Images are reviewed in the axial, sagittal, and coronal planes. 3-D MIPS images are created and assessed. IV contrast was administered without complication. A dose lowering technique was utilized adhering to the principles of ALARA. CT DOSE: 570.04 mGy.cm FINDINGS: CHEST: Thyroid: Imaged portions of the thyroid gland are normal in size and attenuation. Thoracic aorta: The thoracic aorta is normal in course and caliber. The aortic arch demonstrates bovine variant anatomy. No aneurysm or dissection is seen. The arch vessels are widely patent. Pulmonary vasculature: The pulmonary trunk is normal in caliber. There are no filling defects identified in the main, lobar, or segmental pulmonary vessels to indicate pulmonary embolus. Heart: A left subclavian central venous infusion port is in place. The heart is normal in size and without pericardial effusion. Lungs and pleural spaces: There are small to moderate pleural effusions with dependent atelectasis. Postoperative change is seen at the left lung base. There is evidence of extensive/diffuse multifocal pulmonary metastatic disease. This has progressed as compared to 05/15/2020 examination. Lower lobe lesions have progressed as compared to the 06/12/[address] A junior sales representative lesion in the right middle lobe on image #151 measures 2.1 cm (measured 1.5 cm on 06/12/2022). A left apical lesion on image #65 measures 1.5 cm. Mediastinum: There is no mediastinal lymphadenopathy. Jazzy: Clear. Axillae: There is no axillary lymphadenopathy. Bony thorax: No destructive bony lesions are identified. Soft tissues: There is body wall edema. ABDOMEN AND PELVIS: Liver: The contrast-enhanced liver is enlarged, measuring 22 cm in length. The liver demonstrates diminished attenuation suggesting steatosis. There is no intrahepatic biliary ductal dilatation. The main portal veins appear patent. Again seen is evidence of multifocal hepatic metastatic disease, with greater than 10 lesions identified. This has significantly progressed in both size and number of lesions as compared to 06/12/2022. The largest lesion in the right lobe on image #78 and measures up to 7 cm (previously measured 4 cm) Gallbladder: Unremarkable. Spleen: Normal in size and attenuation noting heterogeneous arterial phase enhancement. Pancreas: Grossly unremarkable and distorted by numerous mass lesions. Adrenal glands: Unremarkable. Kidneys: There is asymmetric cortical atrophy of the right kidney as compared to the left. Bilateral ureteral stents are in place. There is moderate to severe right and mild left hydronephrosis. There is slightly diminished enhancement of the right kidney as compared to the left. Abdominal aorta and iliac arteries: The abdominal aorta is normal in course and caliber. No dissection is seen. There is moderate atherosclerotic plaque noted in the iliac arteries. The common iliac arteries and external iliac arteries are widely patent bilaterally, as are the bilateral common femoral and proximal superficial femoral arteries. The left internal iliac artery is widely patent. The right internal iliac artery is occluded. The iliac veins cannot be evaluated due to arterial phase of enhancement. Major branches of the abdominal aorta: The celiac trunk, superior mesenteric, and inferior mesenteric arteries are widely patent. An accessory left hepatic artery arises from the left gastric artery. Single bilateral renal arteries are widely patent. Bowel: The bowel loops are significantly displaced. No obstruction is seen. A large lesion in the pelvis significantly narrows the rectosigmoid. Invasion of bowel loops would be impossible to exclude. Findings in the the right lower quadrant suggests previous appendectomy. Peritoneum: A midline surgical scar is noted. No intraperitoneal free air is seen. There is a small volume of abdominopelvic ascites. There is a large, heterogeneous, and centrally necrotic mass lesion filling the pelvis with significant localized mass effect. This measures approximately 22 x 14 x 17.5 cm in dimension and encases the right iliac vessels as well as both ureters. There is significant mass effect on the adjacent bladder and the bowel loops. Additional large abdominal lesions of increased in size from previous. A lesion in the right midabdomen on image #248 measures approximately 10.7 x 6.5 cm (previously measured 9.5 x 7 cm), in the left upper quadrant on image #150 measuring approximately 14 x 12 cm (previously measuring 10.5 x 9 cm), and in the central abdomen on image #227 measuring approximately 14 x 12 cm (previously measuring approximately 11 x 10 cm). The left upper quadrant lesion causes significant mass effect on the posterior stomach and pancreatic tail. The majority lesions show heterogeneous enhancement and necrosis. Hypervascular foci seen within the largest necrotic lesion in the pelvis on images #292, #324, #358, and #389 indeterminant. Tiny foci of active extravasation are not excluded. Lymphadenopathy: None. Pelvic viscera: The bladder is decompressed and contains the distal end of ureteral stents. This is not well evaluated. The uterus is surgically absent. The adnexa are not well-visualized. Skeletal structures: The skeletal structures are osteopenic. No lytic or blastic lesions are seen. Soft tissues: There is anasarca of the body wall. IMPRESSION: 1. Unremarkable CT angiogram of the thoracic aorta. 2. There is no evidence of pulmonary embolus in the main, lobar, or segmental pulmonary arteries. 3. Again seen is evidence of multifocal metastatic disease. This has progressed as compared to 06/12/2022. 4. Small to moderate pleural effusions, a small volume of abdominopelvic ascites, and anasarca indicate fluid overload. 5. An approximately 22 cm necrotic mass lesion fills the pelvis and encases/ displaces several structures as above, including the rectum and several bowel loops. Invasion of these structures is not excluded. Tiny foci of active extravasation within this lesion are not excluded. 6. Additional large mass lesions within the abdomen and pelvis have increased in size from previous. 7. Hepatomegaly with progressive hepatic metastatic disease. 8. Unremarkable CT angiogram of the abdominal aorta and its major branches. 9. Occluded right internal iliac artery. 10. The iliac arteries are otherwise patent bilaterally. 11. There is no bowel obstruction. 12. There is moderate to severe right and mild left hydronephrosis with ureteral stents in place. 13. Additional findings as detailed above. ACT 112: Negative or not required by law. Electronically signed by: Elder Lizarraga M.D. 09/09/2022 5:17 PM Chest CTA 09/09/22 15:09 CT ANGIOGRAM OF THE CHEST, ABDOMEN, AND PELVIS CLINICAL HISTORY: Leiomyosarcoma. COMPARISON STUDY: Chest CT dated 05/15/2020. Abdominal CT dated 06/12/2022. TECHNIQUE: Following the IV administration of 115 cc of Optiray 320, CT angiogram of the chest, abdomen, and pelvis was performed from the thoracic inlet to the proximal femora. Images are reviewed in the axial, sagittal, and coronal planes. 3-D MIPS images are created and assessed. IV contrast was administered without complication. A dose lowering technique was utilized adhering to the principles of ALARA. CT DOSE: 570.04 mGy.cm FINDINGS: CHEST: Thyroid: Imaged portions of the thyroid gland are normal in size and a ttenuation. Thoracic aorta: The thoracic aorta is normal in course and caliber. The aortic arch demonstrates bovine variant anatomy. No aneurysm or dissection is seen. The arch vessels are widely patent. Pulmonary vasculature: The pulmonary trunk is normal in caliber. There are no filling defects identified in the main, lobar, or segmental pulmonary vessels to indicate pulmonary embolus. Heart: A left subclavian central venous infusion port is in place. The heart is normal in size and without pericardial effusion. Lungs and pleural spaces: There are small to moderate pleural effusions with dependent atelectasis. Postoperative change is seen at the left lung base. There is evidence of extensive/diffuse multifocal pulmonary metastatic disease. This has progressed as compared to 05/15/2020 examination. Lower lobe lesions have progressed as compared to the 06/12/[address] A junior sales representative lesion in the right middle lobe on image #151 measures 2.1 cm (measured 1.5 cm on 2021). A left apical lesion on image #65 measures 1.5 cm. Mediastinum: There is no mediastinal lymphadenopathy. Jazzy: Clear. Axillae: There is no axillary lymphadenopathy. Bony thorax: No destructive bony lesions are identified. Soft tissues: There is body wall edema. ABDOMEN AND PELVIS: Liver: The contrast-enhanced liver is enlarged, measuring 22 cm in length. The liver demonstrates diminished attenuation suggesting steatosis. There is no intrahepatic biliary ductal dilatation. The main portal veins appear patent. Again seen is evidence of multifocal hepatic metastatic disease, with greater than 10 lesions identified. This has significantly progressed in both size and number of lesions as compared to 06/12/2022. The largest lesion in the right lobe on image #78 and measures up to 7 cm (previously measured 4 cm) Gallbladder: Unremarkable. Spleen: Normal in size and attenuation noting heterogeneous arterial phase enhancement. Pancreas: Grossly unremarkable and distorted by numerous mass lesions. Adrenal glands: Unremarkable. Kidneys: There is asymmetric cortical atrophy of the right kidney as compared to the left. Bilateral ureteral stents are in place. There is moderate to severe right and mild left hydronephrosis. There is slightly diminished enhancement of the right kidney as compared to the left. Abdominal aorta and iliac arteries: The abdominal aorta is normal in course and caliber. No dissection is seen. There is moderate atherosclerotic plaque noted in the iliac arteries. The common iliac arteries and external iliac arteries are widely patent bilaterally, as are the bilateral common femoral and proximal superficial femoral arteries. The left internal iliac artery is widely patent. The right internal iliac artery is occluded. The iliac veins cannot be evaluated due to arterial phase of enhancement. Major branches of the abdominal aorta: The celiac trunk, superior mesenteric, and inferior mesenteric arteries are widely patent. An accessory left hepatic artery arises from the left gastric artery. Single bilateral renal arteries are widely patent. Bowel: The bowel loops are significantly displaced. No obstruction is seen. A large lesion in the pelvis significantly narrows the rectosigmoid. Invasion of bowel loops would be impossible to exclude. Findings in the the right lower quadrant suggests previous appendectomy. Peritoneum: A midline surgical scar is noted. No intraperitoneal free air is seen. There is a small volume of abdominopelvic ascites. There is a large, heterogeneous, and centrally necrotic mass lesion filling the pelvis with significant localized mass effect. This measures approximately 22 x 14 x 17.5 cm in dimension and encases the right iliac vessels as well as both ureters. There is significant mass effect on the adjacent bladder and the bowel loops. Additional large abdominal lesions of increased in size from previous. A lesion in the right midabdomen on image #248 measures approximately 10.7 x 6.5 cm (previously measured 9.5 x 7 cm), in the left upper quadrant on image #150 measuring approximately 14 x 12 cm (previously measuring 10.5 x 9 cm), and in the central abdomen on image #227 measuring approximately 14 x 12 cm (previously measuring approximately 11 x 10 cm). The left upper quadrant lesion causes significant mass effect on the posterior stomach and pancreatic tail. The majority lesions show heterogeneous enhancement and necrosis. Hypervascular foci seen within the largest necrotic lesion in the pelvis on images #292, #324, #358, and #389 indeterminant. Tiny foci of active extravasation are not excluded. Lymphadenopathy: None. Pelvic viscera: The bladder is decompressed and contains the distal end of ureteral stents. This is not well evaluated. The uterus is surgically absent. The adnexa are not well-visualized. Skeletal structures: The skeletal structures are osteopenic. No lytic or blastic lesions are seen. Soft tissues: There is anasarca of the body wall. IMPRESSION: 1. Unremarkable CT angiogram of the thoracic aorta. 2. There is no evidence of pulmonary embolus in the main, lobar, or segmental pulmonary arteries. 3. Again seen is evidence of multifocal metastatic disease. This has progressed as compared to 06/12/2022. 4. Small to moderate pleural effusions, a small volume of abdominopelvic ascites, and anasarca indicate fluid overload. 5. An approximately 22 cm necrotic mass lesion fills the pelvis and encases/displaces several structures as above, including the rectum and several bowel loops. Invasion of these structures is not excluded. Tiny foci of active extravasation within this lesion are not excluded. 6. Additional large mass lesions within the abdomen and pelvis have increased in size from previous. 7. Hepatomegaly with progressive hepatic metastatic disease. 8. Unremarkable CT angiogram of the abdominal aorta and its major branches. 9. Occluded right internal iliac artery. 10. The iliac arteries are otherwise patent bilaterally. 11. There is no bowel obstruction. 12. There is moderate to severe right and mild left hydronephrosis with ureteral stents in place. 13. Additional findings as detailed above. ACT 112: Negative or not required by law. Electronically signed by: Elder Lizarraga M.D. 09/09/2022 5:17 PM Venous Doppler Study 09/09/22 15:14 US venous doppler LE BI CLINICAL HISTORY: Hx of DVT's, off anticoagulation, leg swelling TECHNIQUE: Bilateral lower extremity real-time compression venous ultrasound with Color Doppler imaging. Utilizing real-time ultrasonic imaging multiple real time high-resolution ultrasonic images with compression and noncompression maneuvers of the deep venous system in addition to color doppler imaging were performed from the common femoral vein through the proximal calf veins. COMPARISON: Comparison is made to bilateral lower extremity venous Doppler ultrasound 11/22/2018 FINDINGS/IMPRESSION: There is a chronic appearing nonocclusive thrombus in the right common femoral vein, popliteal vein, and great saphenous vein. The left great saphenous vein is equivocal and may be noncompressible due to extensive edema. A small amount of linear chronic thrombus is suggested. ACT 112: Negative or not required by law. Electronically signed by: Jose Monterroso M.D. 09/09/2022 6:47 PM PG Care Time/CCT Total # of Minutes Spent Total Time Spent with Patient: Total time spent is greater than 50% in coordination of care (as documented) at patient's floor/unit and/or counseling patient: Coding Level of Care Code 35270 Subseq Hosp Care Lvl 3 Diagnoses Anemia D64.9 Anemia type: unspecified type Leiomyosarcoma C49.9 Fluid overload E87.79 Hypervolemia type: other Hypertension I10 Hypothyroidism E03.9 History of cardiomyopathy Z86.79 Hx of deep venous thrombosis Z86.718 (1) Anemia Anemia type: unspecified type Qualified Code(s): D64.9 - Anemia, unspecified (2) Fluid overload Hypervolemia type: other Qualified Code(s): E87.79 - Other fluid overload
[2022-09-10 08:56] LABS: Est GFR (African American) 41.2 ml/min; Est GFR (Non-African American) 35.6 ml/min; Potassium 4.3 mmol/L (3.5-5.1)
[2022-09-10 08:57] LABS: Albumin Globulin Ratio 0.6 (0.9-2); Albumin Level 2.2 gm/dl (3.4-5.0); BUN Creatinine Ratio 18.5 (10-20); Bilirubin,Total 0.7 mg/dl (0.2-1.0); Calcium 7.3 mg/dl (8.5-10.1); Creatinine Clr Calc Pharmacy 33.9 ml/min; Globulin 3.5 gm/dl (2.5-4.0); Magnesium 1.8 mg/dl (1.7-2.4); Total Protein 5.7 gm/dl (6.0-8.3)
[2022-09-10] MEDS: METOPROLOL SUCC 50MG EXT REL TAB PO SCH (09:12)
[2022-09-10] MEDS: MoRPHine SULFATE CR 15 MG TABCR PO SCH ×2 (09:12→20:57)
[2022-09-10] MEDS: CYANOCOBALAMIN (B-12) 500 MCG TABLET PO SCH (09:12)
[2022-09-10] MEDS: PANTOprazole 40 MG TAB PO SCH (09:13)
[2022-09-10] MEDS: SPIRONOLACTONE 25 MG TAB PO SCH (09:13)
[2022-09-10] MEDS: FERROUS SULFATE 325 MG TAB PO SCH ×2 (09:13→17:47)
[2022-09-10] MEDS: FOLIC ACID 1 MG TAB PO SCH (09:13)
[2022-09-10] MEDS: MAGNESIUM OXIDE 400 MG TAB PO SCH ×2 (09:13→20:58)
[2022-09-10] MEDS: POTASSIUM CHLORIDE CRTAB 20 MEQ TABCR PO SCH (09:29)
[2022-09-10] MEDS: POTASSIUM CHLORIDE 20 MEQ/15 ML UDC PO SCH ×2 (09:56→20:58)
[2022-09-10] MEDS ORDERED: FUROSEMIDE INJ 20 MG/2 ML VIAL IV ONE (11:02)
[2022-09-10 11:48] LABS: Thyroid Stimulating Hormone 14.845 uIu/ml (0.300-4.500)
[2022-09-10 12:20] LABS: T4 Free Thyroxine 0.64 ng/dl (0.61-1.60)
[2022-09-10] MEDS: DOCUSATE SODIUM/SENNA 50/8.6MG TAB PO SCH (12:32)
[2022-09-10] MEDS: DOCUSATE SODIUM 100 MG CAP PO SCH (20:58)
[2022-09-10] MEDS ORDERED: ONDANSETRON INJ 2 MG/ML 2 ML VIAL IV STA (21:06)
--- NOTE | 2022-09-10 22:55 | Palliative Care Consultation ---
Date of Consultation September 10, 2022 Assessment & Plan (1) Palliative care encounter: For Oncology Patients: Patient's Palliative Prognostic Score (PaP) Score = 9 points/30-day survival probability 30-70% Patient's Palliative Prognostic Index (PPI) Score = 4.5 points/If the PPI is greater than 6.0, survival is less than three weeks (Sensitivity - 80%; Specificity - 85%). Reviewed prognosis with oncology who shared that with continued transfusion support pt may have an anticipated survival of 3-4 mos, though without transfusions this would likely be within 30 days for mortality. (2) Cancer related pain: Yenny and I discussed her current regimen of MS Contin 60mg q12h + Oxy IR 20mg 3-4 doses/day without optimal relief In a relatively recent conversation with pain mgt at [facility] she had been offered option to increase MS Contin to q8h but notes she held off because it continues to create a signifcant ftigue and foggy feeling which render her sleeping for long periods of time and thus unable to interact with her children. She notes this is a top priority for her. 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 In the interim will need EKG to assess QTc (which needs to be below 450ms for terminal worker methadone therapy to commence.) (3) Advanced care planning/counseling discussion: ACP 45min: long discussion with pt and re disease progression, cancer pain, declining PS and no further treatment options. Yenny shares her communication style for crisis is Avoidant. She does not like to think about or make decisions about upsetting topics or issues. She has thought about her mortality more often paddy with implications of disease progression and no more treatment options but admits it gets too upsetting and so she just "shelves it for later." We reviewed that all chronic/progressive disease has a declining trajectory over time where facets of patient self-identity and independence are lost. Every acute event leads to a further decline, resulting- many times, in a new baseline. Advised that the greatest priority is to determine what matters most to pt, then family and to develop a plan of care that is aligned with those priorities. we spoke about code status. She tells me she would want to do what she could do to have more time with her kids. I spoke with her and about CPR survival data and how it is only about 10% of patients who have [id number] sudden cardiac arrest survive to hospital discharge, with many survivors having neurologic impairment. This rate is even lower among patients with serious coexisting conditions, ie chance of survival to hospital discharge for in- hospital CPR in older people is low to moderate (15%) and decreases with age, comorbidities, performance status and frailty: for pts > 70 yo, more than half of the patients who initially survived resuscitation in the hospital before hospital discharge. The pooled survival to discharge after in-hospital CPR was 18% for patients between 70 and 79 years old, 15% for patients between 80 and 89 years old and 11% for patients of 90 years and older. (Greg GRAFFY, Danyel LJ, Toma F, et al. Trends in short- and long-term survival among xoz-jk-flucuava cardiac arrest patients alive at hospital arrival. Circulation 2014;130:1883- 1890. AND Michael C, Chiqui T, Amanuel R, et al. Performance of clinical risk scores to predict mortality and neurological outcome in cardiac arrest patients. Resuscitation 2019;136:21-29.) We spoke about POLST forms and other AD options to document her wishes. As far as code status and CPR, I asked her to reflect on answering this question for me tomorrow: where do you see yourself at the end of your life? I explained that I was asking the questions this way because how she answers it is what will help shape the decision about wanting cpr or not. She and her were appreciative of the dialogue; Yenny stated it was helpful,topics were discussed in a fairly non intrusive manner for her. 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 I spoke with them about Legacy planning. I urged her to contact her oncology team at [facility] cancer to be connected to their Child Life program who can offer more support and resources for her children. I also spoke with her about starting some legacy projects now, while she is well enough to do them, so that her children will have these after she dies. I recommended the Compendium Life Notes: A Letter-Writing Kit Written by You for Your Child, which is available thru [employer]; this is a kit that comes with themed notes, with a theme of connecting with your child on How To Live A Good Life with reflection on topics that include family, friendship, falling in love, etc., come with a keepsake box and would allow her a way to pass down memories and meaning to her children. I also provided some additional reading resources for her 11 and 14 yr old as follows: Talking About : A Dialogue Between Parent and Child, by Tor Rubio and Kit by Nila Chavez (pre- teen/tweens) Echo's Sister by Juan Pablo Kingsley (pre- teen/tweens) Feeling Better: CBT Workbook for Teens: Essential Skills and Activities to Help You Manage Moods, Boost Self-Esteem, and Conquer Anxiety Workbook Edition by PhD Diann Espinoza Be the Boss of Your Stress by Chinmay Paez & Debra Rodriguez Cancer in Our Family: Helping Children [place] with a Parent's Illness by Shanti Yeager PhD RN & Angelica Mcallister CAREER COACH CLINICAL SAFETY MANAGER. TS 45min (4) Leiomyosarcoma: Plan * Progressive met leiomyosarcoma, steadily progression, pt is transfusion dependent * Very severe cancer pain, using 240 OMEs per day without significant meaningful relief. I have moved her to a Dilaudid SURGICAL PRODUCT SALES CONSULTANT to try and improve pain mgt. * Very broad advance illness planing discussion was initiated today. pt and encouraged to explore thoughts and concerns about code status/CPR. Pt is clear that if she is dying or does not have a lot of time, she would like to be home with her family, not in the hospital. I advised her this would be in alignment with a plan of care focusing on symptom mgt, QOL and hospice support at home, which she needs more time to process. * Legacy planning stated, extensive psychosocial support and logotherapy provided. * We discussed potential use of THC in her cancer pain and sx mgt, her prior experience was a inhalation and a tincture which did not help much but she would like to try something more like an edible. She knows there are several choices for Med marijuana dispensaries in the area - I encouraged her and to call them to determine which one offers what she would like to try. * I will continue to follow her through this admission. * I have updated the primary team. María Scott DNP Clinical Director, Palliative Medicine History of Present Illness Reason for Consultation: " On 09/10/22 @ 17:15 Jenise Hernandez Wrote To María Scott goals of care" Attending Physician: Kenia Franco MD History of Present Illness Yenny is a 47-year-old female with metastatic leiomyosarcoma for which she has received multiple lines of treatment at [facility] under the care of Dr. Salas of sarcoma oncology. She came to ED with c/o worsening anasarca, shortness of breath and fatigue. Diagnostic workup confirms significant progression in disease. Dr Benitez's notes from today reviewed: pt has been unable to have more chemo for approx 3 mos due to anemia. This has limited her eligibility for participation in clinical trials at [facility]. Additionally, she struggles with complications from chronic lower extremity DVT because she is unable to take anticoagulation d/t hx massive bleeding. Dr. Benitez noted that Yenny's anasarca is most likely due to hypoalbuminemia from liver metastasis/malnutrition as well as likely lymphatic obstruction from large abdominal masses. Furthermore, due to so much disease burden, steadily worsening PS and the absence of meaningful treatment options, the overall prognosis is very poor: "I explained to patient that I would recommend she consider evaluation by palliative care to discuss symptom management as well as overall goals of care and consideration of supportive care/hospice. She stated that she understands that her prognosis is overall poor but would like some time to think about whether she would want palliative care involved in her care at this time." Case also discussed with primary team/Mary Hernandez PA-C. Bigg has several young children and while she is struggling to come to accept her prognosis, she has also been overwhelmed with her anticipatory grief and there is a need to initiate some legacy planning work for this pt. Yenny is seen bedside with her present. They report significant, unrelieved cancer related pain, abdomen to pelvis with radiation to BLE. She has been taking MS Contin 60mg q12h and Oxy IR 20mg 4h prn averaging 3-4 doses daily; both meds work only for a few hours, 3 at most. they make her very tired and feeling foggy/cannot think clearly. she sleeps a lot as a result and feels this is why she misses out on time with her children ages 11 and 14yo. Yenny tells me she has been updated about her disease progression, noting it has been over 3 mos since she has been able to even have chemo bc of her cell counts. her shares she was on treatment for some time, it seemed to be helping "but then it wasn't and she was getting worse, tumor grew and then it caused her to have bleeding into her colon and she need emergency radiation." They both acknowledge they have not had a deeper discussion about what everything means at this junction and the decisions they know are needed to be made. They have excellent family, friends and community support. 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 Allergies Allergy/AdvReac Type Severity Reaction Status Date / Time nickel AdvReac Mild REDNESS TO Verified 08/20/22 11:34 SKIN Home Medications Medication Instructions Recorded Confirmed Type empagliflozin 10 mg tablet 10 mg PO QAM 03/21/22 09/09/22 History (Jardiance) furosemide 40 mg tablet 40 mg PO QAM 03/21/22 09/09/22 History metoprolol succinate 50 mg 50 mg PO QAM 03/21/22 09/09/22 History tablet,extended release 24 hr ondansetron HCl 8 mg tablet 8 mg PO Q8 PRN Nausea 03/21/22 09/09/22 History spironolactone 25 mg tablet 25 mg PO QAM 03/21/22 09/09/22 History potassium chloride 20 mEq 20 meq PO BID 05/07/22 09/09/22 History tablet,extended release(part/cryst) oxycodone 20 mg tablet 20 mg PO Q4H PRN Pain 06/12/22 09/09/22 History prochlorperazine maleate 10 mg 10 mg PO DAILY PRN Nausea 06/12/22 09/09/22 History tablet magnesium oxide 400 mg PO BID 06/25/22 09/09/22 History levothyroxine 50 mcg tablet 50 mcg PO DAILYBB #30 tabs 06/26/22 09/09/22 Rx (Synthroid) morphine 60 mg tablet,extended 60 mg PO Q12H #1 tab 06/26/22 09/09/22 Rx release pantoprazole 40 mg tablet,delayed 40 mg PO QAM #30 tabs 06/26/22 09/09/22 Rx release (Protonix) ferrous sulfate 325 mg (65 mg 325 mg PO BID #60 tabs 07/02/22 09/09/22 Rx iron) tablet folic acid 1 mg tablet 1 mg PO QAM 07/02/22 09/09/22 History cyanocobalamin (vitamin B-12) 1,000 mcg PO DAILY #30 caps 07/03/22 09/09/22 Rx 1,000 mcg capsule Patient History Medical History (Updated 09/11/22 @ 11:30 by María Scott DNP) Advanced care planning/counseling discussion Cancer related pain Chronic anemia H/O deep venous thrombosis extensive, RLE Hemorrhagic shock 2nd to rectal bleeding - required ICU stay [facility] 04/2022; location of bleeding never found; anticoagulation stopped at that time History of cardiomyopathy 2nd chemotherapy; prior EF <20%; now 50% (12/2020 @ [facility]) History of pulmonary embolism Hypertension Hypothyroidism Iron deficiency anemia Leiomyosarcoma initial dx 2017; extensive metastatic disease Leiomyosarcoma Palliative care encounter Surgical History History of X2 History of hysterectomy HANH/BSO 11/2017 - [facility] [place] History of lung biopsy LEFT History of renal stent b/l ureteral stents Family History Father Diabetes Hypertension Myocardial infarction PAD (peripheral artery disease) Mother Cerebral aneurysm Denies family history of Ovarian cancer Prostate cancer Breast cancer Colorectal cancer Social History Smoking Status: Former smoker Age Started Using Tobacco: 21; Age Quit Using Tobacco: 29; packs per day: 0.25; Cigarettes Per Day: 5; Second Hand Exposure: No; Do You Dip or Chew Tobacco: No; Tobacco Cessation Education Requested by Patient: No Hx Alcohol Use: No Hx Substance Use: Yes Last Used Substance: Days (ago) Substance Use Type Other:: pt has a medical THC care for pain Preferred Language: Estonian Communication Ability: Effective Billing Services Manager Required: No Beliefs That Will Affect Care: None marital status: Current Living Situation: Spouse current occupational status: previously employed current occupation: [employer] How many Children do You have: 2 Other Information That Helps Us Care for You: No Feels Safe at Home: Yes Safety Concerns: Feels Safe At This Time Assistive Devices: None Review of Systems Review of Systems: All systems reviewed & are unremarkable except as noted in Subjective Physical Exam Physical Exam: Signif distress and pain with grimacing noted. distended firm abdomen, +peripheral edema +2 BUE and +1-2 BLE. Generalized weakness and cachexia noted. Mood tearful and subdued. Results & Data ([facility]) Vital Signs (Past 12 Hours) Vital Signs Temp Pulse Resp BP Pulse Ox O2 Del Method 09/10/22 20:00 Room Air 09/10/22 19:00 37.3 C 96 H 18 106/70 95 Room Air 09/10/22 15:47 36.9 C 89 20 99/63 L 94 Room Air 09/10/22 11:48 37 C 83 18 110/72 96 Room Air Laboratory Results reviewed Diagnostic Findings reviewed PG Care Time/CCT Total # of Minutes Spent Total Time Spent: 96 Total Time Spent with Patient: Total time spent is greater than 50% in coordination of care (as documented) at patient's floor/unit and/or counseling patient: I spent 96 minutes overall addressing this case: 15 in medical data review/discussion with referring provider(s) and/or preparation for the visit: chart review, discussions with primary team and oncology 30 in direct interaction with the patient and at pt beds latha 35 Advance Care Planning/Goals of Care discussions as detailed above in note (must be >16min) 8 in subsequent review and synthesis of assessment and plan 5 in communicating with other providers regarding the patient's case: primary team, nursing Prolonged Care Time Prolonged Care Time: Yes Advanced Care Planning 42672 Advanced Care Planning Additional 30 [place] [address] Inpt Consult Level 5 Patient Type New History Comprehensive Exam Expanded Problem Focused Medical Decision Making High Complexity Diagnoses Palliative care encounter Z51.5 Cancer related pain G89.3 Advanced care planning/counseling discussion Z71.89 Leiomyosarcoma C49.9 Additional Codes Prolonged Care Time - Prolonged Care Time: Yes ([id number]) Advanced Care Planning - 18319 Advanced Care Planning Additional 30 Min: 17964 Advanced Care Planning Additional 30 Min ([id number])
[2022-09-11] MEDS: LEVOTHYROXINE SODIUM 75 MCG TABLET PO SCH (05:47)
[2022-09-11 06:36] LABS: INR 1.2 (0.9-1.1)
[2022-09-11 06:38] LABS: Hematocrit (blood only) 25.8 % (34.1-44.9); Hemoglobin 7.9 g/dl (12.0-16.0); Mean Corpuscular Hemoglobin 30.6 pg (25.0-34.0); Mean Corpuscular Hgb Conc 30.6 g/dL (32.0-36.0); RDW Coefficient of Variation 18.3 % (11.5-14.5); RDW Standard Deviation 66.4 fL (36.4-46.3); Red Blood Count 2.58 M/uL (3.93-5.22); White Blood Count 11.59 K/ul (4.8-10.8)
[2022-09-11 06:46] LABS: Mean Platelet Volume 10.5 fL (9.4-12.3); Platelet Count 96 K/uL (130-400); Platelet Estimate Decreased (Normal)
[2022-09-11 06:56] LABS: Albumin Globulin Ratio 0.7 (0.9-2); Albumin Level 2.2 gm/dl (3.4-5.0); BUN Creatinine Ratio 18.5 (10-20); Bilirubin,Total 0.6 mg/dl (0.2-1.0); Calcium 7.4 mg/dl (8.5-10.1); Creatinine Clr Calc Pharmacy 30.9 ml/min; Est GFR (African American) 36.9 ml/min; Est GFR (Non-African American) 31.9 ml/min; Globulin 3.2 gm/dl (2.5-4.0); Magnesium 1.9 mg/dl (1.7-2.4); Potassium 4.4 mmol/L (3.5-5.1); Total Protein 5.4 gm/dl (6.0-8.3)
[2022-09-11 07:05] LABS: Ferritin 1215.2 ng/ml (8-388)
--- NOTE | 2022-09-11 07:55 | Hospitalist Progress Note ---
Date of Service September 11, 2022 Assessment & Plan (1) Anemia: Plan: Presented with worsening shortness of breath and whole body edema/anasarca Patient with known metastatic Leiomyosarcoma not currently receiving chemotherapy or radiation due to severe anemia, patient has required multiple transfusions in the past and reported getting labs done on Thursday outpatient and arrangement for PRBC transfusions for Wednesdays but that her symptoms progressed prompting coming to ER rather than wait for outpatient transfusion Imaging with worsening tumors to pelvis, likely compressing on vasculature causing worsening body edema. CTA Chest/A/P : * NO PE, does note multifocal metastatic disease. This has progressed as compared to 06/12/2022., small-moderate pleural effusions, small volume of abdominopelvic ascites, anasarca indicate fluid overload. An approximately 22 cm necrotic mass lesion fills the pelvis and encases/displaces several structures as above, including the rectum and several bowel loops. Invasion of these structures is not excluded. Tiny foci of active extravasation within this lesion are not excluded. Additional large mass lesions within the abdomen and pelvis have increased in size from previous. Hepatomegaly with progressive hepatic metastatic disease. Occluded right internal iliac artery. There is moderate to severe right and mild left hydronephrosis with ureteral stents in place. Venous Doppler LE : * There is a chronic appearing nonocclusive thrombus in the right common femoral vein, popliteal vein, and great saphenous vein. The left great saphenous vein is equivocal and may be noncompressible due to extensive edema. A small amount of linear chronic thrombus is suggested. Hgb 7.6 on admit and was given lasix 40mg IV x 2 --> hgb 8.5, additional 20mg IV AM 09/10 Hgb 7.9 on am labs -- sob, discussed w/ oncology, ok for additional 1u PRBC, IV lasix for 09/11 94% on RA, still SOB w/ ambulation Consider 2step prior to dc Hypothyroidism likely contributing to anemia as well, however multiple reasons as above TSH checked during inpatient admit in June w/ continued anemia which was ELEVATED to 30 -Repeat TSH ELEVATED to 14.845 as no recheck outpatient --> increased Synthroid to 75mcg daily Heme/onc consulted -- ferritin elevated, no Venofer, OK for another u PRBC as above. -- likely unable to offer any more chemo through her primary given ongoing anemia (likely from her malignancy) Palliative consulted for goals of care see their note, appreciate assistance. Patient had her pain regimen increased outpatient for her OxyContin, reported controlled for most part however appeared slightly uncomfortable [employer] Contin 60mg q12h + Oxy IR 20mg 3-4 doses/day without optimal relief ---> Placed on Dilaudid KNOTTER HAND, adjusting for cross tolerance, starting 0.3mg per hour with 0.2mg Q10min for breakthrough and hoping to be able to transition to methadone in next 24-48 hours Also will await to hear back from heme/onc, hopefully patient will be agreeable, but has young children at home. May be very difficult. (2) Leiomyosarcoma: Plan: s/p tumor debulking with Dr Lou in 2019 and multiple rounds of chemo (w/ Dr Salas and Dr Mckeon), most recently on Trabectedin. Had been hospitalized for hypotension/hgb5 c/w hypovolemic shock. Was given Kcentra/2u PRBC, rebled and another 2u PRBC and TXA and 2u FFP. Then tx to [facility] for further management, given 3 more units and cryo. Eliquis discontinued, not candidate for IVF filter given unable to place due to vein compression likely related to intra-abdominal mass Patient with known metastatic disease, concern she could have mets pushing on major blood vessels causing her anasarca -- likely based on imaging/enlarged tumor to pelvis Oncology on consult as above Palliative consulted as above for goals of care -- pain management as outlined above with Dilaudid KNOTTER HAND (3) Fluid overload: Plan: Multifactorial including hypoalbuminemia, anasarca from her known cancer, possible mass effect, and hx of heart failure Recent PIEDAD w/ normal LV systolic function, does have murmur on exam, but doubt benefit for repeat given just done in June, EF 50-55%, no wma Discussed possible paracentesis w/ heme/onc, minimal ascites on exam would doubt much help. Could consider thoracensis if developed worsening respiratory symptoms Given 40mg IV lasix x 2 on admit, additional 20mg IV 09/10 --> lasix 40mg IV this morning with 1u PRBC, hold PO lasix (4) Hypertension: Plan: Borderline 98s/60s, no lightheaded/dizziness, has been ambulating to bathroom 1u PRBC w/ lasix as above Continues on spironolactone, metoprolol Hold PO lasix for now (5) Hypothyroidism: Plan: Continue levothyroxine 50mcg daily Of note, TSH was 36 in June, placed on Synthroid 50mcg daily -- she reports has been taking this correctly, never had any repeat TFT outpatient Repeat TSH still elevated at 14.8, borderline T4 --> increased Synthroid to 75mcg daily -- continue at d/c (6) History of cardiomyopathy: Plan: Had a TTE in june of this year, will hold off on repeat for now -Continue spironolactone Lasix IV on admit x 2, additional 20mg IV x 1 this morning with plans to resume PO tomorrow (7) Hx of deep venous thrombosis: Plan: Patient was previously diagnosed with lare right LE DVT's when she was transferred to [place] with her large GI bleed US LE Doppler w/ chronic DVT --> LE edema likely compression from pelvic tumors as above Checking US UE for prognostic data/UE edema, 1. No DVT within the right or left lower extremity. 2. Nonocclusive thrombus within the right internal jugular vein which may be chronic Not able to be on anticoagulation, or have IVC filter placed due to location/too high risk and recent lift-threatening bleeding High risk as she is aware, CT chest on admit w/o PE Plan continued inpatient stay Dilaudid KNOTTER HAND for pain control -- palliative to assist in titration/transition to methadone for better control at discharge Admission and Anticipated Discharge Date Admission Date: September 09, 2022 Supervising Physician Co-Signing Physician Notes I did not personally interview or examine this patient. I did review LISETTE Hernandez's assessment and plan, and I agree with the following exceptions: none Subjective Patient evaluated this morning, at bedside. Fatigued/shortness of breath, not worse than yesterday. Did discuss additional unit of PRBC given symptoms, will order additional dose of Lasix. LE edema improved but discussed likely will stay about this size. Pain controlled, passing some gas. Discussed increasing her Senokot. Discussed planning/palliative consultation -- children aged 11 and 14 at home. They do not have living will or advanced directive. Also discussed pain control/etc and in these circumstances sometimes better to get them involved sooner while cognitively with it/able to make decisions. She is agreeable for consultation at this time. Review of Systems Review of Systems: All systems reviewed & are unremarkable except as noted in HPI & below Physical Exam Physical Exam: General: chronically ill appearing female sitting up in bed, appears older than stated age, NAD, at bedside HEENT: head normocephalic, atraumatic, mmm, trachea midline Chest: mediport L chest, no signs of infection Resp: diminished in the bases, end expiratory wheezing, faint crackles, on room air 94% CV: regular rate, rhythm, +systolic murmur, ?S3, 1+ pitting edema b/l LE, RLE > LLE, calf nontender GI: +distension, + BS, firm, not overly tender to palpation but reporting feeling tight, no bruising : no arriaga MSK/Neuro: moves all extremities, no focal deficit/slurred speech Psych: AOx3, pleasant and cooperative Results & Data Results & Data ([facility]) Vital Signs (Past 12 Hours) Vital Signs Temp Pulse Pulse Resp BP Pulse Ox O2 Del Method 09/11/22 04:00 37.2 C 93 H 18 97/60 L 93 Room Air 09/11/22 00:00 109 H 09/10/22 23:00 37.3 C 97 H 18 93/61 L 94 Room Air 09/10/22 20:00 Room Air Laboratory Results 09/11/22 09/11/22 09/11/22 Range/Units 05:40 05:40 05:40 WBC 11.59 H (4.8-10.8) K/ul RBC 2.58 L (3.93-5.22) M/uL Hgb 7.9 L (12.0-16.0) g/dl Hct 25.8 L (34.1-44.9) % MCV 100.0 (80.0-100.0) fL MCH 30.6 (25.0-34.0) pg MCHC 30.6 L (32.0-36.0) g/dL RDW Std Deviation 66.4 H (36.4-46.3) fL RDW Coeff of Jennifer 18.3 H (11.5-14.5) % Plt Count 96 L (130-400) K/uL MPV 10.5 (9.4-12.3) fL Platelet Estimate Decreased L (Normal) PT 13.0 H (9.0-12.0) Seconds INR 1.2 H (0.9-1.1) Sodium 139 (136-145) mmol/L Potassium 4.4 (3.5-5.1) mmol/L Chloride 104 (98-107) mmol/L Carbon Dioxide 30 (21-32) mmol/L Anion Gap 5 (3-11) BUN 34 H (6-23) mg/dl Creatinine 1.84 H (0.6-1.2) mg/dl Est Cr Clr Drug Dosing 30.9 ml/min Est GFR ( Amer) 36.9 ml/min Est GFR (Non-Af Amer) 31.9 ml/min BUN/Creatinine Ratio 18.5 (10-20) Glucose 96 (70-99(Fasting)) mg/dl Calcium 7.4 L (8.5-10.1) mg/dl Magnesium 1.9 (1.7-2.4) mg/dl Iron 17 L (35-150) mcg/dl TIBC 117 L (250-450) mcg/dl Unsaturated IBC 100 L (155-355) mcg/dl Transferrin % Sat 15 (15-50) % Ferritin 1215.2 H (8-388) ng/ml Total Bilirubin 0.6 (0.2-1.0) mg/dl AST 88 H (13-39) U/L ALT 8 (7-52) U/L Alkaline Phosphatase 237 H (34-104) U/L Total Protein 5.4 L (6.0-8.3) gm/dl Albumin 2.2 L (3.4-5.0) gm/dl Globulin 3.2 (2.5-4.0) gm/dl Albumin/Globulin Ratio 0.7 L (0.9-2) Vitamin B12 (180-914) pg/ml Folate (>5.38) ng/ml TSH (0.300-4.500) uIu/ml Free T4 (0.61-1.60) ng/dl 09/10/22 09/10/22 09/10/22 Range/Units 11:49 08:00 08:00 WBC (4.8-10.8) K/ul RBC (3.93-5.22) M/uL Hgb (12.0-16.0) g/dl Hct (34.1-44.9) % MCV (80.0-100.0) fL MCH (25.0-34.0) pg MCHC (32.0-36.0) g/dL RDW Std Deviation (36.4-46.3) fL RDW Coeff of Jennifer (11.5-14.5) % Plt Count (130-400) K/uL MPV (9.4-12.3) fL Platelet Estimate (Normal) PT (9.0-12.0) Seconds INR (0.9-1.1) Sodium 140 (136-145) mmol/L Potassium 4.3 (3.5-5.1) mmol/L Chloride 105 (98-107) mmol/L Carbon Dioxide 30 (21-32) mmol/L Anion Gap 5 (3-11) BUN 31 H (6-23) mg/dl Creatinine 1.68 H (0.6-1.2) mg/dl Est Cr Clr Drug Dosing 33.9 ml/min Est GFR ( Amer) 41.2 ml/min Est GFR (Non-Af Amer) 35.6 ml/min BUN/Creatinine Ratio 18.5 (10-20) Glucose 104 H (70-99(Fasting)) mg/dl Calcium 7.3 L (8.5-10.1) mg/dl Magnesium 1.8 (1.7-2.4) mg/dl Iron (35-150) mcg/dl TIBC (250-450) mcg/dl Unsaturated IBC (155-355) mcg/dl Transferrin % Sat (15-50) % Ferritin (8-388) ng/ml Total Bilirubin 0.7 (0.2-1.0) mg/dl AST 85 H (13-39) U/L ALT 8 (7-52) U/L Alkaline Phosphatase 232 H (34-104) U/L Total Protein 5.7 L (6.0-8.3) gm/dl Albumin 2.2 L (3.4-5.0) gm/dl Globulin 3.5 (2.5-4.0) gm/dl Albumin/Globulin Ratio 0.6 L (0.9-2) Vitamin B12 1099 H (180-914) pg/ml Folate 14.79 (>5.38) ng/ml TSH 14.845 H (0.300-4.500) uIu/ml Free T4 0.64 (0.61-1.60) ng/dl 09/10/22 09/10/22 Range/Units 08:00 08:00 WBC 8.89 (4.8-10.8) K/ul RBC 2.79 L (3.93-5.22) M/uL Hgb 8.5 L (12.0-16.0) g/dl Hct 27.6 L (34.1-44.9) % MCV 98.9 (80.0-100.0) fL MCH 30.5 (25.0-34.0) pg MCHC 30.8 L (32.0-36.0) g/dL RDW Std Deviation 67.7 H (36.4-46.3) fL RDW Coeff of Jennifer 18.8 H (11.5-14.5) % Plt Count 103 L (130-400) K/uL MPV 10.3 (9.4-12.3) fL Platelet Estimate (Normal) PT 13.3 H (9.0-12.0) Seconds INR 1.3 H (0.9-1.1) Sodium (136-145) mmol/L Potassium (3.5-5.1) mmol/L Chloride (98-107) mmol/L Carbon Dioxide (21-32) mmol/L Anion Gap (3-11) BUN (6-23) mg/dl Creatinine (0.6-1.2) mg/dl Est Cr Clr Drug Dosing ml/min Est GFR ( Amer) ml/min Est GFR (Non-Af Amer) ml/min BUN/Creatinine Ratio (10-20) Glucose (70-99(Fasting)) mg/dl Calcium (8.5-10.1) mg/dl Magnesium (1.7-2.4) mg/dl Iron (35-150) mcg/dl TIBC (250-450) mcg/dl Unsaturated IBC (155-355) mcg/dl Transferrin % Sat (15-50) % Ferritin (8-388) ng/ml Total Bilirubin (0.2-1.0) mg/dl AST (13-39) U/L ALT (7-52) U/L Alkaline Phosphatase (34-104) U/L Total Protein (6.0-8.3) gm/dl Albumin (3.4-5.0) gm/dl Globulin (2.5-4.0) gm/dl Albumin/Globulin Ratio (0.9-2) Vitamin B12 (180-914) pg/ml Folate (>5.38) ng/ml TSH (0.300-4.500) uIu/ml Free T4 (0.61-1.60) ng/dl Diagnostic Findings Venous Doppler Study 09/11/22 00:00 BILATERAL UPPER EXTREMITY VENOUS DOPPLER HISTORY: Arm swelling. r/o DVT COMPARISON STUDY: None. FINDINGS: There is normal compressibility, flow, and augmentation within the bilateral subclavian, axillary, brachial, ulnar, radial, and cephalic veins. The left internal jugular vein is patent. There is partial nonocclusive thrombus within the right internal jugular vein. This may be chronic. IMPRESSION: 1. No DVT within the right or left lower extremity. 2. Nonocclusive thrombus within the right internal jugular vein which may be chronic. ACT 112: Negative or not required by law. Electronically signed by: Juan Hammer M.D. 09/11/2022 10:53 AM PG Care Time/CCT Total # of Minutes Spent Total Time Spent with Patient: Total time spent is greater than 50% in coordination of care (as documented) at patient's floor/unit and/or counseling patient: Coding Level of Care Code 40682 Subseq Hosp Care Lvl 3 Diagnoses Anemia D64.9 Anemia type: unspecified type Leiomyosarcoma C49.9 Fluid overload E87.79 Hypervolemia type: other Hypertension I10 Hypothyroidism E03.9 History of cardiomyopathy Z86.79 Hx of deep venous thrombosis Z86.718 (1) Anemia Anemia type: unspecified type Qualified Code(s): D64.9 - Anemia, unspecified (2) Fluid overload Hypervolemia type: other Qualified Code(s): E87.79 - Other fluid overload
[2022-09-11] MEDS ORDERED: SODIUM CHLORIDE 0.9% 250 ML IV PRN (08:45)
[2022-09-11] MEDS ORDERED: FUROSEMIDE 40 MG/4 ML VIAL IV ONE ×2 (08:45→13:30)
[2022-09-11] MEDS ORDERED: FUROSEMIDE 20 MG TAB PO SCH (09:00)
[2022-09-11] MEDS: PROCHLORPERAZINE 10 MG in SYRINGE 8 ML IV PRN (09:35)
[2022-09-11] MEDS: SPIRONOLACTONE 25 MG TAB PO SCH (09:36)
[2022-09-11] MEDS: FOLIC ACID 1 MG TAB PO SCH (09:36)
[2022-09-11] MEDS: DOCUSATE SODIUM/SENNA 50/8.6MG TAB PO SCH (09:36)
[2022-09-11] MEDS: PANTOprazole 40 MG TAB PO SCH (09:37)
[2022-09-11] MEDS: DOCUSATE SODIUM 100 MG CAP PO SCH ×2 (09:37→20:59)
[2022-09-11] MEDS: POTASSIUM CHLORIDE 20 MEQ/15 ML UDC PO SCH ×2 (09:37→20:59)
[2022-09-11] MEDS: METOPROLOL SUCC 50MG EXT REL TAB PO SCH (09:38)
[2022-09-11] MEDS: CYANOCOBALAMIN (B-12) 500 MCG TABLET PO SCH (09:38)
[2022-09-11] MEDS: MoRPHine SULFATE CR 15 MG TABCR PO SCH (09:42)
--- NOTE | 2022-09-11 10:55 | Ultrasound Report ---
BILATERAL UPPER EXTREMITY VENOUS DOPPLER HISTORY: Arm swelling. r/o DVT COMPARISON STUDY: None. FINDINGS: There is normal compressibility, flow, and augmentation within the bilateral subclavian, ax illary, brachial, ulnar, radial, and cephalic veins. The left internal jugular vein is patent. There is partial nonocclusive thrombus within the right internal jugular vein. This may be chronic. IMPRESSION: 1. No DVT within the right or left lower extremity. 2. Nonocclusive thrombus within the right internal jugular vein which may be chronic. ACT 112: Negative or not required by law. Electronically signed by: Juan Hammer M.D. 09/11/2022 10:53 AM
[2022-09-11] MEDS ORDERED: NALOXONE HCL 0.4 MG/1 ML VIAL/CARP IV PRN (12:42)
[2022-09-11] MEDS: MAGNESIUM OXIDE 400 MG TAB PO SCH ×2 (12:49→20:59)
[2022-09-11] MEDS: SODIUM CHLORIDE 0.9% 1000ML 1,000 ML IV SCH (15:44)
[2022-09-11] MEDS: HYDROmorphone PCA 30 MG/30 ML IV PRN ×2 (17:55→19:05)
[2022-09-12] MEDS ORDERED: ACETAMINOPHEN 325 MG TAB ONE (02:47)
[2022-09-12] MEDS: LEVOTHYROXINE SODIUM 75 MCG TABLET PO SCH (05:42)
[2022-09-12 06:13] LABS: Hematocrit (blood only) 27.9 % (34.1-44.9); Hemoglobin 8.6 g/dl (12.0-16.0); Mean Corpuscular Hemoglobin 30.1 pg (25.0-34.0); Mean Corpuscular Hgb Conc 30.8 g/dL (32.0-36.0); Mean Corpuscular Volume 97.6 fL (80.0-100.0); Mean Platelet Volume 10.7 fL (9.4-12.3); Platelet Count 85 K/uL (130-400); RDW Coefficient of Variation 18.6 % (11.5-14.5); RDW Standard Deviation 65.4 fL (36.4-46.3); Red Blood Count 2.86 M/uL (3.93-5.22); White Blood Count 15.61 K/ul (4.8-10.8)
[2022-09-12 06:34] LABS: INR 1.3 (0.9-1.1); Prothrombin Time 13.4 Seconds (9.0-12.0)
[2022-09-12 06:49] LABS: Albumin Globulin Ratio 0.7 (0.9-2); Albumin Level 2.2 gm/dl (3.4-5.0); BUN Creatinine Ratio 20.9 (10-20); Bilirubin,Total 1.1 mg/dl (0.2-1.0); Calcium 7.2 mg/dl (8.5-10.1); Creatinine Clr Calc Pharmacy 35.9 ml/min; Est GFR (African American) 38.7 ml/min; Est GFR (Non-African American) 33.4 ml/min; Globulin 3.2 gm/dl (2.5-4.0); Magnesium 1.7 mg/dl (1.7-2.4); Potassium 4.3 mmol/L (3.5-5.1); Total Protein 5.4 gm/dl (6.0-8.3)
[2022-09-12] MEDS: HYDROmorphone INJ 1 MG/ML SYRINGE IV PRN (07:16)
--- NOTE | 2022-09-12 08:55 | Hospitalist Progress Note ---
Date of Service September 12, 2022 Assessment & Plan (1) Anemia: Plan: Presented with worsening shortness of breath and whole body edema/anasarca Patient with known metastatic Leiomyosarcoma not currently receiving chemotherapy or radiation due to severe anemia, patient has required multiple transfusions in the past and reported getting labs done on Thursday outpatient and arrangement for PRBC transfusions for Wednesdays but that her symptoms progressed prompting coming to ER rather than wait for outpatient transfusion Imaging with worsening tumors to pelvis, likely compressing on vasculature causing worsening body edema. CTA Chest/A/P : * NO PE, does note multifocal metastatic disease. This has progressed as compared to 06/12/2022., small-moderate pleural effusions, small volume of abdominopelvic ascites, anasarca indicate fluid overload. An approximately 22 cm necrotic mass lesion fills the pelvis and encases/displaces several structures as above, including the rectum and several bowel loops. Invasion of these structures is not excluded. Tiny foci of active extravasation within this lesion are not excluded. Additional large mass lesions within the abdomen and pelvis have increased in size from previous. Hepatomegaly with progressive hepatic metastatic disease. Occluded right internal iliac artery. There is moderate to severe right and mild left hydronephrosis with ureteral stents in place. Venous Doppler LE : There is a chronic appearing nonocclusive thrombus in the right common femoral vein, popliteal vein, and great saphenous vein. The left great saphenous vein is equivocal and may be noncompressible due to extensive edema. A small amount of linear chronic thrombus is suggested. Upper Ext Doppler:1. No DVT within the right or left lower extremity. 2. Nonocclusive thrombus within the right internal jugular vein which may be chronic. Heme/onc -- no further chemo to be offered Palliative consulted -- pain control as below. Made DNR/DNI. Needs to have POLST filled out but can be done closer to d/c Hgb stable after 2u PRBC and 3 doses of IV lasix at 8.6. Monitor for need for further transfusions Did have fever overnight-- temps last evening 38.5-38.9, Tylenol added prn (had been afebrile on admit) Given combination w/ WBC elevated to 15.6k, concerns for infection (also ?TLS given tumor burden -- checked uric acid - elevated to 10, dis cussed w/ hematology and placed on allopurinol 300mg daily given not getting any more treatment) Procal 8.26 -- blood cultures added and monitor UA ?infection -- monitor CXR with progressive mixed interstitial and alveolar opacities suggestive of pulmonary edema. Multifocal pneumonia could appear similarly. Given increased crackles on exam/fever/WBC, decision to place on Zosyn/Doxy for coverage of pneumonia given recent inpatient stay, can descalate as able. Sputum cx if able to obtain. KUB w/o obstruction (has moved bowels per patient) (2) Cancer related pain: Plan: Palliative consulted for goals of care/pain control see their note, appreciate assistance. 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 q12h + Oxy IR 20mg 3-4 doses/day without optimal relief ---> Placed on Dilaudid PRESENTATION SPECIALIST, adjusting for cross tolerance, starting 0.3mg per hour with 0.2mg Q10min for breakthrough and hoping to be able to transition to methadone in next 24-48 hours 09/12 Unsure if getting much control w/ current rate -- appears uncomfortable on exam Given 1x dose 0.5mg Dilaudid for pain control, plans to increase Dilaudid PRESENTATION SPECIALIST basal to 0.5mg and continue to monitor (3) Fever: Plan: New 38.5-38.9F last evening through this morning -- was not having fever at home ?also if possible tumor lysis, uric acid elevated -- allopurinol 300mg daily as above Also UA/KUB for infection/obstruction -monitor Biofire NEGATIVE, as checked for possible multifocal pneumonia Tylenol/pain control/supportive care Abx with Zosyn/Doxy Suspected possible pneumonia, incentive spirometer added will add nebs prn (4) Leiomyosarcoma: Plan: s/p tumor debulking with Dr Lou in 2019 and multiple rounds of chemo (w/ Dr Salas and Dr Mckeon), most recently on Trabectedin. Had been hospitalized for hypotension/hgb5 c/w hypovolemic shock. Was given Kcentra/2u PRBC, rebled and another 2u PRBC and TXA and 2u FFP. Then tx to [facility] for further management, given 3 more units and cryo. Eliquis discontinued, not candidate for IVF filter given unable to place due to vein compression likely related to intra-abdominal mass Patient with known metastatic disease, concern she could have mets pushing on major blood vessels causing her anasarca -- likely based on imaging/enlarged tumor to pelvis Oncology on consult as above Palliative consulted as above for goals of care -- pain management as outlined above with Dilaudid PRESENTATION SPECIALIST, increasing today for better control (5) Fluid overload: Plan: Multifactorial including hypoalbuminemia, anasarca from her known cancer, possible mass effect, and hx of heart failure Recent PIEDAD w/ normal LV systolic function, does have murmur on exam, but doubt benefit for repeat given just done in June, EF 50-55%, no wma Discussed possible paracentesis w/ heme/onc, minimal ascites on exam would doubt much help. Could consider thoracensis if developed worsening respiratory symptoms Given 40mg IV lasix x 2 on admit, additional 20mg IV 09/10 and 40mg IV on 09/11 with blood Holding AM lasix for now, Cr improved. Remains on spironolactone (placed AM dose on hold for tomorrow with her lasix PO) Does appear a little dehydrated on exam with dry mm, however still w/ edema, holding off further IV lasix given bump in Cr, however improved after blood (6) Hypertension: Plan: Borderline 98s/60s, no lightheaded/dizziness, has been ambulating to bathroom b Will hold further spirnolactone, lasix on hold (given IV yesterday) Monitor (7) Hypothyroidism: Plan: Continue levothyroxine 50mcg daily Of note, TSH was 36 in June, placed on Synthroid 50mcg daily -- she reports has been taking this correctly, never had any repeat TFT outpatient Repeat TSH still elevated at 14.8, borderline T4 --> increased Synthroid to 75mcg daily -- continue at d/c (8) History of cardiomyopathy: Plan: Had a TTE in june of this year, will hold off on repeat for now Spironolactone continued (hold for tomorrow), has been given multiple doses of IV lasix during inpatient stay as above (9) Hx of deep venous thrombosis: Plan: Patient was previously diagnosed with lare right LE DVT's when she was transferred to [place] with her large GI bleed US LE Doppler w/ chronic DVT --> LE edema likely compression from pelvic tumors as above Checked US UE for prognostic data/UE edema, 1. No DVT within the right or left lower extremity. 2. Nonocclusive thrombus within the right internal jugular vein which may be chronic Not able to be on anticoagulation, or have IVC filter placed due to location/too high risk and recent lift-threatening bleeding High risk as she is aware, CT chest on admit w/o PE Plan continued inpatient stay increased pain control start allopurinol start Zosyn/Doxy for possible pneumonia, nebs, incentive spirometer Monitor urine/blood cultures/any further fevers Per palliative, home w/ hospice but wanting agency who would be able to continue transfusions as needed for comfort until gets to point where no longer effective. CM to look into this as I was unaware this was possible. Would benefit from having POLST filled out closer to discharge however just making decision for DNR/DNI today and will hold off for now Admission and Anticipated Discharge Date Admission Date: September 09, 2022 Supervising Physician Co-Signing Physician Notes I did not personally interview or examine the patient. I did review LISETTE Hernandez's assessment and plan and agree with the following exceptions: Patient with uric acid > 8, she does not meet other Mehran-Lai criteria for tumor lysis syndrome at this time. Even if she did, recommend against Rasburicase use since we are not actively treating the cancer (per oncology). Subjective Eval this morning around 1045, sitting up at edge of bed, not sure if she is getting anything from the PRESENTATION SPECIALIST. She has been hitting the button but still appears uncomfortable. Does have some labored breathing. Concerns for possible tumor lysis syndrome, checking phos level but uric acid level elevated and would plan to start allopurinol. Hgb stable. She did have a temp last night. She states she felt warm. Some nausea on occasion, has had a couple small bowel movement. Checking urine/cxr/kub and blood cultures for further eval. Tylenol given this morning. at bedside. They did agree ultimate plan is at home w/ as much time w/ family as possible. Alerted palliative for need for pain control. She is tachycardic, but denies palpitations/feeling dizzy/lightheaded. Sinus tach 100-110s on monitor. She does endorse from anxiety, offered medications but she declines at present. Review of Systems Review of Systems: All systems reviewed & are unremarkable except as noted in HPI & below Physical Exam Physical Exam: General: chronically ill appearing female , appears older than stated age, sitting up at side of bed, mild-moderate distress/uncomfortable appearing HEENT: head normocephalic, atraumatic, mmm, trachea midline Chest: mediport L chest, no signs of infection Resp: diminished in the bases, bibasilar crackles, no wheezing, 97% on RA CV: regular rate, rhythm, +systolic murmur, ?S3, 1+ pitting edema b/l LE, RLE >LLE, calf nontender GI: +distension, + BS, firm, minimally tender to palpation, tight, no bruising : no arriaga MSK/Neuro: moves all extremities, no focal deficit/slurred speech Psych: AOx3, cooperative Results & Data Results & Data ([facility]) Vital Signs (Past 12 Hours) Vital Signs Temp Pulse Resp BP Pulse Ox O2 Del Method 09/12/22 06:58 37.7 C H 117 H 18 110/62 97 Room Air 09/12/22 02:33 38.9 C H 111 H 16 105/66 97 Room Air 09/11/22 22:42 38.5 C H 106 H 18 111/69 95 Room Air Laboratory Results 09/12/22 09/12/22 09/12/22 Range/Units 10:25 09:32 09:10 WBC (4.8-10.8) K/ul RBC (3.93-5.22) M/uL Hgb (12.0-16.0) g/dl Hct (34.1-44.9) % MCV (80.0-100.0) fL MCH (25.0-34.0) pg MCHC (32.0-36.0) g/dL RDW Std Deviation (36.4-46.3) fL RDW Coeff of Jennifer (11.5-14.5) % Plt Count (130-400) K/uL MPV (9.4-12.3) fL PT (9.0-12.0) Seconds INR (0.9-1.1) Sodium (136-145) mmol/L Potassium (3.5-5.1) mmol/L Chloride (98-107) mmol/L Carbon Dioxide (21-32) mmol/L Anion Gap (3-11) BUN (6-23) mg/dl Creatinine (0.6-1.2) mg/dl Est Cr Clr Drug Dosing ml/min Est GFR ( Amer) ml/min Est GFR (Non-Af Amer) ml/min BUN/Creatinine Ratio (10-20) Glucose (70-99(Fasting)) mg/dl Uric Acid (2.6-7.2) mg/dl Calcium (8.5-10.1) mg/dl Phosphorus Pending Magnesium (1.7-2.4) mg/dl Total Bilirubin (0.2-1.0) mg/dl AST (13-39) U/L ALT (7-52) U/L Alkaline Phosphatase (34-104) U/L Total Protein (6.0-8.3) gm/dl Albumin (3.4-5.0) gm/dl Globulin (2.5-4.0) gm/dl Albumin/Globulin Ratio (0.9-2) Procalcitonin (0-0.5) ng/ml Urine Color Fern Urine Appearance Turbid A (Clear) Urine pH 7.5 (4.5-7.5) Ur Specific [place] 1.023 (1.000-1.030) Urine Protein 2+ H (Negative) Urine Glucose (UA) Negative (Negative) Urine Ketones Negative (Negative) Urine Blood 3+ H (Negative) Urine Nitrite Negative (Negative) Urine Bilirubin 1+ H (Negative) Urine Urobilinogen Negative (Negative) Ur Leukocyte Esterase 3+ H (Negative) Urine WBC (Auto) Pending Urine RBC (Auto) Pending U Hyaline Cast (Auto) Pending U Epithel Cells (Auto) Pending Urine Bacteria (Auto) Pending Urine Yeast Pending Adenovirus (PCR) Not Detected (NotDetected) B. pertussis DNA (PCR) Not Detected (NotDetected) B.parapertussis DNA PCR Not Detected (NotDetected) C. pneumoniae DNA (PCR) Not Detected (NotDetected) Coronavirus OC43 (PCR) Not Detected (NotDetected) Coronavirus HKU1 (PCR) Not Detected (NotDetected) Coronavirus 229E (PCR) Not Detected (NotDetected) SARS-CoV-2 (PCR) Not Detected (NotDetected) Coronavirus NL63 (PCR) Not Detected (NotDetected) Human Metapneumovir PCR Not Detected (NotDetected) Influenza Type A (PCR) Not Detected (NotDetected) Influenza Type B (PCR) Not Detected (NotDetected) M. pneumoniae (PCR) Not Detected (NotDetected) Parainfluenza 1 (PCR) Not Detected (NotDetected) Parainfluenza 2 (PCR) Not Detected (NotDetected) Parainfluenza 3 (PCR) Not Detected (NotDetected) Parainfluenza 4 (PCR) Not Detected (NotDetected) RSV (PCR) Not Detected (NotDetected) Entero/Rhino (PCR) Not Detected (NotDetected) Blood Type Antibody Screen Crossmatch 09/12/22 09/12/22 09/12/22 Range/Units 09:10 09:10 05:24 WBC (4.8-10.8) K/ul RBC (3.93-5.22) M/uL Hgb (12.0-16.0) g/dl Hct (34.1-44.9) % MCV (80.0-100.0) fL MCH (25.0-34.0) pg MCHC (32.0-36.0) g/dL RDW Std Deviation (36.4-46.3) fL RDW Coeff of Jennifer (11.5-14.5) % Plt Count (130-400) K/uL MPV (9.4-12.3) fL PT (9.0-12.0) Seconds INR (0.9-1.1) Sodium 136 (136-145) mmol/L Potassium 4.3 (3.5-5.1) mmol/L Chloride 101 (98-107) mmol/L Carbon Dioxide 29 (21-32) mmol/L Anion Gap 6 (3-11) BUN 37 H (6-23) mg/dl Creatinine 1.77 H (0.6-1.2) mg/dl Est Cr Clr Drug Dosing 35.9 ml/min Est GFR ( Amer) 38.7 ml/min Est GFR (Non-Af Amer) 33.4 ml/min BUN/Creatinine Ratio 20.9 H (10-20) Glucose 100 H (70-99(Fasting)) mg/dl Uric Acid 10.0 H (2.6-7.2) mg/dl Calcium 7.2 L (8.5-10.1) mg/dl Phosphorus Magnesium 1.7 (1.7-2.4) mg/dl Total Bilirubin 1.1 H D (0.2-1.0) mg/dl AST 103 H (13-39) U/L ALT 9 (7-52) U/L Alkaline Phosphatase 231 H (34-104) U/L Total Protein 5.4 L (6.0-8.3) gm/dl Albumin 2.2 L (3.4-5.0) gm/dl Globulin 3.2 (2.5-4.0) gm/dl Albumin/Globulin Ratio 0.7 L (0.9-2) Procalcitonin 8.26 H (0-0.5) ng/ml Urine Color Urine Appearance (Clear) Urine pH (4.5-7.5) Ur Specific [place] (1.000-1.030) Urine Protein (Negative) Urine Glucose (UA) (Negative) Urine Ketones (Negative) Urine Blood (Negative) Urine Nitrite (Negative) Urine Bilirubin (Negative) Urine Urobilinogen (Negative) Ur Leukocyte Esterase (Negative) Urine WBC (Auto) Urine RBC (Auto) U Hyaline Cast (Auto) U Epithel Cells (Auto) Urine Bacteria (Auto) Urine Yeast Adenovirus (PCR) (NotDetected) B. pertussis DNA (PCR) (NotDetected) B.parapertussis DNA PCR (NotDetected) C. pneumoniae DNA (PCR) (NotDetected) Coronavirus OC43 (PCR) (NotDetected) Coronavirus HKU1 (PCR) (NotDetected) Coronavirus 229E (PCR) (NotDetected) SARS-CoV-2 (PCR) (NotDetected) Coronavirus NL63 (PCR) (NotDetected) Human Metapneumovir PCR (NotDetected) Influenza Type A (PCR) (NotDetected) Influenza Type B (PCR) (NotDetected) M. pneumoniae (PCR) (NotDetected) Parainfluenza 1 (PCR) (NotDetected) Parainfluenza 2 (PCR) (NotDetected) Parainfluenza 3 (PCR) (NotDetected) Parainfluenza 4 (PCR) (NotDetected) RSV (PCR) (NotDetected) Entero/Rhino (PCR) (NotDetected) Blood Type Antibody Screen Crossmatch 09/12/22 09/12/22 09/09/22 Range/Units 05:24 05:24 14:02 WBC 15.61 H (4.8-10.8) K/ul RBC 2.86 L (3.93-5.22) M/uL Hgb 8.6 L (12.0-16.0) g/dl Hct 27.9 L (34.1-44.9) % MCV 97.6 (80.0-100.0) fL MCH 30.1 (25.0-34.0) pg MCHC 30.8 L (32.0-36.0) g/dL RDW Std Deviation 65.4 H (36.4-46.3) fL RDW Coeff of Jennifer 18.6 H (11.5-14.5) % Plt Count 85 L (130-400) K/uL MPV 10.7 (9.4-12.3) fL PT 13.4 H (9.0-12.0) Seconds INR 1.3 H (0.9-1.1) Sodium (136-145) mmol/L Potassium (3.5-5.1) mmol/L Chloride (98-107) mmol/L Carbon Dioxide (21-32) mmol/L Anion Gap (3-11) BUN (6-23) mg/dl Creatinine (0.6-1.2) mg/dl Est Cr Clr Drug Dosing ml/min Est GFR ( Amer) ml/min Est GFR (Non-Af Amer) ml/min BUN/Creatinine Ratio (10-20) Glucose (70-99(Fasting)) mg/dl Uric Acid (2.6-7.2) mg/dl Calcium (8.5-10.1) mg/dl Phosphorus Magnesium (1.7-2.4) mg/dl Total Bilirubin (0.2-1.0) mg/dl AST (13-39) U/L ALT (7-52) U/L Alkaline Phosphatase (34-104) U/L Total Protein (6.0-8.3) gm/dl Albumin (3.4-5.0) gm/dl Globulin (2.5-4.0) gm/dl Albumin/Globulin Ratio (0.9-2) Procalcitonin (0-0.5) ng/ml Urine Color Urine Appearance (Clear) Urine pH (4.5-7.5) Ur Specific [place] (1.000-1.030) Urine Protein (Negative) Urine Glucose (UA) (Negative) Urine Ketones (Negative) Urine Blood (Negative) Urine Nitrite (Negative) Urine Bilirubin (Negative) Urine Urobilinogen (Negative) Ur Leukocyte Esterase (Negative) Urine WBC (Auto) Urine RBC (Auto) U Hyaline Cast (Auto) U Epithel Cells (Auto) Urine Bacteria (Auto) Urine Yeast Adenovirus (PCR) (NotDetected) B. pertussis DNA (PCR) (NotDetected) B.parapertussis DNA PCR (NotDetected) C. pneumoniae DNA (PCR) (NotDetected) Coronavirus OC43 (PCR) (NotDetected) Coronavirus HKU1 (PCR) (NotDetected) Coronavirus 229E (PCR) (NotDetected) SARS-CoV-2 (PCR) (NotDetected) Coronavirus NL63 (PCR) (NotDetected) Human Metapneumovir PCR (NotDetected) Influenza Type A (PCR) (NotDetected) Influenza Type B (PCR) (NotDetected) M. pneumoniae (PCR) (NotDetected) Parainfluenza 1 (PCR) (NotDetected) Parainfluenza 2 (PCR) (NotDetected) Parainfluenza 3 (PCR) (NotDetected) Parainfluenza 4 (PCR) (NotDetected) RSV (PCR) (NotDetected) Entero/Rhino (PCR) (NotDetected) Blood Type A Positive Antibody Screen NEGATIVE Crossmatch See Detail Diagnostic Findings Chest X-Ray 09/12/22 08:32 XR chest 1V portable HISTORY: 47 years-old Female fever acute fever COMPARISON: Chest radiograph and CTA chest study 09/09/2022 TECHNIQUE: AP view of the chest FINDINGS: Cardiac silhouette is enlarged. Left subclavian Iiduer-h-Vvpo catheter is unchanged. Layering pleural effusions. Pulmonary vascular congestion with interstitial coarsening. Innumerable pulmonary metastasis. Degenerative changes of the shoulders and spine. IMPRESSION: 1. Progressive mixed interstitial and alveolar opacities suggestive of pulmonary edema. Multifocal pneumonia could appear similarly. 2. Small pleural effusions. 3. Extensive pulmonary metastatic disease. ACT 112: Negative or not required by law. The above report was generated using voice recognition software. It may contain grammatical, syntax or spelling errors. Electronically signed by: Sreekanth Borjas M.D. 09/12/2022 10:48 AM KUB X-Ray 09/12/22 08:46 KUB CLINICAL HISTORY: Fever. Obstruction. FINDINGS: An AP, portable, supine abdominal radiograph is correlated with abdominal CT dated 09/09/2022. Bilateral ureteral stents are in place. There is no radiographic evidence of high-grade bowel obstruction. Increased soft tissue density throughout the abdomen is consistent with large mesenteric masses when correlated with the prior CT scan. Moderate fecal retention is noted throughout the colon. No evidence of intraperitoneal free air is seen on this supine image. The hepatic silhouette is enlarged. The bony structures appear intact. IMPRESSION: 1. There is no radiographic evidence of bowel obstruction. 2. Additional findings as above. Electronically signed by: Elder Lizarraga M.D. 09/12/2022 10:42 AM PG Care Time/CCT Total # of Minutes Spent Total Time Spent with Patient: Total time spent is greater than 50% in coordination of care (as documented) at patient's floor/unit and/or counseling patient: Coding Level of Care Code 56759 Subseq Hosp Care Lvl 3 Diagnoses Anemia D64.9 Anemia type: unspecified type Cancer related pain G89.3 Fever R50.9 Leiomyosarcoma C49.9 Fluid overload E87.79 Hypervolemia type: other Hypertension I10 Hypothyroidism E03.9 History of cardiomyopathy Z86.79 Hx of deep venous thrombosis Z86.718 (1) Anemia Anemia type: unspecified type Qualified Code(s): D64.9 - Anemia, unspecified (2) Fluid overload Hypervolemia type: other Qualified Code(s): E87.79 - Other fluid overload
[2022-09-12] MEDS: DOCUSATE SODIUM 100 MG CAP PO SCH ×2 (09:07→20:51)
[2022-09-12] MEDS: METOPROLOL SUCC 50MG EXT REL TAB PO SCH (09:07)
[2022-09-12] MEDS: SENNA 8.6 MG TAB PO SCH (09:07)
[2022-09-12] MEDS: SPIRONOLACTONE 25 MG TAB PO SCH (09:07)
[2022-09-12] MEDS: PANTOprazole 40 MG TAB PO SCH (09:07)
[2022-09-12] MEDS: POTASSIUM CHLORIDE 20 MEQ/15 ML UDC PO SCH (09:08)
[2022-09-12] MEDS: MAGNESIUM OXIDE 400 MG TAB PO SCH ×2 (09:08→20:51)
[2022-09-12] MEDS: FOLIC ACID 1 MG TAB PO SCH (09:08)
[2022-09-12] MEDS: CYANOCOBALAMIN (B-12) 500 MCG TABLET PO SCH (09:08)
--- NOTE | 2022-09-12 09:17 | Palliative Care Progress Note ---
Date of Service September 12, 2022 Assessment & Plan (1) Palliative care encounter: Plan: ACP/GOC/code discussion x 22 min: We reviewed the imagine shows signif disease progression with mass effect and that mass effect isthe local pressure from a tumor or bleeding on adjacent parts, and these secondary pathological effects of the pushing on or displacing surrounding tissue create worsening symptoms, further decline and weakening. We revisited her priorities and both she/ share that they had a deeper conversation about all we reviewed yesterday. She does not want CPR, she notes it will not help her at this stage and adds "she's already been thru hell and back, CPR won't make anything better." They do not want CPR. This is in alignment with code status of DNR/DNI, order written and primary team + nursing updated. Pt has the goal to eventually return home and would like hospice. She still wants to continue transfusion support which for now, i feel is helping her from a symptom perspective. I advised her of same and told her I would foresee her continuing these for now, but when she feels they aren't helping/are getting too hard to do or the medical team feels they are not helping, we will make a joint decision to stop doing the things that are not helping or adding to QOL. She and are in agreement. Hospice agency should be queried if they would be willing to accept this pt with continued transfusions, perhaps as a compassionate use exception to routine hospice care. She derives meaningful symptomatic benefit from her transfusions at this time, relief of dyspnea, improved energy/alertness and as such, these treatments improve/sustain her QOL. With them, her QOL would sharply decline and she would have unnecessary suffering. If hospice will not support transfusions, she will need to be dc home with [facility] which can be escalated to hospice when transfusions are stopped, unless there is a transitional care option through any of the local agencies. I will defer this to CM for assistance. (2) Cancer related pain: Plan: Patient is requesting some icnresed pain medication dosing, currently feeling very mild relief but not as much as she would like. Dilaudid 0.5mg IV x1 given SOFA BACK UPHOLSTERER dosing changed to: Dilaudid 0.5mg per hour continuous with 0.4mg SOFA BACK UPHOLSTERER bolus q10min as needed, order written. 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 Caitlin Salas at [facility] ([address] [place] [address],[place] [address]; office: [phone]). Pt is not a candidate for any clinical trials, recommendation is for best supportive care with transfusions, pain mgt and hospice engagement for this terminal cancer. I updated pt and at bedside. We spoke about CPR and ACP/GOC as well, as outlined above. I have modified her pain regimen She will have some additional labs to assess for possible TLS as well as Abtx for possible PNA, pt is in agreement with this plan. I am not in house through the weekend but will be available by pager and will also be back in house on Thursday09/15/22. Please page me through [facility] for any acute/urgent pain mgt or pall med needs for this pt. María Scott DNP Clinical Director, Palliative Medicine Admission and Anticipated Discharge Date Admission Date: September 09, 2022 Subjective Dilaudid prospecting observer in use Review of Systems Review of Systems: All systems reviewed & are unremarkable except as noted in Subjective Physical Exam Physical Exam: Signif distress and pain with grimacing noted, face slightly flushed; mild inc resp effort, no cough, no JVD RRR; +distended firm abdomen, +peripheral edema +2 BUE and +1-2 BLE. Generalized weakness and cachexia noted. Mood subdued. Results & Data ([facility]) Vital Signs (Past 12 Hours) Vital Signs Temp Pulse Resp BP Pulse Ox O2 Del Method 09/12/22 06:58 37.7 C H 117 H 18 110/62 97 Room Air 09/12/22 02:33 38.9 C H 111 H 16 105/66 97 Room Air 09/11/22 22:42 38.5 C H 106 H 18 111/69 95 Room Air Laboratory Results reviewed Diagnostic Findings reviewed PG Care Time/CCT Total # of Minutes Spent Total Time Spent: 60 Total Time Spent with Patient: Total time spent is greater than 50% in coordination of care (as documented) at patient's floor/unit and/or counseling patient: I spent 60 minutes overall addressing this case: 15 in medical data review/discussion with referring provider(s) and/or preparation for the visit: chart review, teleconf with Dr Salas/[facility] oncology 30 in direct interaction with the patient and 22 Advance Care Planning/Goals of Care discussions as detailed above in note (must be >16min) 5 in subsequent review and synthesis of assessment and plan 10 in communicating with other providers regarding the patient's case: [] Advanced Care Planning 95759 Advanced Care Planning 30 Min [place] [address] Subseq Hosp Care Lvl 3 Patient Type Established History Detailed Exam Expanded Problem Focused Medical Decision Making High Complexity Diagnoses Palliative care encounter Z51.5 Cancer related pain G89.3 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
[2022-09-12] MEDS: ACETAMINOPHEN 500 MG TAB PO PRN ×2 (09:18→17:21)
--- NOTE | 2022-09-12 10:44 | XRay Report ---
KUB CLINICAL HISTORY: Fever. Obstruction. FINDINGS: An AP, portable, supine abdominal radiograph is correlated with abdominal CT dated 09/09/20 22. Bilateral ureteral stents are in place. There is no radiographic evidence of high-grade bowel obs truction. Increased soft tissue density throughout the abdomen is consistent with large mesenteric ma sses when correlated with the prior CT scan. Moderate fecal retention is noted throughout the colon. No evidence of intraperitoneal free air is seen on this supine image. The hepatic silhouette is enlar ged. The bony structures appear intact. IMPRESSION: 1. There is no radiographic evidence of bowel obstruction. 2. Additional findings as above. Electronically signed by: Elder Lizarraga M.D. 09/12/2022 10:42 AM
--- NOTE | 2022-09-12 10:50 | XRay Report ---
XR chest 1V portable HISTORY: 47 years-old Female fever acute fever COMPARISON: Chest radiograph and CTA chest study 09/09/2022 TECHNIQUE: AP view of the chest FINDINGS: Cardiac silhouette is enlarged. Left subclavian Yvknxx-n-Pumx catheter is unchanged. Layering pleural effusions. Pulmonary vascular congestion with interstitial coarsening. Innumerable pulmonary metasta sis. Degenerative changes of the shoulders and spine. IMPRESSION: 1. Progressive mixed interstitial and alveolar opacities suggestive of pulmonary edema. Multifocal pn eumonia could appear similarly. 2. Small pleural effusions. 3. Extensive pulmonary metastatic disease. ACT 112: Negative or not required by law. The above report was generated using voice recognition software. It may contain grammatical, syntax o r spelling errors. Electronically signed by: Sreekanth Borjas M.D. 09/12/2022 10:48 AM
[2022-09-12 10:55] LABS: Adenovirus PCR Not Detected (NotDetected); Bordetella parapertussis PCR Not Detected (NotDetected); Bordetella pertussis PCR Not Detected (NotDetected); Chlamydia pneumoniae PCR Not Detected (NotDetected); Coronavirus 229E PCR Not Detected (NotDetected); Coronavirus CoV-2 (COVID19)PCR Not Detected (NotDetected); Coronavirus HKU1 PCR Not Detected (NotDetected); Coronavirus NL63 PCR Not Detected (NotDetected); Coronavirus OC43PCR Not Detected (NotDetected); Human Metapneumovirus PCR Not Detected (NotDetected); Influenza A PCR Not Detected (NotDetected); Influenza B PCR Not Detected (NotDetected); Mycoplasma pneumoniae PCR Not Detected (NotDetected); Parainfluenza Virus 1 PCR Not Detected (NotDetected); Parainfluenza Virus 2 PCR Not Detected (NotDetected); Parainfluenza Virus 3 PCR Not Detected (NotDetected); Parainfluenza Virus 4 PCR Not Detected (NotDetected); Respiratory Syncytial VirusPCR Not Detected (NotDetected); Rhinovirus/Enterovirus PCR Not Detected (NotDetected)
[2022-09-12 10:55] LABS: Appearance Urine Turbid (Clear); Blood Urine 3+ (Negative); Epithelial Cell Urine Auto >30 /lpf (0-5); Glucose Urine UA Negative (Negative); Ketones Urine Negative (Negative); Leukocyte Esterase Urine 3+ (Negative); Nitrite Urine Negative (Negative); Specific Gravity Urine 1.023 (1.000-1.030); Urobilinogen Urine Negative (Negative); WBC Urine Automated >30 /hpf (0-5); pH Urine 7.5 (4.5-7.5)
[2022-09-12 10:56] LABS: Bilirubin Urine 1+ (Negative); Color Urine Amber; Protein Urine 2+ (Negative)
[2022-09-12] MEDS ORDERED: HYDROmorphone INJ 0.5 MG/0.5 ML SYR IV STA (10:57)
[2022-09-12 11:08] LABS: RBC Urine Automated >30 /hpf (0-4)
[2022-09-12 11:09] LABS: Bacteria Urine Automated 1+ (Negative)
[2022-09-12] MEDS ORDERED: PIPERACILLIN/TAZOBACTAM 3.375 GM in DEXTROSE 5% 100 ML IV ONE (11:30)
[2022-09-12] MEDS: allopurinoL 300 MG TAB PO SCH (11:51)
[2022-09-12] MEDS: DOXYCYCLINE HYCLATE 100 MG CAP PO SCH ×2 (11:51→20:51)
[2022-09-12] MEDS: SODIUM CHLORIDE 0.9% 1000ML 1,000 ML IV SCH (11:52)
[2022-09-12] MEDS ORDERED: LEVALBUTEROL HCL 0.63 MG/3 ML NEB NEB PRN (13:13)
[2022-09-12] MEDS: PIPERACILLIN/TAZOBACTAM 3.375 GM in DEXTROSE 5% 100 ML IV SCH (17:28)
[2022-09-12 20:36] LABS: A calco-baum cmplx NotReported Not Detected (NotDetected); Bact fragilis Not Reported Not Detected (NotDetected); C auris Not Reported Not Detected (NotDetected); Calbicans Not Reported Not Detected (NotDetected); Candida glabrata Not Reported Not Detected (NotDetected); Candida krusei Not Reported Not Detected (NotDetected); Cneoformans/gatti Not Reported Not Detected (NotDetected); Cparapsilosis Not Reported Not Detected (NotDetected); Ctropicalis Not Reported Not Detected (NotDetected); E cloacae compx Not Reported Not Detected (NotDetected); Efaecalis Not Reported Not Detected (NotDetected); Efaecium Not Reported Not Detected (NotDetected); Enterobacterales Not Reported Not Detected (NotDetected); Escherichia coli Not Reported Not Detected (NotDetected); H influenzae Not Reported Not Detected (NotDetected); K aerogenes Not Reported Not Detected (NotDetected); Koxytoca Not Reported Not Detected (NotDetected); Kpneumoniae grp Not Reported Not Detected (NotDetected); Lmonocyt Not Reported Not Detected (NotDetected); N meningitidis Not Reported Not Detected (NotDetected); P aeruginosa Not Reported Not Detected (NotDetected); Proteus spp Not Reported Not Detected (NotDetected); Salmonella spp Not Reported Not Detected (NotDetected); Smarcescens Not Reported Not Detected (NotDetected); Staph lugdunensis Not Reported Not Detected (NotDetected); Staph spp. Not Reported Not Detected (NotDetected); Staphaureus Not Reported Not Detected (NotDetected); Staphepi Not Reported Not Detected (NotDetected); Stenmaltophilia Not Reported Not Detected (NotDetected); Strep agal(GrpB) Not Reported Not Detected (NotDetected); Strep pneum Not Reported Not Detected (NotDetected); Strep pyog (GrpA) Not Reported Not Detected (NotDetected); Strep spp Not Reported DETECTED (NotDetected)
[2022-09-12 21:09] LABS: Streptococcus spp DETECTED (NotDetected)
[2022-09-13] MEDS: PROCHLORPERAZINE 10 MG in SYRINGE 8 ML IV PRN ×2 (01:20→08:30)
[2022-09-13] MEDS: PIPERACILLIN/TAZOBACTAM 3.375 GM in DEXTROSE 5% 100 ML IV SCH ×3 (01:21→17:44)
[2022-09-13] MEDS: HYDROmorphone INJ 1 MG/ML SYRINGE IV PRN ×3 (01:21→21:10)
--- NOTE | 2022-09-13 07:28 | Hospitalist Progress Note ---
Date of Service September 13, 2022 Assessment & Plan (1) Anemia: Plan: 47 yo F Hx metastatic leiomyosarcoma, DVT, CHF, anemia of chronic disease (cancer-related) admitted for symptomatic anemia and anasarca. Imaging with worsening tumors to pelvis, likely compressing on vasculature causing worsening body edema. CTA Chest/A/P : * NO PE, does note multifocal metastatic disease. This has progressed as compared to 06/12/2022., small-moderate pleural effusions, small volume of abdominopelvic ascites, anasarca indicate fluid overload. An approximately 22 cm necrotic mass lesion fills the pelvis and encases/displaces several structures as above, including the rectum and several bowel loops. Invasion of these structures is not excluded. Tiny foci of active extravasation within this lesion are not excluded. Additional large mass lesions within the abdomen and pelvis have increased in size from previous. Hepatomegaly with progressive hepatic metastatic disease. Occluded right internal iliac artery. There is moderate to severe right and mild left hydronephrosis with ureteral stents in place. Venous Doppler LE : There is a chronic appearing nonocclusive thrombus in the right common femoral vein, popliteal vein, and great saphenous vein. The left great saphenous vein is equivocal and may be noncompressible due to extensive edema. A small amount of linear chronic thrombus is suggested. Upper Ext Doppler:1. No DVT within the right or left lower extremity. 2. Nonocclusive thrombus within the right internal jugular vein which may be chronic. Heme/onc -- no further chemo to be offered Palliative consulted -- pain control as below. Made DNR/DNI. Needs to have POLST filled out but can be done closer to d/c Hgb stable after 2u PRBC and 3 doses of IV lasix at 8.5 on 09/13. Daily CBC while admitted unless transitioned to hospice care while admitted. No further fevers since 09/11. Given combination w/ WBC elevated to 15.6k, concerns for infection (also ?TLS given tumor burden -- checked uric acid - elevated to 10, discussed w/ hematology and placed on allopurinol 300mg daily given not getting any more treatment) Procal 8. -- blood cultures added and monitor UA ?infection -- monitor CXR with progressive mixed interstitial and alveolar opacities suggestive of pulmonary edema. Multifocal pneumonia could appear similarly. Given increased crackles on exam/fever/WBC, decision to place on Zosyn/Doxy for coverage of pneumonia given recent inpatient stay, continue for now given WBC count is further elevated today. Sputum cx if able to obtain. KUB w/o obstruction (has moved bowels per patient) (2) Cancer related pain: Plan: Palliative consulted for goals of care/pain control see their note, appreciate assistance. 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 q12h + Oxy IR 20mg 3-4 doses/day without optimal relief ---> Placed on Dilaudid DETECTIVE SUPERVISOR, adjusting for cross tolerance, starting 0.3mg per hour with 0.2mg Q10min for breakthrough and hoping to be able to transition to methadone in next 24-48 hours 09/12 Unsure if getting much control w/ current rate -- appears uncomfortable on exam Given 1x dose 0.5mg Dilaudid for pain control, plans to increase Dilaudid DETECTIVE SUPERVISOR basal to 0.5mg and continue to monitor (3) Fever: Plan: New 38.5-38.9F 09/11 -- was not having fever at home ?also if possible tumor lysis, uric acid elevated -- allopurinol 300mg daily as above Also UA/KUB for infection/obstruction - no obstruction and UCx with pinpoint growth CXR with pulm edema vs. multifocal pneumonia, biofire negative, continue Abx as above Tylenol/pain control/supportive care Abx with Zosyn/Doxy Suspected possible pneumonia, incentive spirometer added will add nebs prn (4) Leiomyosarcoma: Plan: s/p tumor debulking with Dr Lou in 2019 and multiple rounds of chemo (w/ Dr Salas and Dr Mckeon), most recently on Trabectedin. Had been hospitalized for hypotension/hgb5 c/w hypovolemic shock. Was given Kcentra/2u PRBC, rebled and another 2u PRBC and TXA and 2u FFP. Then tx to [facility] for further management, given 3 more units and cryo. Eliquis discontinued, not candidate for IVF filter given unable to place due to vein compression likely related to intra-abdominal mass Patient with known metastatic disease, concern she could have mets pushing on major blood vessels causing her anasarca -- likely based on imaging/enlarged tumor to pelvis Oncology on consult as above Palliative consulted as above for goals of care -- pain management as outlined above with Dilaudid DETECTIVE SUPERVISOR, increasing today for better control, plan for discharge with home hospice at this time (5) Fluid overload: Plan: Multifactorial including hypoalbuminemia, anasarca from her known cancer, possible mass effect, and hx of heart failure Recent PIEDAD w/ normal LV systolic function, does have murmur on exam, but doubt benefit for repeat given just done in June, EF 50-55%, no wma Discussed possible paracentesis w/ heme/onc, minimal ascites on exam would doubt much help. Could consider thoracensis if developed worsening respiratory symptoms/fluid collection Given 40mg IV lasix x 2 on admit, additional 20mg IV 09/10 and 40mg IV on 09/11 with blood Holding lasix for now, Cr improved. Remains on spironolactone (placed AM dose on hold for tomorrow with her lasix PO) Does appear a little dehydrated on exam with dry mm, however still w/ edema, holding off further IV lasix given bump in Cr, however improved after blood (6) Hypertension: Plan: Borderline 98s/60s, no lightheaded/dizziness, has been ambulating to bathroom b Will hold further spirnolactone, lasix on hold (given IV yesterday) Monitor (7) Hypothyroidism: Plan: Continue levothyroxine 50mcg daily Of note, TSH was 36 in June, placed on Synthroid 50mcg daily -- she reports has been taking this correctly, never had any repeat TFT ou tpatient Repeat TSH still elevated at 14.8, borderline T4 --> increased Synthroid to 75mcg daily -- continue at d/c (8) History of cardiomyopathy: Plan: Had a TTE in june of this year, will hold off on repeat for now Spironolactone continued (hold for tomorrow), has been given multiple doses of IV lasix during inpatient stay as above (9) Hx of deep venous thrombosis: Plan: Patient was previously diagnosed with lare right LE DVT's when she was transfer red to [place] with her large GI bleed US LE Doppler w/ chronic DVT --> LE edema likely compression from pelvic tumors as above Checked US UE for prognostic data/UE edema, 1. No DVT within the right or left lower extremity. 2. Nonocclusive thrombus within the right internal jugular vein which may be chronic Not able to be on anticoagulation, or have IVC filter placed due to location/too high risk and recent lift-threatening bleeding High risk as she is aware, CT chest on admit w/o PE (10) EDDIE (acute kidney injury): Plan: creatinine 2.0 today, holding diuretics and repeat BMP tomorrow. consider IVF if necessary however delicate balance with pulmonary edema/anasarca. Plan continued inpatient stay continued pain control continue allopurinol Continue Zosyn/doxy for suspected pneumonia, nebs, incentive spirometer Monitor for further infectious signs and daily CBC to monitor WBC count Per palliative, home w/ hospice but wanting agency who would be able to continue transfusions as needed for comfort until gets to point where no longer effective. CM to look into this as I was unaware this was possible. Would benefit from having POLST filled out closer to discharge however just making decision for DNR/DNI today and will hold off for now Admission and Anticipated Discharge Date Admission Date: September 09, 2022 Subjective No acute events overnight. BP soft 80-90s systolic, no complaints from patient. On Dilaudid DETECTIVE SUPERVISOR for cancer-related pain. This morning started having worsening nausea/vomiting, given PRN medications with relief. Not much appetite, no change in abdominal pain, denies chest pain/SOB. Review of Systems Review of Systems: All systems reviewed & are unremarkable except as noted in Subjective Physical Exam Constitutional: WD/WN, vitals as above (comfortable appearing) Respiratory: normal respiratory effort, lungs clear to auscultation Cardiovascular: RRR, no murmur, no edema Gastrointestinal (Abdomen): normal bowel sounds, distended firm abdomen, no rebound or guarding Skin: no rashes, warm and dry mediport in left chest, no surrounding erythema or purulent drainage Psychiatric: A+Ox3, euthymic affect Results & Data Results & Data ([facility]) Vital Signs (Past 12 Hours) Vital Signs Temp Pulse Resp BP Pulse Ox O2 Del Method 09/13/22 03:01 36.5 C 89 20 80/54 L 94 Room Air 09/12/22 22:00 36.9 C 93 H 18 92/54 L 96 Room Air PG Care Time/CCT Total # of Minutes Spent Total Time Spent with Patient: Total time spent is greater than 50% in coordination of care (as documented) at patient's floor/unit and/or counseling patient: Coding Level of Care Code 88426 Subseq Hosp Care Lvl 3 Diagnoses Anemia D64.9 Anemia type: unspecified type Cancer related pain G89.3 Fever R50.9 Leiomyosarcoma C49.9 Fluid overload E87.79 Hypervolemia type: other Hypertension I10 Hypothyroidism E03.9 History of cardiomyopathy Z86.79 Hx of deep venous thrombosis Z86.718 EDDIE (acute kidney injury) N17.9 (1) Anemia Anemia type: unspecified type Qualified Code(s): D64.9 - Anemia, unspecified (2) Fluid overload Hypervolemia type: other Qualified Code(s): E87.79 - Other fluid overload
[2022-09-13] MEDS: FOLIC ACID 1 MG TAB PO SCH (08:04)
[2022-09-13] MEDS: DOCUSATE SODIUM 100 MG CAP PO SCH ×2 (08:04→21:10)
[2022-09-13] MEDS: LEVOTHYROXINE SODIUM 75 MCG TABLET PO SCH (08:04)
[2022-09-13] MEDS: DOXYCYCLINE HYCLATE 100 MG CAP PO SCH (08:04)
[2022-09-13] MEDS: CYANOCOBALAMIN (B-12) 500 MCG TABLET PO SCH (08:04)
[2022-09-13] MEDS: allopurinoL 300 MG TAB PO SCH (08:04)
[2022-09-13] MEDS: MAGNESIUM OXIDE 400 MG TAB PO SCH ×2 (08:04→21:11)
[2022-09-13] MEDS: SENNA 8.6 MG TAB PO SCH (08:05)
[2022-09-13] MEDS: PANTOprazole 40 MG TAB PO SCH (08:05)
[2022-09-13] MEDS: METOPROLOL SUCC 50MG EXT REL TAB PO SCH (08:05)
[2022-09-13 08:17] LABS: Hematocrit (blood only) 27.8 % (34.1-44.9); Hemoglobin 8.5 g/dl (12.0-16.0); Mean Corpuscular Hgb Conc 30.6 g/dL (32.0-36.0); Mean Corpuscular Volume 98.2 fL (80.0-100.0); Mean Platelet Volume 11.3 fL (9.4-12.3); Platelet Count 81 K/uL (130-400); RDW Coefficient of Variation 17.8 % (11.5-14.5); RDW Standard Deviation 63.7 fL (36.4-46.3); Red Blood Count 2.83 M/uL (3.93-5.22); White Blood Count 21.18 K/ul (4.8-10.8)
[2022-09-13 08:43] LABS: BUN Creatinine Ratio 23.9 (10-20); Calcium 7.4 mg/dl (8.5-10.1); Creatinine Clr Calc Pharmacy 31.6 ml/min; Est GFR (African American) 33.2 ml/min; Est GFR (Non-African American) 28.6 ml/min; Magnesium 1.7 mg/dl (1.7-2.4); Potassium 4.7 mmol/L (3.5-5.1)
[2022-09-13] MEDS: DOXYCYCLINE HYCLATE 100 MG in DEXTROSE 5% 100 ML IV SCH ×2 (10:00→21:10)
[2022-09-13] MEDS: METOPROLOL TARTRATE 1 MG/ML VIAL IV SCH ×2 (12:04→17:47)
[2022-09-13] MEDS: SODIUM CHLORIDE 0.9% 1000ML 1,000 ML IV SCH (16:14)
[2022-09-13] MEDS: HYDROmorphone PCA 30 MG/30 ML IV PRN (16:56)
[2022-09-14] MEDS: METOPROLOL TARTRATE 1 MG/ML VIAL IV SCH ×4 (00:39→19:15)
[2022-09-14] MEDS: PIPERACILLIN/TAZOBACTAM 3.375 GM in DEXTROSE 5% 100 ML IV SCH ×3 (01:30→16:20)
[2022-09-14] MEDS: HYDROmorphone INJ 1 MG/ML SYRINGE IV PRN ×2 (05:02→20:49)
[2022-09-14] MEDS: LEVOTHYROXINE SODIUM 75 MCG TABLET PO SCH (05:36)
--- NOTE | 2022-09-14 08:11 | Hospitalist Progress Note ---
Date of Service September 14, 2022 Assessment & Plan (1) Anemia: Plan: 47 yo F Hx metastatic leiomyosarcoma, DVT, CHF, anemia of chronic disease (cancer-related) admitted for symptomatic anemia and anasarca. Imaging with worsening tumors to pelvis, likely compressing on vasculature causing worsening body edema. CTA Chest/A/P : * NO PE, does note multifocal metastatic disease. This has progressed as compared to 06/12/2022., small-moderate pleural effusions, small volume of abdominopelvic ascites, anasarca indicate fluid overload. An approximately 22 cm necrotic mass lesion fills the pelvis and encases/displaces several structures as above, including the rectum and several bowel loops. Invasion of these structures is not excluded. Tiny foci of active extravasation within this lesion are not excluded. Additional large mass lesions within the abdomen and pelvis have increased in size from previous. Hepatomegaly with progressive hepatic metastatic disease. Occluded right internal iliac artery. There is moderate to severe right and mild left hydronephrosis with ureteral stents in place. Venous Doppler LE : There is a chronic appearing nonocclusive thrombus in the right common femoral vein, popliteal vein, and great saphenous vein. The left great saphenous vein is equivocal and may be noncompressible due to extensive edema. A small amount of linear chronic thrombus is suggested. Upper Ext Doppler:1. No DVT within the right or left lower extremity. 2. Nonocclusive thrombus within the right internal jugular vein which may be chronic. Heme/onc -- no further chemo to be offered Palliative consulted -- pain control as below. Made DNR/DNI. Needs to have POLST filled out but can be done closer to d/c Hgb stable after 2u PRBC and 3 doses of IV lasix at 8.5 on 09/13. Daily CBC while admitted unless transitioned to hospice care while admitted. No further fevers since 09/11. Given combination w/ WBC elevated to 15.6k, concerns for infection (also ?TLS given tumor burden -- checked uric acid - elevated to 10, discussed w/ hematology and placed on allopurinol 300mg daily given not getting any more treatment) Procal 8. -- blood cultures added and monitor UA ?infection -- monitor -- garderella like species on prelim CXR with progressive mixed interstitial and alveolar opacities suggestive of pulmonary edema. Multifocal pneumonia could appear similarly. Given increased crackles on exam/fever/WBC, decision to place on Zosyn/Doxy for coverage of pneumonia given recent inpatient stay--> WBC elevated to 21 on 09/13 Biofire negative Sputum cx if able to obtain. 09/14/22 NO further high grade temps since 09/12 afternoon. Had added Zosyn/Doxy for coverage of pneumonia/UTI/abd coverage empirically. WBC trending down, 18.4k Review 09/12 blood cultures with alpha strep not S pneumonia/enterococcus, anaerobic gram positive bacilli. Abx should cover. WBC trending down ID consulted for tomorrow to see about options at d/c Pain control reported improved-- continue Dilaudid STEAM FINISHER at current dose. Palliative to assist tomorrow w/ transition to methadone. Patient is moving her bowels (KUB w/o obstruction previously) Hgb stable at 8.2, transfusions as needed for support/symptoms (2) Bacteremia: Plan: checked blood cultures 09/12 due to high grade fevers. concerns TLS vs from malignancy vs infection CXR possible multifocal pneumonia (sputum cx ordered if able to produce), Doxy/Zosyn added No evidence for SBP currently UA Gardnerella like bacteria ?unclear source Repeat blood cultures ordered ID consulted for tomorrow (3) Cancer related pain: Plan: Palliative consulted for goals of care/pain control see their note, appreciate assistance. 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 multifocal pneumonia, biofire negative, continue Abx as above Tylenol/pain control/supportive care Abx with Zosyn/Doxy Suspected possible pneumonia, incentive spirometer added, nebs prn 09/14--> POSITIVE BLOOD CULTURES, REPEAT ORDERED, see above (5) Leiomyosarcoma: Plan: s/p tumor debulking with Dr Lou in 2019 and multiple rounds of chemo (w/ Dr Salas and Dr Mckeon), most recently on Trabectedin. Had been hospitalized for hypotension/hgb5 c/w hypovolemic shock. Was given Kcentra/2u PRBC, rebled and another 2u PRBC and TXA and 2u FFP. Then tx to [facility] for further management, given 3 more units and cryo. Eliquis discontinued, not candidate for IVF filter given unable to place due to vein compression likely related to intra-abdominal mass Patient with known metastatic disease, concern she could have mets pushing on major blood vessels causing her anasarca -- likely based on imaging/enlarged tumor to pelvis Oncology on consult as above Palliative consulted as above for goals of care -- pain management as outlined above with Dilaudid STEAM FINISHER, increasing 09/12 for better control Planning for hospice at d/c (6) Fluid overload: Plan: Multifactorial including hypoalbuminemia, anasarca from her known cancer, possible mass effect, and hx of heart failure Recent PIEDAD w/ normal LV systolic function, does have murmur on exam, but doubt benefit for repeat given just done in June, EF 50-55%, no wma Discussed possible paracentesis w/ heme/onc, minimal ascites on exam would doubt much help. Could consider thoracentesis if developed worsening respiratory symptoms/fluid collection Given 40mg IV lasix x 2 on admit, additional 20mg IV 09/10 and 40mg IV on 09/11 with blood Decreased PO intake --> Cr 2.08 on AM labs and looking dehydrated on exam (also elevations could be due to low BPs) --> lasix and spironolactone on hold (lasix has been on hold, spironolactone placed on hold after 09/12 dose) Cr improved after blood, consider additional unit tomorrow pending repeat labs TSH elevated, Synthroid increased as above (did not get dose yesterday due to nausea, consider giving IV if missing any further doses) Improved nausea, still fair PO intake but monitor if any need for IV but would want to hold off for now and encourage PO (7) Hypertension: Plan: Borderline , has been ambulating Holding further spironolactone/lasix as above Continues on metoprolol with hold parameters Monitor (8) Hypothyroidism: Plan: Continue levothyroxine 50mcg daily Of note, TSH was 36 in June, placed on Synthroid 50mcg daily -- she reports has been taking this correctly, never had any repeat TFT outpatient Repeat TSH still elevated at 14.8, borderline T4 --> increased Synthroid to 75mcg daily -- continue at d/c Consider IV dosing if missing any further PO doses (9) History of cardiomyopathy: Plan: Had a TTE in june of this year, will hold off on repeat for now Holding lasix/spironolactone (has gotten IV doses lasix and PO spironolactone during admit as above) Remains on BB w/ hold parameters No ASA/Anticoagulation given bleeding (10) Hx of deep venous thrombosis: Plan: Patient was previously diagnosed with lare right LE DVT's when she was transferred to [place] with her large GI bleed US LE Doppler w/ chronic DVT --> LE edema likely compression from pelvic tumors as above Checked US UE for prognostic data/UE edema, 1. No DVT within the right or left lower extremity. 2. Nonocclusive thrombus within the right internal jugular vein which may be chronic Not able to be on anticoagulation, or have IVC filter placed due to location/too high risk and recent lift-threatening bleeding High risk as she is aware, CT chest on admit w/o PE (11) EDDIE (acute kidney injury): Plan: creatinine 2.08, unchanged Missed PO meds yesterday AM Suspect infection/abx also contributing, hypotension, possible TLS (on allopurinol 300mg daily per discussion with heme/onc) Holding off IVF currently, better PO intake but will need to monitor -- delicate balance w/ pulm edema/anasarca Plan continued inpatient stay -- pain control w/ Dilaudid STEAM FINISHER w/ plans to switch to Methadone at d/c bacteremia -- continued abx w/ Doxy/Zosyn, repeat blood cultures today. Repeat CXR in AM to monitor status (along w/ CBC/PRBC if needed) Continue nebs, incentive spirometer ID consulted for tomorrow Continued allopurinol for elevated uric acid Labs in AM PT/OT consulted CM following -- plans for hospice but wanting agency who would be able to continue transfusions as needed for comfort until gets to point where no longer effective. CM to look into this as I was unaware this was possible. Would benefit from having POLST filled out closer to discharge Updated family -- /sister/[id number]-[id number]-[id number] at bedside AM 1 Admission and Anticipated Discharge Date Admission Date: September 09, 2022 Supervising Physician Co-Signing Physician Notes The patient was seen and examined by me. Case discussed with LISETTE Jha. Agree with assessment and plan Subjective Evaluated this morning, and sister/[id number] at bedside. Pain much more controlled. Moving his bowels. Breathing about the same. No increased shortness of breath. Hemoglobin stable. Discussed positive blood cultures, but on appropriate antibiotics. Will consult w/ ID for tomorrow to see about PO options at discharge. Will continue IV abx for now, repeat blood cultures. Continues to move bowels, abdomen slightly less distended. Has some bruising to her L arm but no increased edema/numbness/tingling. No further fevers/chills. No further vomiting, nausea controlled with ordered medications. Questions/concerns addressed at this time. Review of Systems Review of Systems: All systems reviewed & are unremarkable except as noted in HPI & below Physical Exam Physical Exam: General: chronically ill appearing female , appears older than stated age, sitting up in bed, family at bedside, appears much more comfortable than days prior HEENT: head normocephalic, atraumatic, mm slightly dry, trachea midline Chest: mediport L chest, no signs of infection Resp: diminished in the bases, bibasilar crackles improved, no wheezing, on RA CV: regular rate, rhythm, +systolic murmur, ?S3, 1+ pitting edema b/l LE, RLE >LLE, calf nontender GI: +LESS distension, firm, +BS, not overtly tender to palpation, no bruising : no arriaga MSK/Neuro: moves all extremities, no focal deficit/slurred speech Psych: AOx3, cooperative Results & Data Results & Data ([facility]) Vital Signs (Past 12 Hours) Vital Signs Temp Pulse Resp BP Pulse Ox O2 Del Method 09/14/22 07:32 36.8 C 94 H 16 93/60 L 93 Room Air 09/14/22 04:02 36.6 C 98 H 18 104/67 93 Room Air 09/13/22 23:18 36.9 C 93 H 16 101/63 96 Room Air Laboratory Results 09/14/22 09/14/22 Range/Units 08:08 08:08 WBC 18.42 H (4.8-10.8) K/ul RBC 2.72 L (3.93-5.22) M/uL Hgb 8.2 L (12.0-16.0) g/dl Hct 26.6 L (34.1-44.9) % MCV 97.8 (80.0-100.0) fL MCH 30.1 (25.0-34.0) pg MCHC 30.8 L (32.0-36.0) g/dL RDW Std Deviation 63.4 H (36.4-46.3) fL RDW Coeff of Jennifer 17.7 H (11.5-14.5) % Plt Count 91 L (130-400) K/uL MPV 11.1 (9.4-12.3) fL Immature Gran % (Auto) 0.7 % Neut % (Auto) 92.4 % Lymph % (Auto) 3.4 % [place] % (Auto) 3.1 % Eos % (Auto) 0.3 % Baso % (Auto) 0.1 % Neut # (Auto) 17.01 H (1.4-6.5) K/uL Lymph # (Auto) 0.63 L (1.2-3.4) K/uL [place] # (Auto) 0.58 (0.24-0.82) K/uL Eos # (Auto) 0.05 (0-0.50) K/uL Baso # (Auto) 0.02 (0-0.2) K/uL Immature Gran # (Auto) 0.13 H (0.00-0.02) K/uL Tear Drop Cells 1+ Sodium 134 L (136-145) mmol/L Potassium 4.4 (3.5-5.1) mmol/L Chloride 99 (98-107) mmol/L Carbon Dioxide 28 (21-32) mmol/L Anion Gap 7 (3-11) BUN 52 H (6-23) mg/dl Creatinine 2.08 H (0.6-1.2) mg/dl Est Cr Clr Drug Dosing 29.8 ml/min Est GFR ( Amer) 31.8 ml/min Est GFR (Non-Af Amer) 27.5 ml/min BUN/Creatinine Ratio 25.0 H (10-20) Glucose 89 (70-99(Fasting)) mg/dl Calcium 7.4 L (8.5-10.1) mg/dl Phosphorus 4.9 D (2.5-4.9) mg/dl Magnesium 1.9 (1.7-2.4) mg/dl PG Care Time/CCT Total # of Minutes Spent Total Time Spent with Patient: Total time spent is greater than 50% in coordination of care (as documented) at patient's floor/unit and/or counseling patient: Coding Level of Care Code 52018 Subseq Hosp Care Lvl 3 Diagnoses Anemia D64.9 Anemia type: unspecified type Bacteremia R78.81 Cancer related pain G89.3 Fever R50.9 Leiomyosarcoma C49.9 Fluid overload E87.79 Hypervolemia type: other Hypertension I10 Hypothyroidism E03.9 History of cardiomyopathy Z86.79 Hx of deep venous thrombosis Z86.718 EDDIE (acute kidney injury) N17.9 (1) Anemia Anemia type: unspecified type Qualified Code(s): D64.9 - Anemia, unspecified (2) Fluid overload Hypervolemia type: other Qualified Code(s): E87.79 - Other fluid overload
[2022-09-14] MEDS: MAGNESIUM OXIDE 400 MG TAB PO SCH ×2 (08:15→20:50)
[2022-09-14] MEDS: DOCUSATE SODIUM 100 MG CAP PO SCH ×2 (08:15→20:49)
[2022-09-14] MEDS: allopurinoL 300 MG TAB PO SCH (08:15)
[2022-09-14] MEDS: PANTOprazole 40 MG TAB PO SCH (08:15)
[2022-09-14] MEDS: CYANOCOBALAMIN (B-12) 500 MCG TABLET PO SCH (08:15)
[2022-09-14] MEDS: SENNA 8.6 MG TAB PO SCH (08:16)
[2022-09-14] MEDS: FOLIC ACID 1 MG TAB PO SCH (08:16)
[2022-09-14] MEDS: METOPROLOL SUCC 50MG EXT REL TAB PO SCH (08:16)
[2022-09-14 08:50] LABS: Hematocrit (blood only) 26.6 % (34.1-44.9); Hemoglobin 8.2 g/dl (12.0-16.0); Mean Corpuscular Hemoglobin 30.1 pg (25.0-34.0); Mean Corpuscular Hgb Conc 30.8 g/dL (32.0-36.0); Mean Corpuscular Volume 97.8 fL (80.0-100.0); Mean Platelet Volume 11.1 fL (9.4-12.3); Platelet Count 91 K/uL (130-400); RDW Coefficient of Variation 17.7 % (11.5-14.5); RDW Standard Deviation 63.4 fL (36.4-46.3); Red Blood Count 2.72 M/uL (3.93-5.22); White Blood Count 18.42 K/ul (4.8-10.8)
[2022-09-14] MEDS: DOXYCYCLINE HYCLATE 100 MG in DEXTROSE 5% 100 ML IV SCH ×2 (09:10→20:49)
[2022-09-14 09:29] LABS: Calcium 7.4 mg/dl (8.5-10.1); Creatinine Clr Calc Pharmacy 29.8 ml/min; Est GFR (African American) 31.8 ml/min; Est GFR (Non-African American) 27.5 ml/min; Magnesium 1.9 mg/dl (1.7-2.4); Phosphorus 4.9 mg/dl (2.5-4.9); Potassium 4.4 mmol/L (3.5-5.1)
[2022-09-14 09:43] LABS: Basophils # (auto) 0.02 K/uL (0-0.2); Basophils % (auto) 0.1 %; Eosinophils # (auto) 0.05 K/uL (0-0.50); Eosinophils % (auto) 0.3 %; Immature Granulocytes # (auto) 0.13 K/uL (0.00-0.02); Immature Granulocytes % (auto) 0.7 %; Lymphocytes # (auto) 0.63 K/uL (1.2-3.4); Lymphocytes % (auto) 3.4 %; Monocytes # (auto) 0.58 K/uL (0.24-0.82); Monocytes % (auto) 3.1 %; Neutrophils # (auto) 17.01 K/uL (1.4-6.5); Neutrophils % (auto) 92.4 %; Tear Drop Cells 1+
[2022-09-14] MEDS: SODIUM CHLORIDE 0.9% 1000ML 1,000 ML IV SCH (12:49)
[2022-09-15] MEDS: PIPERACILLIN/TAZOBACTAM 3.375 GM in DEXTROSE 5% 100 ML IV SCH ×2 (00:21→09:42)
[2022-09-15] MEDS: HYDROmorphone INJ 1 MG/ML SYRINGE IV PRN ×2 (02:40→06:30)
[2022-09-15] MEDS: LEVOTHYROXINE SODIUM 75 MCG TABLET PO SCH (05:47)
[2022-09-15 07:12] LABS: Hematocrit (blood only) 26.6 % (34.1-44.9); Hemoglobin 8.1 g/dl (12.0-16.0); Mean Corpuscular Hemoglobin 29.7 pg (25.0-34.0); Mean Corpuscular Hgb Conc 30.5 g/dL (32.0-36.0); Mean Corpuscular Volume 97.4 fL (80.0-100.0); Mean Platelet Volume 11.2 fL (9.4-12.3); Platelet Count 92 K/uL (130-400); RDW Coefficient of Variation 16.6 % (11.5-14.5); RDW Standard Deviation 58.8 fL (36.4-46.3); Red Blood Count 2.73 M/uL (3.93-5.22); White Blood Count 13.62 K/ul (4.8-10.8)
[2022-09-15 07:40] LABS: Basophils # (auto) 0.01 K/uL (0-0.2); Basophils % (auto) 0.1 %; Eosinophils # (auto) 0.06 K/uL (0-0.50); Eosinophils % (auto) 0.4 %; Immature Granulocytes # (auto) 0.06 K/uL (0.00-0.02); Immature Granulocytes % (auto) 0.4 %; Lymphocytes # (auto) 0.63 K/uL (1.2-3.4); Lymphocytes % (auto) 4.6 %; Monocytes # (auto) 0.45 K/uL (0.24-0.82); Monocytes % (auto) 3.3 %; Neutrophils # (auto) 12.41 K/uL (1.4-6.5); Neutrophils % (auto) 91.2 %
--- NOTE | 2022-09-15 07:49 | Hospitalist Progress Note ---
Date of Service September 15, 2022 Assessment & Plan (1) Anemia: Plan: 47 yo F Hx metastatic leiomyosarcoma, DVT, CHF, anemia of chronic disease (cancer-related) admitted for symptomatic anemia and anasarca. Getting weekly labs/blood transfusions as outpatient but presented due to increased shortness of breath prior to being able to get most recent transfusion. Imaging with worsening tumors to pelvis, likely compressing on vasculature causing worsening body edema. CTA Chest/A/P : NO PE, does note multifocal metastatic disease. This has progressed as compared to 06/12/2022., small-moderate pleural effusions, small volume of abdominopelvic ascites, anasarca indicate fluid overload. An approximately 22 cm necrotic mass lesion fills the pelvis and encases/displaces several structures as above, including the rectum and several bowel loops. Invasion of these structures is not excluded. Tiny foci of active extravasation within this lesion are not excluded. Additional large mass lesions within the abdomen and pelvis have increased in size from previous. Hepatomegaly with progressive hepatic metastatic disease. Occluded right internal iliac artery. There is moderate to severe right and mild left hydronephrosis with ureteral stents in place. Venous Doppler LE : There is a chronic appearing nonocclusive thrombus in the right common femoral vein, popliteal vein, and great saphenous vein. The left great saphenous vein is equivocal and may be noncompressible due to extensive edema. A small amount of linear chronic thrombus is suggested. Upper Ext Doppler:1. No DVT within the right or left lower extremity. 2. Nonocclusive thrombus within the right internal jugular vein which may be chronic. Heme/onc -- no further chemo to be offered Hgb 7.6 on admit, has gotten 2u PRBC. Hgb stable at 8.1 but will need continued monitoring. Transfusion support to be provided for symptoms Fever 09/11, concerning for infection Blood cultures obtained, procal checked (elevated to 8.26) UA gardnerella like bacilli, blood cultures with alpha strep not S pneumo/enterrococcus (Viridans) in 1/2 sets anaerobic noted bacteria but not identified at that time. Lab believed to be contaminent however given entire clinical picture/fever/elevated WBC, did not want to chance Had been placed on Zosyn/Doxy -- WBC improving, no further temperatures On 09/15/22, blood cultures showed evidence for clostridium perfringens in 1/2 bottles and ID was contacted for discussion. No obvious skin findings, could consider repeating abd imagin (no increased pain reported) but would check lactic first (given necrotic mass lesions filling pelvis and displacing structures including rectum/several bowel loops with invasion not xcluded on admit imaging) --> Lactic NOT elevated -- 0.8 Decision to ADD CLINDAMYCIN to Zosyn/Doxy regimen Repeat blood cultures on 09/14 pending -- NGTD currently WBC trending down still, however procal 49?? Error? will repeat Formal ID consult for tomorrow, appreciate assistance Palliative consulted -- patient DNR/DNI, placed on Dilaudid SURGICAL SUPPLIES STERILIZER for better pain control w/ plans to transition to methadone at d/c working [place] hospice [place], agency able to provide transfusion support until no longer deemed a burden. Patient would need transported for transfusions. Monitor labs on repeat (2) Bacteremia: Plan: checked blood cultures 09/12 due to high grade fevers. concerns TLS vs from malignancy vs infection CXR possible multifocal pneumonia (sputum cx ordered if able to produce), Doxy/Zosyn added No evidence for SBP currently UA Gardnerella like bacteria ?unclear source --> now w/ clostridium perfringens on blood culture -- clinda IV added Repeat blood cultures ordered ID consulted for tomorrow Hopefully would be able to use PO option at d/c, otherwise will need to touch base w/ CM about continued IV abx at d/c ECHO done, not read yet, checked given S3 on exam, eval endocarditis? (3) Cancer related pain: Plan: Palliative consulted for goals of care/pain control see their note, appreciate assistance. 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 multifocal pneumonia, biofire negative Tylenol/pain control/supportive care Abx with Zosyn/Doxy, clinda added given clostridium as above Suspected possibly related to multifocal pneumonia. lactic checked and without elevation, less likely abd but not ruled out. no increased abd pain reported Continue abx, incentive spirometer, nebs prn Repeat blood cultures as above, ID consult for tomorrow Also possible low grade fevers relating to clots/tumor burden (5) Leiomyosarcoma: Plan: s/p tumor debulking with Dr Lou in 2018 and multiple rounds of chemo (w/ Dr Salas and Dr Mckeon), most recently on Trabectedin. Had been hospitalized for hypotension/hgb5 c/w hypovolemic shock. Was given Kcentra/2u PRBC, rebled and another 2u PRBC and TXA and 2u FFP. Then tx to [facility] for further management, given 3 more units and cryo. Eliquis discontinued, not candidate for IVF filter given unable to place due to vein compression likely related to intra-abdominal mass Patient with known metastatic disease, concern she could have mets pushing on major blood vessels causing her anasarca -- likely based on imaging/enlarged tumor to pelvis Oncology on consult as above Palliative consulted as above for goals of care -- pain management as outlined above with Dilaudid SURGICAL SUPPLIES STERILIZER, increasing 09/12 for better control Planning for hospice at d/c (6) Fluid overload: Plan: Multifactorial including hypoalbuminemia, anasarca from her known cancer, possible mass effect, and hx of heart failure Recent PIEDAD w/ normal LV systolic function, does have murmur on exam, but doubt benefit for repeat given just done in June, EF 50-55%, no wma Discussed possible paracentesis w/ heme/onc, minimal ascites on exam would doubt much help. Could consider thoracentesis if developed worsening respiratory symptoms/fluid collection Given 40mg IV lasix x 2 on admit, additional 20mg IV 09/10 and 40mg IV on 09/11 with blood Decreased PO intake --> Cr 2.08 on AM labs and looking dehydrated on exam (also elevations could be due to low BPs) Cr improved after blood --> lasix and spironolactone on hold (lasix has been on hold, spironolactone placed on hold after 09/12 dose) TSH elevated, Synthroid increased as above (did not get dose yesterday due to nausea, consider giving IV if missing any further doses) Improved nausea Lasix 20mg IV x 1 for today, monitor response (7) Hypertension: Plan: Borderline , has been ambulating Holding further spironolactone/lasix as above, exception dose IV lasix for today Continues on metoprolol with hold parameters Monitor (8) Hypothyroidism: Plan: Continue levothyroxine 50mcg daily Of note, TSH was 36 in June, placed on Synthroid 50mcg daily -- she reports has been taking this correctly, never had any repeat TFT outpatient Repeat TSH still elevated at 14.8, borderline T4--> increased Synthroid to 75mcg daily -- continue at d/c Consider IV dosing if missing any further PO doses (9) History of cardiomyopathy: Plan: Had a TTE in june of this year Holding lasix/spironolactone (has gotten IV doses lasix and PO spironolactone during admit as above) Remains on BB w/ hold parameters No ASA/Anticoagulation given bleeding Repeat ECHO ordered, not yet read (10) Hx of deep venous thrombosis: Plan: Patient was previously diagnosed with lare right LE DVT's when she was transferred to [facility] with her large GI bleed US LE Doppler w/ chronic DVT --> LE edema likely compression from pelvic tumors as above Checked US UE for prognostic data/UE edema, 1. No DVT within the right or left lower extremity. 2. Nonocclusive thrombus within the right internal jugular vein which may be chronic Not able to be on anticoagulation, or have IVC filter placed due to location/too high risk and recent lift-threatening bleeding High risk as she is aware, CT chest on admit w/o PE (11) EDDIE (acute kidney injury): Plan: creatinine 1.94, on allopurinol give possible TLS per discussion w/ heme/onc as not getting anymore active treatment Lasix x 1 for volume overload Transfuse in AM if needed BMP in AM Plan continued inpatient stay Adding clinda IV given clostridium on bcx, repeat cx pending Formal ID consult for tomorrow Hopefully will be able to send on PO abx, but if needing IV will have Cm assist with arranging. Arranging for hospice w/ transfusion support at d/c for symptoms Palliative to assist w/ transition SURGICAL SUPPLIES STERILIZER to methadone in next 24 hours hopefully Ideally would like to get patient home as soon as medically stable/arrangements made and ID consultation undertaken/repeat cxs Poor prognosis, wants to spend as much time w/ family as possible. Hopefully ashley l be able to get home by middle of the week Would benefit from having POLST filled out closer to discharge Updated family -- /sister/[id number]-cx-sfg at bedside AM 09/14 Admission and Anticipated Discharge Date Admission Date: September 09, 2022 Supervising Physician Co-Signing Physician Notes The patient was seen by me. Case discussed with LISETTE Jha. She is now on intravenous clindamycin for Clostridium positive blood culture. Agree with assessment and plan Subjective Eval this morning, getting some rest in bed. Appears comfortable, states pain controlled. Moving her bowels. Will touch base w/ palliative about transition to methadone to ensure pain controlled at d/c. Also discussed blood cultures only 1/2 bottles but WBC improving (although procal elevated) and will touch base w/ ID connect as holiday to see about diff abx and monitoring repeat procal. Sounds wet on exam, diuretics held/Cr improved. Will give dose IV lasix today. Appetite fair, improved from prior. No further nausea/need for medications. Questions/concerns addressed. Hopeful to go home as soon as able once arrangements are made. Review of Systems Review of Systems: All systems reviewed & are unremarkable except as noted in HPI & below Physical Exam Physical Exam: General: chronically ill appearing female sitting up in bed, older appearing than stated age, appears comfortable though, wet cough HEENT: head normocephalic, atraumatic, mmm, trachea midline Chest: mediport L chest, no signs of infection Resp: diminished in the bases, bibasilar crackles improved/exp wheezing, on room air CV: regular rate, rhythm, +systolic murmur, ?S3, 1+ pitting edema b/l LE to thighs, RLE >LLE GI: +LESS distension, firm, +BS, not overtly tender to palpation, no bruising : no arriaga MSK/Neuro: moves all extremities, no focal deficit/slurred speech Psych: AOx3, cooperative, depressed affect at times compared to yesterday with family at bedside Skin: chronic venous stasis changes, no obvious rashes/lesions/openings Results & Data Results & Data ([facility]) Vital Signs (Past 12 Hours) Vital Signs Temp Pulse Resp BP Pulse Ox O2 Del Method 09/15/22 04:02 36.5 C 96 H 18 103/67 95 Room Air 09/14/22 23:25 36.5 C 97 H 18 99/66 L 94 Room Air Laboratory Results 09/15/22 09/15/22 09/15/22 Range/Units 10:52 06:48 06:48 WBC (4.8-10.8) K/ul RBC (3.93-5.22) M/uL Hgb (12.0-16.0) g/dl Hct (34.1-44.9) % MCV (80.0-100.0) fL MCH (25.0-34.0) pg MCHC (32.0-36.0) g/dL RDW Std Deviation (36.4-46.3) fL RDW Coeff of Jennifer (11.5-14.5) % Plt Count (130-400) K/uL MPV (9.4-12.3) fL Immature Gran % (Auto) % Neut % (Auto) % Lymph % (Auto) % [place] % (Auto) % Eos % (Auto) % Baso % (Auto) % Neut # (Auto) (1.4-6.5) K/uL Lymph # (Auto) (1.2-3.4) K/uL [place] # (Auto) (0.24-0.82) K/uL Eos # (Auto) (0-0.50) K/uL Baso # (Auto) (0-0.2) K/uL Immature Gran # (Auto) (0.00-0.02) K/uL Sodium 134 L (136-145) mmol/L Potassium 3.8 (3.5-5.1) mmol/L Chloride 100 (98-107) mmol/L Carbon Dioxide 28 (21-32) mmol/L Anion Gap 6 (3-11) BUN 49 H (6-23) mg/dl Creatinine 1.94 H (0.6-1.2) mg/dl Est Cr Clr Drug Dosing 32.0 ml/min Est GFR ( Amer) 34.6 ml/min Est GFR (Non-Af Amer) 29.9 ml/min BUN/Creatinine Ratio 25.3 H (10-20) Glucose 84 (70-99(Fasting)) mg/dl Lactate 0.8 (0.4-2.0) mmol/L Calcium 7.3 L (8.5-10.1) mg/dl Magnesium 1.8 (1.7-2.4) mg/dl Total Bilirubin 0.7 (0.2-1.0) mg/dl AST 82 H (13-39) U/L ALT 10 (7-52) U/L Alkaline Phosphatase 152 H (34-104) U/L Total Protein 5.7 L (6.0-8.3) gm/dl Albumin 2.2 L (3.4-5.0) gm/dl Globulin 3.5 (2.5-4.0) gm/dl Albumin/Globulin Ratio 0.6 L (0.9-2) Procalcitonin 49.15 H (0-0.5) ng/ml 09/15/22 Range/Units 06:48 WBC 13.62 H (4.8-10.8) K/ul RBC 2.73 L (3.93-5.22) M/uL Hgb 8.1 L (12.0-16.0) g/dl Hct 26.6 L (34.1-44.9) % MCV 97.4 (80.0-100.0) fL MCH 29.7 (25.0-34.0) pg MCHC 30.5 L (32.0-36.0) g/dL RDW Std Deviation 58.8 H (36.4-46.3) fL RDW Coeff of Jennifer 16.6 H (11.5-14.5) % Plt Count 92 L (130-400) K/uL MPV 11.2 (9.4-12.3) fL Immature Gran % (Auto) 0.4 % Neut % (Auto) 91.2 % Lymph % (Auto) 4.6 % [place] % (Auto) 3.3 % Eos % (Auto) 0.4 % Baso % (Auto) 0.1 % Neut # (Auto) 12.41 H (1.4-6.5) K/uL Lymph # (Auto) 0.63 L (1.2-3.4) K/uL [place] # (Auto) 0.45 (0.24-0.82) K/uL Eos # (Auto) 0.06 (0-0.50) K/uL Baso # (Auto) 0.01 (0-0.2) K/uL Immature Gran # (Auto) 0.06 H (0.00-0.02) K/uL Sodium (136-145) mmol/L Potassium (3.5-5.1) mmol/L Chloride (98-107) mmol/L Carbon Dioxide (21-32) mmol/L Anion Gap (3-11) BUN (6-23) mg/dl Creatinine (0.6-1.2) mg/dl Est Cr Clr Drug Dosing ml/min Est GFR ( Amer) ml/min Est GFR (Non-Af Amer) ml/min BUN/Creatinine Ratio (10-20) Glucose (70-99(Fasting)) mg/dl Lactate (0.4-2.0) mmol/L Calcium (8.5-10.1) mg/dl Magnesium (1.7-2.4) mg/dl Total Bilirubin (0.2-1.0) mg/dl AST (13-39) U/L ALT (7-52) U/L Alkaline Phosphatase (34-104) U/L Total Protein (6.0-8.3) gm/dl Albumin (3.4-5.0) gm/dl Globulin (2.5-4.0) gm/dl Albumin/Globulin Ratio (0.9-2) Procalcitonin (0-0.5) ng/ml Diagnostic Findings Chest X-Ray 09/15/22 06:00 XR chest 1V portable CLINICAL HISTORY: f/u multifocal pneumonia/edema. Leiomyosarcoma. COMPARISON STUDY: Chest CT September 09, 2022. Chest radiograph September 12, 2022. FINDINGS: Lung volumes are diminished. Left subclavian [id number] is in place. Pulmonary metastases are again noted. Cardiomediastinal silhouette is normal. There is a small left pleural effusion. Suspected small right pleural effusion is present. Left basilar opacity has slightly increased. IMPRESSION: 1. Slight increase in left basilar opacity. This could reflect pneumonia or atelectasis. 2. Small left pleural effusion. ACT 112: Negative or not required by law. Electronically signed by: Junior Grider M.D. 09/15/2022 9:35 AM PG Care Time/CCT Total # of Minutes Spent Total Time Spent with Patient: Total time spent is greater than 50% in coordination of care (as documented) at patient's floor/unit and/or counseling patient: Coding Level of Care Code 74813 Subseq Hosp Care Lvl 3 Diagnoses Anemia D64.9 Anemia type: unspecified type Bacteremia R78.81 Cancer related pain G89.3 Fever R50.9 Leiomyosarcoma C49.9 Fluid overload E87.79 Hypervolemia type: other Hypertension I10 Hypothyroidism E03.9 History of cardiomyopathy Z86.79 Hx of deep venous thrombosis Z86.718 EDDIE (acute kidney injury) N17.9 (1) Anemia Anemia type: unspecified type Qualified Code(s): D64.9 - Anemia, unspecified (2) Fluid overload Hypervolemia type: other Qualified Code(s): E87.79 - Other fluid overload
[2022-09-15 07:53] LABS: Albumin Globulin Ratio 0.6 (0.9-2); Albumin Level 2.2 gm/dl (3.4-5.0); BUN Creatinine Ratio 25.3 (10-20); Bilirubin,Total 0.7 mg/dl (0.2-1.0); Calcium 7.3 mg/dl (8.5-10.1); Est GFR (African American) 34.6 ml/min; Est GFR (Non-African American) 29.9 ml/min; Globulin 3.5 gm/dl (2.5-4.0); Magnesium 1.8 mg/dl (1.7-2.4); Potassium 3.8 mmol/L (3.5-5.1); Total Protein 5.7 gm/dl (6.0-8.3)
[2022-09-15] MEDS: FOLIC ACID 1 MG TAB PO SCH (08:19)
[2022-09-15] MEDS: CYANOCOBALAMIN (B-12) 500 MCG TABLET PO SCH (08:19)
[2022-09-15] MEDS: PANTOprazole 40 MG TAB PO SCH (08:19)
[2022-09-15] MEDS: DOCUSATE SODIUM 100 MG CAP PO SCH ×2 (08:19→20:45)
[2022-09-15] MEDS: METOPROLOL SUCC 50MG EXT REL TAB PO SCH (08:20)
[2022-09-15] MEDS: allopurinoL 300 MG TAB PO SCH (08:20)
[2022-09-15] MEDS: MAGNESIUM OXIDE 400 MG TAB PO SCH ×2 (08:20→20:45)
[2022-09-15] MEDS: SENNA 8.6 MG TAB PO SCH (08:20)
--- NOTE | 2022-09-15 09:36 | XRay Report ---
XR chest 1V portable CLINICAL HISTORY: f/u multifocal pneumonia/edema. Leiomyosarcoma. COMPARISON STUDY: Chest CT September 09, 2022. Chest radiograph September 12, 2022. FINDINGS: Lung volumes are diminished. Left subclavian [id number] is in place. Pulmonary metastase s are again noted. Cardiomediastinal silhouette is normal. There is a small left pleural effusion. Montes spected small right pleural effusion is present. Left basilar opacity has slightly increased. IMPRESSION: 1. Slight increase in left basilar opacity. This could reflect pneumonia or atelectasis. 2. Small left pleural effusion. ACT 112: Negative or not required by law. Electronically signed by: Junior Grider M.D. 09/15/2022 9:35 AM
[2022-09-15] MEDS ORDERED: FUROSEMIDE INJ 20 MG/2 ML VIAL IV ONE (09:47)
[2022-09-15] MEDS: HYDROmorphone PCA 30 MG/30 ML IV PRN ×2 (09:52→19:09)
[2022-09-15] MEDS: DOXYCYCLINE HYCLATE 100 MG CAP PO SCH (11:09)
[2022-09-15] MEDS: CLINDAMYCIN/D5W 900 MG/50 ML PREMIX BAG IV SCH ×2 (11:09→18:10)
[2022-09-15] MEDS: SODIUM CHLORIDE 0.9% 1000ML 1,000 ML IV SCH (13:54)
--- NOTE | 2022-09-15 17:08 | XCELERA ---
[id number]
[2022-09-15] MEDS: METHADONE HCL 5 MG TAB PO SCH (18:01)
[2022-09-15] MEDS: PIPERACILLIN/TAZOBACTAM 4.5 GM in DEXTROSE 5% 100 ML IV SCH (18:09)
--- NOTE | 2022-09-15 20:14 | Palliative Care Progress Note ---
Date of Service September 15, 2022 Assessment & Plan (1) Palliative care encounter: Plan: Cancer related pain and symptom management underway. Psychosocial support and logotherapy conducted with patient today who shares that she is hoping to have a visit with her children tomorrow as it is a special birthday and she would like to have a chance to celebrate that with them. She has been able to FaceTime both of her kids throughout the day but notes that today they had to return to school. (2) Cancer related pain: Plan: Patient is hoping to be working towards a discharge plan sometime this week. She would like to transition to an oral regimen that she can continue at home. Patient is on Dilaudid 0.5 mg/h continuously which translates out to approximately 300 oral milligrams of oral morphine equivalents. We discussed the options of different long-acting opioids and have agreed to a trial of methadone given the complex nature of her pain with for neuropathic and nociceptive. Using a 1: 10 conversion ratio, this will be approximately 30 mg of oral methadone in total per day. Due to its potency and the need to adjust for cross tolerance, I will reduce this dose to begin methadone 5 mg p.o. twice daily with the hold parameters of hold for somnolence or respiratory rate less than 14 breaths/min. I reviewed the plan of care with this patient. I will discontinue the Dilaudid continuous rate of 0.5 mg/h approximately 1 hour after starting her methadone dose tonight. I will continue Dilaudid [employer] DEVELOPMENT CONSULTANT demand dose only 0.5 mg every 10 minutes as needed as needed for breakthrough pain and we will follow-up with patient tomorrow. If pain management remains reasonable, we will stop the bolus dose [employer] DEVELOPMENT CONSULTANT tomorrow and move her to oral Dilaudid as needed for breakthrough pain. We will continue to monitor her response to methadone and I will continue to titrate therapy as needed. I anticipate a likely 3 times daily dosing schedule for her methadone. METHADONE SHOULD NOT BE TITRATED DAILY: Methadone is lipophilic, thus it takes time to develop tissue stores that maintain serum levels. There is enormous interindividual variation in how long this takes. After a single dose there is a short distribution phase (associated with acute pain relief) with a half-life of 2-3 hours and a slow elimination phase (half-life 15-60 hours). Dosing must account for the accumulation of drug over days. It is this accumulation that accounts for most therapeutic misadventures. Liver metabolites are inactive; therefore no dose reduction is required with renal failure. After steady-state is reached, about two-thirds of patients will get adequate pain relief with twice a day dosing.Note: a number of drugs will alter methadone metabolism, so there needs to be close follow-up to drug interactions. There are several approaches to starting methadone for the treatment of pain. All take into account the long-half life of the drug that leads to drug accumulation over days.I favor a conservative approach as follows: Conservative Approach: 1. I will begin fixed dose methadone 5 or 10 mg orally bid for 4-7 days. 2. If incomplete pain reliefafter 2-3 days,increase the dose by 50% and continue for 4-7 days. 3. Continue increasing dose every 4-7 days until stable pain relief achieved. For breakthrough pain: we will use an alternative short acting oral opioid with short half-life (for this pt, we are using dilaudid as outlined above prnfor breakthrough pain)and to provide pain relief during titration phase. This dose too may need to be titrated based on efficacy. 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 We will continue the Dilaudid [employer] DEVELOPMENT CONSULTANT demand dose only until tomorrow and reassess for pain relief at which time we will also begin a transition to oral Dilaudid as needed for breakthrough pain. She has had no prior relief with trialed and escalated doses of morphine and oxycodone. Echocardiogram indicates a suspicious mitral valve vegetation and a formal ID consult has been obtained. Primary team is managing antibiotic regimen and further discussions will be undertaken with patient following the ID consultation. María Scott DNP Clinical Director, Palliative Medicine Admission and Anticipated Discharge Date Admission Date: September 09, 2022 Subjective Patient seen for very severe cancer-related pain management. Due to the severe and refractory nature of her cancer related pain from metastatic and terminal leiomyosarcoma, she was started on a Dilaudid infusion 0.5 mg/h continuous rate of 0.4 mg [employer] DEVELOPMENT CONSULTANT q. 10 minutes demand dose as needed. Her pain is now well controlled. She is hopeful to return home in the near future and asks if we can begin a transition to an oral regimen. She denies any nausea vomiting diarrhea or constipation. Her appetite is so-so but she notes that also she has had trouble finding foods she can tolerate here in the hospital, noting that at home she tends to stick to softer foods especially soups because of how distended her stomach is and how difficult it is to eat more solid foods such as meats or breads due to this distention. Review of Systems Review of Systems: All systems reviewed & are unremarkable except as noted in Subjective Physical Exam Physical Exam: Mild discomfort especially with repositioning. Respiratory effort stable at rest with no conversational dyspnea. Abdomen remains distended and firm, there is a nodularity noted with palpation. She has significant peripheral edema to bilateral lower extremities and bilateral upper extremities +1 to +2. Her mood is stable and she is pleasant and interactive throughout our visit. She remains awake alert and oriented x3. Results & Data ([facility]) Vital Signs (Past 12 Hours) Vital Signs Temp Pulse Resp BP Pulse Ox O2 Del Method 09/15/22 19:00 36.4 C L 84 16 91/54 L 95 Room Air 09/15/22 15:43 36.9 C 85 19 100/63 94 Room Air 09/15/22 11:34 36.5 C 94 H 19 101/68 94 Room Air 09/15/22 08:24 36.8 C 104 H 16 104/67 95 Room Air Diagnostic Findings Echocardiogram revealed normal LV systolic function with a mildly dilated left atrium. There is thickening noted at the mitral valve leaflets that appear suggestive of vegetation. There is also mild mitral regurgitation noted her right ventricular systolic pressure is elevated with an estimated 30 to 40 mmHg. 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
[2022-09-15] MEDS ORDERED: METHADONE HCL 5 MG TAB PO SCH (21:00)
[2022-09-16] MEDS: PIPERACILLIN/TAZOBACTAM 4.5 GM in DEXTROSE 5% 100 ML IV SCH ×3 (02:03→18:00)
[2022-09-16] MEDS: CLINDAMYCIN/D5W 900 MG/50 ML PREMIX BAG IV SCH ×3 (03:00→18:00)
[2022-09-16] MEDS: HYDROmorphone INJ 1 MG/ML SYRINGE IV PRN ×2 (05:45→11:31)
[2022-09-16] MEDS: LEVOTHYROXINE SODIUM 75 MCG TABLET PO SCH (05:48)
[2022-09-16] MEDS ORDERED: DOXYCYCLINE HYCLATE 100 MG in DEXTROSE 5% 100 ML IV SCH (07:00)
[2022-09-16] MEDS: DOXYCYCLINE HYCLATE 100 MG CAP PO SCH (07:18)
[2022-09-16 07:34] LABS: Hematocrit (blood only) 25.9 % (34.1-44.9); Hemoglobin 7.9 g/dl (12.0-16.0); Mean Corpuscular Hemoglobin 29.8 pg (25.0-34.0); Mean Corpuscular Hgb Conc 30.5 g/dL (32.0-36.0); Mean Corpuscular Volume 97.7 fL (80.0-100.0); Mean Platelet Volume 11.1 fL (9.4-12.3); Platelet Count 98 K/uL (130-400); RDW Coefficient of Variation 16.9 % (11.5-14.5); RDW Standard Deviation 60.7 fL (36.4-46.3); Red Blood Count 2.65 M/uL (3.93-5.22); White Blood Count 11.74 K/ul (4.8-10.8)
[2022-09-16] MEDS: DOCUSATE SODIUM 100 MG CAP PO SCH ×2 (07:37→20:32)
[2022-09-16] MEDS: allopurinoL 300 MG TAB PO SCH (07:37)
[2022-09-16] MEDS: METHADONE HCL 5 MG TAB PO SCH ×2 (07:37→20:32)
[2022-09-16] MEDS: CYANOCOBALAMIN (B-12) 500 MCG TABLET PO SCH (07:37)
[2022-09-16] MEDS: SENNA 8.6 MG TAB PO SCH (07:37)
[2022-09-16] MEDS: PANTOprazole 40 MG TAB PO SCH (07:38)
[2022-09-16] MEDS: FOLIC ACID 1 MG TAB PO SCH (07:38)
[2022-09-16] MEDS: MAGNESIUM OXIDE 400 MG TAB PO SCH ×2 (07:38→20:33)
[2022-09-16] MEDS: METOPROLOL SUCC 50MG EXT REL TAB PO SCH (07:38)
[2022-09-16 08:08] LABS: Albumin Level 2.1 gm/dl (3.4-5.0); BUN Creatinine Ratio 26.2 (10-20); Bilirubin,Total 0.6 mg/dl (0.2-1.0); Calcium 7.2 mg/dl (8.5-10.1); Creatinine Clr Calc Pharmacy 29.8 ml/min; Est GFR (African American) 35.3 ml/min; Est GFR (Non-African American) 30.4 ml/min; Potassium 3.7 mmol/L (3.5-5.1); Total Protein 5.4 gm/dl (6.0-8.3)
--- NOTE | 2022-09-16 08:08 | Hospitalist Progress Note ---
Date of Service September 16, 2022 Assessment & Plan (1) Bacteremia: Plan: 47 yo F Hx metastatic leiomyosarcoma, DVT, CHF, anemia of chronic disease (cancer-related) admitted for symptomatic anemia and anasarca. Getting weekly labs/blood transfusions as outpatient but presented due to increased shortness of breath prior to being able to get most recent transfusion. Had not reported any fevers prior to admission, but then developed while inpatient 09/11 On admission, imaging with worsening tumors to pelvis, likely compressing on vasculature causing worsening body edema. * CTA Chest/A/P : NO PE, does note multifocal metastatic disease. This has progressed as compared to 06/12/2022., small-moderate pleural effusions, small volume of abdominopelvic ascites, anasarca indicate fluid overload. An approximately 22 cm necrotic mass lesion fills the pelvis and encases/displaces several structures as above, including the rectum and several bowel loops. Invasion of these structures is not excluded. Tiny foci of active extravasation within this lesion are not excluded. Additional large mass lesions within the abdomen and pelvis have increased in size from previous. Hepatomegaly with progressive hepatic metastatic disease. Occluded right internal iliac artery. There is moderate to severe right and mild left hydronephrosis with ureteral stents in place. * Venous Doppler LE : There is a chronic appearing nonocclusive thrombus in the right common femoral vein, popliteal vein, and great saphenous vein. The left great saphenous vein is equivocal and may be noncompressible due to extensive edema. A small amount of linear chronic thrombus is suggested. * Upper Ext Doppler:1. No DVT within the right or left lower extremity. 2. Nonocclusive thrombus within the right internal jugular vein which may be chronic. Heme/onc consulted for anemia -- no further chemo to be offered Hgb 7.6 on admit, had gotten 2u PRBC and hgb had remained stable. Transfusion support to be provided for symptoms Fever occured 09/11, concerning for infection * Blood cultures obtained, procal checked (elevated to 8.26) * UA Gardnerella like bacilli, blood cultures with alpha strep not S pneumo/enterrococcus (Viridans) in 1/2 sets anaerobic noted bacteria but not identified at that time. Lab believed to be contaminant however given entire clinical picture/fever/elevated WBC, did not want to chance * Had been placed on Zosyn/Doxy -- WBC improving, no further temperatures * On 09/15/22, blood cultures showed evidence for clostridium perfringens in 1/2 bottles and ID was contacted for discussion. * No obvious skin findings, could consider repeating abd imaging (no increased pain reported) but would check lactic first (given necrotic mass lesions filling pelvis and displacing structures including rectum/several bowel loops with invasion not excluded on admit imaging)--> Lactic NOT elevated -- 0.8 * Decision to ADD CLINDAMYCIN to Zosyn/Doxy regimen 09/15 * Repeat blood cultures on 09/14 pending -- NGTD currently. * Procal rechecked, ?elevated to 49 ECHO ordered to r/o endocarditis * ECHO came back w/ possible evidence for mitral valve vegetation * Impression: Left ventricular systolic function is normal. The left atrium is mildly dilated. There is thickening of the mitral valve leaflets at the coaptation. Vegetation at this location cannot definitely be excluded. There is mild mitral regurgitation. Right ventricular systolic pressure is elevated at 30-40mmHg. * Cards consulted, looked at echo, felt just some thickening and would not have read as possible vegetation. Given clinical picture, would not pursue PIEDAD Had added Clinda IV to abx regimen 09/15, changed the Doxy back to IV after discussion with ID. Unknown source for c.perfringens however again, necrotic mass lesions filing pelvis on admit, could be source WBC trending down Hgb 7.9 -- transfusing 1u PRBC and lasix for today. Also 1gm IV calcium gluconate to prevent bleeding given 3u PRBC on admit Procal trending down Repeat blood cultures have been NGTD, patient has been afebrile ID consulted for today --> follow up bcx 09/14 for clearance of bacteremia. Micro send for sensitivities for the alpha hemolytic strep day prior given concerns --> Continue Zosyn (increased dose day prior for abd coverage rather than pna), Clindamycin for suppression of toxin production (anticipating d/c soon if pt remains stable) --> D/C Doxycycline --> PIEDAD consideration (see above, cards dose not feel needed, would not want to pursue given clinical picture/continue abx IV for now) --> Consideration for surgery consult however given above/no longer chemo candidate/move to hospice, would likely not be able to undergo any surgery surgeries CM working on hospice at d/c. Found agency able to agree to transfusion support as long as not deemed burden to patient. Palliative consulted for goals of care/legacy planning/pain control -- see below Hopeful to be able to discharge patient later this week to spend as much time as possible with family. Will need to monitor repeat cultures/ID recommendations (2) Anemia: Plan: 2nd to malignancy, 2u PRBC thus far Had remained stable, getting weekly transfusions Endorsed more sob/hgb 7.9, 1u PRBC w/ lasix for today CBC in AM (3) Cancer related pain: Plan: Palliative consulted for goals of care/pain control see their note, appreciate assistance. Patient had her pain regimen increased outpatient for her OxyContin, reported controlled for most part however appeared slightly uncomfortable [employer] Contin 60mg q12h + Oxy IR 20mg 3-4 doses/day without optimal relief ---> Placed on Dilaudid LABEL PRINTER, increased dose 09/12 and appeared much more comfortable Transitioned to methadone 5mg BID, Dilaudid available for breakthrough. Plans likely 5mg TID at d/c but will see how she feels and avoid increasing too soon. Dilaudid LABEL PRINTER discontinued, IV available Q1h prn Palliative to continue follow up/management after discharge for further titrations as needed (4) Fever: Plan: New 38.5-38.9F 09/11 -- was not having fever at home ?also if possible tumor lysis, uric acid elevated -- allopurinol 300mg daily as above Likely 2nd to bacteremia, bcx as above, 2nd to GI source/necrotic mass No further fevers, repeat blood cultures no growth, WBC trending down ID consulted/abx as outlined (5) Leiomyosarcoma: Plan: s/p tumor debulking with Dr Lou in 2019 and multiple rounds of chemo (w/ Dr Salas and Dr Mckeon), most recently on Trabectedin. Had been hospitalized for hypotension/hgb5 c/w hypovolemic shock. Was given Kcentra/2u PRBC, rebled and another 2u PRBC and TXA and 2u FFP. Then tx to [facility] for further management, given 3 more units and cryo. Eliquis discontinued, not candidate for IVF filter given unable to place due to vein compression likely related to intra-abdominal mass Patient with known metastatic disease, concern she could have mets pushing on major blood vessels causing her anasarca -- likely based on imaging/enlarged tumor to pelvis Oncology on consult as above Palliative consulted as above for goals of care -- pain management as outlined above with Dilaudid LABEL PRINTER, increasing 09/12 for better control and transitioned to methadone as above Planning for hospice at d/c, CM following (6) Fluid overload: Plan: Multifactorial including hypoalbuminemia, anasarca from her known cancer, possible mass effect, and hx of heart failure Recent PIEDAD w/ normal LV systolic function, does have murmur on exam, but doubt benefit for repeat given just done in June, EF 50-55%, no wma Discussed possible paracentesis w/ heme/onc, minimal ascites on exam would doubt much help. Could consider thoracentesis if developed worsening respiratory symptoms/fluid collection Given 40mg IV lasix x 2 on admit, additional 20mg IV 09/10 and 40mg IV on 09/11 with blood Cr bumped and diuretcis held, improved after blood transfusion with additional IV lasix Additional 1u PRBC for 1/3 with IV lasix, monitor response TSH elevated, Synthroid increased as above Improved nausea and PO intake (7) Hypertension: Plan: Borderline , has been ambulating Holding further spironolactone/lasix as above, exception dose IV lasix for today with blood Continues on metoprolol with hold parameters Monitor (8) Hypothyroidism: Plan: Continue levothyroxine 50mcg daily Of note, TSH was 36 in June, placed on Synthroid 50mcg daily -- she reports has been taking this correctly, never had any repeat TFT outpatient Repeat TSH still elevated at 14.8, borderline T4--> increased Synthroid to 75mcg daily -- continue at d/c Consider IV dosing if missing any further PO doses (9) History of cardiomyopathy: Plan: Had a TTE in june of this year Holding lasix/spironolactone (has gotten IV doses lasix and PO spironolactone during admit as above) Remains on BB w/ hold parameters No ASA/Anticoagulation given bleeding ECHO w/ possible mitral vegetation as above, cards/ID consulted -- did NOT feel anything more than thickening but no vegetation Remains on IV abx, blood cultures negative on repeat (10) Hx of deep venous thrombosis: Plan: Patient was previously diagnosed with lare right LE DVT's when she was transferred to [place] with her large GI bleed US LE Doppler w/ chronic DVT --> LE edema likely compression from pelvic tumors as above Checked US UE for prognostic data/UE edema, 1. No DVT within the right or left lower extremity. 2. Nonocclusive thrombus within the right internal jugular vein which may be chronic Not able to be on anticoagulation, or have IVC filter placed due to location/too high risk and recent lift-threatening bleeding High risk as she is aware, CT chest on admit w/o PE (11) EDDIE (acute kidney injury): Plan: creatinine 1.94, on allopurinol give possible TLS per discussion w/ heme/onc as not getting anymore active treatment Lasix x 1 for volume overload 09/15, Cr 1.94--> 1.91 Lasix with prbc today, monitor bmp on repeat Plan continued inpatient stay Cards consulted -- deferring on PIEDAD Remains on Zosyn/Clinda ID consulted-- further recs pending repeat cultures as well as sensitivities for cultures from 09/14 CM aware of possible need for IV abx -- has port if needing IV abx 1u PRBC w/ lasix today for anemia, monitor CBC Continue methadone 5mg BID, 1mg IV dilaudid q1h available as needed for breakthrough CM following, eventual hospice at d/c. Checking to see if able to accommodate IV abx as they would agree to transfusions Poor prognosis, wants to spend as much time w/ family as possible. Hopefully will be able to get home by middle of the week Would benefit from having POLST filled out closer to discharge Of note, is her son's birthday this week...support provided. Family to visit Admission and Anticipated Discharge Date Admission Date: September 09, 2022 Supervising Physician Co-Signing Physician Notes The patient was not seen by me. Case discussed with LISETTE Jha. Agree with assessment and plan Subjective Patient evaluated this morning, improvement in appetite. She states she is continuing to move her bowels. No further fevers, does endorse some shortness of breath. Discussed transfusion additional PRBC, also concerns for possible mitral vegetation on ECHO and ID consult for later today. Pain is controlled/tolerated. Has been using LABEL PRINTER for breakthrough, not too frequently but can use IVP to prevent need for additional IV site. And will message palliative about increasing the methadone to TID. Review of Systems Review of Systems: All systems reviewed & are unremarkable except as noted in HPI & below Physical Exam Physical Exam: General: chronically ill appearing female sitting up in bed, eating some breakfast, older appearing than stated age, appears more comfortable, eating, +cough at times HEENT: head normocephalic, atraumatic, mmm, trachea midline Chest: mediport L chest, no signs of infection Resp: diminished in the bases, scattered bilateral crackles posterior lung pimentel, rales to bases, on room air CV: regular rate, rhythm, +systolic murmur, ?S3, 1-2+ pitting edema b/l LE to thighs, RLE >LLE, pitting edema to LUE but radial pulse palpable GI: +less distension, firm, +BS, not overtly tender to palpation, no bruising : no arriaga MSK/Neuro: moves all extremities, no focal deficit/slurred speech Psych: AOx3, cooperative, pleasant Skin: chronic venous stasis changes, no obvious rashes/lesions/openings Results & Data Results & Data ([facility]) Vital Signs (Past 12 Hours) Vital Signs Temp Pulse Resp BP Pulse Ox O2 Del Method 09/16/22 03:57 36.4 C L 89 16 99/67 L 93 Room Air 09/16/22 02:45 36.5 C 90 18 96/63 L 94 Room Air 09/15/22 22:43 36.4 C L 85 18 95/60 L 95 Room Air Laboratory Results 09/16/22 09/16/22 09/16/22 Range/Units 07:24 07:24 07:24 WBC 11.74 H (4.8-10.8) K/ul RBC 2.65 L (3.93-5.22) M/uL Hgb 7.9 L (12.0-16.0) g/dl Hct 25.9 L (34.1-44.9) % MCV 97.7 (80.0-100.0) fL MCH 29.8 (25.0-34.0) pg MCHC 30.5 L (32.0-36.0) g/dL RDW Std Deviation 60.7 H (36.4-46.3) fL RDW Coeff of Jennifer 16.9 H (11.5-14.5) % Plt Count 98 L (130-400) K/uL MPV 11.1 (9.4-12.3) fL Sodium 135 L (136-145) mmol/L Potassium 3.7 (3.5-5.1) mmol/L Chloride 101 (98-107) mmol/L Carbon Dioxide 27 (21-32) mmol/L Anion Gap 7 (3-11) BUN 50 H (6-23) mg/dl Creatinine 1.91 H (0.6-1.2) mg/dl Est Cr Clr Drug Dosing 29.8 ml/min Est GFR ( Amer) 35.3 ml/min Est GFR (Non-Af Amer) 30.4 ml/min BUN/Creatinine Ratio 26.2 H (10-20) Glucose 91 (70-99(Fasting)) mg/dl Lactate (0.4-2.0) mmol/L Calcium 7.2 L (8.5-10.1) mg/dl Magnesium 2.0 (1.7-2.4) mg/dl Iron 36 (35-150) mcg/dl TIBC 99 L (250-450) mcg/dl Unsaturated IBC 63 L (155-355) mcg/dl Transferrin % Sat 36 (15-50) % Ferritin 1359.0 H (8-388) ng/ml Total Bilirubin 0.6 (0.2-1.0) mg/dl AST 79 H (13-39) U/L ALT 11 (7-52) U/L Alkaline Phosphatase 159 H (34-104) U/L Total Protein 5.4 L (6.0-8.3) gm/dl Albumin 2.1 L (3.4-5.0) gm/dl Globulin 3.3 (2.5-4.0) gm/dl Albumin/Globulin Ratio 0.6 L (0.9-2) Procalcitonin 31.37 H (0-0.5) ng/ml 09/15/22 Range/Units 10:52 WBC (4.8-10.8) K/ul RBC (3.93-5.22) M/uL Hgb (12.0-16.0) g/dl Hct (34.1-44.9) % MCV (80.0-100.0) fL MCH (25.0-34.0) pg MCHC (32.0-36.0) g/dL RDW Std Deviation (36.4-46.3) fL RDW Coeff of Jennifer (11.5-14.5) % Plt Count (130-400) K/uL MPV (9.4-12.3) fL Sodium (136-145) mmol/L Potassium (3.5-5.1) mmol/L Chloride (98-107) mmol/L Carbon Dioxide (21-32) mmol/L Anion Gap (3-11) BUN (6-23) mg/dl Creatinine (0.6-1.2) mg/dl Est Cr Clr Drug Dosing ml/min Est GFR ( Amer) ml/min Est GFR (Non-Af Amer) ml/min BUN/Creatinine Ratio (10-20) Glucose (70-99(Fasting)) mg/dl Lactate 0.8 (0.4-2.0) mmol/L Calcium (8.5-10.1) mg/dl Magnesium (1.7-2.4) mg/dl Iron (35-150) mcg/dl TIBC (250-450) mcg/dl Unsaturated IBC (155-355) mcg/dl Transferrin % Sat (15-50) % Ferritin (8-388) ng/ml Total Bilirubin (0.2-1.0) mg/dl AST (13-39) U/L ALT (7-52) U/L Alkaline Phosphatase (34-104) U/L Total Protein (6.0-8.3) gm/dl Albumin (3.4-5.0) gm/dl Globulin (2.5-4.0) gm/dl Albumin/Globulin Ratio (0.9-2) Procalcitonin (0-0.5) ng/ml Diagnostic Findings Chest X-Ray 09/15/22 06:00 XR chest 1V portable CLINICAL HISTORY: f/u multifocal pneumonia/edema. Leiomyosarcoma. COMPARISON STUDY: Chest CT September 09, 2022. Chest radiograph September 12, 2022. FINDINGS: Lung volumes are diminished. Left subclavian [id number] is in place. Pulmonary metastases are again noted. Cardiomediastinal silhouette is normal. There is a small left pleural effusion. Suspected small right pleural effusion is present. Left basilar opacity has slightly increased. IMPRESSION: 1. Slight increase in left basilar opacity. This could reflect pneumonia or atelectasis. 2. Small left pleural effusion. ACT 112: Negative or not required by law. Electronically signed by: Junior Grider M.D. 09/15/2022 9:35 AM 07/16/23 Left ventricular systolic function is normal. The left atrium is mildly dilated. There is thickening of the mitral valve leaflets at the coaptation. Vegetation at this location cannot definitely be excluded. There is mild mitral regurgitation. Right ventricular systolic pressure is elevated at 30-40mmHg. PG Care Time/CCT Total # of Minutes Spent Total Time Spent with Patient: Total time spent is greater than 50% in coordination of care (as documented) at patient's floor/unit and/or counseling patient: Coding Level of Care Code 66411 SUB INP/OBS CARE 3/50MIN Diagnoses Bacteremia R78.81 Anemia D64.9 Anemia type: unspecified type Cancer related pain G89.3 Fever R50.9 Leiomyosarcoma C49.9 Fluid overload E87.79 Hypervolemia type: other Hypertension I10 Hypothyroidism E03.9 History of cardiomyopathy Z86.79 Hx of deep venous thrombosis Z86.718 EDDIE (acute kidney injury) N17.9 (1) Anemia Anemia type: unspecified type Qualified Code(s): D64.9 - Anemia, unspecified (2) Fluid overload Hypervolemia type: other Qualified Code(s): E87.79 - Other fluid overload
[2022-09-16 08:12] LABS: Albumin Globulin Ratio 0.6 (0.9-2); Globulin 3.3 gm/dl (2.5-4.0)
[2022-09-16] MEDS ORDERED: SODIUM CHLORIDE 0.9% 250 ML IV PRN (08:51)
[2022-09-16] MEDS ORDERED: FUROSEMIDE INJ 20 MG/2 ML VIAL IV ONE ×2 (08:51→14:45)
[2022-09-16] MEDS ORDERED: POTASSIUM CHLORIDE 20 MEQ/15 ML UDC PO STA (08:53)
[2022-09-16] MEDS ORDERED: STAT IV STA (08:55)
[2022-09-16] MEDS ORDERED: CALCIUM GLUCONATE 10% 1,000 MG in DEXTROSE 5% 50 ML IV ONE (09:30)
--- NOTE | 2022-09-16 10:18 | Cardiology Consultation ---
Date of Consultation September 16, 2022 Assessment & Plan (1) Bacteremia: -Cardio consulted for possible mitral vegetation seen on TTE , ?candidate for PIEDAD -TTE previously done on 06/26/22 showed EF 50-55, mild left atrial dilation, mild mitral regurgitation, and normal RVSP. -TTE on 09/15 showed new thickening of the mitral valve leaflets at the coaptation (vegetation at this location cannot definitively be excluded), and elevated RVSP @ 30-40mmHg. -Left atrial dilation and mild mitral regurgitation was shown, though was seen on previous TTE on 06/26/22. -ID consulted by primary team. Blood cultures 09/12 grew /2 for clostridium perfringens, / alpha strep. repeat blood cultures on 09/14/22 NGTD. -CXR on 09/15 showed slight increase in L basilar opacity and small L pleural effusion. -Given patient's blood cultures and review of TTE from 09/15, vegetations of the mitral valve seem unlikely at this time. Would recommend holding off on PIEDAD at this time given low suspicion of endocarditis at this time. -Will follow peripherally at this time and may reconsider PIEDAD in the future. (2) History of cardiomyopathy: -Patient has h/o CHFrEF 2/2 chemotherapeutic agents in 2019. EF improved since chemotherapeutic agents have been D/C'ed. -Takes furosemide 40mg QAM, metoprolol 50mg QAM, KCL 20mEq BID, spironolactone 25mg QAM at home. -Holding furosemide and spironolactone at this time given worsening renal function. May restart once renal function improves. -Continue at home metoprolol. (3) Fluid overload: -Patient's fluid overloaded seems multifactorial at this point and not related to her cardiomyopathy or heart function. -Recommend therapeutic Lasix as needed if as long as patient's kidney's can tolerate. Would benefit from paracentesis to help with fluid overload. Plan Thank you for allowing me to participate in the care of your patient. -Dr. Elder Steen PGY1 Supervising Physician Co-Signing Physician Notes Pt seen and examined. Agree with Dr. Steen's assessment and plan. Impression/plan: 1. Bacteremia - transthoracic echocardiogram reviewed, no vegetation. - widely metastatic leiomyosarcoma, hospice. - PIEDAD not appropriate in this patient. - antibiotic therapy per ID. 2. Hypervolemia - diuretics currently on hold due to renal insufficiency. - may be secondary to intra-abdominal disease. History of Present Illness Reason for Consultation: Possible mitral vegetation, ?candidate for PIEDAD Requesting Physician: Jenise Hernandez PA-C Attending Physician: Joey Gaitan MD History of Present Illness Patient is a 47 y/o female with PMHx of metastatic leiomyosarcoma, DVT, CHF, anemia of chronic disease (cancer-related) admitted for symptomatic anemia and anasarca on 09/09/22. At time of admission she c/o significant peripheral edema and SOB. Patient has a history of CHFrEF stage C, NYHA class I-II with EF 15- 20% that improved with medical management back in 05/2020 though to be 2/2 to chemotherapeutic agents. TTE previously done on 06/26/22 showed EF 50-55, mild left atrial dilation, mild mitral regurgitation, and normal RVSP. She is currently not receiving chemotherapy at this time. Patient has been getting weekly labs/blood transfusions as an outpatient but presented to the hospital due to increase SOB. While in the hospital patient has had a fever with leukocytosis concerning for infection with unknown etiology. Blood cultures showed evidence for c. perfringens in 1/2 bottles and TTE was ordered to r/o endocarditis. Patient is currently on clinda, doxy, and zoysn. ID was consulted. Patient's at home furosemide and spironolactone were held due to worsening kidney function. Patient seen bedside today. Patient is no longer endorsing fevers or chills. She continues to have some SOB but has improved since admission. She states t hat she is having orthopnea but has been having this prior to this admission. She continues to c/o peripheral edema. Majority of her pain is located at her abdomen. She denies any CP at this time. Allergies Allergy/AdvReac Type Severity Reaction Status Date / Time nickel AdvReac Mild REDNESS TO Verified 08/20/22 11:34 SKIN Home Medications Medication Instructions Recorded Confirmed Type empagliflozin 10 mg tablet 10 mg PO QAM 03/21/22 09/09/22 History (Jardiance) furosemide 40 mg tablet 40 mg PO QAM 03/21/22 09/09/22 History metoprolol succinate 50 mg 50 mg PO QAM 03/21/22 09/09/22 History tablet,extended release 24 hr ondansetron HCl 8 mg tablet 8 mg PO Q8 PRN Nausea 03/21/22 09/09/22 History spironolactone 25 mg tablet 25 mg PO QAM 03/21/22 09/09/22 History potassium chloride 20 mEq 20 meq PO BID 05/07/22 09/09/22 History tablet,extended release(part/cryst) oxycodone 20 mg tablet 20 mg PO Q4H PRN Pain 06/12/22 09/09/22 History prochlorperazine maleate 10 mg 10 mg PO DAILY PRN Nausea 06/12/22 09/09/22 History tablet magnesium oxide 400 mg PO BID 06/25/22 09/09/22 History levothyroxine 50 mcg tablet 50 mcg PO DAILYBB #30 tabs 06/26/22 09/09/22 Rx (Synthroid) morphine 60 mg tablet,extended 60 mg PO Q12H #1 tab 06/26/22 09/09/22 Rx release pantoprazole 40 mg tablet,delayed 40 mg PO QAM #30 tabs 06/26/22 09/09/22 Rx release (Protonix) ferrous sulfate 325 mg (65 mg 325 mg PO BID #60 tabs 07/02/22 09/09/22 Rx iron) tablet folic acid 1 mg tablet 1 mg PO QAM 07/02/22 09/09/22 History cyanocobalamin (vitamin B-12) 1,000 mcg PO DAILY #30 caps 07/03/22 09/09/22 Rx 1,000 mcg capsule allopurinol 300 mg tablet 300 mg PO DAILY #30 tabs 09/14/22 Rx levothyroxine 75 mcg tablet 75 mcg PO DAILYBB #30 tabs 09/14/22 Rx (Synthroid) Patient History Medical History (Updated 09/16/22 @ 11:46 by Elder Steen DO) Advanced care planning/counseling discussion Cancer related pain Chronic anemia H/O deep venous thrombosis extensive, RLE Hemorrhagic shock 2nd to rectal bleeding - required ICU stay [facility] 04/2022; location of bleeding never found; anticoagulation stopped at that time History of cardiomyopathy 2nd chemotherapy; prior EF <20%; now 50% (12/2020 @ [facility]) History of pulmonary embolism Hypertension Hypothyroidism Iron deficiency anemia Leiomyosarcoma initial dx 2017; extensive metastatic disease Leiomyosarcoma Palliative care encounter Surgical History History of X2 History of hysterectomy HANH/BSO 11/2017 - [facility] [place] History of lung biopsy LEFT History of renal stent b/l ureteral stents Family History Father Diabetes Hypertension Myocardial infarction PAD (peripheral artery disease) Mother Cerebral aneurysm Denies family history of Ovarian cancer Prostate cancer Breast cancer Colorectal cancer Social History Smoking Status: Former smoker Age Started Using Tobacco: 21; Age Quit Using Tobacco: 29; packs per day: 0.25; Cigarettes Per Day: 5; Second Hand Exposure: No; Do You Dip or Chew Tobacco: No; Tobacco Cessation Education Requested by Patient: No Hx Alcohol Use: No Hx Substance Use: Yes Last Used Substance: Days (ago) Substance Use Type Other:: pt has a medical THC care for pain Preferred Language: Azeri Communication Ability: Effective Shingle Catcher Required: No Beliefs That Will Affect Care: None marital status: Current Living Situation: Spouse current occupational status: previously employed current occupation: [employer] How many Children do You have: 2 Other Information That Helps Us Care for You: No Feels Safe at Home: Yes Safety Concerns: Feels Safe At This Time Assistive Devices: None Review of Systems Review of Systems: All systems reviewed & are unremarkable except as noted in HPI & below Physical Exam Constitutional: + ill appearing, + thin and comfortable Eyes: PERRL, conjunctivae normal, anicteric sclerae Respiratory: Auscultation: + diminished lung sounds, + crackles (BL Lower Lobe) and + rales (BL Lower Lobes) Cardiovascular: Rate/Rhythm: regular rate Heart Sounds: + murmur (systolic) Palpation: + palpable S3 Extremities: + pedal edema Gastrointestinal (Abdomen): Inspection/Auscultation: normal bowel sounds Percussion/Palpation: + abdomen tender and + abdomen firm Musculoskeletal: no cyanosis or clubbing, extremities motor strength 5/5 Skin: no rashes, warm and dry Psychiatric: A+Ox3, euthymic affect Results & Data ([facility]) Vital Signs (Past 12 Hours) Vital Signs Temp Pulse Pulse Resp BP Pulse Ox O2 Del Method 09/16/22 08:00 Room Air 09/16/22 08:00 81 09/16/22 08:27 36.6 C 88 16 95/60 L 94 Room Air 09/16/22 03:57 36.4 C L 89 16 99/67 L 93 Room Air 09/16/22 02:45 36.5 C 90 18 96/63 L 94 Room Air 09/15/22 22:43 36.4 C L 85 18 95/60 L 95 Room Air PG Care Time/CCT Total # of Minutes Spent Total Time Spent with Patient: Total time spent is greater than 50% in coordination of care (as documented) at patient's floor/unit and/or counseling patient: Coding Level of Care Code 79109 Inpt Consult Level 4 Diagnoses Bacteremia R78.81 History of cardiomyopathy Z86.79 Fluid overload E87.70 Resident Activity Tracking Resident Involvement: Resident Care Provided Care Provided: Adult Hospital Medicine
--- NOTE | 2022-09-16 10:27 | Infectious Disease Consult ---
Date of Consultation September 16, 2022 Assessment & Plan (1) Bacteremia: (2) EDDIE (acute kidney injury): (3) Fever: (4) Leiomyosarcoma: Plan 47 yo F with widely metastatic retroperitoneal leiomyosarcoma (received multiple lines of treatment, currently not on treatment >3 mo due to anemia), HTN, hypothyroidism, DVT not on anticoagulation due to history of massive bleed, HFpEF, bilateral ureteral stents who presented on 09/09 due to low hemoglobin, edema and SOB, and is now admitted for alpha hemolytic Strep and Clostridium perfringens bacteremia. On presentation, she was afebrile, VSS, on room air, with CTA chest abdomen pelvis showing progression in multifocal metastatic dise ase, small to mod pleural effusions, small volume ascites, anasarca, and a 22 cm necrotic mass lesion filling the pelvis and encasing/displacing several structures including the rectum and several bowel loops (invasion of these structures not excluded, and tiny foci of active extravasation within the lesion not excluded), and moderate to severe R and mild L hydronephrosis with ureteral stents in place. She then developed fevers on 09/11 PM, with a rise in leukocytosis to 15.6 on 09/12. Infectious work-up showed CXR with pulmonary edema vs pneumonia for which she was started on pip-tazo and doxycycline, UA with >30 WBCs and UCx with Gardnerella-like bacilli plus other mixed dragan, RVP negative. BCx grew alpha hemolytic strep in 2/4 bottles, and Clostridium perfringens in 1/4 bottles. Clindamycin was added on 09/15. Repeat BCx from 09/14 are NGTD. A TTE was performed on 09/15 and showed thickening of mitral valve leaflets at the coaptation, vegetation at this location cannot definitively be excluded. Awaiting identification of alpha hemolytic Strep in blood cultures. Clostridium perfringens is found in the GI tract, raising concern that the source of her bacteremia is related to her extensive abdominal/pelvic malignancy invading the bowel. She was noted to have a large pelvic necrotic mass lesion encasing/displacing rectum/bowel on her CT on admission. Clostridium perfringens is also associated with traumatic gas gangrene, but there is no evidence of recent traumatic wounds/procedures. Antimicrobial course: Clindamycin 09/15 - present Pip-tazo 09/12 - present Doxycycline 09/12 - present Problems: #Alpha hemolytic Strep bacteremia #Clostridium perfringens bacteremia #Fevers: resolved #Leukocytosis: peaked at 21.2 on 09/13, now downtrending #Metastatic leiomyosarcoma: not on treatment for >3 mo due to anemia. Progressive multifocal metastases. 22 cm necrotic mass lesion filling pelvis and encasing/displacing structures incl rectum, several bowel loops (invasion of these structures not excluded) #Bilateral ureteral stents Recommendations: -Follow-up 09/12 BCx for identification of alpha hemolytic Strep and sensitivities -Follow-up 09/14 BCx for clearance of bacteremia -Continue pip-tazo for coverage of Clostridium perfringens and other GI bacteria -Can continue clindamycin at this time to suppress toxin production--anticipate discontinuing soon if pt remains stable -Will stop doxycycline -For Clostridium bacteremia secondary to intra-abdominal process, would ideally be evaluated for surgery to address the necrotic mass involving the bowel, however this does not appear to be within goals of care as the plan is for discharge on hospice -Could consider PIEDAD if she remains bacteremic and if within goals of care Will continue to follow Consultation Information Consultation was provided via telemedicine using two-way real-time interactive telecommunication between the patient and the telemedicine provider. For the duration of the visit, the provider was performing the assessment from a different facility than the patient. This includesuse of bluetooth stethoscope forauscultationperformed by the telepresenter that the telemedicine provider can hear if described in the physical exam. Mixing Machine Tender contact information: Please call [facility] . (Phone Number For Physician Use Only) After establishing a telemedicine visit, patient was: Patient was verified with two unique identifiers, Patient/authorized rep acknowledged consent and understanding and Gave permission to continue telehealth session Time Spent w Inpatient: 40 minutes History of Present Illness Reason for Consultation: Bacteremia Requesting Physician: Jenise Hernandez PA-C Attending Physician: Joey Gaitan MD History of Present Illness 47 yo F with widely metastatic retroperitoneal leiomyosarcoma (received multiple lines of treatment, and currently not on treatment >3 mo due to anemia), HTN, hypothyroidism, DVT not on anticoagulation due to history of massive bleed, HFpEF, bilateral ureteral stents who presented on 09/09 due to low hemoglobin on her routine outpatient labs, with complaint of significant edema and SOB. On presentation, she was afebrile, VSS, on RA. Labs showed WBC 9.8, Hb 7.6, plt 105, Cr 1.5, AST 75, alk phos 214. COVID-19 negative. CXR showed pulmonary vascular congestion with small bilateral pleural effusions, and redemonstration of pulm mets. A CTA chest abd pelvis showed no PE, multifocal metastatic disease which has progressed since May, small to moderate pleural effusions, small volume ascites, anasarca, a 22 cm necrotic mass lesion filling the pelvis and encases/displaces several structures incl rectum and several bowel loops (invasion of these structures is not excluded, tiny foci of active extravasation within this lesion are not excluded), additional large mass lesions in abd/pelvis which have increased in size, progressive hepatic metastatic disease, moderate to severe R and mild L hydronephrosis with ureteral stents in place. A bilateral LE venous duplex showed a chronic appearing nonocclusive thrombus in R common femoral vein, popliteal vein, and great saphenous vein. She was noted to be febrile to 38.9 overnight 09/11-09/12. She was also noted to have WBC bump to 15.6 on 09/12. A repeat CXR on 09/12 showed progressive mixed interstitial and alveolar opacities suggestive of pulmonary edema, multifocal pneumonia could appear similarly, small pleural effusions, extensive metastatic disease. A KUB showed no evidence of bowel obstruction. A UA had over 30 WBCs. Nasal MRSA screen negative. RVP negative. Blood cultures were collected. She was started on Zosyn and doxycycline for possible pneumonia. BCID panel was positive for Streptococcus species. BCx grew Alpha hemolytic strep in 2/4 bottles, and Clostridium perfringens in 1/4 bottles. UCx grew Gardnerella-like bacilli plus low counts of other mixed dragan. Repeat BCx from 09/14 are NGTD. A TTE was performed on 09/15 and showed thickening of mitral valve leaflets at the coaptation, vegetation at this location cannot definitively be excluded. A lactate was checked and was 0.8. Clindamycin was added on 09/15. Pt reports chronic abdominal pain related to her cancer. She denies changes in her bowel movements, no diarrhea, no blood in her stools. She denies urinary symptoms. She was supposed to have her bilateral ureteral stents exchanged several weeks ago, but this was delayed. Endorses intermittent shortness of breath, which is perhaps a bit worse recently. Denies cough, sore throat. WBC has downtrended to 11.74 today. Continues on pip-tazo, doxycycline, clindamycin. Allergies Allergy/AdvReac Type Severity Reaction Status Date / Time nickel AdvReac Mild REDNESS TO Verified 08/20/22 11:34 SKIN Home Medications Medication Instructions Recorded Confirmed Type empagliflozin 10 mg tablet 10 mg PO QAM 03/21/22 09/09/22 History (Jardiance) furosemide 40 mg tablet 40 mg PO QAM 03/21/22 09/09/22 History metoprolol succinate 50 mg 50 mg PO QAM 03/21/22 09/09/22 History tablet,extended release 24 hr ondansetron HCl 8 mg tablet 8 mg PO Q8 PRN Nausea 03/21/22 09/09/22 History spironolactone 25 mg tablet 25 mg PO QAM 03/21/22 09/09/22 History potassium chloride 20 mEq 20 meq PO BID 05/07/22 09/09/22 History tablet,extended release(part/cryst) oxycodone 20 mg tablet 20 mg PO Q4H PRN Pain 06/12/22 09/09/22 History prochlorperazine maleate 10 mg 10 mg PO DAILY PRN Nausea 06/12/22 09/09/22 History tablet magnesium oxide 400 mg PO BID 06/25/22 09/09/22 History levothyroxine 50 mcg tablet 50 mcg PO DAILYBB #30 tabs 06/26/22 09/09/22 Rx (Synthroid) morphine 60 mg tablet,extended 60 mg PO Q12H #1 tab 06/26/22 09/09/22 Rx release pantoprazole 40 mg tablet,delayed 40 mg PO QAM #30 tabs 06/26/22 09/09/22 Rx release (Protonix) ferrous sulfate 325 mg (65 mg 325 mg PO BID #60 tabs 07/02/22 09/09/22 Rx iron) tablet folic acid 1 mg tablet 1 mg PO QAM 07/02/22 09/09/22 History cyanocobalamin (vitamin B-12) 1,000 mcg PO DAILY #30 caps 07/03/22 09/09/22 Rx 1,000 mcg capsule allopurinol 300 mg tablet 300 mg PO DAILY #30 tabs 09/14/22 Rx levothyroxine 75 mcg tablet 75 mcg PO DAILYBB #30 tabs 09/14/22 Rx (Synthroid) Patient History Medical History (Updated 09/16/22 @ 11:46 by Elder Steen DO) Advanced care planning/counseling discussion Cancer related pain Chronic anemia H/O deep venous thrombosis extensive, RLE Hemorrhagic shock 2nd to rectal bleeding - required ICU stay [facility] 04/2022; location of bleeding never found; anticoagulation stopped at that time History of cardiomyopathy 2nd chemotherapy; prior EF <20%; now 50% (12/2020 @ [facility]) History of pulmonary embolism Hypertension Hypothyroidism Iron deficiency anemia Leiomyosarcoma initial dx 2017; extensive metastatic disease Leiomyosarcoma Palliative care encounter Surgical History History of X2 History of hysterectomy HANH/BSO 11/2017 - [facility] [place] History of lung biopsy LEFT History of renal stent b/l ureteral stents Family History Father Diabetes Hypertension Myocardial infarction PAD (peripheral artery disease) Mother Cerebral aneurysm Denies family history of Ovarian cancer Prostate cancer Breast cancer Colorectal cancer Social History Smoking Status: Former smoker Age Started Using Tobacco: 21; Age Quit Using Tobacco: 29; packs per day: 0.25; Cigarettes Per Day: 5; Second Hand Exposure: No; Do You Dip or Chew Tobacco: No; Tobacco Cessation Education Requested by Patient: No Hx Alcohol Use: No Hx Substance Use: Yes Last Used Substance: Days (ago) Substance Use Type Other:: pt has a medical THC care for pain Preferred Language: Tamazight Communication Ability: Effective Vertical Boring Mill Operator Required: No Beliefs That Will Affect Care: None marital status: Current Living Situation: Spouse current occupational status: previously employed 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 Physical Exam Physical Exam: GEN: laying in bed in NAD. HEENT: Normocephalic, atraumatic CV: Regular rate and rhythm, systolic murmur RESP: No increased work of breathing, lungs clear to auscultation bilaterally in posterior pimentel. ABD: Firm, distended. Diffusely mildly tender to palpation. EXT: Edema of all extremities. Warm, well-perfused. SKIN: Port in L upper chest. No lesions or rashes on exposed skin. Ecchymosis of LUE. NEURO: Alert and oriented. Answers all questions appropriately. Speech not slurred. PSYCH: Normal mood, affect appropriate. Results & Data ([facility]) Vital Signs (Past 12 Hours) Vital Signs Temp Pulse Pulse Resp BP Pulse Ox O2 Del Method 09/16/22 08:00 Room Air 09/16/22 08:00 81 09/16/22 08:27 36.6 C 88 16 95/60 L 94 Room Air 09/16/22 03:57 36.4 C L 89 16 99/67 L 93 Room Air 09/16/22 02:45 36.5 C 90 18 96/63 L 94 Room Air 09/15/22 22:43 36.4 C L 85 18 95/60 L 95 Room Air Laboratory Results Short CBC 09/16/22 Range/Units 07:24 WBC 11.74 H (4.8-10.8) K/ul Hgb 7.9 L (12.0-16.0) g/dl Hct 25.9 L (34.1-44.9) % Plt Count 98 L (130-400) K/uL BMP 09/16/22 07:24 Sodium 135 L Potassium 3.7 Chloride 101 Carbon Dioxide 27 BUN 50 H Creatinine 1.91 H Glucose 91 Calcium 7.2 L Liver Function 09/16/22 Range/Units 07:24 Total Bilirubin 0.6 (0.2-1.0) mg/dl AST 79 H (13-39) U/L ALT 11 (7-52) U/L Alkaline Phosphatase 159 H (34-104) U/L Albumin 2.1 L (3.4-5.0) gm/dl Diagnostic Findings Radiology Chest X-Ray 09/15/22 06:00 XR chest 1V portable CLINICAL HISTORY: f/u multifocal pneumonia/edema. Leiomyosarcoma. COMPARISON STUDY: Chest CT September 09, 2022. Chest radiograph September 12, 2022. FINDINGS: Lung volumes are diminished. Left subclavian [id number] is in place. Pulmonary metastases are again noted. Cardiomediastinal silhouette is normal. There is a small left pleural effusion. Suspected small right pleural effusion is present. Left basilar opacity has slightly increased. IMPRESSION: 1. Slight increase in left basilar opacity. This could reflect pneumonia or atelectasis. 2. Small left pleural effusion. TTE 09/15/22 Thickening of mitral valve leaflets at the coaptation. Vegetation at this location cannot definitively be excluded. Microbiology 09/14 BCx x2: NGTD 09/12 UCx: >100k Gardnerella-like bacilli plus low counts of other mixed dragan 09/12 BCx x2: Alpha strep (not S. pneumo or Enterococcus) in 2/4 bottles. Clostridium perfringens in 1/4 bottles Medications Administered Current Inpatient Medications Acetaminophen (Acetaminophen 500 Mg Tab) 1,000 mg PO Q8H PRN PRN Reason: Pain or Fever Stop: 10/12/22 02:41 Last Admin: 09/12/22 17:21 Dose: 1,000 mg Allopurinol (Allopurinol 300 Mg Tab) 300 mg PO DAILY [facility] Stop: 10/12/22 11:14 Last Admin: 09/16/22 07:37 Dose: 300 mg Cyanocobalamin (Cyanocobalamin (B-12) 500 Mcg Tablet) 1,000 mcg PO DAILY [facility] Stop: 10/10/22 08:59 Last Admin: 09/16/22 07:37 Dose: 1,000 mcg Docusate Sodium (Docusate Sodium 100 Mg Cap) 100 mg PO BID [facility] Stop: 10/10/22 20:59 Last Admin: 09/16/22 07:37 Dose: 100 mg Ferrous Sulfate (Ferrous Sulfate 325 Mg Tab) 325 mg PO BIDM [facility] Stop: 10/10/22 07:59 Last Admin: 09/10/22 17:47 Dose: Not Given Folic Acid (Folic Acid 1 Mg Tab) 1 mg PO QAM [facility] Stop: 10/10/22 08:59 Last Admin: 09/16/22 07:38 Dose: 1 mg Furosemide (Furosemide 20 Mg Tab) 20 mg PO QAM [facility] Stop: 10/11/22 08:59 Hydromorphone HCl (Hydromorphone Inj 1 Mg/Ml Syringe) 1 mg IV Q1H PRN PRN Reason: Breakthrough pain Stop: 09/23/22 15:25 Prochlorperazine 10 mg/ (Syringe) 10 mls @ 5 mls/min IV Q6H PRN PRN Reason: Nausea And Vomiting Stop: 10/11/22 07:51 Last Admin: 09/13/22 08:30 Dose: 5 mls/min Sodium Chloride (Nss 1000ml) 1,000 mls @ 15 mls/hr IV .Q24H [facility] Stop: 09/25/22 12:42 Last Admin: 09/15/22 13:54 Dose: 15 mls/hr Piperacillin Sod/Tazobactam (Sod 4.5 gm/ Dextrose) 120 mls @ 30 mls/hr IV Q8H [facility]; Protocol Stop: 09/29/22 17:59 Last Infusion: 09/16/22 07:17 Dose: Infused Clindamycin Phosphate (Cleocin/D5w) 900 mg in 50 mls @ 100 mls/hr IV Q8H [facility] Stop: 09/29/22 10:59 Last Infusion: 09/16/22 05:48 Dose: Infused Doxycycline Hyclate 100 mg/ (Dextrose) 110 mls @ 55 mls/hr IV BID@0700,1900 [facility] Stop: 09/19/22 19:01 Last Infusion: 09/16/22 10:06 Dose: Infused Sodium Chloride (Nss) 250 mls @ 15 mls/hr IV .[id number] PRN PRN Reason: For Transfusion Duration Stop: 09/16/22 18:52 Levalbuterol HCl (Levalbuterol Hcl 0.63 Mg/3 Ml Neb) 0.63 mg NEB Q6R PRN; Protocol PRN Reason: shortness of breath Stop: 10/12/22 18:59 Levothyroxine Sodium (Levothyroxine Sodium 75 Mcg Tablet) 75 mcg PO DAILYBB [facility] Stop: 10/11/22 06:29 Last Admin: 09/16/22 05:48 Dose: 75 mcg Magnesium Oxide (Magnesium Oxide 400 Mg Tab) 400 mg PO BID [facility] Stop: 10/09/22 20:59 Last Admin: 09/16/22 07:38 Dose: 400 mg Methadone HCl (Methadone Hcl 5 Mg Tab) 5 mg PO BID [facility] Stop: 09/29/22 17:59 Last Admin: 09/16/22 07:37 Dose: 5 mg Metoprolol Succinate (Metoprolol Succ 50mg Ext Rel Tab) 50 mg PO [facility] Stop: 10/10/22 08:59 Last Admin: 09/16/22 07:38 Dose: 50 mg Naloxone HCl (Naloxone Hcl 0.4 Mg/1 Ml Vial/Carp) 0.1 mg IV Q5M PRN; Protocol PRN Reason: Oversedation/Resp Depression Stop: 09/25/22 12:41 Pantoprazole Sodium (Pantoprazole 40 Mg Tab) 40 mg PO [facility] Stop: 10/10/22 08:59 Last Admin: 09/16/22 07:38 Dose: 40 mg Potassium Chloride (Potassium Chloride 20 Meq/15 Ml Udc) 20 meq PO BID [facility] Stop: 10/10/22 09:29 Last Admin: 09/12/22 09:08 Dose: 20 meq Sennosides (Senna 8.6 Mg Tab) [facility] Stop: 10/12/22 08:59 Last Admin: 09/16/22 07:37 Dose: 17.2 mg Spironolactone (Spironolactone 25 Mg Tab) 25 mg PO [facility] Stop: 10/10/22 08:59 Last Admin: 09/12/22 09:07 Dose: 25 mg
--- NOTE | 2022-09-16 11:35 | Palliative Care Progress Note ---
Date of Service September 16, 2022 Assessment & Plan (1) Cancer related pain: Plan: Started on methadone yesterday. Methadone has variable half life which can be up to 55 hours. Will need careful monitoring for excessive sedation, toxicity. Continue at current dose today. Continue prn hydromorphone which she tells me brings pain from 8/10 to 6/10. She considers 5/10 to be tolerable level. This can be converted to po dosing for discharge home. Admission and Anticipated Discharge Date Admission Date: September 09, 2022 Subjective Reports feeling "ok". Able to eat some lunch. Denies nausea. Continues to have pain across her abdomen. Currently rates pain as 8/10. Per RN, she has had approximately 10mg prn hydromorphone in last 24 hours. She has some drowsiness but no excessive sedation. Review of Systems Review of Systems: ESAS Pain 3/3 Dyspnea 0/3 Nausea 0/3 Drowsiness 1/3 Physical Exam Constitutional: + ill appearing; no acute distress Respiratory: normal respiratory effort; no labored breathing Gastrointestinal (Abdomen): distended, tender to palpation Musculoskeletal: Extremities: + muscle atrophy Neurologic: awake; not confused Results & Data ([facility]) Vital Signs (Past 12 Hours) Vital Signs Temp Pulse Pulse Resp BP Pulse Ox O2 Del Method 09/16/22 11:17 97.2 F L 86 16 92/58 L 91 Room Air 09/16/22 08:00 Room Air 09/16/22 08:00 81 09/16/22 08:27 97.9 F 88 16 95/60 L 94 Room Air 09/16/22 03:57 97.5 F L 89 16 99/67 L 93 Room Air 09/16/22 02:45 97.7 F 90 18 96/63 L 94 Room Air PG Care Time/CCT Total # of Minutes Spent Total Time Spent with Patient: Total time spent is greater than 50% in coordination of care (as documented) at patient's floor/unit and/or counseling patient: Coding Level of Care Code 43723 Subseq Hosp Care Lvl 2 Diagnoses Cancer related pain G89.3
[2022-09-16] MEDS ORDERED: HYDROmorphone HCL 2 MG TAB PO PRN (16:27)
[2022-09-17] MEDS: PIPERACILLIN/TAZOBACTAM 4.5 GM in DEXTROSE 5% 100 ML IV SCH ×3 (02:21→17:59)
[2022-09-17] MEDS: HYDROmorphone INJ 1 MG/ML SYRINGE IV PRN ×5 (02:22→12:47)
[2022-09-17] MEDS: CLINDAMYCIN/D5W 900 MG/50 ML PREMIX BAG IV SCH ×3 (02:22→17:59)
[2022-09-17] MEDS: LEVOTHYROXINE SODIUM 75 MCG TABLET PO SCH (05:40)
--- NOTE | 2022-09-17 08:37 | Hospitalist Progress Note ---
Date of Service September 17, 2022 Assessment & Plan (1) Bacteremia: Plan: 47 yo F Hx metastatic leiomyosarcoma, DVT, CHF, anemia of chronic disease (cancer-related) admitted for symptomatic anemia and anasarca. Getting weekly labs/blood transfusions as outpatient but presented due to increased shortness of breath prior to being able to get most recent transfusion. Had not reported any fevers prior to admission, but then developed while inpatient 09/11 On admission, imaging with worsening tumors to pelvis, likely compressing on vasculature causing worsening body edema. * CTA Chest/A/P : NO PE, does note multifocal metastatic disease. This has progressed as compared to 06/12/2022., small-moderate pleural effusions, small volume of abdominopelvic ascites, anasarca indicate fluid overload. An approximately 22 cm necrotic mass lesion fills the pelvis and encases/displaces several structures as above, including the rectum and several bowel loops. Invasion of these structures is not excluded. Tiny foci of active extravasation within this lesion are not excluded. Additional large mass lesions within the abdomen and pelvis have increased in size from previous. Hepatomegaly with progressive hepatic metastatic disease. Occluded right internal iliac artery. There is moderate to severe right and mild left hydronephrosis with ureteral stents in place. * Venous Doppler LE : There is a chronic appearing nonocclusive thrombus in the right common femoral vein, popliteal vein, and great saphenous vein. The left great saphenous vein is equivocal and may be noncompressible due to extensive edema. A small amount of linear chronic thrombus is suggested. * Upper Ext Doppler:1. No DVT within the right or left lower extremity. 2. Nonocclusive thrombus within the right internal jugular vein which may be chronic. Hgb 7.6 on admit, had gotten 2u PRBC and hgb had remained stable. Transfusion support to be provided for symptoms Fever occured 09/11, concerning for infection * Blood cultures obtained, procal checked (elevated to 8.26) * UA Gardnerella like bacilli, blood cultures with alpha strep not S pneumo/enterrococcus (Viridans) in 1/2 sets anaerobic noted bacteria but not identified at that time. Lab believed to be contaminant however given entire clinical picture/fever/elevated WBC, did not want to chance * On 09/15/22, blood cultures showed evidence for clostridium perfringens in 1/2 bottles and ID was contacted for discussion. ECHO ordered to r/o endocarditis * ECHO came back w/ possible evidence for mitral valve vegetation * Impression: Left ventricular systolic function is normal. The left atrium is mildly dilated. There is thickening of the mitral valve leaflets at the coaptation. Vegetation at this location cannot definitely be excluded. There is mild mitral regurgitation. Right ventricular systolic pressure is elevated at 30-40mmHg. * Cards consulted, looked at echo, felt just some thickening and would not have read as possible vegetation. Given clinical picture, would not pursue PIEDAD Procal trending down Repeat blood cultures have been NGTD, patient has been afebrile ID consulted and appreciate recommendations: continue Zosyn while admitted, with transition to Augmentin on discharge indefinitely given cannot achieve source control of necrotic infection in abdomen. CM working on hospice at d/c. Found agency able to agree to transfusion support as long as not deemed burden to patient. Palliative consulted for goals of care/legacy planning/pain control -- see below Plan to discharge patient hopefully tomorrow if pain under good control. (2) Anemia: Plan: 2nd to malignancy, 3u PRBC thus far this admission Had remained stable, getting weekly transfusions CBC in AM, Hgb 9.6 (3) Cancer related pain: Plan: Palliative consulted for goals of care/pain control Fixed dose methadone 5 mg BID, will monitor over next 4-7 days before deciding about dose changes Dilaudid PO dosing to be given first, with IV q4h as needed for breakthrough pain. Palliative to continue follow up/management after discharge for further titrations as needed Case personally discussed regarding care plan with Dr. María Scott. (4) Fever: Plan: Was initially ? if possible tumor lysis, uric acid elevated -- allopurinol 300mg daily as above Likely 2nd to bacteremia, bcx as above, 2nd to GI source/necrotic mass No further fevers, repeat blood cultures no growth, WBC trending down ID consulted/abx as outlined (5) Leiomyosarcoma: Plan: s/p tumor debulking with Dr Lou in 2019 and multiple rounds of chemo (w/ Dr Salas and Dr Mckeon), most recently on Trabectedin. Had been hospitalized for hypotension/hgb5 c/w hypovolemic shock. Was given Kcentra/2u PRBC, rebled and another 2u PRBC and TXA and 2u FFP. Then tx to [facility] for further management, given 3 more units and cryo. Eliquis discontinued, not candidate for IVF filter given unable to place due to vein compression likely related to intra-abdominal mass Palliative consulted as above for goals of care -- pain management as outlined above with Dilaudid/methadone, plan for hospice on discharge. (6) Fluid overload: Plan: Multifactorial including hypoalbuminemia, anasarca from her known cancer, possib le mass effect, and hx of heart failure Recent PIEDAD w/ normal LV systolic function, does have murmur on exam, but doubt benefit for repeat given just done in June, EF 50-55%, no wma Given 40mg IV lasix x 2 on admit, additional 20mg IV 09/10 and 40mg IV on 09/11 with blood Cr bumped and diuretics held, improved after blood transfusion with additional IV lasix (7) Hypertension: Plan: Continues on metoprolol with hold parameters Monitor (8) Hypothyroidism: Plan: Continue levothyroxine 50mcg daily Of note, TSH was 36 in June, placed on Synthroid 50mcg daily -- she reports has been taking this correctly, never had any repeat TFT outpatient Repeat TSH still elevated at 14.8, borderline T4--> increased Synthroid to 75mcg daily -- continue at d/c (9) History of cardiomyopathy: Plan: Had a TTE in june of this year Remains on BB w/ hold parameters No ASA/Anticoagulation given bleeding (10) Hx of deep venous thrombosis: Plan: Patient was previously diagnosed with lare right LE DVT's when she was transferred to [facility] with her large GI bleed US LE Doppler w/ chronic DVT --> LE edema likely compression from pelvic tumors as above Checked US UE for prognostic data/UE edema, 1. No DVT within the right or left lower extremity. 2. Nonocclusive thrombus within the right internal jugular vein which may be chronic Not able to be on anticoagulation, or have IVC filter placed due to location/too high risk and recent lift-threatening bleeding High risk as she is aware, CT chest on admit w/o PE (11) EDDIE (acute kidney injury): Plan: creatinine 2.04, on allopurinol give possible TLS per discussion w/ heme/onc as not getting anymore active treatment Plan Continue symptom management, Abx, plan for discharge tomorrow if adequate pain control Admission and Anticipated Discharge Date Admission Date: September 09, 2022 Subjective No acute events overnight. Patient denies complaints today or questions. Pain under good control with prns available. Review of Systems Review of Systems: All systems reviewed & are unremarkable except as noted in Subjective Physical Exam 2 Constitutional: WD/WN, vitals as above (comfortable appearing) Respiratory: normal respiratory effort, lungs clear to auscultation Cardiovascular: RRR, no murmur, no edema Gastrointestinal (Abdomen): normal bowel sounds, distended firm abdomen, no rebound or guarding Skin: no rashes, warm and dry Psychiatric: A+Ox3, euthymic affect Results & Data Results & Data ([facility]) Vital Signs (Past 12 Hours) Vital Signs Temp Pulse Resp BP Pulse Ox O2 Del Method 09/17/22 07:14 36.4 C L 88 14 98/65 L 93 Room Air 09/17/22 03:15 36.3 C L 86 15 95/61 L 93 Room Air 09/16/22 22:45 36.5 C 81 15 96/59 L 92 Room Air PG Care Time/CCT Total # of Minutes Spent Total Time Spent with Patient: Total time spent is greater than 50% in coordination of care (as documented) at patient's floor/unit and/or counseling patient: Coding Level of Care Code 46409 SUB INP/OBS CARE 3/50MIN Diagnoses Bacteremia R78.81 Anemia D64.9 Anemia type: unspecified type Cancer related pain G89.3 Fever R50.9 Leiomyosarcoma C49.9 Fluid overload E87.79 Hypervolemia type: other Hypertension I10 Hypothyroidism E03.9 History of cardiomyopathy Z86.79 Hx of deep venous thrombosis Z86.718 EDDIE (acute kidney injury) N17.9 (1) Anemia Anemia type: unspecified type Qualified Code(s): D64.9 - Anemia, unspecified (2) Fluid overload Hypervolemia type: other Qualified Code(s): E87.79 - Other fluid overload
[2022-09-17 08:41] LABS: Basophils # (auto) 0.01 K/uL (0-0.2); Basophils % (auto) 0.1 %; Eosinophils # (auto) 0.05 K/uL (0-0.50); Eosinophils % (auto) 0.5 %; Hematocrit (blood only) 31.7 % (34.1-44.9); Hemoglobin 9.6 g/dl (12.0-16.0); Immature Granulocytes # (auto) 0.07 K/uL (0.00-0.02); Immature Granulocytes % (auto) 0.6 %; Lymphocytes # (auto) 0.83 K/uL (1.2-3.4); Lymphocytes % (auto) 7.7 %; Mean Corpuscular Hemoglobin 28.8 pg (25.0-34.0); Mean Corpuscular Hgb Conc 30.3 g/dL (32.0-36.0); Mean Corpuscular Volume 95.2 fL (80.0-100.0); Mean Platelet Volume 11.6 fL (9.4-12.3); Monocytes # (auto) 0.53 K/uL (0.24-0.82); Monocytes % (auto) 4.9 %; Neutrophils # (auto) 9.33 K/uL (1.4-6.5); Neutrophils % (auto) 86.2 %; Platelet Count 123 K/uL (130-400); RDW Coefficient of Variation 18.5 % (11.5-14.5); RDW Standard Deviation 64.7 fL (36.4-46.3); Red Blood Count 3.33 M/uL (3.93-5.22); White Blood Count 10.82 K/ul (4.8-10.8)
[2022-09-17] MEDS: METHADONE HCL 5 MG TAB PO SCH ×2 (08:49→20:54)
[2022-09-17] MEDS: DOCUSATE SODIUM 100 MG CAP PO SCH ×2 (08:50→20:54)
[2022-09-17] MEDS: FOLIC ACID 1 MG TAB PO SCH (08:50)
[2022-09-17] MEDS: PANTOprazole 40 MG TAB PO SCH (08:50)
[2022-09-17] MEDS: allopurinoL 300 MG TAB PO SCH (08:50)
[2022-09-17] MEDS: SENNA 8.6 MG TAB PO SCH (08:52)
[2022-09-17] MEDS: METOPROLOL SUCC 50MG EXT REL TAB PO SCH (08:53)
[2022-09-17 09:06] LABS: Albumin Globulin Ratio 0.7 (0.9-2); Albumin Level 2.3 gm/dl (3.4-5.0); Bilirubin,Total 0.7 mg/dl (0.2-1.0); Calcium 7.5 mg/dl (8.5-10.1); Creatinine Clr Calc Pharmacy 27.9 ml/min; Est GFR (African American) 32.6 ml/min; Est GFR (Non-African American) 28.1 ml/min; Globulin 3.4 gm/dl (2.5-4.0); Potassium 3.8 mmol/L (3.5-5.1); Total Protein 5.7 gm/dl (6.0-8.3)
--- NOTE | 2022-09-17 09:58 | Infectious Disease Progress Nt ---
Date of Service September 17, 2022 Assessment & Plan (1) Bacteremia: (2) EDDIE (acute kidney injury): (3) Fever: (4) Leiomyosarcoma: Plan 47 yo F with widely metastatic retroperitoneal leiomyosarcoma (received multiple lines of treatment, currently not on treatment >3 mo due to anemia), HTN, hypothyroidism, DVT not on anticoagulation due to history of massive bleed, HFpEF, bilateral ureteral stents who presented on 09/09 due to low hemoglobin, edema and SOB, and is now admitted for alpha hemolytic Strep and Clostridium perfringens bacteremia. On presentation, she was afebrile, VSS, on room air, with CTA chest abdomen pelvis showing progression in multifocal metastatic disease, small to mod pleural effusions, small volume ascites, anasarca, and a 22 cm necrotic mass lesion filling the pelvis and encasing/displacing several structures including the rectum and several bowel loops (invasion of these structures not excluded, and tiny foci of active extravasation within the lesion not excluded), and moderate to severe R and mild L hydronephrosis with ureteral stents in place. She then developed fevers on 09/11 PM, with a rise in leukocytosis to 15.6 on 09/12. Infectious work-up showed CXR with pulmonary edema vs pneumonia for which she was started on pip-tazo and doxycycline, UA with >30 WBCs and UCx with Gardnerella-like bacilli plus other mixed dragan, RVP negative. BCx grew Strep bovis group in 2/4 bottles, and Clostridium perfringens in 1/4 bottles. Clindamycin was added on 09/15. Repeat BCx from 09/14 are NGTD. A TTE was performed on 09/15 and showed thickening of mitral valve leaflets at the coaptation, vegetation at this location cannot definitively be excluded. Clostridium perfringens and Strep bovis are found in the GI tract, raising concern that the source of her bacteremia is due to her extensive abdominal/pelvic malignancy invading the bowel. She was noted to have a large pelvic necrotic mass lesion encasing/displacing rectum/bowel on her CT on admission. Clostridium perfringens is also associated with traumatic gas gangrene, but there is no evidence of recent traumatic wounds/procedures. The likelihood of endocarditis is lower, as repeat BCx are NGTD, and her polymicrobial bacteremia suggests a GI source. Plan is for discharge on hospice, therefore she is not a candidate for surgery for source control. Microbiology 09/14 BCx x2: NGTD 09/12 UCx: >100k Gardnerella-like bacilli plus low counts of other mixed dragan 09/12 BCx x2:Strep bovis group in 2/4 bottles.Clostridium perfringensin 1/4 bottles Antimicrobial course: Clindamycin /2 - present Pip-tazo 09/12 - present Doxycycline 09/12 - 09/16 Problems: #Strep bovis bacteremia #Clostridium perfringens bacteremia #Fevers: resolved #Leukocytosis: peaked at 21.2 on 09/13, now downtrending #Metastatic leiomyosarcoma: not on treatment for >3 mo due to anemia. Progressive multifocal metastases. 22 cm necrotic mass lesion filling pelvis and encasing/displacing structures incl rectum, several bowel loops (invasion of these structures not excluded) #Bilateral ureteral stents Recommendations: -Continue pip-tazo for coverage of Clostridium perfringens, Strep bovis, and other GI bacteria -Will discontinue clindamycin at this time, as pt is stable -For Clostridium/Strep bovis bacteremia secondary to intra-abdominal process, would ideally be evaluated for surgery to address the necrotic mass involving the bowel, however this does not appear to be within goals of care as the plan is for discharge on hospice -On discharge, can transition to amoxicillin-clavulanate (875 mg PO q12h for CrCl>30, or 500 mg PO q12h for CrCl 10-30). Since she has not undergone source control with surgery, and anticipating that her prognosis is poor, could continue amox/clav indefinitely as long as the pt is tolerating the antibiotic, and it is within goals of care. Will sign off. Please page ID Connect Call [place] with further questions. Admission and Anticipated Discharge Date Admission Date: September 09, 2022 Subjective This patient recommendation is based on a telemedicine consult request which was completed asynchronously through chart review and information provided by the primary physician. The patient was not seen or examined today. The evaluation is consultative in nature and all patient care and treatment decisions can either be accepted or rejected by the patient's primary hospital-based treating physician using their own independent medical judgment for their patient. Afebrile, VSS WBC down to 10.82 09/12 BCx alpha hemolytic Strep identified as Strep bovis group Continues on pip-tazo and clindamycin Review of System Pt not seen Physical Exam Physical Exam: Pt not seen Results & Data ([place]) Vital Signs (Past 12 Hours) Vital Signs Temp Pulse Resp BP Pulse Ox O2 Del Method 09/17/22 07:14 36.4 C L 88 14 98/65 L 93 Room Air 09/17/22 03:15 36.3 C L 86 15 95/61 L 93 Room Air 09/16/22 22:45 36.5 C 81 15 96/59 L 92 Room Air Laboratory Results Short CBC 09/17/22 Range/Units 07:41 WBC 10.82 H (4.8-10.8) K/ul Hgb 9.6 L (12.0-16.0) g/dl Hct 31.7 L (34.1-44.9) % Plt Count 123 L (130-400) K/uL BMP 09/17/22 07:41 Sodium 137 Potassium 3.8 Chloride 102 Carbon Dioxide 27 BUN 49 H Creatinine 2.04 H Glucose 85 Calcium 7.5 L Liver Function 09/17/22 Range/Units 07:41 Total Bilirubin 0.7 (0.2-1.0) mg/dl AST 92 H (13-39) U/L ALT 12 (7-52) U/L Alkaline Phosphatase 200 H (34-104) U/L Albumin 2.3 L (3.4-5.0) gm/dl Medications Administered Current Inpatient Medications Acetaminophen (Acetaminophen 500 Mg Tab) 1,000 mg PO Q8H PRN PRN Reason: Pain or Fever Stop: 10/12/22 02:41 Last Admin: 09/12/22 17:21 Dose: 1,000 mg Allopurinol (Allopurinol 300 Mg Tab) 300 mg PO DAILY [facility]DR[facility] Stop: 10/12/22 11:14 Last Admin: 09/17/22 08:50 Dose: 300 mg Cyanocobalamin (Cyanocobalamin (B-12) 500 Mcg Tablet) 1,000 mcg PO DAILY [facility]DR[facility] Stop: 10/10/22 08:59 Last Admin: 09/16/22 07:37 Dose: 1,000 mcg Docusate Sodium (Docusate Sodium 100 Mg Cap) 100 mg PO BID [facility] Stop: 10/10/22 20:59 Last Admin: 09/17/22 08:50 Dose: 100 mg Ferrous Sulfate (Ferrous Sulfate 325 Mg Tab) 325 mg PO BIDM [facility] Stop: 10/10/22 07:59 Last Admin: 09/10/22 17:47 Dose: Not Given Folic Acid (Folic Acid 1 Mg Tab) 1 mg PO QAM [facility] Stop: 10/10/22 08:59 Last Admin: 09/17/22 08:50 Dose: 1 mg Furosemide ([facility]semide 20 Mg Tab) [facility] Stop: 10/11/22 08:59 Hydromorphone HCl (Hydromorphone Inj 1 Mg/Ml Syringe) 1 mg IV Q1H PRN PRN Reason: PAIN NOT RELIEVED BY PO Stop: 09/23/22 15:25 Last Admin: 09/17/22 08:49 Dose: 1 mg Hydromorphone HCl (Hydromorphone Hcl 2 Mg Tab) 4 mg PO Q4H PRN PRN Reason: Pain Stop: 09/30/22 16:26 Last Admin: 09/16/22 17:45 Dose: 4 mg Prochlorperazine 10 mg/ (Syringe) 10 mls @ 5 mls/min IV Q6H PRN PRN Reason: Nausea And Vomiting Stop: 10/11/22 07:51 Last Admin: 09/13/22 08:30 Dose: 5 mls/min Piperacillin Sod/Tazobactam (Sod 4.5 gm/ Dextrose) 120 mls @ 30 mls/hr IV Q8H [facility]; Protocol Stop: 09/29/22 17:59 Last Admin: 09/17/22 08:49 Dose: 30 mls/hr Clindamycin Phosphate (Cleocin/D5w) 900 mg in 50 mls @ 100 mls/hr IV Q8H [facility] Stop: 09/29/22 10:59 Last Infusion: 09/17/22 05:34 Dose: Infused Levalbuterol HCl (Levalbuterol Hcl 0.63 Mg/3 Ml Neb) 0.63 mg NEB Q6R PRN; Protocol PRN Reason: shortness of breath Stop: 10/12/22 18:59 Levothyroxine Sodium (Levothyroxine Sodium 75 Mcg Tablet) 75 mcg PO DAILYBB [facility] Stop: 10/11/22 06:29 Last Admin: 09/17/22 05:40 Dose: 75 mcg Magnesium Oxide (Magnesium Oxide 400 Mg Tab) 400 mg PO BID [facility] Stop: 10/09/22 20:59 Last Admin: 09/16/22 20:33 Dose: 400 mg Methadone HCl (Methadone Hcl 5 Mg Tab) 5 mg PO BID [facility] Stop: 09/29/22 17:59 Last Admin: 09/17/22 08:49 Dose: 5 mg Metoprolol Succinate (Metoprolol Succ 50mg Ext Rel Tab) 50 mg PO [facility] Stop: 10/10/22 08:59 Last Admin: 09/17/22 08:53 Dose: Not Given Naloxone HCl (Naloxone Hcl 0.4 Mg/1 Ml Vial/Carp) 0.1 mg IV Q5M PRN; Protocol PRN Reason: Oversedation/Resp Depression Stop: 09/25/22 12:41 Pantoprazole Sodium (Pantoprazole 40 Mg Tab) 40 mg PO [facility] Stop: 10/10/22 08:59 Last Admin: 09/17/22 08:50 Dose: 40 mg Potassium Chloride (Potassium Chloride 20 Meq/15 Ml Udc) 20 meq PO BID [facility] Stop: 10/10/22 09:29 Last Admin: 09/12/22 09:08 Dose: 20 meq Sennosides (Senna 8.6 Mg Tab) 17.2 mg PO [facility] Stop: 10/12/22 08:59 Last Admin: 09/17/22 08:52 Dose: 17.2 mg Spironolactone (Spironolactone 25 Mg Tab) 25 mg PO [facility] Stop: 10/10/22 08:59 Last Admin: 09/12/22 09:07 Dose: 25 mg
[2022-09-17] MEDS: MAGNESIUM OXIDE 400 MG TAB PO SCH ×2 (10:00→20:55)
[2022-09-17] MEDS: CYANOCOBALAMIN (B-12) 500 MCG TABLET PO SCH (10:00)
--- NOTE | 2022-09-17 12:46 | Palliative Care Progress Note ---
Date of Service September 17, 2022 Assessment & Plan (1) Palliative care encounter: Plan: Cancer related pain and symptom management underway. Psychosocial support provided. She was able to enjoy a visit with her family and children yesterday, celebrated a birthday while they were visiting. She continues to use [employer] through the day for family communications. (2) Cancer related pain: Plan: Yenny has been moved off [employer] Dilaudid entirely and has been ordered oral Dilaudid as needed for breakthrough pain. However, she is continue to request the IV Dilaudid, forgetting that an oral option was there. Therefore I have decreased the frequency of her IV Dilaudid to every 4 hours as needed for very severe pain unrelieved by oral medication and I have modified her oral Dilaudid to 6 mg p.o. every 3 hours as needed for breakthrough pain. I have added a hold parameter hold for somnolence or respiratory rate less than 14. I reviewed these changes with Yenny directly. She verbalized understanding and is in agreement with the plan as outlined. We will continue to monitor her response to methadone and I will continue to titrate therapy as needed. I anticipate a likely 3 times daily dosing schedule for her methadone. METHADONE SHOULD NOT BE TITRATED DAILY: Methadone is lipophilic, thus it takes time to develop tissue stores that maintain serum levels. There is enormous interindividual variation in how long this takes. After a single dose there is a short distribution phase (associated with acute pain relief) with a half-life of 2-3 hours and a slow elimination phase (half-life 15-60 hours). Dosing must account for the accumulation of drug over days. It is this accumulation that accounts for most therapeutic misadventures. Liver metabolites are inactive; therefore no dose reduction is required with renal failure. After steady-state is reached, about two-thirds of patients will get adequate pain relief with twice a day dosing.Note: a number of drugs will alter methadone metabolism, so there needs to be close follow-up to drug interactions. There are several approaches to starting methadone for the treatment of pain. All take into account the long-half life of the drug that leads to drug accumulation over days.I favor a conservative approach as follows: Conservative Approach: 1. I have initiated fixed dose methadone 5 mg BID, will monitor over next 4-7 days before deciding about dose changes 2. If incomplete pain reliefafter this interim, will plan to make this methadone 5mg TID 3. Will continue increasing dose every 4-7 days until stable pain relief achieved. For breakthrough pain: we will use an alternative short acting oral opioid with short half-life (for this pt, we are using Dilaudid as outlined above prnfor breakthrough pain)and to provide pain relief during titration phase. This dose too may need to be titrated based on efficacy. (3) Metastatic leiomyosarcoma to intra-abdominal site: Plan: terminal (4) Leiomyosarcoma: (5) Advanced care planning/counseling discussion: (6) Acute on chronic anemia: (7) Weakness: Plan Continue Methadone 5mg PO BID for management of her very severe and refractory cancer-related pain. IV increased oral Dilaudid to 6 mg by mouth every 3 hours as needed for breakthrough pain, noting that she has been averaging a milligram IV most hours for breakthrough pain in the interim. Will likely need a dose increase of her methadone as well but will need a few more days of methadone therapy before making adjustments on this long-acting medication. Her IV Dilaudid has been moved to every 4 hours as needed for very severe pain refractory to oral therapy. Hold parameters for somnolence or respiratory rate less than 14 have been added. She has had failure of prior opioid therapies with trialed and escalated doses of morphine and oxycodone. Echocardiogram indicates a suspicious mitral valve vegetation and ID consult has been obtained, Abtx underway. María Scott DNP Clinical Director, Palliative Medicine Admission and Anticipated Discharge Date Admission Date: September 09, 2022 Subjective ongoing cancer related pain mgt moved to oral Dilaudid yesterday and continues BID Methadone on tx for valvular vegetation, ID following closely Patient is seen at bedside together with the bedside nurse. Her nurse shares that patient has been using her IV Dilaudid more than her oral Dilaudid and averages most of the time 1 mg IV every hour. Patient states that she often forgets that an oral dose is available. She is taking p.o. and tolerating her diet without any nausea vomiting or diarrhea. So far she is tolerating the antibiotic Review of Systems Review of Systems: All systems reviewed & are unremarkable except as noted in Subjective Physical Exam Physical Exam: Mild discomfort especially with repositioning. Respiratory effort stable at rest with no conversational dyspnea. Abdomen remains distended and firm, there is a nodularity noted with palpation. She has significant peripheral edema to bilateral lower extremities and bilateral upper extremities +1 to +2. Her mood is stable and she is pleasant and interactive throughout our visit. She remains awake alert and oriented x3. Results & Data ([facility]) Vital Signs (Past 12 Hours) Vital Signs Temp Pulse Pulse Resp BP Pulse Ox O2 Del Method 09/17/22 06:00 85 09/17/22 11:01 36.3 C L 89 16 105/67 94 Room Air 09/17/22 08:00 Room Air 09/17/22 07:14 36.4 C L 88 14 98/65 L 93 Room Air 09/17/22 03:15 36.3 C L 86 15 95/61 L 93 Room Air Laboratory Results Labs and imaging reviewed Diagnostic Findings Labs and imaging reviewed PG Care Time/CCT Total # of Minutes Spent Total Time Spent: 45 Total Time Spent with Patient: Total time spent is greater than 50% in coordination of care (as documented) at patient's floor/unit and/or counseling patient: Prolonged Care Time Prolonged Care Time: No Critical Care Time: No Critical Care Time Critical Care Time: No C[place] [address] SUB INP/OBS CARE 3/50MIN Patient Type Established History Detailed Exam Detailed Medical Decision Making High Complexity Diagnoses Palliative care encounter Z51.5 Cancer related pain G89.3 Metastatic leiomyosarcoma to intra-abdominal site C79.89 Leiomyosarcoma C49.9 Advanced care planning/counseling discussion Z71.89 Acute on chronic anemia D64.9 Weakness R53.1
[2022-09-17] MEDS ORDERED: HYDROmorphone INJ 1 MG/ML SYRINGE IV PRN (13:00)
[2022-09-17] MEDS: HYDROmorphone HCL 2 MG TAB PO PRN ×2 (15:07→22:59)
[2022-09-18] MEDS: PIPERACILLIN/TAZOBACTAM 4.5 GM in DEXTROSE 5% 100 ML IV SCH ×3 (03:03→19:25)
[2022-09-18] MEDS: CLINDAMYCIN/D5W 900 MG/50 ML PREMIX BAG IV SCH ×3 (03:04→19:25)
[2022-09-18] MEDS: HYDROmorphone HCL 2 MG TAB PO PRN ×2 (05:40→16:47)
[2022-09-18] MEDS: LEVOTHYROXINE SODIUM 75 MCG TABLET PO SCH (05:40)
[2022-09-18] MEDS: METHADONE HCL 5 MG TAB PO SCH ×2 (08:32→20:00)
[2022-09-18] MEDS: DOCUSATE SODIUM 100 MG CAP PO SCH ×2 (08:33→20:00)
[2022-09-18] MEDS: SENNA 8.6 MG TAB PO SCH (08:33)
[2022-09-18] MEDS: METOPROLOL SUCC 50MG EXT REL TAB PO SCH (08:34)
[2022-09-18] MEDS: CYANOCOBALAMIN (B-12) 500 MCG TABLET PO SCH (08:34)
[2022-09-18] MEDS: allopurinoL 300 MG TAB PO SCH (08:35)
[2022-09-18] MEDS: FOLIC ACID 1 MG TAB PO SCH (08:35)
[2022-09-18] MEDS: MAGNESIUM OXIDE 400 MG TAB PO SCH ×2 (08:35→20:01)
[2022-09-18] MEDS: PANTOprazole 40 MG TAB PO SCH (08:35)
--- NOTE | 2022-09-18 10:17 | Discharge Summary ---
Discharge Summary Date of Service September 19, 2022 Admission HPI Per Admitting Provider Yenny Garcia is a 47 year old female with widely metastatic retroperitoneal leiomyosarcoma (Follows with [facility] On[facility]) who presents to the ER due to low hemoglobin on her routine outpatient labs. She has a significant history of life threatening hematochezia in April 2022 requiring massive blood transfusion protocol and life flight to [place]. She was on Eliquis at that time for DVT which has been discontinued indefinitely despite large DVT and inability to place IVC, HFpEF (LVEF of 50-55%, mild left atrial dilation, mild mitral regurgitation as of 06/26/22),hypothyroidism, HTN, and B12 deficiency who presented to the [facility] ED on 09/09/22 with complaints of significant edema and SOB. Per chart review, the patient has required frequent ED visits and hospital admissions over the past year from severe anemia due to chemotherapy treatment. She is currently not receiving chemo or radiation at this time due to her anemia and weakness. In the ED today the patient was found to be afebrile, hemodynamically stable, and stable on RA. Labs were remarkable for a Hgb of 7.6, stable WBC at 9.8, platelets of 105, absolute neutrophil count of 8.65, INR of 1.2, cr of 1.5 (baseline appears to be between 1.4-1.5), corrected calcium of 8.9 otherwise stable electrolytes, AST of 75, alk phos of 214, and covid negative. Chest xray today was read as "1. Pulmonary vascular congestion with small bilateral pleural effusions. 2. Redemonstration of pulmonary metastases.". Due to the patient being severely symptomatic we were asked to admit the patient. Prio to admission the patient was consented for blood, 1 unit PRBCs was ordered bu the ED. She was also given 40 mg IV lasix and 1 mg IV Dilaudid. At the time of the exam the patient was sitting comfortably in bed in no acute distress. She states that she has been gaining significant weight from her swelling and has been much more SOB lying flat and with exertion. She denies recent fevers, chills, chest pain, cough. She has noted some nausea but no recent vomiting, she does note significant swelling in her abdomen. She denies recent dysuria, hematuria, rectal bleeding, and trauma. I explained to her that we are concerned she may have metastases pushing on major blood vessels that could be contributing to her swelling. I explained that she is currently at her baseline renal function and ideally we would get CT's of the chest/abdomen/pelvis with IV contrast in order to further evaluate he condition. I explained that the CT contrast can be associated with renal failure, we also discussed the importance of figuring out the exact cause of her swelling. She acknowledged the risks and benefits of obtaining the CT's with contrast and chose to obtain them with contrast. I spoke with her regarding her current condition, continued clinical decline, and plans/goals for the future. She explained that she is to have another tele visit with her Oncologist in [place] in the near future to discuss the potential of starting a clinical trial. Unfortunately she has not been a candidate due to her anemia and Hgb less than 9.0. At this time the patient wants to wait to discuss possible palliative care/hospice until she has that meeting with her Oncologist. I confirmed with her that she is very high risk for acute decompensation due to her previous DVT's and inability to have an IVC filter placed. She expressed understanding that she could have a PE which could lead to is severe enough. We discussed code status, at this time she wishes to be a Full Code. Her would make decisions for her if she could not make them herself. Please refer to Dr. Harper's attestation for any changes to the treatment plan Admission Exam Per Admitting Provider General:In no acute distress, stated age, chachetic, chronically ill-appearing HEENT:Normocephalic, atraumatic, no scleral icterus, pupils around round, symmetrical, and reactive to light, moist mucus membranes, trachea midline, no thyromegaly Chest/Pulm:Patient with mediport located in the left upper chest is without signs of infection, No respiratory distress, symmetrical chest expansion, decreased breath sounds in the BL lower lung pimentel, expiratory wheezing noted in all other lung pimentel. Cardiac:RRR, systolic murmur noted Abdomen:Significant ascites without bruising, hypoactive bowel sounds, firm, non-tender to palpation throughout Musculoskeletal:Symmetrical and without signs of acute trauma, upper and l ower extremities with full ROM, no atrophy, spasticity, or flaccidity Extremities:Radial, dorsalis pedis, and posterior tibial pulses are intact and symmetrical, +3 pitting edema noted in the BL LE's, RLE with significant erythema compared to the left, she was previously diagnosed with DVT's in the RLE Skin:Warm, dry, no rashes , lesions, or scars noted Neuro:Alert and oriented to person, place, month, year, and president, no focal defects, CN II-XII tested and intact, finger to nose test negative, no tremors noted Psych:No acute distress, calm and cooperative during the exam Principal Dx & Hospital Course #1 = Principal Diagnosis (1) Bacteremia: 47 yo F Hx metastatic leiomyosarcoma, DVT, CHF, anemia of chronic disease (cancer-related) admitted for symptomatic anemia and anasarca. Getting weekly labs/blood transfusions as outpatient but presented due to increased shortness of breath prior to being able to get most recent transfusion. Had not reported any fevers prior to admission, but then developed while inpatient 09/11 On admission, imaging with worsening tumors to pelvis, likely compressing on vasculature causing worsening body edema. Hgb 7.6 on admit, had gotten 2u PRBC and hgb had remained stable. Transfusion support to be provided for symptoms per hospice agency Fever occured 09/11, concerning for infection * UA Gardnerella like bacilli, blood cultures with alpha strep not S pneumo/enterrococcus (Viridans) in 1/2 sets anaerobic noted bacteria but not identified at that time. * On 09/15/22, blood cultures showed evidence for clostridium perfringens in 1/2 bottles and ID was contacted for discussion. Repeat blood cultures have been NGTD, patient has been afebrile ID consulted and appreciate recommendations: continue Zosyn while admitted, with transition to Augmentin BID on discharge indefinitely given cannot achieve source control of necrotic infection in abdomen. CM working on hospice at d/c. Found agency able to agree to transfusion support as long as not deemed burden to patient. Discharged home with home hospice services 09/19/22. (2) Anemia: 2nd to malignancy, 3u PRBC received thus far this admission Had remained stable, getting weekly transfusions Hgb ~9 on discharge. (3) Cancer related pain: Palliative consulted for goals of care/pain control Fixed dose methadone 5 mg BID, with dilaudid 6mg q3h as needed for breakthrough pain OTC bowel regimen recommended to patient for constipation (4) Fever: Was initially ? if possible tumor lysis, uric acid elevated -- allopurinol 300mg daily as above Likely 2nd to bacteremia, bcx as above, 2nd to GI source/necrotic mass (5) Leiomyosarcoma: s/p tumor debulking with Dr Lou in 2019 and multiple rounds of chemo (w/ Dr Salas and Dr Mckeon), most recently on Trabectedin. Had been hospitalized for hypotension/hgb5 c/w hypovolemic shock. Was given Kcentra/2u PRBC, rebled and another 2u PRBC and TXA and 2u FFP. Then tx to [facility] for further management, given 3 more units and cryo. Eliquis discontinued, not candidate for IVF filter given unable to place due to vein compression likely related to intra-abdominal mass Palliative consulted as above for goals of care -- pain management as outlined above with Dilaudid/methadone, plan for hospice on discharge (6) Fluid overload: Multifactorial including hypoalbuminemia, anasarca from her known cancer, possible mass effect, and hx of heart failure Recent PIEDAD w/ normal LV systolic function, does have murmur on exam, but doubt benefit for repeat given just done in June, EF 50-55%, no wma Given 40mg IV lasix x 2 on admit, additional 20mg IV 09/10 and 40mg IV on 09/11 with blood (7) Hypertension: [employer] RES[employer] (8) Hypothyroidism: [employer]E [employer]ERK (9) History of cardiomyopathy: Had a TTE in june of this year (10) Hx of deep venous thrombosis: Patient was previously diagnosed with LE DVT's when she was transferred to [place] with her large GI bleed US LE Doppler w/ chronic DVT --> LE edema likely compression from pelvic tumors as above Checked US UE for prognostic data/UE edema, 1. No DVT within the right or left lower extremity. 2. Nonocclusive thrombus within the right internal jugular vein which may be chronic Not able to be on anticoagulation, or have IVC filter placed due to location/too high risk and recent lift-threatening bleeding (11) EDDIE (acute kidney injury): creatinine 2.04, was on allopurinol now [employer] RES[employer]E [employer]ERK Plan Continue symptom management, Abx, plan for discharge today with hospice to see this afternoon, pain control Discharge Exam Constitutional WD/WN, vitals as above (comfortable appearing) Respiratory normal respiratory effort, lungs clear to auscultation Cardiovascular RRR, no murmur, no edema Gastrointestinal (Abdomen) abdomen firm, distended Skin no rashes, warm and dry Psychiatric A+Ox3, euthymic affect Updated Medication List Medication Instructions Recorded Confirmed Type empagliflozin 10 mg tablet 10 mg PO QAM 03/21/22 09/09/22 History (Jardiance) furosemide 40 mg tablet 40 mg PO QAM 03/21/22 09/09/22 History metoprolol succinate 50 mg 50 mg PO QAM 03/21/22 09/09/22 History tablet,extended release 24 hr ondansetron HCl 8 mg tablet 8 mg PO Q8 PRN Nausea 03/21/22 09/09/22 History spironolactone 25 mg tablet 25 mg PO QAM 03/21/22 09/09/22 History potassium chloride 20 mEq 20 meq PO BID 05/07/22 09/09/22 History tablet,extended release(part/cryst) prochlorperazine maleate 10 mg 10 mg PO DAILY PRN Nausea 06/12/22 09/09/22 History tablet magnesium oxide 400 mg PO BID 06/25/22 09/09/22 History levothyroxine 50 mcg tablet 50 mcg PO DAILYBB #30 tabs 06/26/22 09/09/22 Rx (Synthroid) pantoprazole 40 mg tablet,delayed 40 mg PO QAM #30 tabs 06/26/22 09/09/22 Rx release (Protonix) ferrous sulfate 325 mg (65 mg 325 mg PO BID #60 tabs 07/02/22 09/09/22 Rx iron) tablet folic acid 1 mg tablet 1 mg PO QAM 07/02/22 09/09/22 History cyanocobalamin (vitamin B-12) 1,000 mcg PO DAILY #30 caps 07/03/22 09/09/22 Rx 1,000 mcg capsule allopurinol 300 mg tablet 300 mg PO DAILY #30 tabs 09/14/22 Rx levothyroxine 75 mcg tablet 75 mcg PO DAILYBB #30 tabs 09/14/22 Rx (Synthroid) amoxicillin 875 mg-potassium 1 tab PO BID 14 days #28 tabs 09/19/22 Rx clavulanate 125 mg tablet cyanocobalamin (vitamin B-12) 500 1,000 mcg PO DAILY 14 days #28 tabs 09/19/22 Rx mcg tablet docusate sodium 100 mg capsule 100 mg PO BID 14 days #28 caps 09/19/22 Rx folic acid 1 mg tablet 1 mg PO QAM 14 days #14 tabs 09/19/22 Rx hydromorphone 2 mg tablet 6 mg PO Q3H #30 tabs 09/19/22 Rx (Dilaudid) methadone 10 mg tablet 5 mg PO Q12H 14 days #14 tabs 09/19/22 Rx ondansetron 8 mg disintegrating 8 mg PO BID PRN nausea and 09/19/22 Rx tablet vomiting 5 days #10 tabs sennosides 8.6 mg tablet (Senokot) 17.2 mg PO QAM 14 days #28 tabs 09/19/22 Rx Hospital Stay Data Consultations 09/09/22 14:30 ED Decision to Admit Stat 09/09/22 17:35 Consult Oncology Routine 09/09/22 21:23 Consult Health Information Management Routine 09/11/22 10:00 Consult Palliative Care Routine 09/14/22 11:27 Consult Infectious Diseases Routine 09/16/22 08:04 Consult Cardiology Routine Diagnostic Imagining Performed 09/09/22 15:09 CTA abdomen pelvis w con [CT angio abdomen pelvis w con] Urgent CTA chest w con [CT angio chest w con] Urgent 09/09/22 15:14 US venous doppler LE BI Routine 09/11/22 US venous doppler UE BI Routine Discharge Instructions Given to Patient (Per Discharging Provider) You were admitted to the hospital for treatment of your anemia and infection in your abdomen. You were on IV antibiotics with improvement in your blood infection. You received blood which helped with your anemia. We made adjustments to your pain medications, please see the medication changes below. You will go home on an antibiotic called Augmentin, which you can take indefinitely in order to control the infection in your belly. The hospice agency will see you this afternoon and can assume the care of your pain, your anemia, and any other needs that you may have. Please call María Scott at [phone] next week to schedule a zoom call to check in. If you have any symptoms that are conerning to you, please contact the hospice doctors. Total Time Total Time Spent Total Time Spent (In Minutes): 45 minutes Coding Level of Care Code HOSP INP/OBS DISCH >30 MIN Diagnoses Bacteremia R78.81 Anemia D64.9 Anemia type: unspecified type Cancer related pain G89.3 Fever R50.9 Leiomyosarcoma C49.9 Fluid overload E87.79 Hypervolemia type: other Hypertension I10 Hypothyroidism E03.9 History of cardiomyopathy Z86.79 Hx of deep venous thrombosis Z86.718 EDDIE (acute kidney injury) N17.9
--- NOTE | 2022-09-18 16:07 | Hospitalist Progress Note ---
Date of Service September 18, 2022 Assessment & Plan (1) Bacteremia: Plan: 47 yo F Hx metastatic leiomyosarcoma, DVT, CHF, anemia of chronic disease (cancer-related) admitted for symptomatic anemia and anasarca. Getting weekly labs/blood transfusions as outpatient but presented due to increased shortness of breath prior to being able to get most recent transfusion. Had not reported any fevers prior to admission, but then developed while inpatient 09/11 On admission, imaging with worsening tumors to pelvis, likely compressing on vasculature causing worsening body edema. * CTA Chest/A/P : NO PE, does note multifocal metastatic disease. This has progressed as compared to 06/12/2022., small-moderate pleural effusions, small volume of abdominopelvic ascites, anasarca indicate fluid overload. An approximately 22 cm necrotic mass lesion fills the pelvis and encases/displaces several structures as above, including the rectum and several bowel loops. Invasion of these structures is not excluded. Tiny foci of active extravasation within this lesion are not excluded. Additional large mass lesions within the abdomen and pelvis have increased in size from previous. Hepatomegaly with progressive hepatic metastatic disease. Occluded right internal iliac artery. There is moderate to severe right and mild left hydronephrosis with ureteral stents in place. * Venous Doppler LE : There is a chronic appearing nonocclusive thrombus in the right common femoral vein, popliteal vein, and great saphenous vein. The left great saphenous vein is equivocal and may be noncompressible due to extensive edema. A small amount of linear chronic thrombus is suggested. * Upper Ext Doppler:1. No DVT within the right or left lower extremity. 2. Nonocclusive thrombus within the right internal jugular vein which may be chronic. Hgb 7.6 on admit, had gotten 2u PRBC and hgb had remained stable. Transfusion support to be provided for symptoms Fever occured 09/11, concerning for infection * Blood cultures obtained, procal checked (elevated to 8.26) * UA Gardnerella like bacilli, blood cultures with alpha strep not S pneumo/enterrococcus (Viridans) in 1/2 sets anaerobic noted bacteria but not identified at that time. Lab believed to be contaminant however given entire clinical picture/fever/elevated WBC, did not want to chance * On 09/15/22, blood cultures showed evidence for clostridium perfringens in 1/2 bottles and ID was contacted for discussion. ECHO ordered to r/o endocarditis * ECHO came back w/ possible evidence for mitral valve vegetation * Impression: Left ventricular systolic function is normal. The left atrium is mildly dilated. There is thickening of the mitral valve leaflets at the coaptation. Vegetation at this location cannot definitely be excluded. There is mild mitral regurgitation. Right ventricular systolic pressure is elevated at 30-40mmHg. * Cards consulted, looked at echo, felt just some thickening and would not have read as possible vegetation. Given clinical picture, would not pursue PIEDAD Procal trended down. Repeat blood cultures have been NGTD, patient has been afebrile. ID consulted and appreciate recommendations: continue Zosyn while admitted, with transition to Augmentin on discharge indefinitely given cannot achieve source control of necrotic infection in abdomen. CM working on hospice at d/c. Found agency able to agree to transfusion support as long as not deemed burden to patient, will be able to come to home tomorrow. Palliative consulted for goals of care/legacy planning/pain control -- see below Plan to discharge patient hopefully tomorrow if hospice agency available. (2) Anemia: Plan: 2nd to malignancy, 3u PRBC thus far this admission Had remained stable, getting weekly transfusions (3) Cancer related pain: Plan: Palliative consulted for goals of care/pain control Fixed dose methadone 5 mg BID, will monitor over next 4-7 days before deciding about dose changes Dilaudid PO dosing to be given first, with IV q4h as needed for breakthrough pain. Did well with just PO today. Palliative to continue follow up/management after discharge for further titrations as needed (4) Fever: Plan: Was initially ? if possible tumor lysis, uric acid elevated -- allopurinol 300mg daily as above Likely 2nd to bacteremia, bcx as above, 2nd to GI source/necrotic mass No further fevers, repeat blood cultures no growth, WBC trending down ID consulted/abx as outlined (5) Leiomyosarcoma: Plan: s/p tumor debulking with Dr Lou in 2019 and multiple rounds of chemo (w/ Dr Salas and Dr Mckeon), most recently on Trabectedin. Had been hospitalized for hypotension/hgb5 c/w hypovolemic shock. Was given Kcentra/2u PRBC, rebled and another 2u PRBC and TXA and 2u FFP. Then tx to [facility] for further management, given 3 more units and cryo. Eliquis discontinued, not candidate for IVF filter given unable to place due to vein compression likely related to intra-abdominal mass Palliative consulted as above for goals of care -- pain management as outlined above with Dilaudid/methadone, plan for hospice on discharge once able. (6) Fluid overload: Plan: Multifactorial including hypoalbuminemia, anasarca from her known cancer, possible mass effect, and hx of heart failure Recent PIEDAD w/ normal LV systolic function, does have murmur on exam, but doubt benefit for repeat given just done in June, EF 50-55%, no wma Given 40mg IV lasix x 2 on admit, and has received Lasix 20mg IV with each blood transfusion. (7) Hypertension: Plan: Continues on metoprolol with hold parameters Monitor (8) Hypothyroidism: Plan: Continue levothyroxine 50mcg daily Of note, TSH was 36 in June, placed on Synthroid 50mcg daily -- she reports has been taking this correctly, never had any repeat TFT outpatient Repeat TSH still elevated at 14.8, borderline T4--> increased Synthroid to 75mcg daily -- continue at d/c (9) History of cardiomyopathy: Plan: Had a TTE in june of this year Remains on BB w/ hold parameters No ASA/Anticoagulation given bleeding (10) Hx of deep venous thrombosis: Plan: Patient was previously diagnosed with lare right LE DVT's when she was transferred to [place] with her large GI bleed US LE Doppler w/ chronic DVT --> LE edema likely compression from pelvic tumors as above Checked US UE for prognostic data/UE edema, 1. No DVT within the right or left lower extremity. 2. Nonocclusive thrombus within the right internal jugular vein which may be chronic Not able to be on anticoagulation, or have IVC filter placed due to location/too high risk and recent lift-threatening bleeding High risk as she is aware, CT chest on admit w/o PE (11) EDDIE (acute kidney injury): Plan: creatinine 2.04, on allopurinol give possible TLS per discussion w/ heme/onc as not getting anymore active treatment Plan Continue symptom management, Abx, plan for discharge tomorrow if adequate pain control and hospice agency available for home visit Admission and Anticipated Discharge Date Admission Date: September 09, 2022 Subjective No issues overnight, pain well controlled with dilaudid PO prn. Hospice agency unable to come to home until tomorrow. Review of Systems Review of Systems: All systems reviewed & are unremarkable except as noted in Subjective Physical Exam Constitutional: WD/WN, vitals as above (comfortable appearing) Respiratory: normal respiratory effort, lungs clear to auscultation Cardiovascular: RRR, no murmur, no edema Gastrointestinal (Abdomen): abdomen distended, firm Skin: no rashes, warm and dry Psychiatric: A+Ox3, euthymic affect Results & Data Results & Data ([facility]) Vital Signs (Past 12 Hours) Vital Signs Temp Pulse Pulse Resp BP Pulse Ox O2 Del Method 09/18/22 14:40 104 H 09/18/22 12:35 Room Air 09/18/22 12:23 36.6 C 120 H 18 109/75 90 Room Air 09/18/22 08:01 36.7 C 104 H 18 101/66 92 Room Air PG Care Time/CCT Total # of Minutes Spent Total Time Spent with Patient: Total time spent is greater than 50% in coordination of care (as documented) at patient's floor/unit and/or counseling patient: Coding Level of Care Code 80891 SUB INP/OBS CARE 235MIN Diagnoses Bacteremia R78.81 Anemia D64.9 Anemia type: unspecified type Cancer related pain G89.3 Fever R50.9 Leiomyosarcoma C49.9 Fluid overload E87.79 Hypervolemia type: other Hypertension I10 Hypothyroidism E03.9 History of cardiomyopathy Z86.79 Hx of deep venous thrombosis Z86.718 EDDIE (acute kidney injury) N17.9 (1) Anemia Anemia type: unspecified type Qualified Code(s): D64.9 - Anemia, unspecified (2) Fluid overload Hypervolemia type: other Qualified Code(s): E87.79 - Other fluid overload
[2022-09-19] MEDS ORDERED: HEPARIN 100 UNIT/ML 5ML FLUSH FLUSH PRN (01:10)
[2022-09-19] MEDS: CLINDAMYCIN/D5W 900 MG/50 ML PREMIX BAG IV SCH ×2 (02:02→11:44)
[2022-09-19] MEDS: PIPERACILLIN/TAZOBACTAM 4.5 GM in DEXTROSE 5% 100 ML IV SCH ×2 (02:03→11:43)
[2022-09-19] MEDS: LEVOTHYROXINE SODIUM 75 MCG TABLET PO SCH (05:38)
[2022-09-19] MEDS: HYDROmorphone HCL 2 MG TAB PO PRN (05:40)
[2022-09-19] MEDS: DOCUSATE SODIUM 100 MG CAP PO SCH (08:26)
[2022-09-19] MEDS: SENNA 8.6 MG TAB PO SCH (08:29)
[2022-09-19] MEDS: METOPROLOL SUCC 50MG EXT REL TAB PO SCH (08:29)
[2022-09-19] MEDS: METHADONE HCL 5 MG TAB PO SCH (08:31)
[2022-09-19] MEDS: MAGNESIUM OXIDE 400 MG TAB PO SCH (08:32)
[2022-09-19] MEDS: CYANOCOBALAMIN (B-12) 500 MCG TABLET PO SCH (08:32)
[2022-09-19] MEDS: FOLIC ACID 1 MG TAB PO SCH (08:32)
[2022-09-19] MEDS: PANTOprazole 40 MG TAB PO SCH (08:32)
[2022-09-19] MEDS: allopurinoL 300 MG TAB PO SCH (08:33)
== END 2022-09-19 12:30 | disposition hospice, home (50) | DRG 543 ==
LOC: ED 09:04 → SUATTDRO 14:46 → EDINP 14:46 → 2S 17:00
DX: B95.0 Streptococcus, group A, as the cause of diseases classified elsewhere; Z87.891 Personal history of nicotine dependence; Z66 Do not resuscitate; C49.4 Malignant neoplasm of connective and soft tissue of abdomen; Z51.5 Encounter for palliative care; B96.7 Clostridium perfringens [C. perfringens] as the cause of diseases classified elsewhere; I82.891 Chronic embolism and thrombosis of other specified veins; I82.811 Embolism and thrombosis of superficial veins of right lower extremity; I50.32 Chronic diastolic (congestive) heart failure; C78.00 Secondary malignant neoplasm of unspecified lung; E46 Unspecified protein-calorie malnutrition; Z92.3 Personal history of irradiation; E88.09 Other disorders of plasma-protein metabolism, not elsewhere classified; I82.501 Chronic embolism and thrombosis of unspecified deep veins of right lower extremity; I74.5 Embolism and thrombosis of iliac artery; D63.0 Anemia in neoplastic disease; N17.9 Acute kidney failure, unspecified; E03.9 Hypothyroidism, unspecified; G89.3 Neoplasm related pain (acute) (chronic); I11.0 Hypertensive heart disease with heart failure; I82.411 Acute embolism and thrombosis of right femoral vein; I82.431 Acute embolism and thrombosis of right popliteal vein; R78.81 Bacteremia; C78.7 Secondary malignant neoplasm of liver and intrahepatic bile duct; E87.70 Fluid overload, unspecified